=== PATIENT | male | born 1980 | race Caucasian/White ===

== ENCOUNTER 2023-04-28 12:41 | Outpatient (OUT) | payer OTHER, SELFPAY ==
--- NOTE | 2023-04-28 13:49 | P.CN_ITS ---
Consult Note: HPI Data of Consult Patient: new to practice Consult date: 04/28/23 Requesting Physician: Gala Garza MD Primary Care Provider: Jose Peck, Consult Narrative Reason for consult: neck, left arm pain Narrative: 43yom who presents for evaluation. worsening neck and left arm pain that has be en ongoing for months to years. denies trauma. pain shoots down left arm to hand, causes numbness and tingling. progressive left arm weakness. has engaged in >6 weeks of provider directed home exercise course, with minimal benefit. trialed diclofenac, with some benefit. denies adverse med side effects. cc:: CC: Gala Garza MD Review of Systems ROS Status of ROS 10 or more systems reviewed and unremarkable except as noted in history and below Meds Home Medications and Allergies Home Medications Medication Instructions Recorded Confirmed Type diclofenac sodium 75 mg 75 mg PO BID 04/28/23 04/28/23 History tablet,delayed release gabapentin 300 mg capsule 300 mg PO TID 04/28/23 04/28/23 History Allergies Allergy/AdvReac Type Severity Reaction Status Date / Time No Known Drug Allergies Allergy Verified 04/28/23 13:46 Exam Narrative Exam Narrative: Psych-alert and oriented x 3.? Attentive and appropriate, constitutionally normal, displays normal mood and affect per situation.? There are no obvious deficits in memory, reasoning, or intellect.? Skin-no obvious rashes, bruising, or erythema noted to the patient's area of pain.? Extremities-upper extremities are warm with minimal edema and palpable pulses. Cervical- tenderness to palpation noted in the cervical spine and paraspinal musculature.? Pain is elicited with flexion, extension, and lateral rotation of the cervical spine.? Range of motion is diminished due to pain. Facet loading maneuvers are positive.? Strength-unremarkable and within normal limits with the exception to the left biceps, triceps. Sensory-no notable sensory deficits in the bilateral upper extremities to touch or pinprick with the exception to decreased sensation to the left C5, 6, 7 dermatomal distribution.? Coordination remains intact.? Gait remains non-antalgic. Assessment and Plan Assessment and Plan (1) Cervical radiculopathy: (2) Cervical stenosis of spine: (3) Cervical spondylosis: Plan 43yom who presents for evaluation. failed physical and medical modalities, as noted. given worsening symptoms and weakness in left arm, would like him to undergo cervical mri without contrast for assessment. he is in agreement. medications reviewed, will trial gabapentin 300mg tid. he expressed understanding. follow up after imaging.
== END 2023-04-28 12:42 | disposition home or self-care (01) ==
LOC: PM 12:42
PROVIDERS: PCP Internal Medicine; Visit Provider Anesthesiology
DX: M47.22 Other spondylosis with radiculopathy, cervical region (principal); M48.02 Spinal stenosis, cervical region
CPT/HCPCS: G0463

== ENCOUNTER 2023-05-02 11:51 | Outpatient (OUT) | payer OTHER, SELFPAY ==
--- NOTE | 2023-05-02 11:54 | XR_ITS ---
[address] [address] Patient Name: JOY ANDERSEN MRN: [id number] date: 1980 Sex: M Assigned Patient Location: RAD Current Patient Location: [facility] Accession/Order Number: [id number] Exam Date: 05/02/2023 12:00 Report Date: 05/02/2023 12:34 At the request of: NON-STAFF PHYSICIAN Procedure: XR foreign body eye EXAMINATION: XR foreign body eye HISTORY: Foreign Body Eye COMPARISON: No relevant comparison available. FINDINGS: ORBITS: Negative for a metallic foreign body in the orbits. Radiopaque dental hardware. OTHER: Negative. XR/XR foreign body eye IMPRESSION: No metallic foreign body in the orbits Electronically authenticated by: JUDI MALHOTRA Date: 05/02/2023 12:34
== END 2023-05-02 11:52 | disposition home or self-care (01) ==
LOC: RAD 11:52
PROVIDERS: PCP Internal Medicine
DX: M48.02 Spinal stenosis, cervical region (principal)
CPT/HCPCS: 70030

== ENCOUNTER 2023-05-08 15:56 | Outpatient (OUT) | payer OTHER, SELFPAY ==
--- NOTE | 2023-05-08 15:59 | MR_ITS ---
The [address] [address] Patient Name: JOY ANDERSEN MRN: [id number] date: 1980 Sex: M Assigned Patient Location: MRI Current Patient Location: MRI Accession/Order Number: [id number] Exam Date: 05/08/2023 16:00 Report Date: 05/08/2023 20:45 At the request of: ELIO LOVING Procedure: MR cervical spine wo con MR cervical spine wo con, 05/08/2023 4:00 PM EST INDICATION: Cervical Stenosis COMPARISON: There is no appropriate prior study for comparison. TECHNIQUE: Multiplanar, multisequential MRI images of cervical spine were obtained with without contrast. FINDINGS: There is loss of normal physiologic cervical lordosis. The vertebral heights are relatively preserved. There is signal abnormality on T1 and T2-weighted images in the vertebral bodies of visualized spine that may suggest bone marrow reconversion in appropriate clinical setting. The cervicomedullary junction is unremarkable. No definite signal abnormality within the spinal cord is noted. There are moderate disc osteophyte complex associated with uncovertebral joint arthrosis from C3 to T1. Moderate bilateral neuroforaminal narrowing and no canal stenosis at the level of C2-C3 is noted. At the level of C3-C4, there is severe bilateral neuroforaminal narrowing and moderate canal stenosis. At the level of C4-C5, there is severe right and moderate left neuroforaminal narrowing and mild canal stenosis. At the level of C5-C6, there is severe right and moderate left neuroforaminal narrowing and mild canal stenosis. At the level of C6-C7, there is moderate bilateral neuroforaminal narrowing and no canal stenosis. Level of C7-T1 is unremarkable. No definite muscular or ligamentous injury is noted. MR/MR cervical spine wo con IMPRESSION: Moderate degenerative changes of the cervical spine in particular at C3-C4, C4-C5 and C5-C6. Electronically authenticated by: MONY MARINO Date: 05/08/2023 20:45
== END 2023-05-08 15:57 | disposition home or self-care (01) ==
LOC: MRI 15:56
PROVIDERS: PCP Internal Medicine; Visit Provider Anesthesiology
DX: M48.02 Spinal stenosis, cervical region (principal)
CPT/HCPCS: 72141

== ENCOUNTER 2023-09-01 07:02 | Day surgery (SDC) | payer OTHER, SELFPAY ==
--- OUTSIDE RECORDS SUMMARY | 2023-09-01 07:04 | XMS_ITS | CCD ---
Author Name Unknown Address [address] [place] [address] Organization [facility] Care Team Providers Care Advanced Practice Professional Name Role Phone MichaelNayeli Unavailable Greg GAONA, Gala Whittaker Attending Unavailable Greg GAONA, Bandarri Unavailable [phone] BANDAR GARZARI Referring Unavailable KYLIE BAILEY Attending Unavailable NANCY LAGOS Referring Unavailable Medications Completed/Discontinued Medications Medication Drug Class(es) Dates Sig (Normalized) Sig (Original) diclofenac sodium 75 mg delayed release oral tablet (2 sources) Nonsteroidal Anti-inflammatory Drug Start: 07-04-2023 take 1 tablet by mouth every twelve hours as needed diclofenac, EC, (VOLTAREN) 75 mg EC tablet Take 75 mg by mouth two times a day as needed. 0 07/04/2023 Active Comment on above: Take 75 mg by mouth two times a day as needed. gabapentin 300 mg oral capsule (2 sources) Anti-epileptic Agent Start: 06-04-2023 take 1 capsule by mouth three times daily gabapentin (NEURONTIN) 300 mg capsule Take 300 mg by mouth three times a day. 0 06/04/2023 Active Comment on above: Take 300 mg by mouth three times a day. Problems Active Problems Problem Classification Problem Date Documented Da te Episodic/Chronic Spondylosis; intervertebral disc disorders; other back problems (3 sources) Neck pain; Translations: [Cervicalgia] Onset: 08-19-2023 07-03-2023 Episodic Past or Other Problems Problem Classification Problem Date Documented Da te Episodic/Chronic Viral infection (1 source) COVID-19 Onset: 01-07-2022 Resolved: 01-07-2022 Results Test Name Value Interpretation Reference Range Facil ity XR CERV OTHER 4V AP/LAT/FLX/ EXTon 08-19-2023 [facility] X[facility] CERVICAL 4V AP/LAT/FLX/EX Ton 08-19-2023 XR CERVICAL 4V AP/LAT/FLX/EXT * * *Final Report* * * DATE OF EXAM: Aug 19 2023 9:03AM JIX [id number] - XR CERVICAL 4V AP/LAT/FLX/EXT / PROCEDURE REASON: Neck pain * * * * Physician Interpretation * * * * EXAMINATION: XR CERVICAL 4V AP/LAT/FLX/EXT CLINICAL HISTORY: Chronic neck pain radiating in the left TECHNIQUE: XR CERVICAL 4V AP/LAT/FLX/EXT with 4 views on 4 images MQ: XCS_1 COMPARISON: None. RESULT: Counting Reference: Craniocervical junction on lateral view. Normal. Post-op assessment: N/A Alignment: Normal alignment. Vertebral bodies: Normal in height. No vertebral fracture. Spine articulations: Osteophyte formation of the endplates at several levels without significant disc space narrowing. Some degenerative changes in the facet joint in the upper cervical spine and also at C7/T1. Soft tissues: Normal. Other: IMPRESSION: Facet joint degenerative changes. No spondylolisthesis Anatomic Variant: None. Assume 7 cervical vertebrae with counting from the craniocervical junction. Tape Rules Printing Machine Operator: [email or web address] Transcribe Date/Time: Aug 19 2023 9:09A Dictated by : GRACIELA BEY MD This examination was interpreted and the report reviewed and electronically signed by: GRACIELA BEY MD on Aug 19 2023 9:11AM EST [id number] Normal [facility] SARS-CoV-2 (COVID-19) RNA NA A+probe Ql (Resp)on 01-07-2022 SARS-CoV-2 (COVID-19) RNA JACOBY+probe Ql (Unsp spec) Positive [facility] Other Vital Signs Date Time Vital Sign Value Performing Clinician Facility 01-07-2022 10:20-0400 Body height 185.42 cm Nayeli Michael Other [facility] Other 01-07-2022 10:20-0400 Body mass index (BMI) [Ratio] 34.3 kg/m2 Nayeli Abramsault Other [facility] Other 01-07-2022 10:20-0400 Body temperature 97.3 [degF] Nayeli Abramsault Other [facility] Other 01-07-2022 10:20-0400 Body weight 117.94 kg Nayeli Abramsault Other [facility] Other 01-07-2022 10:20-0400 Respiratory rate 18 /min Nayeli Michael Other [facility] Other 01-07-2022 10:20-0400 SaO2% (BldA) [Mass fraction] 97 % Nayeli Abramsault Other [facility] Other Encounters Encounter Date Encounter Type Care Provider Facility Start: 08-22-2023 Telephone encounter Kylie Bailey MD Work Phone: [facility] [place] Comment on above: Request from Sheila handley Start: 08-19-2023 End: 08-19-2023 ambulatory NANCY LAGOS Facility:[facility] Start: 08-19-2023 End: 08-19-2023 Subsequent hospital visit by physician Leta Main J1-4 Work Phone: Radiology Comment on above: Neck pain [M54.2] Start: 06-17-2023 Chart abstracting None (Historical) Neurology Start: 04-28-2023 End: 04-29-2023 ambulatory Gala Garza MD Facility:[facility] Start: 01-07-2022 End: 01-07-2022 ambulatory Nayeli Rodriguez Other [facility] Other Start: 01-07-2022 Office outpatient ne w 30 minutes Nayeli Rodriguez [facility] Procedures Date Procedure Procedure Detail Performing Clinician Start: 08-19-2023 Radex spine cervical 4 or 5 views Nancy Lagos APRN.UNCLAIMED PROPERTY MANAGER Work Phone: Plan of Treatment Date Care Activity Detail Author Start: 06-30-2023 Depression Assessment Depression Ass essment [facility] Start: 02-28-2023 Influenza vaccination Influenza Vacc ine (#1) [facility] Start: 02-01-2016 Lipid panel Lipid Screening [facility] Start: 02-01-2000 Urine microalbumin profile DTaP,Tdap,Td Vaccine (1 - Tdap) [facility] Start: 1999 Hepatitis C screening Hepatitis C Sc reening [facility] Start: 1999 HIV screening HIV Screening [facility] Start: 1981 Covid-19 Vaccine (#1) Covid-19 Vacci ne (#1) [facility] Start: 1981 Hepatitis B Vaccine (1 of 3 - 3-dose series) Hepatitis B Vaccine (1 of 3 - 3-dose series) [facility] End: 08-01-2024 Radex spine cervical 4 or 5 views XR CERV OTHER 4V AP/LAT/FLX/EXT Radiology Routine Neck pain 1 Occurrences starting 07/03/2023 until 08/01/2024 [facility] Work Phone: Comment on above: 1 Occurrences starti ng 07/03/2023 until 08/01/2024 Payers Date Payer Category Payer Private Health Insurance [id number] 2021 Private Health Insurance 1980 Unknown [id number] Social History Date Type Detail Facility Start: 08-19-2023 Sex Assigned At [facility] Other Tobacco smoking status MAIS Tobacco smoking consumption unknown [facility] Start: 1980 Sex Assigned At Not on file [facility] Start: 08-19-2023 Tobacco smoking status MAIS Never smoked tobacco [facility] Start: 08-19-2023 Tobacco use and exposure Smokeless tobacco non-user [facility] Start: 08-19-2023 History of Social function [facility] National Score (1-100), lower number is lower risk 65 [facility] Clinical Notes 01-07-2022 to 08-26-2023 Telephone Encounter - Janell Burrell - 08/26/2023 10:41 AM ESTTelephone Encounter - Janell Burrell - 08/22/2023 9:58 AM Rosanna Giles RT(R) - 08/19/2023 9:30 AM EST Note Date & Type Note Facility 08-26-2023 Miscellaneous Notes Formattin g of this note might be different from the original. OV noted completed and faxed to: [facility] Attn: Diane Confirmation received. Diane from [facility] called; they referred patient to Dr. Bailey. Requesting 08/19/23 OV Note be faxed to her at: [facility] Attn: Diane FYI: OV Note is not completed yet - please advise once signed and the note will be faxed as requested. documented in this encounter [facility] 08-19-2023 Note HNO ID: [id number] Author: ROSANNA GUNTER RT(Osvaldo) Service: Radiology Author Type: Technologist Type: Progress Notes Filed: 08/19/2023 09:13 Note Text: Radiology Service Progress Note PATIENT NAME: Rashard Black DATE OF SERVICE: August 19, 2023 TIME: 9:12 AM PATIENT IDENTITY VERIFICATION COMPLETED USING TWO (2) IDENTIFIERS: Name and Date of confirmed by patient verbally. FALL SCREENING: Has the patient had 2 falls in the last year or 1 fall with injury or currently using an Ambulatory Assistive Device (Walker, Cane, Wheelchair, Crutches, etc.)? No PATIENT GENDER DATA: Male PATIENT RELEVANT IMPLANT DATA REVIEWED: Not Applicable PATIENT PRESENTS WITH AN IMPLANTABLE OR ATTACHED SOFT WORK WRAPPER LAYER AND EXAMINER: No RADIOLOGY DEPARTMENT: General X-ray: Exam(s) Completed: Spine X-Ray(s): Cervical AP / LAT / FLEX-EXT PERIPHERAL IV DATA: Not applicable SIGNED BY: RT Ran(R) August 19, 2023 9:12 AM [facility] 08-19-2023 History of Presen t illness Narrative Radiology Service Progress Note PATIENT NAME: Rashard Black DATE OF SERVICE: August 19, 2023 TIME: 9:12 AM PATIENT IDENTITY VERIFICATION COMPLETED USING TWO (2) IDENTIFIERS: Name and Date of confirmed by patient verbally. FALL SCREENING: Has the patient had 2 falls in the last year or 1 fall with injury or currently using an Ambulatory Assistive Device (Walker, Cane, Wheelchair, Crutches, etc.)? No PATIENT GENDER DATA: Male PATIENT RELEVANT IMPLANT DATA REVIEWED: Not Applicable PATIENT PRESENTS WITH AN IMPLANTABLE OR ATTACHED SOFT WORK WRAPPER LAYER AND EXAMINER: No RADIOLOGY DEPARTMENT: General X-ray: Exam(s) Completed: Spine X-Ray(s): Cervical AP / LAT / FLEX-EXT PERIPHERAL IV DATA: Not applicable SIGNED BY: RT Ran(R) August 19, 2023 9:12 AM documented in this encounter [facility] 07-03-2023 Note HNO ID: [id number] Author: NANCY LAGOS APRN.UNCLAIMED PROPERTY MANAGER Service: ? Author Type: Nurse Practitioner Type: Progress Notes Filed: 07/03/2023 22:00 Note Text: Per Triage: Rashard Black is a 43 year old male that requests evaluation of cervical spine. Per review, they have symptoms of Neck pain Arm pain (L) Numbness, tingling Weakness CMT: muscle relaxants Gabapentin Studies (Reports unless indicated) MRI cervical mulitlevel foraminal stenosis and canal stenosis ranging from mod to severe Disposition: Please schedule with Dr Bailey if patient would like sooner appointment can schedule with me. Will need copies of imaging only reports available, XR cerv ordered to be completed prior. [facility] 07-03-2023 History of Presen t illness Narrative Per Triage: Rashard Black is a 43 year old male that requests evaluation of cervical spine. Per review, they have symptoms of Neck pain Arm pain (L) Numbness, tingling Weakness CMT: muscle relaxants Gabapentin Studies (Reports unless indicated) MRI cervical mulitlevel foraminal stenosis and canal stenosis ranging from mod to severe Disposition: Please schedule with Dr Bailey if patient would like sooner appointment can schedule with me. Will need copies of imaging only reports available, XR cerv ordered to be completed prior. Patient name: Rashard Black Are you being referred by a [place] for Spine Health Provider or Pain Management Provider at [facility]? No If answer is YES please schedule directly with surgeon, triage does not need to be completed. Is this a self-referral No If not, who is the Referring Provider Andjones Garza Is this a 2nd opinion from another spine surgeon? No Were you offered surgery? No MRI/CT/myelogram within 12 months? Yes If NO , please refer to medical spine or PCP to complete above imaging, triage does not need to be completed If YES, please ask for the name/address of the facility where the MRI/CT/myelogram was completed: [facility] [address] [facility] [address] MRI/CT/myelogram viewable in Epic: No If not, please provide [phone] to fax in imaging reports for review. Also, please inform patient to hand carry imaging disc to appointment. XR (spine) within 12 months: No If YES, please ask for the name/address of the facility where the XR was completed: Dr. Romero's patients: Have you had previous EMG/Nerve Conduction Study, Ultrasound, or MRI for these same symptoms? If YES, please ask for the name/address of the facility where they were completed: Requested provider (First and Last name): Kylie Bailey or Jass Lewis Are you interested in a virtual visit if offered? No 1. Where are you having symptoms related to this visit? Neck pain Arm pain (L) Numbness, tingling Weakness Back pain No Leg pain No Arm pain Yes Neck pain Yes 2. Are you having any of the following symptoms: Difficulty walking No Numbness Yes Weakness Yes Trouble using your hands? No 3. Have you had any injections or physical therapy in the last 12 months? No If YES then please ask for the name/address of the facility where the injections and/or physical therapy was completed Have you tried any other kinds of non-surgical treatments in the last 12 months? (For example: NSAIDS, muscle relaxants, analgesics, oral steroids, Chiropractor, Acupuncture): muscle relaxants Gabapentin 4. Are you currently taking daily prescribed narcotic medications for your current symptoms (For example Oxycodone, Hydrocodone, Tramadol, Morphine, Other)? No 5. Have you had previous spinal surgery for this same symptoms? No If YES please ask for the name of facility/address of where the surgery was completed: Additional Comments documented in this encounter [facility] 06-17-2023 Note HNO ID: [id number] Author: ?, ?, ? Service: ? Author Type: ? Type: Progress Notes Filed: 07/03/2023 22:00 Note Text: Patient name: Rashard Black Are you being referred by a [place] for Spine Health Provider or Pain Management Provider at [facility]? No If answer is YES please schedule directly with surgeon, triage does not need to be completed. Is this a self-referral No If not, who is the Referring Provider Andjones Juanitis Is this a 2nd opinion from another spine surgeon? No Were you offered surgery? No MRI/CT/myelogram within 12 months? Yes If NO , please refer to medical spine or PCP to complete above imaging, triage does not need to be completed If YES,? please ask for the name/address of the facility where the MRI/CT/myelogram was completed: [facility] [address] [facility] [address] MRI/CT/myelogram viewable in Epic: No If not, please provide [phone] to fax in imaging reports for review. Also, please inform patient to hand carry imaging disc to appointment. XR (spine) within 12 months: No If YES,? please ask for the name/address of the facility where the XR was completed: Dr. Romero's patients: Have you had previous EMG/Nerve Conduction Study, Ultrasound, or MRI for these same symptoms? If YES,? please ask for the name/address of the facility where they were completed: Requested provider (First and Last name): Kylie Bailey or Jass Lewis Are you interested in a virtual visit if offered? No 1. Where are you having symptoms related to this visit? Neck pain Arm pain (L) Numbness, tingling Weakness Back pain No Leg pain No Arm pain Yes Neck pain Yes 2. Are you having any of the following symptoms: Difficulty walking No Numbness Yes Weakness Yes Trouble using your hands? No 3. Have you had any injections or physical therapy in the last 12 months? No If YES then please ask for the name/address of the facility where the injections and/or physical therapy was completed Have you tried any other kinds of non-surgical treatments in the last 12 months? (For example: NSAIDS, muscle relaxants, analgesics, oral steroids, Chiropractor, Acupuncture): muscle relaxants Gabapentin 4. Are you currently taking daily prescribed narcotic medications for your current symptoms (For example Oxycodone, Hydrocodone, Tramadol, Morphine, Other)? No 5. Have you had previous spinal surgery for this same symptoms? No If YES? please ask for the name of facility/address of where the surgery was completed: Additional Comments [facility] 01-07-2022 Evaluation note Encounter Date Diagnosis Assessment Notes Dec, COVID -19 (ICD- 10 - U07.1 ) Discharge Instructions for COVID-19 (Suspected or Confirmed ) material was printed Today you tested positive for the COVID virus. This mean you need to follow all CDC quarantine guidelines found at [email or web address] gov. It is important to rest, increase fluids, and stay at home. Contact PCP and inform them of results. Medications like Mucinex, Cepacol, Tylenol, saline nasal spray are over the counter medications that can help with the symptoms. Current guidelines include staying home, having no fever above 100.4 for 24 hours without medication and having significant improvement of symptoms before you are allowed to stop your quarantine.. For full guidelines go to CDC. GOV. Contact primary care and ask for guidance is essential to follow up * EDUCATION HANDOUT GIVEN ON OTC TREATMENTS, FOLLOW UP AND WHEN TO SEEK EMERGENCY TREATMENT [employer] [facility] Other Evaluation note* Diagnosis Neck pain- Primary Cervicalgia [facility] Diagnosis Neck pain Cervicalgia documented in this encounter [facility] for referral (narrative)* Diagnostic Procedure Only (Routine) - Pending Review Specialty Diagnoses / Procedures Referred By Contac t Referred To Contact XR IMAGING Diagnoses Neck pain Procedures XR CERV OTHER 4V AP/LAT/FLX/EXT RADEX SPINE CERVICAL 4 OR 5 VIEWS Nancy Lagos APRN.UNCLAIMED PROPERTY MANAGER [address] [place] [address] Xr Imaging [place] [address] Referral ID Status Reason Start Date Expiration Date Visits Requested Visits Authorized [id number] Pending Review Auto-Generat ed Referral 07/03/2023 08/01/2024 1 1 [facility] for referral (narrative)* Diagnostic Procedure Only (Routine) - Closed Specialty Diagnoses / Procedures Referred By Contac t Referred To Contact XR IMAGING Diagnoses Neck pain Procedures XR CERV OTHER 4V AP/LAT/FLX/EXT RADEX SPINE CERVICAL 4 OR 5 VIEWS Nancy Lagos APRN.UNCLAIMED PROPERTY MANAGER [address] [phone] Xr Imaging [place] [address] Referral ID Status Reason Start Date Expiration Date V isits Requested Visits Authorized [id number] Closed Auto-Generate d Referral 07/03/2023 08/01/2024 1 1 [facility] Summary Purpose Family History No Family History Records FoundNo Family History Records Found Advance Directives No Advanced Directives Records FoundNo Advanced Directives Records Found Additional Source Comments REASON FOR VISIT (unrecogniz ed section and content) Reason Comments [facility] Specialty Diagnoses / Procedures Referred By Contac t Referred To Contact XR IMAGING Diagnoses Neck pain Procedures XR CERV OTHER 4V AP/LAT/FLX/EXT RADEX SPINE CERVICAL 4 OR 5 VIEWS Nancy Lagos APRN.UNCLAIMED PROPERTY MANAGER [address] [phone] Xr Imaging [id number] Referral ID Status Reason Start Date Expiration Date V isits Requested Visits Authorized [id number] Closed Auto-Generate d Referral 07/03/2023 08/01/2024 1 1 Reason Comments Request from Provider (unrecognized sect ion and content) No Status Records FoundNo Status Records Found INFORMATION SOURCE (unrecogn ized section and content) DATE CREATED AUTHOR 04/30/2023 [facility] DATE CREATED AUTHOR AUTHOR'S ORGANIZ ATION 08/20/2023 [facility] Source Comments (unrecognize d section and content) In the event this informatio n is protected by the Federal Confidentiality of Alcohol and Drug Abuse Patient Records regulations: The Federal rules restrict any use of the information to criminally investigate or prosecute any alcohol or drug abuse patient.[facility] the event this information is protected by the Federal Confidentiality of Alcohol and Drug Abuse Patient Records regulations: The Federal rules restrict any use of the information to criminally investigate or prosecute any alcohol or drug abuse patient.[facility] the event this information is protected by the Federal Confidentiality of Alcohol and Drug Abuse Patient Records regulations: The Federal rules restrict any use of the information to criminally investigate or prosecute any alcohol or drug abuse patient.[facility] Care Teams (unrecognized sec tion and content) Advanced Practice Professional Relationship Specialty Start Date End Date Gala Garza MD [address] [place] [address] [address] [place] [address] Referring Pain Management 06/14/23 Advanced Practice Professional Relationship Specialty Start Date End Date Gala Garza MD [address] [place] [address] [address] [place] [address] Referring Pain Management 06/14/23 Advanced Practice Professional Relationship Specialty Start Date End Date Gala Garza MD [address] [place] [address] [address] [place] [address] Referring Pain Management 06/14/23 FOR RECORDS PERTAINING TO PATIENTS WHO ARE OR HAVE BEEN ENROLLED IN A CHEMICAL DEPENDENCY/SUBSTANCEABUSE PROGRAM, SOME INFORMATION MAY BE OMITTED. This clinical summary was aggregated from multiple sources. Caution should be exercised in using it in the provision of clinical care. This summary normalizes information from multiple sources, and as a consequence, information in this document may materially change the coding, format and clinical context of patient data. In addition, data may be omitted in some cases. CLINICAL DECISIONS SHOULD BE BASED ON THE PRIMARY CLINICAL RECORDS. [facility] [employer] [facility]. provides no warranty or guarantee of the accuracy or completeness of information in this document.
[2023-09-01 07:15] VITALS: BP 140/83; PULSE 89; RESP 16; TEMP 36.5; O2SAT 97
[2023-09-01 08:03] VITALS: RESP 20
[2023-09-01 08:06] VITALS: BP 137/68; PULSE 77; O2SAT 96
[2023-09-01 08:07] VITALS: BP 122/67; PULSE 78; O2SAT 97
[2023-09-01] MEDS: 0.9 % SODIUM CHLORIDE 10 ML INJ (08:08)
[2023-09-01] MEDS: DEXAMETHASONE SOD PHOS 10 MG/ML VIAL INJ (08:09)
[2023-09-01] MEDS: BUPIVACAINE HCL 0.25% PF 25 MG/10 ML VIAL INJ (08:09)
[2023-09-01] MEDS: IOHEXOL 240 MG/ML - 10 ML VIAL INJ (08:09)
[2023-09-01] MEDS: LIDOCAINE HCL 2% PF 100 MG/5 ML VIAL 4 ML INJ (08:10)
--- NOTE | 2023-09-01 08:11 | P.ON_ITS ---
Date of procedure: 09/01/23 Pre-op diagnosis: M54.12 Post-op diagnosis: same as pre-op Procedure: Procedure: Left C3-4, 4-5 transforaminal epidural steroid injection Medications: Bupivacaine 0.25% 1cc, lidocaine 2% 1cc, dexamethasone 10mg The patient was seen and examined in the preoperative holding area.? Informed consent was obtained and placed on the chart.? Patient was brought to the medical procedure unit and placed in the prone position where a timeout was completed verifying the correct patient, procedure site, position, and planned special equipment using sterile aseptic technique.? Under direct fluoroscopic visualization a 25-gauge Quincke tipped spinal needle was advanced to the designated neural foramen where contrast dye was injected to show adequate spread.? The needle was inserted at level left C3-4. There was no evidence of vascular or adverse uptake.? Epidural spread was appreciated.? The above- mentioned injectate was then placed in a 1.5 mL aliquot preceded by negative aspiration.? The needle was removed. The needle was inserted and the procedure repeated at level left C4-5.? The surgery site was covered.? Patient was taken to the postprocedural recovery area and monitored for an appropriate length of time before found suitable for discharge in the accompaniment of a responsible adult. Anesthesia: Local Surgeon: Gala Garza Pathology: none sent Condition: stable Disposition: no change
== END 2023-09-01 08:14 | disposition home or self-care (01) ==
PROVIDERS: PCP Internal Medicine; Visit Provider Anesthesiology
DX: M54.12 Radiculopathy, cervical region (principal)
CPT/HCPCS: 64479; 64480; J1100; Q9966

== ENCOUNTER 2023-09-11 07:45 | Outpatient (OUT) | payer OTHER, SELFPAY ==
--- OUTSIDE RECORDS SUMMARY | 2023-09-11 07:47 | XMS_ITS | CCD ---
Author Name Unknown Address [address] [place] [address] [address] [place] [address] Organization [facility] Care Team Providers Care Basket Assembler Name Role Phone MichaelMaximoNayeli Unavailable Greg GAONA, Gala Unavailable GALA GARZA Referring Unavailable KYLIE BAILEY Attending Unavailable NANCY LAGOS Referring Unavailable Greg GAONA, Gala Whittaker Attending Unavailable Greg GAONA, Gala Whittaker Attending Unavailable Medications Completed/Discontinued Medications Medication Drug Class(es) [...] XR CERV OTHER 4V AP/LAT/FLX/ EXTon 08-19-2023 [facility] XR CERVICAL 4V AP/LAT/FLX/EX Ton [...] vertebrae with counting from the craniocervical junction. Department Traffic Freight Router: [email or web address] Transcribe Date/Time: Aug 19 2023 9:09A Dictated by : GRACIELA BEY MD This examination was interpreted and the report reviewed and electronically signed by: GRACIELA BEY MD on Aug 19 2023 9:11AM EST [id number] Normal [facility] SARS-CoV-2 (COVID-19) RNA NA A+probe Ql (Resp)on 01-07-2022 SARS-CoV-2 (COVID-19) RNA JACOBY+probe Ql (Unsp spec) Positive [facility] Other Vital Signs Date Time Vital Sign Value Performing Clinician Facility 01-07-2022 10:20-0400 Body height 185.42 cm Nayeli Abramsault Other [facility] Other 01-07-2022 10:20-0400 Body mass index (BMI) [Ratio] 34.3 kg/m2 Nayeli Rodriguez Other [facility] Other 01-07-2022 10:20-0400 Body temperature 97.3 [degF] Nayeli Rodriguez Other [facility] Other 01-07-2022 10:20-0400 Body weight 117.94 kg Nayeli Rodriguez Other [facility] Other 01-07-2022 10:20-0400 Respiratory rate 18 /min Nayeli Rodriguez Other [facility] Other 01-07-2022 10:20-0400 SaO2% (BldA) [Mass fraction] 97 % Nayeli Rodriguez Other [facility] Other Encounters Encounter Date Encounter Type Care Provider Facility Start: 09-01-2023 End: 09-02-2023 ambulatory Gala Garza MD Facility:[facility] Start: 08-22-2023 Telephone encounter Kylie Bailey MD Work Phone: [facility] Comment on above: Request from Sheila handley Start: 08-19-2023 End: 08-19-2023 ambulatory NANCY LAGOS Facility:[facility] Start: 08-19-2023 End: 08-19-2023 Subsequent hospital visit by physician Leta Main J1-4 Work Phone: Radiology Comment on above: Neck pain [M54.2] Start: 06-17-2023 Chart abstracting None (Historical) Neurology Start: 04-28-2023 End: 04-29-2023 ambulatory Gala Garza MD Facility: [facility] Start: 01-07-2022 End: 01-07-2022 ambulatory Nayeli Rodriguez Other [facility] Other Start: 01-07-2022 Office outpatient ne w 30 minutes Nayeli Rodriguez [facility] Procedures Date Procedure Procedure Detail Performing Clinician Start: 08-19-2023 [facility] spine cervical 4 or 5 views Nancy Lagos APRN.CNP Work Phone: Plan of Treatment Date Care Activity Detail Author Start: 06-30-2023 Depression Assessment Depression Ass essment [facility] Start: 02-28-2023 Influenza vaccination Influenza Vacc ine (#1) [facility] Start: 02-01-2016 Lipid panel Lipid Screening [facility] Start: 02-01-2000 Urine microalbumin profile DTaP,Tdap,Td Vaccine (1 - Tdap) [facility] Start: 1999 Hepatitis C screening Hepatitis C Sc reening [facility] Start: 1999 HIV screening HIV Screening [facility] Start: 1981 Covid-19 Vaccine (#1) Covid-19 Vacci ne (#1) [facility] Start: 1981 Hepatitis B Vaccine (1 of 3 - 3-dose series) Hepatitis B Vaccine (1 of 3 - 3-dose series) [facility] End: 08-01-2024 Radex spine cervical 4 or 5 views XR CERV OTHER 4V AP/LAT/FLX/EXT Radiology Routine Neck pain 1 Occurrences starting 07/03/2023 until 08/01/2024 [facility] Work Phone: Comment on above: 1 Occurrences starti ng 07/03/2023 until 08/01/2024 Payers Date Payer Category Payer Private Health Insurance [id number] 2021 Private Health Insurance [id number] 1981 Unknown [id number] 1981 Unknown [id number] Social History Date Type Detail Facility Start: 08-19-2023 Sex Assigned At N [facility] [employer] Other Tobacco smoking status NYIS Tobacco smoking consumption unknown [facility] Start: 1980 Sex Assigned At Not on file C [facility] Start: 08-19-2023 Tobacco smoking status NHIS Never smoked tobacco [facility] Start: 08-19-2023 Tobacco use and exposure Smokeless tobacco non-user [facility] Start: 08-19-2023 History of Social function [facility] National Score (1-100), lower number is lower risk 65 [facility] Clinical Notes 01-07-2022 to 08-26-2023 Telephone Encounter - Janell Burrell - 08/26/2023 10:41 AM ESTTelephone Encounter - Janell Burrell - 08/22/2023 9:58 AM Rosanna Giles RT(R) - 08/19/2023 9:30 AM EST Note Date & Type Note Facility 08-26-2023 Miscellaneous Notes Formattin g of this note might be different from the original. OV noted completed and faxed to: [facility] Attn: Diane Confirmation received. Diane from [facility] called; they referred patient to Dr. Bailey. Requesting 08/19/23 OV Note be faxed to her at: [facility] Attn: Diane FYI: OV Note is not completed yet - please advise once signed and the note will be faxed as requested. documented in this encounter [facility] 08-19-2023 Note HNO ID: [id number] Author: ROSANNA GUNTER RT(R) Service: Radiology Author Type: Technologist Type: Progress [...] PATIENT PRESENTS WITH AN IMPLANTABLE OR ATTACHED NETWORK OPERATIONS ANALYST: No RADIOLOGY DEPARTMENT: General X-ray: Exam(s) Completed: Spine X-Ray(s): Cervical AP / LAT / FLEX-EXT PERIPHERAL IV DATA: Not applicable SIGNED BY: RT Rna(R) August 19, 2023 9:12 AM [facility] 08-19-2023 History of Presen t illness Narrative [...] PATIENT PRESENTS WITH AN IMPLANTABLE OR ATTACHED NETWORK OPERATIONS ANALYST: No RADIOLOGY DEPARTMENT: General X-ray: Exam(s) Completed: Spine X-Ray(s): Cervical AP / LAT / FLEX-EXT PERIPHERAL IV DATA: Not applicable SIGNED BY: RT Ran(R) August 19, 2023 9:12 AM documented in this encounter [facility] 07-03-2023 Note HNO ID: [id number] Author: NANCY LAGOS APRN.TRAY SETTER Service: ? Author Type: Nurse Practitioner Type: [...] XR cerv ordered to be completed prior. [facility] 07-03-2023 History of Presen t illness Narrative [...] Black Are you being referred by a Center for Spine Health Provider or Pain Management Provider at [facility]? No If answer is YES please schedule directly with surgeon, triage does not need to be completed. Is this a self-referral No If not, who is the Referring Provider Andrius Giedraitis Is this a 2nd opinion from another spine surgeon? No Were you offered surgery? No MRI/CT/myelogram within 12 months? Yes If NO , please refer to medical spine or PCP to complete above imaging, triage does not need to be completed If YES, please ask for the name/address of the facility where the MRI/CT/myelogram was completed: [facility] [address] [facility] [address] MRI/CT/myelogram viewable in Epic: No If not, please provide [phone] to fax in imaging reports for review. [...] completed: Additional Comments documented in this encounter [facility] 06-17-2023 Note HNO ID: [id number] Author: ?, ?, ? Service: ? Author Type: ? Type: Progress Notes Filed: 07/03/2023 22:00 Note Text: Patient name: Rashard Black Are you being referred by a Center for [facility] Health Provider or Pain Management Provider at [facility]? No If answer is YES please [...] was completed: [facility] [address] [facility] [address] MRI/CT/myelogram viewable in Epic: No If not, please provide [phone] to fax in imaging reports for review. [...] where the surgery was completed: Additional Comments [facility] 01-07-2022 Evaluation note Encounter Date Diagnosis Assessment [...] UP AND WHEN TO SEEK EMERGENCY TREATMENT [facility] Other Evaluation note* Diagnosis Neck pain- Primary Cervicalgia [facility] Cervicalgia documented in this encounter [facility] for referral (narrative)* Diagnostic Procedure Only (Routine) - Pending Review Specialty Diagnoses / Procedures Referred By Yadyac t Referred To Contact XR IMAGING Diagnoses Neck pain Procedures XR CERV OTHER 4V AP/LAT/FLX/EXT [facility] SPINE CERVICAL 4 OR 5 VIEWS Nancy Lagos APRN.CNP [address] [place] [address] [facility] [place] [address] Referral ID Status Reason Start Date Expiration Date Visits Requested Visits Authorized [id number] Pending Review Auto-Generat ed Referral 07/03/2023 08/01/2024 1 1 [facility] for referral (narrative)* Diagnostic Procedure Only (Routine) - Closed Specialty Diagnoses / Procedures Referred By Contac t Referred To Contact XR IMAGING Diagnoses Neck pain Procedures XR CERV OTHER 4V AP/LAT/FLX/EXT RADEX SPINE CERVICAL 4 OR 5 VIEWS Nancy Lagos APRN.CNP [address] [place] [id number] [facility] [place] [address] Referral ID Status Reason Start Date Expiration Date V isits Requested Visits Authorized [id number] Closed Auto-Generate d Referral 07/03/2023 08/01/2024 1 1 [facility] Summary Purpose Family History No Family History Records FoundNo Family History Records Found Advance Directives No Advanced Directives Records FoundNo Advanced Directives Records Found Additional Source Comments REASON FOR VISIT (unrecogniz ed section and content) Reason Comments [facility] Specialty Diagnoses / Procedures Referred By Ino t Referred To Contact XR IMAGING Diagnoses Neck pain Procedures XR CERV OTHER 4V AP/LAT/FLX/EXT RADEX SPINE CERVICAL 4 OR 5 VIEWS Nancy Lagos APRN.TRAY SETTER [address] [place] [address] [facility] [place] [address] Referral ID Status Reason Start Date Expiration Date V isits Requested Visits Authorized [id number] Closed Auto-Generate d Referral 07/03/2023 08/01/2024 1 1 Reason Comments Request from Provider Source Comments (unrecognize d section and content) In the event this informatio n is protected by the Federal Confidentiality of Alcohol and Drug Abuse Patient Records regulations: The Federal rules restrict any use of the information to criminally investigate or prosecute any alcohol or drug abuse patient.[facility] the event this information is protected by the Federal Confidentiality of Alcohol and Drug Abuse Patient Records regulations: The Federal rules restrict any use of the information to criminally investigate or prosecute any alcohol or drug abuse patient.[facility] the event this information is protected by the Federal Confidentiality of Alcohol and Drug Abuse Patient Records regulations: The Federal rules restrict any use of the information to criminally investigate or prosecute any alcohol or drug abuse patient.[facility] Care Teams (unrecognized sec tion and content) Basket Assembler Relationship Specialty Start Date End Date Gala Garza MD [address] [place] [address] [address] [place] [address] Referring Pain Management 06/14/23 Basket Assembler Relationship Specialty Start Date End Date Gala Garza MD [address] [place] [address] [address] [place] [address] Referring Pain Management 06/14/23 Basket Assembler Relationship Specialty Start Date End Date Gala Garza MD [address] [place] [address] [address] [place] [address] Referring Pain Management 06/14/23 (unrecognized sect ion and content) No Status Records FoundNo Status Records Found INFORMATION SOURCE (unrecogn ized section and content) DATE CREATED AUTHOR 08/20/2023 [facility] DATE CREATED AUTHOR 'S CHRIS ATGIULIANO 09/05/2023 [facility] FOR RECORDS PERTAINING TO PATIENTS WHO ARE [...] BE BASED ON THE PRIMARY CLINICAL RECORDS. [facility] [facility]. provides no warranty or guarantee of the accuracy or completeness of information in this document.
--- NOTE | 2023-09-11 07:58 | P.CN_ITS ---
Consult Note: HPI Data of Consult Patient: known to practice within the last 3 years Consult date: 04/28/23 Requesting Physician: Elise Kent NP Primary Care Provider: Jose Peck DO Consult Narrative Reason for consult: neck, left arm pain Narrative: 43yom who presents for evaluation. worsening neck and left arm pain that has been ongoing for months to years. denies trauma. pain shoots down left arm to hand, causes numbness and tingling. progressive left arm weakness. has engaged in >6 weeks of provider directed home exercise course, with minimal benefit. trialed diclofenac, with some benefit. denies adverse med side effects. Patient recently underwent Left C3-4, 4-5 transforaminal epidural steroid injection with little to no relief, no improvement in radicular symptoms but does notice improvement in ability to turn head. cc:: CC: Elise Kent NP Review of Systems ROS Status of ROS 10 or more systems reviewed and unremark able except as noted in history and below Musculoskeletal Reports: neck pain Meds Home Medications and Allergies Home Medications Medication Instructions Recorded Confirmed Type diclofenac sodium 75 mg 75 mg PO BID 04/28/23 09/01/23 History tablet,delayed release gabapentin 300 mg capsule 300 mg PO TID 04/28/23 09/01/23 History Allergies Allergy/AdvReac Type Severity Reaction Status Date / Time No Known Drug Allergies Allergy Verified 04/28/23 13:46 Exam Narrative Exam Narrative: Psych-alert and oriented x 3.? Attentive and appropriate, constitutionally normal, displays normal mood and affect per situation.? There are no obvious deficits in memory, reasoning, or intellect.? Skin-no obvious rashes, bruising, or erythema noted to the patient's area of pain.? Extremities-upper extremities are warm with minimal edema and palpable pulses. Cervical- tenderness to palpation noted in the cervical spine and paraspinal musculature.? Pain is elicited with flexion, extension, and lateral rotation of the cervical spine.? Range of motion is diminished due to pain. Facet loading maneuvers are positive.? Strength-unremarkable and within normal limits with the exception to the left biceps, triceps. Sensory-no notable sensory deficits in the bilateral upper extremities to touch or pinprick with the exception to decreased sensation to the left C5, 6, 7 dermatomal distribution.? Coordination remains intact.? Gait remains non-antalgic. Constitutional Documenting provider has reviewed patient's vital signs: yes Common normals: no apparent distress, oriented x3, healthy appearing, alert and well nourished General appearance: cooperative HENMT Common normals: normocephalic, hearing grossly normal bilaterally and moist oral mucous membranes Head and scalp: normocephalic Eye Common normals: PERRL Pupil: PERRL Neck & C-Spine Common normals: full ROM General: normal visual inspection Chest Common normals: inspection of chest normal Respiratory Common normals: normal respiratory effort, no retractions and no use of accessory muscles Neuro Common normals: oriented x3, CN's II-XII intact bilaterally, moves all extremities, no focal motor deficits, no sensory deficits noted and deep tendon reflexes 2+ bilaterally Sensorium/orientation: alert Motor exam: strength 5/5 throughout and no movement abnormalities noted Psych Common normals: mental status grossly normal, thought process normal, cooperative, affect normal, speech normal and activity/motor behavior normal Speech: normal speech Thought process: normal thought process Results Additional Findings Additional findings: If on a controlled substance or opioids, I have checked an [place]AR[place] report on this patient and there are no aberrancies noted in the prescribing history.??If on a controlled substance or opioid a drug screen was completed and reviewed within the last year, and if there has not been a drug screen completed we ordered one today to monitor higher risk, state monitored pain medication use. As part of providing excellent, safe, comprehensive care, the following was completed at our patient's visit: 1. A medication reconciliation and review to ensure accurate knowledge of current/active medications, including asking our patients to inform us about any [id number] medications or herbal remedies/nutritional supplements/alternative remedies. 2. A review to specifically ensure our patients have had annual screening for screening for depression, screening for tobacco use, and screening for unhealthy alcohol use. For concerning screenings had a discussion with the patient, provided patient education, and recommended follow-up with primary care provider when appropriate. If patient noted with a risk of falling, they received education on strength, gait, and balance training to prevent future risk of falling. Assessment and Plan Assessment and Plan (1) Cervical radiculopathy: (2) Cervical stenosis of spine: (3) Cervical spondylosis: Plan defer left C5-6 C6-7 TFESI at this time due to cost and hesitancy as first injection did not provide substantial relief, can consider in the future as he continues to have pain in left hand, weakness, and radiculopathy continue gabapentin 100mg BID-TID as tolerated, higher doses caused side effects continue f/u with NS Dr Bailey, planning for surgical intervention in the future continue HEP as tolerated f/u 3 months, sooner if needed
== END 2023-09-11 07:46 | disposition home or self-care (01) ==
LOC: PM 07:45
PROVIDERS: PCP Internal Medicine; Visit Provider Nurse Practitioner
DX: M47.812 Spondylosis without myelopathy or radiculopathy, cervical region (principal); M48.02 Spinal stenosis, cervical region; M54.12 Radiculopathy, cervical region
CPT/HCPCS: G0463

== ENCOUNTER 2024-04-21 08:16 | Outpatient (OUT) | payer OTHER, SELFPAY ==
--- OUTSIDE RECORDS SUMMARY | 2024-04-21 08:22 | XMS_ITS | CCD ---
Author Organization [facility] Care Team Providers Care Paste Mixer Name Role Phone Nayeli Rodriguez Unavailable Greg GAONA, Elio Unavailable Greg GAONA, Elio Whittaker Attending Unavailable Greg GAONA, Elio Whittaker Attending Unavailable NANCY LAGOS Referring Unavailable NANCY LAGOS Attending Unavailable MAXIME BAILEY Attending Unavailable GREG, ELIO Referring Unavailable NANCY LAGOS Referring Unavailable MAXIME BAILEY Attending Unavailable MAXIME BAILEY Referring Unavailable MAXIME BAILEY Attending Unavailable MAXIME BAILEY Admitting Unavailable SHANICE SUMNER Referring Unavailable Medications Current Medications Medication Drug Class(es) Dates Sig (Normalized) Sig (Original) acetaminophen 325 mg oral tablet (2 sources) Start: 03-11-2024 take 2 tablets enteral route every four hours as needed acetaminophen (TYLENOL) 325 mg tablet 2 tablets by ORAL/FEEDING TUBE route every 4 hours as needed for pain. 03/11/2024 Active diclofenac sodium 25 mg delayed release oral tablet (12 sources) Nonsteroidal Anti-inflammatory Drug Start: 04-13-2024 take 25 mg by mouth twice daily Diclofenac Sodium Active 25 MG PO Twice daily April 13, 2024 12:00am Start: 07-04-2023 End: 03-11-2024 take 1 tablet by mouth every twelve hours as needed diclofenac, EC, (VOLTAREN) 75 mg EC tablet Take 75 mg by mouth two times a day as needed. 07/04/2023 03/11/2024 Discontinued Comment on above: Take 75 mg by mouth two times a day as needed. doxycycline hyclate 100 mg oral capsule (1 source) Tetracycline-clas s Drug Start: take 100 mg by mouth twice daily Doxycycline Hyclate Active 100 MG PO Twice daily April 13, 2024 12:00am gabapentin 300 mg oral capsule (13 sources) Anti-epileptic Agent Start: take 1 capsule by mouth three times daily gabapentin (NEURONTIN) 300 mg capsule Take 300 mg by mouth three times a day. 06/04/2023 Active Comment on above: Take 300 mg by mouth three times a day. methocarbamol 500 mg oral tablet (3 sources) Muscle Relaxant Start: methocarbamol (ROBAXIN) 500 mg tablet Take 2 tablets every 6 hours as needed for post op pain 120 tablet 03/12/2024 Active Start: 03-11-2024 End: 03-12-2024 take 1 tablet by mouth every six hours as needed methocarbamol (ROBAXIN) 500 mg tablet Take 1 tablet by mouth every 6 hours as needed. 40 tablet 03/11/2024 03/12/2024 Discontinued mupirocin 0.02 mg/mg topical ointment (1 source) RNA Synthetase Inhibitor Antibacterial Start: 04-13-2024 Mupirocin Active 1 APPLIC TOPICAL Twice daily 22 April 13, 2024 12:00am oxyCODONE hydrochloride 5 mg oral tablet (1 source) Opioid Agonist Start: 03-11-2024 End: 03-16-2024 take 1 tablet by mouth every six hours as needed oxyCODONE IR (ROXICODONE) 5 mg immediate release tablet Indications: Acute post-operative pain 1-2 tablets by ORAL/FEEDING TUBE route every 6 hours as needed for up to 5 days. 40 tablet 03/11/2024 03/16/2024 Active Problems Active Problems Problem Classification Problem Date Documented Date Episodic/Chronic Administrative/social admission (1 source) Problems related to education and literacy, unspecified; Translations: [Educational circumstance] Onset: 02-24-2024 Episodic Complications of surgical procedures or medical care (2 sources) Wound dehiscence; Translations: [Disruption of external operation (surgical) wound, not elsewhere classified, initial encounter] 04-13-2024 Episodic Immunizations and screening for infectious disease (1 source) Carrier or suspected carrier of Methicillin resistant Staphylococcus aureus; Translations: [Suspected carrier of methicillin resistant Staphylococcus aureus (MRSA)] Onset: 02-24-2024 Episodic Other nervous system disorders (3 sources) Acute postoperative pain; Translations: [Other acute postprocedural pain] Onset: 03-11-2024 03-11-2024 Episodic Other nervous system disorders (1 source) Other acute postprocedural pain; Translations: [Acute post-operative pain] Onset: 03-11-2024 Episodic Other nutritional; endocrine; and metabolic disorders (8 sources) Obesity caused by energy imbalance; Translations: [Other obesity due to excess calories] Onset: 02-24-2024 02-24-2024 Chronic Other nutritional; endocrine; and metabolic disorders (1 source) Other obesity due to excess calories; Translations: [Class 1 obesity due to excess calories without serious comorbidity with body mass index (BMI) of 34.0 to 34.9 in adult] Onset: 02-24-2024 Chronic Other nutritional; endocrine; and metabolic disorders (1 source) Body mass index (BMI) 34.0-34.9, adult; Translations: [Class 1 obesity due to excess calories without serious comorbidity with body mass index (BMI) of 34.0 to 34.9 in adult] Onset: 02-24-2024 Chronic Other nutritional; endocrine; and metabolic disorders (1 source) Obesity; Translations: [Obesity, unspecified] 04-13-2024 Chronic Other nutritional; endocrine; and metabolic disorders (1 source) Obesity, unspecified; Translations: [Obesity, unspecified] 04-13-2024 Chronic Other nutritional; endocrine; and metabolic disorders (1 source) Personal history of other endocrine, nutritional and metabolic disease; Translations: [Personal history of other endocrine, nutritional and metabolic disease] Onset: 02-24-2024 Episodic Spondylosis; intervertebral disc disorders; other back problems (2 sources) Cervical spondylosis; Translations: [Spondylosis without myelopathy or radiculopathy, cervical region] 04-13-2024 Chronic Spondylosis; intervertebral disc disorders; other back problems (8 sources) Neck pain; Translations: [Cervicalgia] Onset: 08-19-2023 07-03-2023 Episodic Unclassified (1 source) Pre-Op Exam Onset: 02-24-2024 Past or Other Problems Problem Classification Problem Date Documented Da te Episodic/Chronic Other connective tissue disease (1 source) History of cervical spine fusion; Translations: [Arthrodesis status] Onset: 06-30-2023 04-13-2024 Episodic Viral infection (1 source) COVID-19 Onset: 01-07-2022 Resolved: 01-07-2022 Results Test Name Value Interpretation Reference [facility] Letter Text Normal [place] [facility] YUNGAde 03-12-2024 CNPN Telephone (NIQ) NATHALYRASHARD ([id number]) 1980 M T Date Time Provider Department 03/12/24 MAXIME BAILEY During your visit today, we recorded the following information about you: Kerri Gerardo 03/12/2024 8:39 AM Signed Patient called; had surgery w/Dr. Bailey on 03/10/24; patient is asking if he can resume taking diclofenac and has a few other post-surgery questions; requesting call back; ph. [phone] Gracie Voss RN 03/12/2024 2:57 PM Signed Neuro SPINE CARE COORDINATION QUICK NOTE Called and spoke to patient who is 3 days s/p C3-4 ACDF. Pt is experiencing an increase in pain today in neck and shoulder blades. Currently taking: Robaxin 500 mg, 1 tablet QID Tylenol 650 mg QID Oxycodone 5 mg, 1 tablet TID-QID (will be out 03/15/2024) Discussed with patient that it is not uncommon on post op day 2-3 for the anesthesia and other pain medications from surgery to be out of your system and an increase in post op pain occurs. Discussed with patient other expected types of pain after surgery. Reviewed with patient, per provider, may increase his Robaxin up 2 tablets (1000 mg) 4 times a day, continue taking Tylenol, ice the incision site to help with inflammation, may use heat (not directly on incision) for muscular pain. Pt was given 10 day supply of Robaxin upon discharge. With the increase to 2 tablets every 6 hours, he may require a refill. Instructed pt to contact office on [address] with an update and to discuss possible need for additional medication such as valium. Will review with provider if there are any further recommendations at this time. Incision is clean and dry Ambulatory/Activity: walking well unassisted Additional patient concerns: none Follow up: 2 week VV with [facility]FI Medina Megan, APRN.YUNG 03/12/2024 3:24 PM Signed Robaxin refill placed. Agree with RN recommendations Charissa Workman 03/15/2024 11:31 AM Addendum Patient is calling back would like to try the other medication the nurse suggested. Medication is [facility]. Call back # [phone] Paulina Bryson RN 03/15/2024 2:52 PM Signed Spoke to patient he is following up. States is doing better than he was from last /Friday. He is taking the increased dosage on the muscle relaxer. He does want to get off of the Oxy. Still in a lot of pain but it is more of an discomfort. Could he start on the Valium like discussed. Demographic pharmacy correct. Nancy Lagos APRN.YUNG 03/15/2024 5:02 PM Signed Addended by: NANCY LAGOS on: 03/15/2024 05:02 PM Modules accepted: Orders Paulina Bryson RN 03/16/2024 8:59 AM Signed Spoke to patient him script was sent to pharmacy for the Valium. He verbalized understanding. Allergies As of Date: 03/12/2024 (No Known Allergies) Date Reviewed: 03/11/2024 Reviewed by: Simin Washington RN - Fully Assessed Reason for Visit: Pain [78] Primary Visit Diagnosis:Acute post-operative pain [G89.18] Order(s):methocarbamol (ROBAXIN) 500 mg tabletTake 2 tablets every 6 hours as needed for post op painDisp: 120 tabletRfl: 0 diazePAM (VALIUM) 5 mg tabletTake 1 tablet by mouth every 6 hours as needed for muscle spasm or pain for up to 7 days.Disp: 28 tabletRfl: 0 Prescriptions as of 03/16/2024 - diazePAM (VALIUM) 5 mg tablet Take 1 tablet by mouth every 6 hours as needed for muscle spasm or pain for up to 7 days. - methocarbamol (ROBAXIN) 500 mg tablet Take 2 tablets every 6 hours as needed for post op pain - acetaminophen (TYLENOL) 325 mg tablet 2 tablets by ORAL/FEEDING TUBE route every 4 hours as needed for pain. - oxyCODONE IR (ROXICODONE) 5 mg immediate release tablet 1-2 tablets by ORAL/FEEDING TUBE route every 6 hours as needed for up to 5 days. - gabapentin (NEURONTIN) 300 mg capsule Take 300 mg by mouth three times a day. Problem List As Of Date 03/12/2024 Noted Resolved Class 1 obesity due to excess calories without *02/24/2024 Cervical radiculopathy [M54.12] 03/10/2024 Acute post-operative pain [G89.18] 03/11/2024 Prescriptions ordered this encounter Disp Refills Start End METHOCARBAMOL 500 MG TABLET 120 * 0 03/12/2024 Sig: Take 2 tablets every 6 hours as needed for post op pain DIAZEPAM 5 MG TABLET 28 t* 0 03/15/2024 03/22/2024 Route: ORAL Sig: Take 1 tablet by mouth every 6 hours as needed for muscle spasm or pain for up to 7 days. Medications Discontinued During This Encounter Prescriptions - methocarbamol (ROBAXIN) 500 mg tablet (Discontinued) Take 1 tablet by mouth every 6 hours as needed. Encounter Status:Closed by [facility]OS [facility] HNO ID: [id number] Author: GRACE RYDER PA-C Service: Neurosurgery Author Type: Physician Relay Checker Type: Discharge Summary Filed: 03/11/2024 10:43 Note Text: Attestation signed by Maxime Bailey MD at 03/11/2024 8:14 PM I agree with the POC DISCHARGE SUMMARY [facility] PATIENT NAME: Rashard Andersen ADMISSION DATE: 03/10/2024 DISCHARGE DATE: 03/11/2024 Attending Physician: Maxime Bailey MD PCP: No primary care provider on file. None Code Status: Not on file Discharged Against Medical Advice? No Highest Readmission Risk Score: 8 The 30 day readmissions risk score is derived from an internally validated risk model which evaluates patient level characteristics, utilization history, medication orders and lab results up until the day of discharge. Patients with a score of 40 or above are considered highest risk for readmission. Specific patient level drivers will be listed at the bottom of the summary. The 30 day readmissions risk score is derived from an internally validated risk model which evaluates patient level characteristics, utilization history, medication orders and lab results up until the day of discharge. Patients with a score of 40 or above are considered highest risk for readmission. Specific patient level drivers will be listed at the bottom of the summary HPI: Operations During Hospitalization: 03/10/2024: C3-4 ACDF Operative Duration: 3 Hr 0 Min 13 Sec Implants Used for Surgery: Implant Name Type Inv. Item Serial No. Schedule Manager Lot No. LRB No. Used Action GRAFT BONE PUTTY DEMINERLIZED BONE MATRIX 1CC OSTEOSPARX - [id number] Bone GRAFT BONE PUTTY DEMINERLIZED BONE MATRIX 1CC OSTEOSPARX [id number] Retail Convergence [id number] N/A 1 Implanted PIN YELLOW TITANIUM 14MM DISTRACTION STERILE DISPOSABLE - [id number] Pin PIN YELLOW TITANIUM 14MM DISTRACTION STERILE DISPOSABLE TZ MEDICAL N/A 1 Implanted PIN YELLOW TITANIUM 14MM DISTRACTION STERILE DISPOSABLE - [id number] Pin PIN YELLOW TITANIUM 14MM DISTRACTION STERILE DISPOSABLE TZ MEDICAL N/A 1 Implanted CAGE [id number] - [id number] Implant CAGE [id number] VINITA SPINE N/A 1 Implanted OZARK CERVICAL PLATE 1-LEVEL 22MM Plate VINITA N/A 1 Implanted OZARK SELF-STARTING VARIABLE SCREW 4MM X 18MM Screw VINITA N/A 4 Implanted Surgical Specimens: * No specimens in log * Incision/Procedure Start Time: 9:21 AM Incision Close/Procedure End Time: 10:59 AM Surgeons and Role: * Maxime Bailey MD - Primary * Catalina Mehta MD - Resident - Assisting Registered Client Associate: Carley Noonan RN Registered Client Associate (Relief): Shania Stokes RN Scrub Person: Helena Dixon ST Scrub Person (Relief): Shania Stokes RN Procedures During Hospitalization: No procedures performed Hospital Course: 44 y/o M who presents for elective cervical spine surgery. The patient was electively admitted to the [facility]. After being optimized for surgery by the PACE teams, Rashard Andersen was identified and brought into the Operating Room by the anesthesia and nursing teams. Prior to surgery the patient was treated with antibiotics and continued with antibiotics postoperatively. The patient underwent a C3-4 ACDF done under General. The patient tolerated the procedure and was taken to PACU, and then to the hospital surgical floor when PACU criteria was made. The patient was then transferred up to [facility]/H060-25 hospital room for postoperative management. Patient was fitted with fitted with sequential compression devices for DVT prophylaxis. POD1: Tolerated surgery well. Denies dysphagia, tolerating solids, liquids and medications without issue. On date of discharge pain well controlled on oral medications. Patient mobilizing independently. Patient voiding and passing flatus. Patient was discharged to home in stable condition. Active Hospital Problems as of 03/11/2024 Noted - Resolved [facility] Class 1 obesity due to excess calories without serious comorbidity with body mass index (BMI) of 34.0 to 34.9 in adult 02/24/2024 - Present Yes Current Assessment AND Plan Assessment: Obesity PLAN: -[facility] weight loss info * (Principal) Cervical radiculopathy 03/10/2024 - Present Yes Current Assessment AND Plan Assessment: S/p C3-4 ACDF on 03/10 PLAN: -Pain control: continue present regimen -No dysphagia -XR reviewed -DVT ppx: continue IPCs -OOB for meals, mobilize at least 3x daily -Bowel regimen -D/c today -D/w Dr. Bailey Acute post-operative pain 03/11/2024 - Present Yes Current Assessment AND Plan Assessment: Post-op pain PLAN: -Continue present regimen Obesity Class I (BMI 30-34.9) Resolved Hospital Problems as of 03/11/2024 None The brittany (more content not included)... Normal [facility] XR CERVICAL 4V AP/LAT/OBLon 03-11-2024 XR CERVICAL 4V AP/LAT/OBL * * *Final Report* * * DATE OF EXAM: Mar 11 2024 8:05AM ROSA [id number] - XR CERVICAL 4V AP/LAT/OBL / PROCEDURE REASON: Post-operative / post-procedure assessment, asymptomatic * * * * Physician Interpretation * * * * EXAMINATION: XR CERVICAL 4V AP/LAT/OBL CLINICAL HISTORY: Post-operative / post-procedure assessment, asymptomatic TECHNIQUE: XR CERVICAL 4V AP/LAT/OBL Laterality: Not applicable Number of different views (projections): 4 M: XB_1 COMPARISON: Cervical radiograph 08/19/2023 COUNTING REFERENCE: Craniocervical junction. Anatomic Variants: None. RESULT: Spine: Postoperative changes from interval C3-C4 ACDF including prevertebral soft tissue thickening gas. Hardware is intact. No vertebral body height loss. Remaining cervical disc heights are maintained. Mild right foraminal narrowing at C4-C5. Mild left foraminal narrowing at C3-C4. Other: Imaged lungs are clear. IMPRESSION: Expected postoperative appearance following C3-C4 ACDF. Physician'S Assistant: PSCMarcello Transcribe Date/Time: Mar 11 2024 8:12A Dictated by : ASHU WATSON MD This examination was interpreted and the report reviewed and electronically signed by: ИРИНА TEE MD on Mar 11 2024 10:00AM EST [id number] Normal [facility] ANES POSTPROC EVALon 024 ANES POSTPROC EVAL HNO ID: [id number] Author: RENEE ROMAN MD Service: ? Author Type: Anesthesiologist Type: Anesthesia Postprocedure Evaluation Filed: 03/10/2024 11:49 Note Text: POST ANESTHESIA EVALUATION NOTE : 1980 Procedure Summary Date: 03/10/24 Room / Location: [address] [facility] Anesthesia Start: 826 Anesthesia Stop: 1133 Procedures: ARTHRODESIS ANT DISC PREP DISCECTOMY OSTEOPHYTECTOMY DECOMPRES S CORD/NERVE ROOT C' BELOW C2 (Spine Cervical) ARTHRODESIS ANT DISC PREP DISCECTOMY OSTEOPHYTECTOMY DECOM S CORD/NERVE ROOTS C' BELOW C2 EACH + (Spine Cervical) INSERT SPINE FIXATION DEVICE ADDITIONAL PROCEDURE, 2-3 VERTEBRAL SEGMENTS (Spine) Diagnosis: Cervical disc disorder with radiculopathy (Cervical disc disorder with radiculopathy [M50.10]) Surgeons: Maxime Bailey MD Responsible Provider: Renee Roman MD Anesthesia Type: general ASA Status: 3 Anesthesia Type: general Airway Type: ETT Last Vitals Vitals Value Taken Time BP 140/84 03/10/24 1145 Temp 36.1 ?C (97 ?F) 03/10/24 1132 Pulse 69 03/10/24 1147 Resp 12 03/10/24 1145 SpO2 98 % 03/10/24 1147 Vitals shown include unfiled device data. Post Anesthesia Patient Status Patient Evaluation: PACU. PACU/ICU Patient Condition: stable. Anticipated Disposition: inpatient floor planned admission. Neurological Status: aware and responsive. Pulmonary Status: breathing comfortably on supplemental oxygen Airway Control: returned to baseline unsupported. Cardiovascular Status: stable. Pain Management: clinically adequate Postoperative Hydration: acceptable. Intraoperative Events: no significant anesthesia events Post Operative Nausea/Vomiting Status: no significant post operative nausea or vomiting Recommendation: continue current plan of care. Anesthesia Observations No Documentation SIGNATURE: Renee Roman MD PATIENT NAME: Rashard Andersen DATE: March 10, 2024 TIME: 11:48 AM CSN: [id number] Normal [facility] ANES PRE-OPon 03-10-2024 ANES PRE-OP HNO ID: [id number] Author: RENEE ROMAN MD Service: ? Author Type: Anesthesiologist Type: Anesthesia Preprocedure Evaluation Filed: 03/10/2024 09:55 Note Text: ANESTHESIOLOGY DAY OF SURGERY NOTE : 1980 Procedure Information Date/Time: 03/10/2430 Procedures: ARTHRODESIS ANT DISC PREP DISCECTOMY OSTEOPHYTECTOMY DECOMPRES S CORD/NERVE ROOT C' BELOW C2 (Spine Cervical) ARTHRODESIS ANT DISC PREP DISCECTOMY OSTEOPHYTECTOMY DECOM S CORD/NERVE ROOTS C' BELOW C2 EACH + (Spine Cervical) INSERT SPINE FIXATION DEVICE ADDITIONAL PROCEDURE, 2-3 VERTEBRAL SEGMENTS (Spine) Location: [facility] Surgeons: Maxime Bailey MD Estimated body mass index is 34.7 kg/m? as calculated from the following: Height as of 02/24/24: 185.4 cm (6' 1 ). Weight as of 02/24/24: 119.3 kg (263 lb 0.1 oz). Most recent hematocrit and potassium results: Hematocrit 44.0 02/24/2024 Potassium 4.1 02/24/2024 Relevant Problems No relevant active problems I - PHYSICAL EVALUATION AIRWAY Patient intubated: No. Tracheostomy tube not present Mallampati: III. TM distance: >3 FB. Neck ROM: limited extension. Mouth opening: adequate. Short neck: no. Thick neck: yes Additional exam findings: no II - ANESTHESIA PLAN ASA Score: 3 Anesthetic Plan: general Airway type: ETT NPO Status: adequate Beta Ariel Monitoring Plan Monitoring plan: standard ASA. Post Procedure Analgesic Plan Postoperative analgesic plan: multimodal analgesia. Informed Consent Anesthetic risks, benefits, alternatives, personnel and consent discussed: yes. Patient / Responsible Constitution Party agrees to proceed: yes Patient / Surrogate agrees to blood products: Yes DNR status not reviewed with patient and/or family prior to surgery. Significant changes in the patient condition since the History and Physical, not otherwise documented in primary service progress note: no. Potential Anesthesia issues that may suggest increased risk of complications or contraindication to planned procedure: none. Vitals Value Taken Time BP 126/78 03/10/24 0645 Pulse 71 03/10/24 0645 Resp 16 03/10/24 0645 Temp 36.4 ?C (97.5 ?F) 03/10/24 0645 SpO2 97 % 03/10/24 0645 No current facility-administered medications on file as of 03/10/2024. Outpatient Medications as of 03/10/2024 Medication Sig gabapentin (NEURONTIN) 300 mg capsule Take 300 mg by mouth three times a day. diclofenac, EC, (VOLTAREN) 75 mg EC tablet Take 75 mg by mouth two times a day as needed. I have interviewed and examined the patient. I have reviewed the medical record and/or the pre-anesthesia evaluation, pertinent labs, and test results. This contains updated information obtained within 48 hours of Surgery/Procedure. SIGNATURE: Renee Roman MD PATIENT NAME: Rashard Andersen DATE: March 10, 2024 TIME: 7:13 AM CSN: [id number] Normal [facility] BRIEF OP NOTon 03-10-2024 BRIEF OP NOT HNO ID: [id number] Author: CATALINA MEHTA MD Service: Neurosurgery Author Type: Resident Type: Brief Op Note Filed: 03/10/2024 11:26 Note Text: BRIEF OPERATIVE / PROCEDURE NOTE LOG ID: [id number] SURGERY/PROCEDURE DATE: 03/10/2024 INCISION/PROCEDURE START TIME: 9:21 AM INCISION CLOSE/PROCEDURE END TIME: 10:59 AM SURGEON(S)/PROCEDURALI ST(S) AND BRIM MOLDER(S): Surgeons and Role: * Maxime Bailey MD - Primary * Catalina Mehta MD - Resident - Assisting No Additional Staff SURGERY/PROCEDURE(S): C3-C4 ACDF with use of intraoperative microscope ANESTHESIA: General FINDINGS: Successful discectomy with left-sided uncinatectomy with satisfactory decompression achieved. Good hardware placement visualized on intra-op XR. ESTIMATED BLOOD LOSS: 2 mls SPECIMENS: None COMPLICATIONS: None Implant Name Type Inv. Item Serial No. Schedule Manager Lot No. LRB No. Used Action GRAFT BONE PUTTY DEMINERLIZED BONE MATRIX 1CC OSTEOSPARX - [id number] Bone GRAFT BONE PUTTY DEMINERLIZED BONE MATRIX 1CC OSTEOSPARX [id number] Retail Convergence [id number] N/A 1 Implanted PIN YELLOW TITANIUM 14MM DISTRACTION STERILE DISPOSABLE - [id number] Pin PIN YELLOW TITANIUM 14MM DISTRACTION STERILE DISPOSABLE TZ MEDICAL 1 PIN YELLOW TITANIUM 14MM DISTRACTION STERILE DISPOSABLE - [id number] Pin PIN YELLOW TITANIUM 14MM DISTRACTION STERILE DISPOSABLE TZ MEDICAL 1 CAGE [id number] - [id number] Implant CAGE [id number] VINITA SPINE N/A 1 Implanted OZARK CERVICAL PLATE 1-LEVEL 22MM Plate VINITA N/A 1 Implanted OZARK SELF-STARTING VARIABLE SCREW 4MM X 18MM Screw VINITA N/A 4 Implanted CLOSURE TECHNIQUE: Primary PRE-OP/PRE-PROCEDURE DIAGNOSIS: cervical radiculopathy POST-OP/POST-PROCEDURE DIAGNOSIS: Same as Preop Patient was accompanied to the next level of care by a licensed practitioner from the surgical team pending completion of this brief op note (or operative note) SIGNATURE: Catalina Mehta MD PATIENT NAME: Rashard Andersen DATE: March 10, 2024 TIME: 11:23 AM Normal [facility] CONFIRM BLOOD TYPEon 024 ABO A Normal [facility] Comment on above: Order Comment: Speci men Type: BLOOD SPECIMEN Ordering Facility: [facility] Address: [address] [place] [address] Performed By: #### 5 [id number] #### [facility] CLIA [id number] [address] [place] [address] [place] Rh Nom (Bld) Positive Normal [facility] Comment on above: Order Comment: Speci men Type: BLOOD SPECIMEN [facility] [facility] Address: [address] [place] [address] Performed By: #### 5 7021-8 #### [facility] CLIA [id number] [address] [place] [address] [place] NURSING PROGon 03-10-2024 NURSING PROG HNO ID: [id number] Author: SHANNA WYMAN RN Service: ? Author Type: Registered Nurse Type: Nursing Progress Note Filed: 03/10/2024 15:49 Note Text: Admission/Transfer Note PATIENT NAME: Rashard Andersen Patient Location: [place] [address] Room: [place] [address] Patient transferred from PACU via stretcher in stable condition. Actions taken: Patient oriented to room, call light function, prescribed activities, Patient rights, and Quiet at night. This note was completed by: Shanna Wyman Normal [facility] TYPE + SCREENon 03-10-2024 ABO A Normal [facility] Comment on above: Order Comment: Speci men Type: BLOOD SPECIMEN Ordering Facility: [facility] Address: [address] [place] [address] Performed By: #### 5 7021-8 #### [facility] CLIA [id number] [address] [place] [address] [place] HISTORICAL AB SCR STATUS Negative Normal [facility] Comment on above: Order Comment: Speci men Type: BLOOD SPECIMEN Ordering Facility: [facility] Address: [address] [place] [address] Performed By: #### 5 7021-8 #### [facility] CLIA [id number] [address] [place] [address] [place] Rh Nom (Bld) Positive Normal [facility] Comment on above: Order Comment: Speci men Type: BLOOD SPECIMEN Ordering Facility: [facility] Address: [address] [place] [address] Performed By: #### 5 7021-8 #### [facility] CLIA [id number] [address] [place] [address] [place] TYPE AND SCREEN EXPIRATION 03/13/2024 23:59 Normal [facility] Comment on above: Order Comment: Speci men Type: BLOOD SPECIMEN Ordering Facility: [facility] Address: [address] [place] [address] Performed By: #### 5 7021-8 #### [facility] CLIA [id number] [address] [place] [address] [place] XR VERIFY LEVEL [id number] 03-10-2024 XR VERIFY LEVEL C-SPINE-NB * * *Final Report* * * DATE OF EXAM: Mar 10 2024 9:45AM ESX [id number] - XR VERIFY LEVEL C-SPINE-NB / PROCEDURE REASON: OR25 * * * * Physician Interpretation * * * * HISTORY: OR25 TECHNIQUE: Spot fluoroscopic lateral intraoperative image of the cervical spine COMPARISON: None. RESULT: There is a linear localizing surgical instrument anteriorly with tip at the level of the C3-4 disc space. IMPRESSION: INTRAOPERATIVE LOCALIZATION COMMUNICATION: Communicated with Dr. Bailey on 03/10/2024 at 9:45 AM via verbal communication. Physician'S Assistant: PSCB Transcribe Date/Time: Mar 10 2024 9:46A Dictated by : SCOTT SPRAGUE MD This examination was interpreted and the report reviewed and electronically signed by: SCOTT SPRAGUE MD on Mar 10 2024 9:47AM EST [id number] [facility] RASH[facility] ANDERSEN ([id number]) 1980 M T Date Time Provider Department 03/04/24 ADAM ANAYA SPNSMN During your visit today, we recorded the following information about you: Adam Anaya LSW 03/04/2024 11:08 AM Signed CM was able to leave a brief detailed message on identified vm requesting call back to discuss post op care. CM provided contact information. Allergies As of Date: 03/04/2024 (No Known Allergies) Date Reviewed: 02/24/2024 Reviewed by: Lona Ochoa MA - Fully Assessed Reason for Visit: Follow Up [171] Prescriptions as of 03/04/2024 - diclofenac, EC, (VOLTAREN) 75 mg EC tablet Take 75 mg by mouth two times a day as needed. - gabapentin (NEURONTIN) 300 mg capsule Take 300 mg by mouth three times a day. Problem List As Of Date 03/04/2024 Noted Resolved Class 1 obesity due to excess calories without *02/24/2024 Encounter Status:Closed by ADAM ANAYA on 03/04/24 [facility]ASH[facility] ANDERS[facility] ([id number]) 1980 M T Date Time Provider Department 03/02/24 MAXIME BAILEY During your visit today, we recorded the following information about you: Bernice Koch 03/05/2024 11:04 AM Signed Pt called AND wanted to know details of the surgery 03/10, so that Pt can make arrangement if he has to stay over night. Pt asked if it Is front entry with the fusion? Pls call back [phone] Gracie Voss RN 03/05/2024 11:51 AM Signed Neuro SPINE CARE COORDINATION QUICK NOTE Called and spoke to patient. Pt aware surgery was changed to ACDF. PT wanted to confirm if an overnight stay is possible. Confirmed with him that it is possible. Provided patient with surgical schedulers number to call the business day before surgery after 230 PM to obtain surgical check in time. Gracie Voss RN Nursing Home Assistant Allergies As of Date: 03/02/2024 (No Known Allergies) Date Reviewed: 02/24/2024 Reviewed by: Lona Ochoa MA - Fully Assessed Reason for Visit: Patient Question [4277] Prescriptions as of 03/05/2024 - diclofenac, EC, (VOLTAREN) 75 mg EC tablet Take 75 mg by mouth two times a day as needed. - gabapentin (NEURONTIN) 300 mg capsule Take 300 mg by mouth three times a day. Problem List As Of Date 03/02/2024 Noted Resolved Class 1 obesity due to excess calories without *02/24/2024 Encounter Status:Closed by GRACIE VOSS on 03/05/24 [facility] AND[facility] ([id number]) 1980 M T Date Time Provider Department 03/02/24 MAXIME BAILEY During your visit today, we recorded the following information about you: Terrie Phillips 03/02/2024 2:01 PM Signed Call received for Maxime Bailey MD regarding Rashard Andersen. Caller: Terrie CHAPMAN Pre-Access Patient Identified by Name and : Yes Reason for Call: General Question Pt Surgery 03/10 [facility] Pre-Access called looking for office notes from [facility] 02/23. Could not find detailed notes. Is there any additional information the provider should know? No Last Office Visit: 03/02/2024 Next scheduled appointment: 04/27/2024 Best number to reach caller: Terrie - [facility] [phone] Best time to reach caller: any Is it OK to leave a detailed voice message? Yes Terrie Phillips Allergies As of Date: 03/02/2024 (No Known Allergies) Date Reviewed: 02/24/2024 Reviewed by: Lona Ochoa MA - Fully Assessed Reason for Visit: Call from Pre-access [Other] Prescriptions as of 03/08/2024 - diclofenac, EC, (VOLTAREN) 75 mg EC tablet Take 75 mg by mouth two times a day as needed. - gabapentin (NEURONTIN) 300 mg capsule Take 300 mg by mouth three times a day. Problem List As Of Date 03/02/2024 Noted Resolved Class 1 obesity due to excess calories without *02/24/2024 Encounter Status:Closed by JANELL RIZZO on 03/08/24 Normal [facility] CBC W Auto Differential pane l (Bld)on 02-24-2024 Basophils (Bld) [#/Vol] [facility] Basophils/100 WBC (Bld) 0.5 % [facility] Differential cell count method Nom (Bld) Auto [facility] Eosinophils (Bld) [#/Vol] 0.07 10*3/uL [facility] Eosinophils/100 WBC (Bld) 1.9 % [facility] Erythrocyte distribution width (RBC) [Ratio] 12.4 % 11.5 - 15.0 % [facility] Hematocrit (Bld) [Volume fraction] 44.0 % 39.0 - 51.0 % [facility] ic Hemoglobin (Bld) [Mass/Vol] 14.9 g/dL 13.0 - 17.0 g/dL [facility] Immature granulocytes (Bld) [#/Vol] NINF [facility] Immature granulocytes/100 WBC (Bld) 0.0 % [facility] Interpretation and review of laboratory results Abnormal [facility] roman Lymphocytes (Bld) [#/Vol] 1.08 10*3/uL [facility] Lymphocytes/100 WBC (Bld) 29.3 % [facility] MCH (RBC) [Entitic mass] 29.9 pg 26.0 - 34.0 pg [facility] MCHC (RBC) [Mass/Vol] 33.9 g/dL 30.5 - 36.0 g/dL [facility] MCV (RBC) [Entitic vol] 88.2 fL 80.0 - 100.0 fL [facility] Monocytes (Bld) [#/Vol] 0.34 10*3/uL [facility] Monocytes/100 WBC (Bld) 9.2 % [facility] Neutrophils (Bld) [#/Vol] 2.18 10*3/uL [facility] Neutrophils/100 WBC (Bld) 59.1 % [facility] Nucleated RBC (Bld) [#/Vol] [facility] Nucleated RBC/100 WBC (Bld) [Ratio] 0.0 % /100 WBC [facility] Platelet mean volume (Bld) [Entitic vol] 9.5 fL 9.0 - 12.7 fL [facility] Platelets (Bld) [#/Vol] 181 10*3/uL [facility] RBC (Bld) [#/Vol] 4.99 10*6/uL 4.20 - 6.0 0 m/uL [facility] WBC (Bld) [#/Vol] 3.69 10*3/uL [facility] ic Basophils (Bld) [#/Vol] 10*3/uL Normal <0.11 [facility] Comment on above: Order Comment: Speci men Type: BLOOD SPECIMEN Ordering Facility: [facility] Address: [address] [place] [address] Performed By: #### 5 7021-8 #### [facility] CLIA [id number] [address] [id number] [address] [place] Basophils/100 WBC (Bld) 0.5 % Normal [facility] Comment on above: Order Comment: Speci men Type: BLOOD SPECIMEN Ordering Facility: [facility] Address: [address] [place] [address] Performed By: #### 5 7021-8 #### [facility] CLIA [id number] [address] [place] [address] [place] Differential cell count method Nom (Bld) Auto Normal [facility] Comment on above: Order Comment: Speci men Type: BLOOD SPECIMEN Ordering Facility: [facility] Address: [address] [place] [address] Performed By: #### 5 7021-8 #### [facility] CLIA [id number] [address] [place] [address] [place] Eosinophils (Bld) [#/Vol] 0.07 10*3/uL Normal <0.46 [facility] Comment on above: Order Comment: Speci men Type: BLOOD SPECIMEN Ordering Facility: [facility] Address: [address] [place] [address] Performed By: #### 5 7021-8 #### [facility] CLIA [id number] [address] [place] [address] [place] Eosinophils/100 WBC (Bld) 1.9 % Normal [facility] Comment on above: Order Comment: Speci men Type: BLOOD SPECIMEN Ordering Facility: [facility] Address: [address] [place] [address] Performed By: #### 5 7021-8 #### [facility] CLIA [id number] [address] [place] [address] [place] Erythrocyte distribution width (RBC) [Ratio] 12.4 % Normal 11.5-15.0 [facility] Comment on above: Order Comment: Speci men Type: BLOOD SPECIMEN Ordering Facility: [facility] Address: [address] [place] [address] Performed By: #### 5 7021-8 #### [facility] CLIA [id number] [address] [place] [address] [place] Hematocrit (Bld) [Volume fraction] 44.0 % Normal 39.0-51.0 [facility] Comment on above: Order Comment: Speci men Type: BLOOD SPECIMEN Ordering Facility: [facility] Address: [address] [place] [address] Performed By: #### 5 7021-8 #### [facility] CLIA [id number] [address] [place] [address] [place] Hemoglobin (Bld) [Mass/Vol] 14.9 g/dL Normal 13.0-17.0 [facility] Comment on above: Order Comment: Speci men Type: BLOOD SPECIMEN Ordering Facility: [facility] Address: [address] [place] [address] Performed By: #### 5 7021-8 #### [facility] CLIA [id number] [address] [place] [address] [place] Immature granulocytes (Bld) [#/Vol] 10*3/uL Normal <0.10 [facility] Comment on above: Order Comment: Speci men Type: BLOOD SPECIMEN Ordering Facility: [facility] Address: [address] [place] [address] Performed By: #### 5 7021-8 #### [facility] CLIA [id number] [address] [place] [address] [place] Immature granulocytes/100 WBC (Bld) 0.0 % Normal [facility] Comment on above: Order Comment: Speci men Type: BLOOD SPECIMEN Ordering Facility: [facility] Address: [address] [place] [address] Performed By: #### 5 7021-8 #### [facility] CLIA [id number] [address] [place] [address] [place] Lymphocytes (Bld) [#/Vol] 1.08 10*3/uL Normal 1.00-4.00 [facility] Comment on above: Order Comment: Speci men Type: BLOOD SPECIMEN Ordering Facility: [facility] Address: [address] [place] [address] Performed By: #### 5 7021-8 #### [facility] CLIA [id number] [address] [place] [address] [place] Lymphocytes/100 WBC (Bld) 29.3 % Normal [facility] Comment on above: Order Comment: Speci men Type: BLOOD SPECIMEN Ordering Facility: [facility] Address: [address] [place] [address] Performed By: #### 5 7021-8 #### [facility] CLIA [id number] [address] [place] [address] [place] MCH (RBC) [Entitic mass] 29.9 pg Normal 26.0-34.0 [facility] Comment on above: Order Comment: Speci men Type: BLOOD SPECIMEN Ordering Facility: [facility] Address: [address] [place] [address] Performed By: #### 5 7021-8 #### [facility] CLIA [id number] [address] [place] [address] [place] MCHC (RBC) [Mass/Vol] 33.9 g/dL Normal 30.5-36.0 [facility] Comment on above: Order Comment: Speci men Type: BLOOD SPECIMEN Ordering Facility: [facility] Address: [address] [place] [address] Performed By: #### 5 7021-8 #### [facility] CLIA [id number] [address] [place] [address] [place] MCV (RBC) [Entitic vol] 88.2 fL Normal 80.0-100.0 [facility] Comment on above: Order Comment: Speci men Type: BLOOD SPECIMEN Ordering Facility: [facility] Address: [address] [place] [address] Performed By: #### 5 7021-8 #### [facility] CLIA [id number] [address] [place] [address] [place] Monocytes (Bld) [#/Vol] 0.34 10*3/uL Normal <0.87 [facility] Comment on above: Order Comment: Speci men Type: BLOOD SPECIMEN Ordering Facility: [facility] Address: [address] [place] [address] Performed By: #### 5 7021-8 #### [facility] CLIA [id number] [address] [place] [address] [place] Monocytes/100 WBC (Bld) 9.2 % Normal [facility] Comment on above: Order Comment: Speci men Type: BLOOD SPECIMEN Ordering Facility: [facility] Address: [address] [place] [address] Performed By: #### 5 7021-8 #### [facility] CLIA [id number] [address] [place] [address] [place] Neutrophils (Bld) [#/Vol] 2.18 10*3/uL Normal 1.45-7.50 [facility] Comment on above: Order Comment: Speci men Type: BLOOD SPECIMEN Ordering Facility: [facility] Address: [address] [place] [address] Performed By: #### 5 7021-8 #### [facility] CLIA [id number] [address] [place] [address] [place] Neutrophils/100 WBC (Bld) 59.1 % Normal [facility] Comment on above: Order Comment: Speci men Type: BLOOD SPECIMEN Ordering Facility: [facility] Address: [address] [place] [address] Performed By: #### 5 7021-8 #### [facility] CLIA [id number] [address] [place] [address] [place] Nucleated RBC (Bld) [#/Vol] 10*3/uL Normal <0.01 [facility] Comment on above: Order Comment: Speci men Type: BLOOD SPECIMEN Ordering Facility: [facility] Address: [address] [place] [address] Performed By: #### 5 7021-8 #### [facility] CLIA [id number] [address] [place] [address] [place] Nucleated RBC/100 WBC (Bld) [Ratio] 0.0 /100 WBC Normal [facility] Comment on above: Order Comment: Speci men Type: BLOOD SPECIMEN Ordering Facility: [facility] Address: [address] [place] [address] Performed By: #### 5 7021-8 #### [facility] CLIA [id number] [address] [place] [address] [place] Platelet mean volume (Bld) [Entitic vol] 9.5 fL Normal 9.0-12.7 [facility] Comment on above: Order Comment: Speci men Type: BLOOD SPECIMEN Ordering Facility: [facility] Address: [address] [place] [address] Performed By: #### 5 7021-8 #### [facility] CLIA [id number] [address] [place] [address] [place] Platelets (Bld) [#/Vol] 181 10*3/uL Normal 150-400 [facility] Comment on above: Order Comment: Speci men Type: BLOOD SPECIMEN Ordering Facility: [facility] Address: [address] [place] [address] Performed By: #### 5 7021-8 #### [facility] CLIA [id number] [address] [place] [address] [place] RBC (Bld) [#/Vol] 4.99 10*6/uL Normal 4.20-6.00 [facility] Comment on above: Order Comment: Speci men Type: BLOOD SPECIMEN Ordering Facility: [facility] Address: [address] [place] [address] Performed By: #### 5 7021-8 #### [facility] CLIA [id number] [address] [place] [address] [place] WBC (Bld) [#/Vol] 3.69 10*3/uL Low 3.70-11.00 [facility] Comment on above: Order Comment: Speci men Type: BLOOD SPECIMEN Ordering Facility: [facility] Address: [address] [place] [address] Performed By: #### 5 7021-8 #### [facility] CLIA [id number] [address] [place] [address] [place] CNOVon 02-24-2024 CNOV Office Visit (SPNSMN ) RASHARD ANDERSEN ([id number]) 1980 M [facility] Date Time Provider Department 02/24/24 2:20 PM MAXIME BAILEY SPNSMN During your visit today, we recorded the following information about you: Pulse Respiration Blood pressure Weight 73/minute 18/minute 110/71 119.3 kg Height 1.854 m Maxime Bailey MD 03/14/2024 4:26 PM Signed Patient seen in preop. Discussed risks/benefits/alterna tives to surgery in detail. Consent form signed. Allergies As of Date: 02/24/2024 (No Known Allergies) Date Reviewed: 02/24/2024 Reviewed by: Lona Ochoa MA - Fully Assessed Reason for Visit: Pre-Op Exam [87] Primary Visit Diagnosis:Cervical radiculopathy [M54.12] Prescriptions as of 03/14/2024 - methocarbamol (ROBAXIN) 500 mg tablet Take 2 tablets every 6 hours as needed for post op pain - acetaminophen (TYLENOL) 325 mg tablet 2 tablets by ORAL/FEEDING TUBE route every 4 hours as needed for pain. - oxyCODONE IR (ROXICODONE) 5 mg immediate release tablet 1-2 tablets by ORAL/FEEDING TUBE route every 6 hours as needed for up to 5 days. - gabapentin (NEURONTIN) 300 mg capsule Take 300 mg by mouth three times a day. Problem List As Of Date 02/24/2024 Noted Resolved Class 1 obesity due to excess calories without *02/24/2024 Encounter Status:Closed by MAXIME BAILEY on 03/14/24 Normal [facility] Comprehensive metabolic 2000 panelon 02-24-2024 Albumin [Mass/Vol] 4.4 g/dL 3.9 - 4.9 g/dL [facility] ALP [Catalytic activity/Vol] 42 U/L 38 - 113 U/L [facility] ALT [Catalytic activity/Vol] 39 U/L 10 - 54 U/L [facility] Anion gap [Moles/Vol] 10 mmol/L 8 - 15 mmol/L [facility] AST [Catalytic activity/Vol] 29 U/L 14 - 40 U/L [facility] Bilirubin [Mass/Vol] 0.5 mg/dL 0.2 - 1.3 mg/dL [facility] Calcium [Mass/Vol] 9.4 mg/dL 8.5 - 10. 2 mg/dL [facility] Chloride [Moles/Vol] 108 mmol/L High 98 - 107 mmol/L [facility] CO2 [Moles/Vol] 23 mmol/L 22 - 30 mmol/L [facility] Creatinine [Mass/Vol] 1.24 mg/dL High 0.73 - 1.22 mg/dL [facility] GFR/1.73 sq M.predicted among non-blacks MDRD (S/P/Bld) [Vol rate/Area] 74 mL/min/{1.73_m2} - [facility] Comment on above: Estimated Glomerular Filtration Rate (eGFR) is calculated using the 2020 CKD-EPI creatinine equation. This equation utilizes serum creatinine, sex, and age as parameters. The creatinine assay has traceable calibration to isotope dilution-mass spectrometry. Refer to KDIGO guidelines for clinical interpretation. In patients with unstable renal function, e.g. those with acute kidney injury, the eGFR may not accurately reflect actual GFR. Glucose [Mass/Vol] 103 mg/dL High 74 - 99 mg/dL [facility] Comment on above: The [place] [employer] (ADA) provides guidance for cutoff values for fasting glucose and random glucose. The ADA defines fasting as no caloric intake for at least 8 hours. Fasting plasma glucose results between 100 to 125 mg/dL indicate increased risk for diabetes (prediabetes). Fasting plasma glucose results greater than or equal to 126 mg/dL meet the criteria for diagnosis of diabetes. In the absence of unequivocal hyperglycemia, results should be confirmed by repeat testing. In a patient with classic symptoms of hyperglycemia or hyperglycemic crisis, random plasma glucose results greater than or equal to 200 mg/dL meet the criteria for diagnosis of diabetes. Reference: Standards of Medical Care in Diabetes 2016, [place] [employer]. Diabetes Care. 2016.39(Suppl 1). Interpretation and review of laboratory results Abnormal [facility] Potassium [Moles/Vol] 4.1 mmol/L 3.7 - 5.1 mmol/L [facility] Protein [Mass/Vol] 6.9 g/dL 6.3 - 8.0 g/dL [facility] Sodium [Moles/Vol] 141 mmol/L 136 - 144 mmol/L [facility] Urea nitrogen [Mass/Vol] 30 mg/dL High 9 - 24 mg/dL [facility] ic Albumin [Mass/Vol] 4.4 g/dL Normal 3.9-4.9 [facility] Comment on above: Order Comment: Erik wagoner Type: BLOOD SPECIMEN Ordering Facility: [facility] Address: [address] [place] [address] Performed By: #### 5 7021-8 #### [facility] CLIA [id number] [address] [place] [address] [place] ALP [Catalytic activity/Vol] 42 U/L Normal 38-113 [facility] Comment on above: Order Comment: Erik wagoner Type: BLOOD SPECIMEN Ordering Facility: [facility] Address: [address] [place] [address] Performed By: #### 5 7021-8 #### [facility] CLIA [id number] [address] [place], [place] [address] [place] ALT [Catalytic activity/Vol] 39 U/L Normal 10-54 [facility] Comment on above: Order Comment: Speci men Type: BLOOD SPECIMEN Ordering Facility: [facility] Address: [address] [place] [address] Performed By: #### 5 7021-8 #### [facility] CLIA [id number] [address] [place] [address] [place] Anion gap [Moles/Vol] 10 mmol/L Normal 8-15 [facility] Comment on above: Order Comment: Speci men Type: BLOOD SPECIMEN Ordering Facility: [facility] Address: [address] [place] [address] Performed By: #### 5 7021-8 #### [facility] CLIA [id number] [address] [place] [address] [place] AST [Catalytic activity/Vol] 29 U/L Normal 14-40 [facility] Comment on above: Order Comment: Speci men Type: BLOOD SPECIMEN Ordering Facility: [facility] Address: [address] [place] [address] Performed By: #### 5 7021-8 #### [facility] CLIA [id number] [address] [place] [address] [place] Bilirubin [Mass/Vol] 0.5 mg/dL Normal 0.2-1.3 [facility] Comment on above: Order Comment: Speci men Type: BLOOD SPECIMEN Ordering Facility: [facility] Address: [address] [place], [place] [address] Performed By: #### 5 7021-8 #### [facility] CLIA [id number] [address] [place] [address] [place] Calcium [Mass/Vol] 9.4 mg/dL Normal 8.5-10.2 [facility] Comment on above: Order Comment: Speci men Type: BLOOD SPECIMEN Ordering Facility: [facility] Address: [address] [place] [address] Performed By: #### 5 7021-8 #### [facility] CLIA [id number] [address] [place] [address] [place] Chloride [Moles/Vol] 108 mmol/L High 98-107 [facility] Comment on above: Order Comment: Speci men Type: BLOOD SPECIMEN Ordering Facility: [facility] Address: [address] [place] [address] Performed By: #### 5 7021-8 #### [facility] CLIA [id number] [address] [place] [address] [place] CO2 [Moles/Vol] 23 mmol/L Normal 22-30 [facility] Comment on above: Order Comment: Speci men Type: BLOOD SPECIMEN Ordering Facility: [facility] Address: [address] [place] [address] Performed By: #### 5 7021-8 #### [facility] CLIA [id number] [address] [place] [address] [place] Creatinine [Mass/Vol] 1.24 mg/dL High 0.73-1.22 [facility] Comment on above: Order Comment: Speci men Type: BLOOD SPECIMEN Ordering Facility: [facility] Address: [address] [place] [address] Performed By: #### 5 7021-8 #### [facility] CLIA [id number] [address] [place] [address] [place] Creatinine and Glomerular filtration rate.predicted panel (S/P/Bld) 74 mL/min/1.73m??? Normal >=60 [facility] Comment on above: Order Comment: Speci men Type: BLOOD SPECIMEN Ordering Facility: [facility] Address: [address] [place] [address] Result Comment: Anamika mated Glomerular Filtration Rate (eGFR) is calculated using the 2020 CKD-EPI creatinine equation. This equation utilizes serum creatinine, sex, and age as parameters. The creatinine assay has traceable calibration to isotope dilution-mass spectrometry. Refer to KDIGO guidelines for clinical interpretation. In patients with unstable renal function, e.g. those with acute kidney injury, the eGFR may not accurately reflect actual GFR. Performed By: #### 5 7021-8 #### [facility] CLIA [id number] [address] [place] [address] [place] Glucose [Mass/Vol] 103 mg/dL High 74-99 [facility] Comment on above: Order Comment: Erik wagoner Type: BLOOD SPECIMEN Ordering Facility: [facility] Address: [address] [place] [address] Result Comment: The [place] Diabetes Association (ADA) provides guidance for cutoff values for fasting glucose and random glucose. The ADA defines fasting as no caloric intake for at least 8 hours. Fasting plasma glucose results between 100 to 125 mg/dL indicate increased risk for diabetes (prediabetes). Fasting plasma glucose results greater than or equal to 126 mg/dL meet the criteria for diagnosis of diabetes. In the absence of unequivocal hyperglycemia, results should be confirmed by repeat testing. In a patient with classic symptoms of hyperglycemia or hyperglycemic crisis, random plasma glucose results greater than or equal to 200 mg/dL meet the criteria for diagnosis of diabetes. Reference: Standards of Medical Care in Diabetes 2016, [place] Diabetes Association. Diabetes Care. 2016.39(Suppl 1). Performed By: #### 5 7021-8 #### [facility] CLIA [id number] [address] [place] [address] [place] Potassium [Moles/Vol] 4.1 mmol/L Normal 3.7-5.1 [facility] Comment on above: Order Comment: Erik wagoner Type: BLOOD SPECIMEN Ordering Facility: [facility] Address: [address] [place] [address] Performed By: #### 5 7021-8 #### [facility] CLIA [id number] [address] [place], [place] [address] [place] Protein [Mass/Vol] 6.9 g/dL Normal 6.3-8.0 [facility] Comment on above: Order Comment: Speci men Type: BLOOD SPECIMEN Ordering Facility: [facility] Address: [address] [place] [address] Performed By: #### 5 7021-8 #### [facility] CLIA [id number] [address] [place] [address] [place] Sodium [Moles/Vol] 141 mmol/L Normal 136-144 [facility] Comment on above: Order Comment: Speci men Type: BLOOD SPECIMEN Ordering Facility: [facility] Address: [address] [place] [address] Performed By: #### 5 7021-8 #### [facility] CLIA [id number] [address] [place] [address] [place] Urea nitrogen [Mass/Vol] 30 mg/dL High 9-24 [facility] Comment on above: Order Comment: Speci men Type: BLOOD SPECIMEN Ordering Facility: [facility] Address: [address] [place] [address] Performed By: #### 5 7021-8 #### [facility] CLIA [id number] [address] [place] [address] [place] ECG COMPLETEon 02-24-2024 ECG COMPLETE Ventricular Rate : 6 7 BPM Atrial Rate : 67 BPM P-R Interval : 128 ms QRS Duration : 98 ms Q-T Interval : 398 ms QTC Calculation(Bazett) : 420 ms Calculated P Ketchum : 42 degrees Calculated R Ketchum : 30 degrees Calculated T Ketchum : 24 degrees NORMAL SINUS RHYTHM NORMAL ECG Confirmed by MD MARSHALL HEBA ([id number]) on 03/06/2024 6:29:10 PM NAME : RASHARD ANDERSEN PID : [id number] : 1980 Gender : Male Race : ORD : [id number] Procedure Date : Feb 24 2024 11:59:09 Edit Date : Mar 06 2024 18:29:11 Diagnosis: NORMAL SINUS RHYTHM NORMAL ECG Confirmed by MD MARSHALL HEBA ([id number]) on 03/06/2024 6:29:10 PM Test Reason : Location : 119 : A17 A17 Overread By : MD MARSHALL HEBA Edited By : MD MARSHALL HEBA Referred By : SHANICE SUMNER Acquired by : BOB ZHENG [facility] HISTORY PHYSICALon HISTORY PHYSICAL HNO ID: [id number] Author: SHANICE SUMNER PA-C Service: ? Author Type: Physician Relay Checker Type: H&P Filed: 02/25/2024 09:16 Note Text: [facility] HISTORY AND PHYSICAL EXAMINATION SERVICE DATE: 02/24/2024 SERVICE TIME: 11:44 AM PRIMARY CARE PHYSICIAN: No primary care provider on file. Assessment Patient has the following medical conditions which may affect yadiel-operative course: Class 1 obesity due to excess calories without serious comorbidity with body mass index (BMI) of 34.0 to 34.9 in adult -BMI 34.70 Hope Activity Status Index: METS: Walk indoors, such as around the house (1.75 METs) Do light work around the house, such as dusting or washing dishes (2.70 METs) Take care of self; that is eating, dressing, bathing, using the toilet (2.75 METs) Walk a block or two on level ground (2.75 METs) Do moderate work around the house, such as vacuuming, sweeping floors, or carrying in groceries (3.50 METs) Do yardwork, such as raking leaves, weeding, or pushing a power mower (4.50 METs) Climb a flight of stairs or walk up a hill (5.50 METs) Participate in moderate recreational activites, such as golf, bowling, dancing, doubles tennis, or throwing a baseball or football (6.00 METs) Participate in strenuous sport, such as swimming, singles tennis, football, basketball, or skiing (7.50 METs) Do heavy work around the house, such as scrubbing floors, lifting or moving heavy furniture (8.00 METs) DASI Score: 44.95 Patient denies any chest pain or undue shortness of breath with the above physical activity. Clinical Frailty Scale: 2. Well STOP-Bang Score: Male patient Denies snoring loudly Denies feeling tired, fatigued, or sleepy during the daytime Has not been observed to stop breathing or choking/gasping during sleep Denies having high blood pressure BMI less than or equal to 35 kg/m2 Patient 50 years old or younger Does not have a large neck STOP-Bang Score: 1 ANESTHESIA FINDINGS: Intubation History: No history of difficult intubation Significant Anesthesia Considerations: none Airway History: No history of difficult airway I - PHYSICAL EVALUATION AIRWAY Patient intubated: No. Mallampati: II. TM distance: >3 FB. Neck ROM: full ROM without neurological symptoms. Mouth opening: adequate. Short neck: no. Thick neck: yes Hayes present: no Lip Bite Test: II Microretrognathia/Micr onagthia/Recessed Chin: No DENTAL Additional comments: Left maxillary central incisor is a cap . II - ANESTHESIA PLAN Anesthetic plan additional comments: *[facility] - anesthesia choice. Beta Ariel Monitoring Plan Post Procedure Analgesic Plan PLAN This patient is optimally prepared for surgery. CONSULTS: Patient does not require consults for optimization at this time. The Following Tests/Procedures Have Been Initiated: EKG, CBC and CMP ordered Planned Anesthetic: Per anesthesia choice REASON FOR VISIT: Rashard Andersen is a 44 year old male who is scheduled for Procedure(s): ARTHRODESIS ANT DISC PREP DISCECTOMY OSTEOPHYTECTOMY DECOMPRES S CORD/NERVE ROOT C' BELOW C2 (N/A) ARTHRODESIS ANT DISC PREP DISCECTOMY OSTEOPHYTECTOMY DECOM S CORD/NERVE ROOTS C' BELOW C2 EACH + (N/A) INSERT SPINE FIXATION DEVICE ADDITIONAL PROCEDURE, 2-3 VERTEBRAL SEGMENTS (N/A) at the request of Dr. Bailey, Maxime Gutierrez MD for consultation. My final recommendation will be communicated back to the requesting physician by way of shared medical record or letter. Subjective The patient has the following: COVID-19 Immunization Status Overdue - Covid-19 Vaccine ( season) Never done No completion, postpone, frequency change, or communication history exists for this topic. CHIEF COMPLAINT: Cervical disc disorder with radiculopathy HPI: Rashard Andersen is a 44 year old male who presents to [facility] today for preop exam. Patient is scheduled for the above procedure on 03/10/24. Patient has chronic neck pain that radiates into his left shoulder and down his left arm into his fingers. He underwent transforaminal epidural steroid injection, which did not help. His symptoms have been progressively worsening over the past few months. Denies fevers, chills, chest pain, and SOB. REVIEW OF SYSTEMS: General: No weight loss, malaise or fevers. Neurological: Negative for: headaches, impaired sensorium, seizures, TIA and strokes. Respiratory: Negative for: asthma, COPD, current cough, dyspnea, pneumonia within 6 weeks, tobacco use, URI < 2 weeks and obstructive sleep apnea. Cardiovascular: Negative for: angina, anticoagulation therapy, arrhythmia, CAD, chest pain, CHF, congenital heart defect, DVT/PE, hyperlipidemia, hypertension, murmur/valvular heart disease and PVD. GI: Negative for: abdominal pain, GERD, liver disease, nausea, vomiting and ETOH >2 drinks/day. : Negative for: dysuria, freque (more content not included)... Normal [facility] HbA1c (Bld)on 02-24-2024 Average glucose Estimated from glycated hemoglobin (Bld) [Mass/Vol] 108 mg/dL Normal [facility] Comment on above: Order Comment: Erik wagoner Type: BLOOD SPECIMEN Ordering Facility: [facility] Address: [address] [place] [address] Result Comment: eAG: (Estimated average glucose) is a calculated value from HgbA1c and is it sales representative of the average blood glucose level in the last 2-3 month period. Performed By: #### 5 7021-8 #### [facility] CLIA [id number] [address] [place], [place] [address] [place] [address] [place] HbA1c (Bld) [Mass fraction] 5.4 % Normal 4.3-5.6 [facility] Comment on above: Order Comment: Erik wagoner Type: BLOOD SPECIMEN Ordering Facility: [facility] Address: [address] [place] [address] Result Comment: [place] Diabetes Association guidelines indicate that patients with HgbA1c in the range 5.7-6.4% are at increased risk for development of diabetes, and intervention by lifestyle modification may be beneficial. HgbA1c greater or equal to 6.5% is considered diagnostic of diabetes. Performed By: #### 5 7021-8 #### [facility] CLIA [id number] [address] [place] [address] [place] [address] [place] STAPHYLOCOCCUS AUREUS AND MR SA SCREEN, PCR, NASALon 02-24-2024 S. aureus and MRSA panel JACOBY+probe (Nose) Not detected Normal Not Detected [facility] Comment on above: Order Comment: Speci men Type: BLOOD SPECIMEN Ordering Facility: [facility] Address: [address] [place] [address] Performed By: #### 5 7021-8 #### [facility] CLIA [id number] [address] [place] [address] [place] [address] [place] CNPAde 10-22-2023 CNPN Telephone (NIQ) RASHARD ANDERSEN ([id number]) 1980 [facility] Date Time Provider Department 10/22/23 MAXIME BAILEY During your visit today, we recorded the following information about you: Terrie Phillips 10/23/2023 8:05 AM Signed Call received for Maxime Bailey MD regarding Rashard Andersen. Caller: Self Patient Identified by Name and : Yes Reason for Call: Returning Phone call from Nurse Is there any additional information the provider should know? Yes call about scheduling surgery - there have been many calls back and forth. He does not have his cell phone at work when not on break. Breaks are at 10 AM, 12 PM and 2 PM. Suggested a call to his . She is not on his contact list. Last Office Visit: 10/16/2023 Next scheduled appointment: Visit date not found Best number to reach caller: [phone] Best time to reach caller: any Is it OK to leave a detailed voice message? Yes Charissa Carlson 10/23/2023 10:32 AM Signed Call received for Maxime Bailey MD regarding Rashard Andersen. Caller: Self Patient Identified by Name and : Yes Reason for Call: General Question Patient is calling accept the 03/10/24 surgery date. Would like to be put on the wait list. Is there any additional information the provider should know? No Last Office Visit: 10/16/2023 Next scheduled appointment: Visit date not found Best number to reach caller: No call back needed. Best time to reach caller: Is it OK to leave a detailed voice message? No Gracie Salgado RN 10/23/2023 12:51 PM Signed Neuro SPINE CARE COORDINATION SURGERY SCHEDULING Spoke with patient in regards to surgery date and planning. Patient accepts surgery date of 03/10/[address] Maxime Bailey at [facility]. Planned procedure: C 3/4 foraminotomies Length of Surgery: 2 hours Expected Length of Hospital Stay: 0-1 Patient's Home Address: [address] [place] [address] Medications reviewed : Yes. Meds to be stopped prior to surgery : NSAIDS and Vitamins and supplements. Additional pre op clearances needed : None. Any implanted devices (Stimulator, Defibrillator, etc.): No. Transplant History No. Nicotine use: No Patient will complete optimization lab work : A1c. Education Sent Via Mail/ [employer]: [employer] [facility] Questionnaire Completed: Yes Qualify TREK for Surgical Success?: No Patient placed on cancellation list: Yes Pre op appts: Green coat: Anytime [facility]: [facility] 02/24/2024 Informed 02/24/2024 2:[address] Bailey Education 02/04/2024 at 3 PM with Marcello Garcia RN Post-op Dates: 2 week Virtual Visit with Nancy Lagos NP 6-8 week post-op needed with Dr. Bailey. Questions answered. Patient verbalizes understanding via teach back. Additional comments : Denies current narcotic or nicotine use. Preoperative Needs Assessment Do you live alone or with someone that can help you? Lives with caregiver Will you have assistance available at home after your surgery to help with physical activities such a toileting or dressing? Occasionally How many steps do you need to climb to get into your home? 1-10 Once in your home, how many steps do you need to climb to access your bedroom or bathroom? 11-20 Do you use a mobility aid for walking/getting around? (note, if more than one type of aid is used, select the one that is used more frequently) None Anticipated LOS > 5 days: No Significant home social issues or Current history or past history of substance abuse: No Wheelchair baseline, Homebound baseline, Significant gait instability, or History of significant falls: No Thora/lumbar fusion any level planned or 2+ level posterior cervical fusion planned: No Myelopathic or Spine tumor: No Probability of non-home discharge disposition : Low [0.3] Gracie Voss RN Allergies As of Date: 10/22/2023 (Not on File) Date Reviewed: 08/19/2023 Reviewed by: Sugar Stoner MA - Fully Assessed Reason for Visit: Appointment [186] Prescriptions as of 10/23/2023 - diclofenac, EC, (VOLTAREN) 75 mg EC tablet Take 75 mg by mouth two times a day as needed. - gabapentin (NEURONTIN) 300 mg capsule Take 300 mg by mouth three times a day. Problem List As Of Date: 10/22/2023 (None) Encounter Status:Closed by GRACIE VOSS on 10/23/23 [facility] 10-16-2023 CNPN Telephone (SPNSMN) RASHARD ANDERSEN ([id number]) 1980 [facility] Date Time Provider Department 10/16/23 MAXIME BAILEY During your visit today, we recorded the following information about you: Janell Rizzo 10/16/2023 9:20 AM Signed Call received for Maxime Bailey MD regarding Rashard Andersen. Caller: Other: [facility] pain management calling for the patient Patient Identified by Name and : Yes Reason for Call: schedule surgery Is there any additional information the provider should know? Yes Dr. Bailey told him if injection did not work, he could get surgery. Last Office Visit: 09/22/2023 Next scheduled appointment: Visit date not found Best number to reach caller: [phone] Best time to reach caller: anytime Is it OK to leave a detailed voice message? Yes Janell Wilcox [facility] nt to schedule surgery; ph: [phone] Gracie Voss RN 10/16/2023 3:43 PM Signed Neuro SPINE CARE COORDINATION QUICK NOTE Call to patient to discuss surgery planning. No answer, LVM with office number for call back. Gracie Voss RN Nursing Home Assistant Gracie Voss RN 10/16/2023 4:20 PM Signed Terrie Phillips routed conversation to Spine [facility] 11 minutes ago (4:07 PM) Terrie Phillips 11 minutes ago (4:07 PM) KR Call received for Maxime Bailey MD regarding Rashard Andersen. Caller: Self Patient Identified by Name and : Yes Reason for Call: Returning Phone call from Nurse Is there any additional information the provider should know? No Last Office Visit: 10/16/2023 Next scheduled appointment: Visit date not found Best number to reach caller: [phone] Best time to reach caller: NA Is it OK to leave a detailed voice message? Yes Terrie Phillips [employer] ChangerDesiree Ervin 10/20/2023 2:26 PM Signed Patient is returning nurse call pertaining to below message, scheduling surgery with Dr. Bailey call back [phone] Gracie Voss RN 10/20/2023 3:36 PM Signed Neuro SPINE CARE COORDINATION QUICK NOTE Returned pts call to discuss surgery planning. No answer, LVM with office number for call back. Gracie Voss RN Nursing Home Assistant [facility] 10/20/2023 4:17 PM Signed Patient called; returning call from nurse; requesting call back; ph. [phone] Terrie Phillips 10/22/2023 11:33 AM Signed Pt. Returned call from RN. Would like a call back. If a message is left with surgery dates that is fine with pt. To leave a message. His break times and Friday are: 10Am 12Pm 2PM Pt asked if a call could be placed to his with the information. I did not see her on the Alternative contact list. Gracie Voss RN 10/23/2023 12:51 PM Signed Neuro SPINE CARE COORDINATION SURGERY SCHEDULING Spoke with patient in regards to surgery date and planning. Patient accepts surgery date of 03/10/[address] Maxime Bailey at [facility]. Planned procedure: C 3/4 foraminotomies Length of Surgery: 2 hours Expected Length of Hospital Stay: 0-1 Patient's Home Address: [address] [place], [place] [id number] Medications reviewed : Yes. Meds to be stopped prior to surgery : NSAIDS and Vitamins and supplements. Additional pre op clearances needed : None. Any implanted devices (Stimulator, Defibrillator, etc.): No. Transplant History No. Nicotine use: No Patient will complete optimization lab work : A1c. Education Sent Via Mail/ [employer]: [employer] [facility] Questionnaire Completed: Yes Qualify TREK for Surgical Success?: No Patient placed on cancellation list: Yes Pre op appts: Green coat: [facility]yt[facility] 02/24/2024 Informed 02/24/2024 2:[address] Bailey Education 02/04/2024 at 3 PM with Marcello Garcia RN Post-op Dates: 2 week Virtual Visit with Nancy Lagos NP 6-8 week post-op needed with Dr. Bailey. Questions answered. Patient verbalizes understanding via teach back. Additional comments : Denies current narcotic or nicotine use. Preoperative Needs Assessment Do you live alone or with someone that can help you? Lives with caregiver Will you have assistance available at home after your surgery to help with physical activities such a toileting or dressing? Occasionally How many steps do you need to climb to get into your home? 1-10 Once in your home, how many steps do you need to climb to access your bedroom or bathroom? 11-20 Do you use a mobility aid for walking/getting around? (note, if more than one type of aid is used, select the one that is used more frequently) None Anticipated LOS > 5 days: No Significant home social issues or Current history or past history of substance abuse: No Wheelchair baseline, Homebound baseline, Significant gait instability, or History of significant falls: No Thora/lumbar fusion any level planned or 2+ level posterior cervical fusion planned: No Myelopathic or Spine tumor: No Probability of non- (more content not included)... Normal [facility] Telephone (NIQ) RASHARD ANDERSEN ([id number]) 1980 [facility] Date Time Provider Department 10/16/23 MAXIME BAILEY During your visit today, we recorded the following information about you: Terrie Phillips 10/16/2023 4:07 PM Signed Call received for Maxime Bailey MD regarding Rashard Andersen. Caller: Self Patient Identified by Name and : Yes Reason for Call: Returning Phone call from Nurse Is there any additional information the provider should know? No Last Office Visit: 10/16/2023 Next scheduled appointment: Visit date not found Best number to reach caller: [phone] Best time to reach caller: NA Is it OK to leave a detailed voice message? Yes Gracie Yang RN 10/16/2023 4:20 PM Signed Neuro SPINE CARE COORDINATION QUICK NOTE See other telephone encounter . Gracie Voss RN Nursing Home Assistant Allergies As of Date: 10/16/2023 (Not on File) Date Reviewed: 08/19/2023 Reviewed by: Sugar Stoner MA - Fully Assessed Reason for Visit: Returning Patient's Call [[id number]] Prescriptions as of 10/16/2023 - diclofenac, EC, (VOLTAREN) 75 mg EC tablet Take 75 mg by mouth two times a day as needed. - gabapentin (NEURONTIN) 300 mg capsule Take 300 mg by mouth three times a day. Problem List As Of Date: 10/16/2023 (None) Encounter Status:Closed by GRACIE VOSS on 10/16/23 [facility] RASHARD ANDERSEN ([id number]) 1980 [facility] Date Time Provider Department 09/22/23 MAXIME BAILEY During your visit today, we recorded the following information about you: Shantell Flexible Shaft Winder, Fely 09/22/2023 9:46 AM Signed pt states injection with [facility] didn't work. Pt would like to schedule surgery. Call back; [phone] Gracie Voss RN 09/22/2023 9:57 AM Signed Neuro SPINE CARE COORDINATION QUICK NOTE Reviewed BETH note. Recommendation were to schedule a follow up (in person or virtual) 3-4 weeks after injection with Nancy Lagos NP or Dr Bailey. Message sent to admin to assist patient in scheduling an appointment for follow up. Gracie Voss, SOFI Nursing Home Assistant Charissa Workman 09/22/2023 3:03 PM Signed Patient called back got him scheduled for a follow up visit scheduled with [facility]. Sent to schedulers. Allergies As of Date: 09/22/2023 (Not on File) Date Reviewed: 08/19/2023 Reviewed by: Sugar Stoner MA - Fully Assessed Reason for Visit: Patient Request [[id number]] Prescriptions as of 10/16/2023 - diclofenac, EC, (VOLTAREN) 75 mg EC tablet Take 75 mg by mouth two times a day as needed. - gabapentin (NEURONTIN) 300 mg capsule Take 300 mg by mouth three times a day. Problem List As Of Date: 09/22/2023 (None) Encounter Status:Closed by GRACIE [facility]OSS [facility] RASHARD ANDERSEN ([id number]) 1980 M T Date Time Provider Department 08/22/23 MAXIME BAILEY During your visit today, we recorded the following information about you: Janell Rizzo 08/22/2023 10:01 AM Signed Diane from [facility] called; they referred patient to Dr. Bailey. Requesting 08/19/23 OV Note be faxed to her at: [facility] Attn: Diane FYI: OV Note is not completed yet - please advise once signed and the note will be faxed as requested. Janell Rizzo 08/26/2023 10:41 AM Signed OV noted completed and faxed to: [facility] Attn: Diane Confirmation received. Allergies As of Date: 08/22/2023 (Not on File) Date Reviewed: 08/19/2023 Reviewed by: Sugar Stoner MA - Fully Assessed Reason for Visit: Request from Provider [Other] Prescriptions as of 08/26/2023 - diclofenac, EC, (VOLTAREN) 75 mg EC tablet Take 75 mg by mouth two times a day as needed. - gabapentin (NEURONTIN) 300 mg capsule Take 300 mg by mouth three times a day. Problem List As Of Date: 08/22/2023 (None) Encounter Status:Closed by JANELL RIZZO on 08/26/23 [facility] 08-19-2023 CNOV Office Visit (SPNSMN ) RASHARD ANDERSEN ([id number]) 1980 [facility] Date Time Provider Department 08/19/23 10:00 AM MAXIME BAILEY SPNSMN During your visit today, we recorded the following information about you: Pulse Respiration Blood pressure Weight 79/minute 18/minute 146/106 115.9 kg Height 1.854 m Maxime Bailey MD 08/25/2023 2:37 PM Signed SPINE SURGERY OUTPATIENT CONSULT This is an in-person visit. SERVICE DATE: 08/19/2023 PCP: No primary care provider on file. REFERRING PROVIDER: Elio Garza [address] [address] Consult requested for an opinion regarding the evaluation and treatment of cervical radiculopathy. My final impression and recommendations will be communicated back to the requesting physician by way of the shared medical record or letter via US mail. SUBJECTIVE Rashard Andersen is a 43 year old male presenting with cervical radiculopathy mainly in his left side. 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 Cervical radicular pain causes significantly more weakness in his left arm and hand, according to the pt. Pt endorses drowsiness with Gabapentin. Pt endorses gradual weakness in his project eng, especially in his left hand. CHIEF COMPLAINT: Neck and left arm pain HISTORY OF PRESENT ILLNESS PRECIPITATING EVENT: None DURATION OF SYMPTOMS: Greater Than 6 Months Pain Radiation: from the neck to the left finger(s). Previous Conservative Treatment: OTC NSAIDS for 3 Months or Greater (Ibuprofen and Tylenol / acetaminophen) RX NSAIDS for 3 Months or Greater (diclofenac (Voltaren, [place])) Muscle Relaxants Oral Steroids Membrane Stabilizers- gabapentin, caused drowsiness PREVIOUS SPINAL SURGERY: None There is no problem list on file for this patient. No past medical history on file. No past surgical history on file. No family history on file. Social History Tobacco Use Smoking status: Never Smokeless tobacco: Never ALLERGIES Not on File MEDICATIONS: diclofenac, EC, (VOLTAREN) 75 mg EC tablet Take 75 mg by mouth two times a day as needed. gabapentin (NEURONTIN) 300 mg capsule Take 300 mg by mouth three times a day. REVIEW OF SYSTEMS: GENERAL: No weight loss or malaise MUSCULOSKELETAL: Negative for joint pain, swelling or muscle pain NEURO: No history of headaches, syncope, paralysis, seizures or tremors Patient Entered Questionnaires PROMIS Score Percentiles Percentiles provide an indication of how the patient's score ranks in relation to the general population. Higher percentile rankings indicate better function/quality of life. 50th percentile is the average of the general population and indicates half of respondents had a worse score. Depression Screening: PHQ-9 Self-Harm (Item 9) response options: 0 Not at all 1 Several days 2 More than half the days 3 Nearly every day PHQ-9 Levels: 0-4 No to mild depression 5-9 Mild depression 10-14 Moderate depression 15-19 Moderately severe depression 20-27 Severe depression OBJECTIVE: PHYSICAL EXAM BP 146/106 Pulse 79 Resp 18 Ht 185.4 cm (6' 1 ) Wt 115.9 kg (255 lb 8.2 oz) SpO2 97% BMI 33.71 kg/m? Supination weakness on left side 4/5. External rotation weakness on left side relative to right 4/5. No soler's, no long track signs +spurlings on left MRI of the cervical spine reveals multilevel cervical spondylosis, most significant at C3-C4 with a left-sided large partially calcified disc herniation impinging upon the exiting C4 nerve root. ASSESSMENT/PLAN No diagnosis found. Rashard Andersen has a condition that requires further workup. 1. Consults: Medical Spine Intervention 2. 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 This would correlate with his large disc herniation on the left side at C3-4. We discussed that treatment for this would be an injection for the time being. If this injection does benefit him but does not last, then he would be a candidate for operative intervention. We discussed that this is a last resort. I spent 30 minutes in the visit, with more than 50% of the total [id number]-ib-zdij time of the visit in counseling / coordination of care. By signing my name below, I, Steven Mercer, attest that this documentation has been prepared under the direction and in the presence of Dr. Bailey. Electronically signed, Tarik Koehler August 19, 2023 9:28 AM SIGNATURE: Maxime Bailey MD PATIENT NAME: Rashard Andersen DATE: August 19, 2023 TIME: 9:27 AM PAGER: Referring Provider: VICTORINA (more content not included)... Normal [facility] XR CERV OTHER 4V AP/LAT/FLX/ EXTon 08-19-2023 [facility] ic XR CERVICAL 4V AP/LAT/FLX/EX Ton 08-19-2023 [...] vertebrae with counting from the craniocervical junction. Physician'S Assistant: PSCB Transcribe Date/Time: Aug 19 2023 9:09A Dictated by : GRACIELA BEY MD This examination was interpreted and the report reviewed and electronically signed by: GRACIELA BEY MD on Aug 19 2023 9:11AM EST [id number] Normal [facility] SARS-CoV-2 (COVID-19) RNA NA A+probe Ql (Resp)on 01-07-2022 SARS-CoV-2 (COVID-19) RNA JACOBY+probe Ql (Unsp spec) Positive [facility] Other Vital Signs Date Time Vital Sign Value Performing Clinician Facility 04-13-2024 10:02-0400 Body height 185.42 cm [facility] 04-13-2024 10:02-0400 Body mass index (BMI) [Ratio] 34.9 kg/m2 [facility] 04-13-2024 10:02-0400 Body weight 120.2 kg [facility] 04-13-2024 10:02-0400 Diastolic blood pressure 89 mm[Hg] [facility] 04-13-2024 10:02-0400 Heart rate 76 /min [facility] 04-13-2024 10:02-0400 Respiratory rate 12 /min [facility] 04-13-2024 10:02-0400 Systolic blood pressure 127 mm[Hg] [facility] 02-24-2024 13:30-0400 Body height 185.4 cm Maxime Bailey MD Work Phone: [facility] 02-24-2024 13:30-0400 Body mass index (BMI) [Ratio] 34.7 kg/m2 Maxime Bailey MD Work Phone: [facility] 02-24-2024 13:30-0400 Body weight 119.3 kg Maxime Bailey MD Work Phone: [facility] 02-24-2024 13:30-0400 Diastolic blood pressure 71 mm[Hg] Maxime Bailey MD Work Phone: [facility] 02-24-2024 13:30-0400 Heart rate 73 /min Maxime Bailey MD Work Phone: [facility] 02-24-2024 13:30-0400 Respiratory rate 18 /min Maxime Bailey MD Work Phone: [facility] 02-24-2024 13:30-0400 Systolic blood pressure 110 mm[Hg] Maxime Bailey MD Work Phone: [facility] 02-24-2024 11:33-0400 Body height 185.4 cm Pacc 1 Work Phone: [facility] 02-24-2024 11:33-0400 Body mass index (BMI) [Ratio] 34.7 kg/m2 Pacc 1 Work Phone: [facility] 02-24-2024 11:33-0400 Body temperature 97.59 [degF] Pacc 1 Work Phone: [facility] 02-24-2024 11:33-0400 Body weight 119.3 kg Pacc 1 Work Phone: [facility] 02-24-2024 11:33-0400 Diastolic blood pressure 75 mm[Hg] Pacc 1 Work Phone: [facility] 02-24-2024 11:33-0400 Heart rate 72 /min Pacc 1 Work Phone: [facility] 02-24-2024 11:33-0400 SaO2% (BldA) [Mass fraction] 98 % Pacc 1 Work Phone: [facility] 02-24-2024 11:33-0400 Systolic blood pressure 125 mm[Hg] Pacc 1 Work Phone: [facility] 01-07-2022 10:20-0400 Body height 185.42 cm Nayeli Rodriguez Other [facility] Other 01-07-2022 10:20-0400 Body mass index (BMI) [Ratio] 34.3 kg/m2 Nayeli Rodriguez Other [facility] Other 01-07-2022 10:20-0400 Body temperature 97.3 [degF] Nayeli Rodriguez Other [facility] Other 01-07-2022 10:20-0400 Body weight 117.94 kg Nayeli Rodriguez Other [facility] Other 01-07-2022 10:20-0400 Respiratory rate 18 /min Nayeli Rodriguez Other [facility] Other 01-07-2022 10:20-0400 SaO2% (BldA) [Mass fraction] 97 % Nayeli Rodriguez Other [facility] Other Encounters Encounter Date Encounter Type Care Provider Facility Start: 04-13-2024 End: 04-13-2024 ambulatory [facility] Work Phone: Start: 04-13-2024 End: 04-13-2024 Encounter for general adult medical examination without abnormal findings [facility] Start: 04-13-2024 End: 04-13-2024 Patient encounter procedure [facility] Work Phone: Start: 04-10-2024 Patient encounter status [facility] Start: 03-25-2024 End: 03-26-2024 Telephone encounter Maxime Bailey MD Work Phone: [facility] Comment on above: Patient Update Start: 03-12-2024 End: 03-12-2024 Telephone encounter Maxime Bailey MD Work Phone: Neurology Comment on above: Pain Start: 03-10-2024 End: 03-11-2024 ambulatory MAXIME BAILEY Facility:[facility] Start: 03-04-2024 End: 03-04-2024 Telephone encounter Adam Anaya [facility] Comment on above: Follow Up Start: 03-02-2024 End: 03-08-2024 Telephone encounter Maxime Bailey MD Work Phone: Neurology Comment on above: Patient Question Call from Pre-access Start: 02-24-2024 End: 02-24-2024 Patient encounter procedure Maxime Bailey MD Work Phone: [facility] Comment on above: Cervical radiculopat hy (Primary Dx) Start: 02-24-2024 End: 02-24-2024 ambulatory MAXIME BAILEY Facility:[facility] Start: 02-24-2024 Encounter for other preprocedural examination NANCY LAGOS [facility] Start: 02-24-2024 End: 02-24-2024 Admission to establishment [facility] Work Phone: Pre Anesthesia Start: 02-24-2024 End: 02-24-2024 Anesthesia consultation [facility] 1 Work Phone: Pre Anesthesia Comment on above: Pre-op evaluation (P rimary Dx); Class 1 obesity due to excess calories without serious comorbidity with body mass index (BMI) of 34.0 to 34.9 in adult Start: 02-24-2024 End: 02-24-2024 Preprocedural examination done [facility] 1 Work Phone: [facility] Work Phone: Start: 02-24-2024 End: 02-24-2024 ambulatory SHANICE SUMNER Facility:[facility] Start: 02-09-2024 End: 02-09-2024 ambulatory NANCY LAGOS Facility:[facility] Start: 10-22-2023 Telephone encounter Maxime Bailey MD Work Phone: Neurology Comment on above: Appointment Start: 10-16-2023 Telephone encounter Maxime Bailey MD Work Phone: Neurology Comment on above: Returning Patient's Call Schedule Surgery Start: 09-26-2023 End: 09-26-2023 ambulatory NANCY LAGOS Facility:[facility] Start: 09-22-2023 Telephone encounter Maxime Bailey MD Work Phone: Neurology Comment on above: Schedule Surgery Start: 09-01-2023 End: 09-02-2023 ambulatory Elio Garza MD Facility:[facility] Start: 08-22-2023 Telephone encounter Maxime Bailey MD Work Phone: [facility] Comment on above: Request from Sheila handley Start: 08-19-2023 End: 08-19-2023 ambulatory MAXIME BAILEY Facility:[facility] Start: 08-19-2023 End: 08-19-2023 Subsequent hospital visit by physician Xr Main J1-4 Work Phone: Radiology Comment on above: Neck pain [M54.2] Start: 06-17-2023 Chart abstracting None (Historical) Neurology Start: 04-28-2023 End: 04-29-2023 ambulatory Elio Garza MD Facility:[facility] Start: 01-07-2022 End: 01-07-2022 ambulatory Nayeli Rodriguez Other [facility] Other Start: 01-07-2022 Office outpatient ne w 30 minutes Nayeli Rodriguez [facility] Procedures Date Procedure Procedure Detail Performing Clinician Start: 03-10-2024 Antibody screen NANCY MELLO Comment on above: Order Comment: Speci men Type: BLOOD SPECIMEN Ordering Facility: [facility] Address: [address] [place] [address] Performed By: #### 5 [id number] #### [facility] CLIA [id number] [address] [place] [address] [place] Start: 08-19-2023 Radex spine cervical 4 or 5 views Nancy Lagos APRN.[employer]MASTER Work Phone: Plan of Treatment Date Care Activity Detail Author Start: 04-27-2024 End: 04-27-2024 Patient encounter procedure 04/27/2024 2:40 PM EDT Office Visit [facility] [address] [place] [address] Maxime Bailey MD [address] [place] [address] Postop [facility] Comment on above: Postop Start: 03-25-2024 End: 03-25-2024 ambulatory 03/25/2024 10:00 AM EDT [facility] [address] [place] [address] Nancy Lagos APRN.CNP [facility] [place] [id number] 2 week MYC Postop [facility] Comment on above: 2 week MYC Postop Start: 03-10-2024 End: 03-10-2024 Admission to same day surgery center 03/10/2024 12:30 PM EDT - 03/10/2024 3:30 PM EDT Surgery Admitting [address] [place] [address] Maxime Bailey MD [address] [place] [address] LAMINOTOMY W/ DECOMPRESSION OF NERVE ROOT(S) PARTIAL FACETECTOMY FORAMINOTOMY AND/OR EXCISION OF HERNIATED INTERVERTEBRAL DISC 1 INTERSPACE CERVICAL Admitting Comment on above: LAMINOTOMY W/ DECOMP RESSION OF NERVE ROOT(S) PARTIAL FACETECTOMY FORAMINOTOMY AND/OR EXCISION OF HERNIATED INTERVERTEBRAL DISC 1 INTERSPACE CERVICAL Start: 03-10-2024 End: 03-10-2024 Lamnotmy incl w/dcmprsn nrv root 1 intrspc cervc LAMINOTOMY W/ DECOMPRESSION OF NERVE ROOT(S) PARTIAL FACETECTOMY FORAMINOTOMY AND/OR EXCISION OF HERNIATED INTERVERTEBRAL DISC 1 INTERSPACE CERVICAL Cervical disc disorder with radiculopathy 03/10/2024 12:30 PM EDT [facility] Start: 03-10-2024 Subsequent hospital visit by physician 03/10/2024 12:30 PM EDT Hospital Encounter Admitting [address] [place] [address] Maxime Bailey MD [address] [place] [address] Cervical disc disorder with radiculopathy [M50.10] Admitting Comment on above: Cervical disc disord er with radiculopathy [M50.10] Start: 03-10-2024 End: 03-10-2024 Admission to same day surgery center 03/10/2024 8:30 AM EDT - 03/10/2024 11:15 AM EDT Surgery Admitting [address] [place] [address] Maxime Bailey MD [address] [place] [address] ARTHRODESIS ANT DISC PREP DISCECTOMY OSTEOPHYTECTOMY DECOMPRES S CORD/NERVE ROOT C' BELOW C2 Admitting Comment on above: ARTHRODESIS ANT DISC PREP DISCECTOMY OSTEOPHYTECTOMY DECOMPRES S CORD/NERVE ROOT C' BELOW C2 Start: 03-10-2024 End: 03-10-2024 Anterior instrumentation 2-3 vertebral segments INSERT SPINE FIXATION DEVICE ADDITIONAL PROCEDURE, 2-3 VERTEBRAL SEGMENTS Cervical disc disorder with radiculopathy 03/10/2024 8:30 AM EDT [facility] Start: 03-10-2024 End: 03-10-2024 Arthrd ant interbody decompress cervical belw c2 ARTHRODESIS ANT DISC PREP DISCECTOMY OSTEOPHYTECTOMY DECOMPRES S CORD/NERVE ROOT C' BELOW C2 Cervical disc disorder with radiculopathy 03/10/2024 8:30 AM EDT [facility] Start: 03-10-2024 End: 03-10-2024 Arthrd ant interdy cervcl belw c2 ea addl ntrspc ARTHRODESIS ANT DISC PREP DISCECTOMY OSTEOPHYTECTOMY DECOM S CORD/NERVE ROOTS C' BELOW C2 EACH + Cervical disc disorder with radiculopathy 03/10/2024 8:30 AM EDT [facility] Start: 03-10-2024 Subsequent hospital visit by physician 03/10/2024 8:30 AM EDT Hospital Encounter Admitting [address] [place] [address] Maxime Bailey MD [address] [place] [address] Cervical disc disorder with radiculopathy [M50.10] Admitting Comment on above: Cervical disc disord er with radiculopathy [M50.10] Start: 02-29-2024 Covid-19 Vaccine ( season) Covid-19 Vaccine ( season) [facility] Start: 02-29-2024 Covid-19 Vaccine ( season) Covid-19 Vaccine ( season) [facility] Start: 02-29-2024 Influenza vaccination [facility] Start: 06-30-2023 Behavioral Health Screening Behavioral Health Screening [facility] Start: 06-30-2023 Depression Assessment Depression Ass essment [facility] Start: 02-28-2023 Covid-19 Vaccine ( season) Covid-19 Vaccine ( season) [facility] Start: 02-28-2023 Influenza vaccination Influenza Vacc ine (#1) [facility] Start: 02-01-2016 Lipid panel Lipid Screening [facility] Start: 02-01-2000 Hepatitis B Vaccine (1 of 3 - 19+ 3-dose series) Hepatitis B Vaccine (1 of 3 - 19+ 3-dose series) [facility] Start: 02-01-2000 Urine microalbumin profile DTaP,Tdap,Td Vaccine (1 - Tdap) [facility] Start: 1999 Anxiety Screening Anxiety Screening [facility] Start: 1999 Depression Screening Depression Scre ening [facility] Start: 1999 Hepatitis C screening Hepatitis C Sc reening [facility] Start: 1999 HIV screening HIV Screening [facility] Start: 1980 Covid-19 Vaccine (#1) Covid-19 Vacci ne (#1) [facility] Start: 1981 Hepatitis B Vaccine (1 of 3 - 3-dose series) Hepatitis B Vaccine (1 of 3 - 3-dose series) [facility] Comprehensive metabo lic 2000 panel - Serum or Plasma [facility] ECG COMPLETE ECG COMPLETE ECG Routine Pre-op evaluation 02/24/2024 11:59 AM EDT [facility] Work Phone: End: 08-01-2024 Radex spine cervical 4 or 5 views XR CERV OTHER 4V AP/LAT/FLX/EXT Radiology Routine Neck pain 1 Occurrences starting 07/03/2023 until 08/01/2024 [facility] Work Phone: Comment on above: 1 Occurrences starti ng 07/03/2023 until 08/01/2024 [facility] Payers Date Payer Category Payer Private Health Insurance [id number] 2021 Private Health Insurance [id number] 1980 Unknown [id number] 1980 Unknown [id number] Social History Date Type Detail Facility Start: 08-19-2023 End: 02-23-2024 Sex Assigned At [facility] Tobacco smoking stat [facility] Tobacco smoking consumption unknown [facility] Start: 1980 Sex Assigned At Not on file C [facility] Start: 08-19-2023 Tobacco smoking stat [facility] Never smoked tobacco [facility] Start: 08-19-2023 End: 02-24-2024 Tobacco use and exposure Smokeless tobacco non-user [facility] Start: 08-19-2023 End: 02-23-2024 History of Social function [facility] National Score (1-100), lower number is lower risk 65 [facility] Start: 02-24-2024 Tobacco smoking stat [facility] Ex-smoker [facility] History of tobacco use Current smoker [facility] History of tobacco use Cigarette Smoker C [facility] Start: 02-24-2024 Alcoholic beverage intake Current drinker of alcohol (finding) [facility] Start: 02-24-2024 Tobacco Comment Quit in 2013, smoked for 5 years, 0.5ppd [facility] Start: 02-24-2024 Alcohol Comment 6 beers weekly [facility] Start: 1980 Sex Assigned At Male F [facility] Medical Equipment Procedure Code Equipment Code Equipment Origin al Text Equipment Identifier Dates Graft Bone Putty Deminerlized Bone Matrix 1cc [employer] - [id number] Start: 03-10-2024 Cage [id number] - [id number] Start: 03-10-2024 Pin Yellow Titan ium 14mm Distraction Sterile Disposable - [id number] Start: 03-10-2024 Pin Yellow Titan ium 14mm Distraction Sterile Disposable - [id number] Start: 03-10-2024 [place] Cervical P late 1-Level 22mm [id number] Start: 03-10-2024 [place] Self-Start ing Variable Screw 4mm X 18mm [id number] Start: 03-10-2024 Clinical Notes 01-07-2022 to 03-25-2024 Telephone Encounter - Gracie Voss RN - 03/25/2024 1:06 PM EDTTelephone Encounter - Gracie Voss RN - 03/25/2024 1:06 PM EDTCMaxime park MD - 03/14/2024 4:26 PM EDT Note Date & Type Note Facility 03-25-2024 Telephone encounter Note Neuro SPINE CARE COORDINATION QUICK NOTE Called and spoke to patient who is 2 weeks s/p C3-4 ACDF. Patient missed 2-week as needed today. Contacted the patient to discuss how he is doing at this time. Patient states that overall he is able. He feels that his pain is well-controlled but does sometimes increase in the evenings. He currently is only taking Tylenol as needed. Patient does not want to take Robaxin as he reports that he experienced a hemorrhoid flare and attributes it to the Robaxin and/or oxycodone. Discussed with patient utilizing ice or heat as needed to help with discomfort in the evenings and continue with Tylenol Extra Strength when needed. Discussed with patient other options for medications such as other muscle relaxers. Patient denies at this time. Patient also notes that he is having left hand weakness. He reports that prior to surgery he had left hand and arm numbness and tingling with minimal weakness on the left side. He is able to still use his left hand but at times it feels like he is losing project eng of objects. He is able to lift his arm above shoulder level and does not feel weak within the entire arm only the left hand. Will provide update to ANNIE and Dr. Bailey for any further recommendations at this time. Encouraged patient to continue to monitor his symptoms and let us know if there is any new or worsening symptoms that arise.. Gracie Voss RN Nursing Home Assistant [facility] Work Phone: 03-25-2024 Miscellaneous Notes Neuro SPINE CARE COORDINATION QUICK NOTE Called and spoke to patient who is 2 weeks s/p C3-4 ACDF. Patient missed 2-week as needed today. Contacted the patient to discuss how he is doing at this time. Patient states that overall he is able. He feels that his pain is well-controlled but does sometimes increase in the evenings. He currently is only taking Tylenol as needed. Patient does not want to take Robaxin as he reports that he experienced a hemorrhoid flare and attributes it to the Robaxin and/or oxycodone. Discussed with patient utilizing ice or heat as needed to help with discomfort in the evenings and continue with Tylenol Extra Strength when needed. Discussed with patient other options for medications such as other muscle relaxers. Patient denies at this time. Patient also notes that he is having left hand weakness. He reports that prior to surgery he had left hand and arm numbness and tingling with minimal weakness on the left side. He is able to still use his left hand but at times it feels like he is losing project eng of objects. He is able to lift his arm above shoulder level and does not feel weak within the entire arm only the left hand. Will provide update to ANNIE and Dr. Bailey for any further recommendations at this time. Encouraged patient to continue to monitor his symptoms and let us know if there is any new or worsening symptoms that arise.. Gracie Voss RN Nursing Home Assistant documented in this encounter [facility] 03-14-2024 Note HNO ID: [id number] Author: MAXIME BAILEY MD Service: ? Author Type: Physician Type: Progress Notes Filed: 03/14/2024 16:26 Note Text: Patient seen in preop. Discussed risks/benefits/alternatives to surgery in detail. Consent form signed. [facility] 03-14-2024 History of Presen t illness Narrative Patient seen in preop. Discussed risks/benefits/alternatives to surgery in detail. Consent form signed. documented in this encounter [facility] 03-12-2024 Telephone encounter Note Robaxin refill placed. Agree with RN recommendations [facility] 03-12-2024 Miscellaneous Notes Robaxin refill placed. Agree with RN recommendations Neuro SPINE CARE COORDINATION QUICK NOTE Called and spoke to patient who is 3 days s/p C3-4 ACDF. Pt is experiencing an increase in pain today in neck and shoulder blades. Currently taking: Robaxin 500 mg, 1 tablet QID Tylenol 650 mg QID Oxycodone 5 mg, 1 tablet TID-QID (will be out 03/15/2024) Discussed with patient that it is not uncommon on post op day 2-3 for the anesthesia and other pain medications from surgery to be out of your system and an increase in post op pain occurs. Discussed with patient other expected types of pain after surgery. Reviewed with patient, per provider, may increase his Robaxin up 2 tablets (1000 mg) 4 times a day, continue taking Tylenol, ice the incision site to help with inflammation, may use heat (not directly on incision) for muscular pain. Pt was given 10 day supply of Robaxin upon discharge. With the increase to 2 tablets every 6 hours, he may require a refill. Instructed pt to contact office on Friday with an update and to discuss possible need for additional medication such as valium. Will review with provider if there are any further recommendations at this time. Incision is clean and dry Ambulatory/Activity: walking well unassisted Additional patient concerns: none Follow up: 2 week VV with [facility] [employer] [facility] Gracie Voss RN Patient called; had surgery w/Dr. Bailey on 03/10/24; patient is asking if he can resume taking diclofenac and has a few other post-surgery questions; requesting call back; ph. [phone] documented in this encounter [facility] 03-12-2024 Telephone encounter Note Neuro SPINE CARE COORDINATION QUICK NOTE Called and spoke to patient who is 3 days s/p C3-4 ACDF. Pt is experiencing an increase in pain today in neck and shoulder blades. Currently taking: Robaxin 500 mg, 1 tablet QID Tylenol 650 mg QID Oxycodone 5 mg, 1 tablet TID-QID (will be out 03/15/2024) Discussed with patient that it is not uncommon on post op day 2-3 for the anesthesia and other pain medications from surgery to be out of your system and an increase in post op pain occurs. Discussed with patient other expected types of pain after surgery. Reviewed with patient, per provider, may increase his Robaxin up 2 tablets (1000 mg) 4 times a day, continue taking Tylenol, ice the incision site to help with inflammation, may use heat (not directly on incision) for muscular pain. Pt was given 10 day supply of Robaxin upon discharge. With the increase to 2 tablets every 6 hours, he may require a refill. Instructed pt to contact office on Friday with an update and to discuss possible need for additional medication such as valium. Will review with provider if there are any further recommendations at this time. Incision is clean and dry Ambulatory/Activity: walking well unassisted Additional patient concerns: none Follow up: 2 week VV with [facility] [employer] Gracie Voss RN [facility] Work Phone: 03-12-2024 Telephone encounter Note Patient called; had surgery w/Dr. Bailey on 03/10/24; patient is asking if he can resume taking diclofenac and has a few other post-surgery questions; requesting call back; ph. [phone] [facility] 03-10-2024 Note HNO ID: [id number] Author: CATALINA MEHTA MD Service: Neurosurgery Author Type: Resident Type: Plan of Care Filed: 03/10/2024 11:38 Note Text: Neurosurgery POC Note Interval HPI: S/p C3-4 ACDF Objective: 03/10/24 0645 BP: 126/78 Pulse: 71 Resp: 16 Temp: 36.4 ?C (97.5 ?F) TempSrc: Temporal SpO2: 97% EXAM: Waking up from anesthesia RUE: D 5/5, B 5/5, T 5/5, HG 5/5, IO 5/5 LUE: D 5/5, B 5/5, T 5/5, HG 5/5, IO 5/5 RLE: HF 5/5, KE 5/5, DF 5/5, PF 5/5, EHL 5/5 LLE: HF 5/5, KE 5/5, DF 5/5, PF 5/5, EHL 5/5 Sensation intact to light touch Right-sided anterior cervical steri strip dressing c/d/i A/P: 44 year old y/o male s/p: 03/10/24: C3-4 ACDF - PACU - RNF once PACU criteria are met - pain control - perioperative antibiotics - no drain - advance diet - mobilize - SCDs Catalina Mehta MD PGY-6, Neurological Surgery Pager [phone] March 10, 2024 Please page [phone] after 6 PM and on weekends [facility] 03-10-2024 Note HNO ID: [id number] Author: DMITRY VALLES MD Service: ? Author Type: Resident Type: Anesthesia Procedure Notes Filed: 03/10/2024 09:13 Note Text: ANESTHESIOLOGY PROCEDURE NOTE PIV General Information Procedure Start Time/Medication Administration: 03/10/2024 9:00 AM Procedure End Time: 03/10/2024 9:05 AM Staffing Anesthesiologist: Renee Roman MD Resident: Dmitry Valles MD Performed by: resident Preparation Sterility Preparation: hand hygiene performed prior to procedure, surgical cap used, mask used, skin prep agent completely dried prior to procedure Site Prep: alcohol Procedure Details Indication: need for IV access Needle Size/Type: 18 gauge angiocath Orientation: Right Location: Hand Imaging Guidance Used: No SIGNATURE: Dmitry Valles MD PATIENT NAME: Rashard Andersen DATE: March 10, 2024 TIME: 9:11 AM CSN: [id number] [facility] 03-10-2024 Note HNO ID: [id number] Author: DMITRY VALLES MD Service: ? Author Type: Resident Type: Anesthesia Procedure Notes Filed: 03/10/2024 09:11 Note Text: ANESTHESIOLOGY PROCEDURE NOTE Airway General Information Procedure Start Time/Medication Administration: 03/10/2024 8:51 AM Procedure End Time: 03/10/2024 8:53 AM Patient location during procedure: OR Timeout Performed Pre-procedure: timeout performed Consent Obtained: Yes Patient identity confirmed: arm band and patient Staffing Anesthesiologist: Renee Roman MD Resident: Dmitry Valles MD Performed by: resident Indications and Patient Condition Indications for airway management: anesthesia Preoxygenated: yes anesthesia circuit Patient position: sniffing Method: asleep Difficult Mask: No Final Airway Details Final airway type: endotracheal airway Final Endotracheal Airway: ETT Cuffed: yes Successful intubation technique: video laryngoscopy Devices used: [employer] labs Endotracheal tube insertion site: oral Blade size: #4 ETT size (mm): 7.5 Measured from: lips Measurement (cm): 23 Placement verified by: capnometry Cormack-Lehane Classification: grade I - full view of glottis Number of attempts at approach: 1 Airway not difficult SIGNATURE: Dmitry Valles MD PATIENT NAME: Rashard Andersen DATE: March 10, 2024 TIME: 9:10 AM CSN: [id number] [facility] 03-05-2024 Telephone encounter Note Neuro SPINE CARE COORDINATION QUICK NOTE Called and spoke to patient. Pt aware surgery was changed to ACDF. PT wanted to confirm if an overnight stay is possible. Confirmed with him that it is possible. Provided patient with surgical schedulers number to call the business day before surgery after 230 PM to obtain surgical check in time. Gracie Voss RN Nursing Home Assistant [facility] Work Phone: 03-05-2024 Miscellaneous Notes Neuro SPINE CARE COORDINATION QUICK NOTE Called and spoke to patient. Pt aware surgery was changed to ACDF. PT wanted to confirm if an overnight stay is possible. Confirmed with him that it is possible. Provided patient with surgical schedulers number to call the business day before surgery after 230 PM to obtain surgical check in time. Gracie Voss RN Nursing Home Assistant Pt called & wanted to know details of the surgery 03/10, so that Pt can make arrangement if he has to stay over night. Pt asked if it Is front entry with the fusion? Pls call back [phone] documented in this encounter [facility] 03-05-2024 Telephone encounter Note Pt called & wanted to know details of the surgery 03/10, so that Pt can make arrangement if he has to stay over night. Pt asked if it Is front entry with the fusion? Pls call back [phone] [facility] 03-04-2024 Telephone encounter Note CM was able to leave a brief detailed message on identified vm requesting call back to discuss post op care. CM provided contact information. [facility] 03-04-2024 Miscellaneous Notes CM was able to leave a brief detailed message on identified vm requesting call back to discuss post op care. CM provided contact information. documented in this encounter [facility] 03-02-2024 Telephone encounter Note Call received for Maxime Bailey MD regarding Rashard Andersen. Caller: Terrie CHAPMAN [facility] Patient Identified by Name and : Yes Reason for Call: General Question Pt Surgery 03/10 [facility] called looking for office notes from [facility] 02/23. Could not find detailed notes. Is there any additional information the provider should know? No Last Office Visit: 03/02/2024 Next scheduled appointment: 04/27/2024 Best number to reach caller: Terrie - [facility] [phone] Best time to reach caller: any Is it OK to leave a detailed voice message? Yes Terrie Phillips [facility] 03-02-2024 Miscellaneous Notes Call received for Maxime Bailey MD regarding Rashard Andersen. Caller: Terrie CHAPMAN [facility]-Access Patient Identified by Name and : Yes Reason for Call: General Question Pt Surgery 03/10 [facility] called looking for office notes from [facility] 02/23. Could not find detailed notes. Is there any additional information the provider should know? No Last Office Visit: 03/02/2024 Next scheduled appointment: 04/27/2024 Best number to reach caller: Terrie CHAPMAN [facility] [phone] Best time to reach caller: any Is it OK to leave a detailed voice message? Yes Terrie Phillips documented in this encounter [facility] 02-24-2024 Instructions Shanice Sumner PA-C - 02/24/2024 11:48 AM EDT Images from the original note were not included. [facility] PATIENT PREOPERATIVE INSTRUCTIONS Dr. Bailey has scheduled you for your procedure at this surgery center: [facility] Scheduling Office: [phone] --[address] [place] [address]. Please read below carefully for your personalized instructions. Dietary Restrictions: - No solid food after midnight. - You may have 12 ounces of clear liquids (water, clear juices such as apple juice or gatorade, carbonated beverages, clear tea, black coffee, jello) until 2 hours before scheduled arrival at facility. Medications: Unless instructed differently below, stay on all of your medications until your surgery. If you start any new medications after today's visit, please contact your surgeon. Pre-Surgery Med Instructions Medication Instructions diclofenac, EC, (VOLTAREN) 75 mg EC tablet Stop 7 days before surgery gabapentin (NEURONTIN) 300 mg capsule Take the day of surgery with a small sip of water If you take any medications for erectile dysfunction-Cialis (Tadalafil), Levitra, Staxyn (Vardenafil) Viagra (Sildenenafil please do not take these for 48 hours before surgery. If you start any new medications after today's visit, please contact the surgeon's office. Blood Thinning Medications: - Stop NSAIDS (Ibuprofen, Advil, Aleve, Motrin, Celebrex, Mobic, etc.) 7 days before surgery, as directed by your surgeon. - Stop Aspirin 7 days before surgery, as directed by your surgeon. - Stop Vitamin E, ALL multi-vitamins, herbals and dietary supplements 7 days before surgery. - You may take Tylenol (Acetaminophen) or any of your pain medications that do not contain aspirin or NSAIDS as needed. Important Reminders: - Candy, mints, and tobacco products are NOT permitted the morning of surgery. - Hearing aids, dentures and glasses may be worn the morning of surgery. - NO jewelry, body piercings, makeup, hairpins or contacts are to be worn the day of surgery. If you develop symptoms such as a fever, cold, or flu, or have other changes to your health within TWO DAYS of scheduled surgery or the morning of surgery, please contact the surgery center above. Personal Belongings: -Please have photo ID and insurance cards. -If you do not have a copy of advance directives on file with us, please bring a copy with you on the day of surgery. - Leave ALL valuables and money at home or with family members. For Outpatient Procedures: - YOU MUST HAVE A RESPONSIBLE RADIOLOGY ASSISTANT TAKE YOU HOME. A CAKE STRIPPER OR IRRIGATOR VALVE PIPE CANNOT BE MADE A RESPONSIBLE RADIOLOGY ASSISTANT. - We recommend that a responsible person stays with you overnight to take care of you. - You cannot stay in a hotel alone after outpatient surgery. You will not be permitted to have your surgery, if you do not have someone to take care of you. Arrival Time for Surgery: - To obtain your arrival time for surgery, call your physician's office the day before your surgery. - If your surgery is scheduled for Friday, call the Friday before. Your surgeon s medical records receptionist will tell you what time to call the office. - If you have not reached the departmental medical records receptionist by 5 P.M., call [phone] after 5 P.M. the day before your surgery. Please be aware that emergency situations arise, which may delay or change your surgical time. If this happens, we will notify you as soon as possible and regret any inconvenience. If you already have an Advance Directive, please fax a copy to [phone] or email to for it to be added to your chart. If you do not have an Advance Directive, you can find the appropriate form and more information at [email or web address]. We recommend that you complete the Advance Directive form found on the website and bring it with you the day of your surgery. It can be witnessed and scanned into your chart that day. Shanice Sumner PA-C documented in this encounter [facility] 02-24-2024 History and physical note Images from the original note were not included. [facility] HISTORY AND PHYSICAL EXAMINATION SERVICE DATE: 02/24/2024 SERVICE TIME: 11:44 AM PRIMARY CARE PHYSICIAN: No primary care provider on file. Assessment Patient has the following medical conditions which may affect yadiel-operative course: Class 1 obesity due to excess calories without serious comorbidity with body mass index (BMI) of 34.0 to 34.9 in adult -BMI 34.70 Hope Activity Status Index: METS: Walk indoors, such as around the house (1.75 METs) Do light work around the house, such as dusting or washing dishes (2.70 METs) Take care of self; that is eating, dressing, bathing, using the toilet (2.75 METs) Walk a block or two on level ground (2.75 METs) Do moderate work around the house, such as vacuuming, sweeping floors, or carrying in groceries (3.50 METs) Do yardwork, such as raking leaves, weeding, or pushing a power mower (4.50 METs) Climb a flight of stairs or walk up a hill (5.50 METs) Participate in moderate recreational activites, such as golf, bowling, dancing, doubles tennis, or throwing a baseball or football (6.00 METs) Participate in strenuous sport, such as swimming, singles tennis, football, basketball, or skiing (7.50 METs) Do heavy work around the house, such as scrubbing floors, lifting or moving heavy furniture (8.00 METs) DASI Score: 44.95 Patient denies any chest pain or undue shortness of breath with the above physical activity. Clinical Frailty Scale: 2. Well STOP-Bang Score: Male patient Denies snoring loudly Denies feeling tired, fatigued, or sleepy during the daytime Has not been observed to stop breathing or choking/gasping during sleep Denies having high blood pressure BMI less than or equal to 35 kg/m^2 Patient 50 years old or younger Does not have a large neck STOP-Bang Score: 1 ANESTHESIA FINDINGS: Intubation History: No history of difficult intubation Significant Anesthesia Considerations: none Airway History: No history of difficult airway I - PHYSICAL EVALUATION AIRWAY Patient intubated: No. Mallampati: II. TM distance: >3 FB. Neck ROM: full ROM without neurological symptoms. Mouth opening: adequate. Short neck: no. Thick neck: yes Hayes present: no Lip Bite Test: II Microretrognathia/Micronagthia/ Recessed Chin: No DENTAL Additional comments: Left maxillary central incisor is a cap . II - ANESTHESIA PLAN Anesthetic plan additional comments: *[facility] - anesthesia choice. Beta Ariel Monitoring Plan Post Procedure Analgesic Plan PLAN This patient is optimally prepared for surgery pending LABS and EKG. CONSULTS: Patient does not require consults for optimization at this time. The Following Tests/Procedures Have Been Initiated: EKG, CBC and CMP ordered Planned Anesthetic: Per anesthesia choice REASON FOR VISIT: Rashard Andersen is a 44 year old male who is scheduled for Procedure(s): LAMINOTOMY W/ DECOMPRESSION OF NERVE ROOT(S) PARTIAL FACETECTOMY FORAMINOTOMY AND/OR EXCISION OF HERNIATED INTERVERTEBRAL DISC 1 INTERSPACE CERVICAL (N/A) at the request of Dr. Bailey, Maxime Gutierrez MD for consultation. My final recommendation will be communicated back to the requesting physician by way of shared medical record or letter. Subjective The patient has the following: COVID-19 Immunization Status Overdue - Covid-19 Vaccine ( season) Never done No completion, postpone, frequency change, or communication history exists for this topic. CHIEF COMPLAINT: Cervical disc disorder with radiculopathy HPI: Rashard Andersen is a 44 year old male who presents to [facility] today for preop exam. Patient is scheduled for the above procedure on 03/10/24. Patient has chronic neck pain that radiates into his left shoulder and down his left arm into his fingers. He underwent transforaminal epidural steroid injection, which did not help. His symptoms have been progressively worsening over the past few months. Denies fevers, chills, chest pain, and SOB. REVIEW OF SYSTEMS: General: No weight loss, malaise or fevers. Neurological: Negative for: headaches, impaired sensorium, seizures, TIA and strokes. Respiratory: Negative for: asthma, COPD, current cough, dyspnea, pneumonia within 6 weeks, tobacco use, URI < 2 weeks and obstructive sleep apnea. Cardiovascular: Negative for: angina, anticoagulation therapy, arrhythmia, CAD, chest pain, CHF, congenital heart defect, DVT/PE, hyperlipidemia, hypertension, murmur/valvular heart disease and PVD. GI: Negative for: abdominal pain, GERD, liver disease, nausea, vomiting and ETOH >2 drinks/day. : Negative for: dysuria, frequent urination, hematuria, nephrolithiasis and renal failure. Endocrine: Negative for: diabetes mellitus, hyperthyroidism, hypothyroidism and steroid for chronic problem. Hematology: No history of bleeding or clotting disorder. Patient is not taking anti-coagulation or platelet medications. No history of hematological symptoms or problems. Oncology: No history of CA metastasis, chemo within 30 days, or radiotherapy within 90 days. No history of oncological symptoms or problems. Psych: No history of psychiatric symptoms or problems. Musculoskeletal: Positive for: back pain. Skin: Negative for lesions, rash and itching. PAST MEDICAL HISTORY 02/24/2024: Class 1 obesity due to excess calories without serious comorbidity with body mass index (BMI) of 34.0 to 34.9 in adult PAST SURGICAL HISTORY No date: TONSILLECTOMY HX Comment: and adenoids at age 16 FAMILY HISTORY Problem Relation Age of Onset Anesthesia Problems No Family History Social History Tobacco Use Smoking status: Former Types: Cigarettes Smokeless tobacco: Never Tobacco comments: Quit in 2013, smoked for 5 years, 0.5ppd Substance Use Topics Alcohol use: Yes Alcohol/week: 6.0 standard drinks of alcohol Types: 6 Cans of Beer (12oz) per week Comment: 6 beers weekly Drug use: Not Currently Comment: last use 2019 Prior to Admission medications as of 02/24/24 1144 Medication Sig Last Dose Taking diclofenac, EC, (VOLTAREN) 75 mg EC tablet Take 75 mg by mouth two times a day as needed. Taking Yes gabapentin (NEURONTIN) 300 mg capsule Take 300 mg by mouth three times a day. Taking Yes No medication comments found. ALLERGIES No Known Allergies Objective PHYSICAL EXAM: General: alert and oriented, healthy appearance and obese. Pertinent negatives noted - not distressed. Skin: normal color, no rash or lesions. HEENT: EOM intact and pupils equal round. Pertinent negatives noted - no carotid bruit. Cardiovascular: regular rate and rhythm, normal S1 and S2, no rub, murmurs, or gallop. Respiratory: normal breath sounds, no wheezes or crackles. No chest wall deformity or tenderness. Abdomen: bowel sounds present. Extremities: no deformity, no edema or tenderness, no joint swelling or clubbing. Neurological: normal cognition and motor skills. Gait normal. No weakness or sensory deficit. PAIN ASSESSMENT: Pain Pain Level: 3 Pain Location: Neck Description: Shooting, Burning Duration Units: Years Frequency: Intermittent VITALS: BP 125/75 Pulse 72 Temp (Src) 97.6 (Temporal) Ht 6' 1 (1.85m) Wt 263 lb 0.1 oz (119.3kg) SpO2 98% BMI 34.71 kg/(m^2). Diagnostic tests reviewed for today's visit: Lab Value Units Date High Low HB No results within date range. HCT No results within date range. WBC No results within date range. PLT No results within date range. NA No results within date range. K No results within date range. GLUC No results within date range. BUN No results within date range. CREAT No results within date range. PTSEC No results within date range. INR No results within date range. APTT No results within date range. ALT No results within date range. AST No results within date range. TBILI No results within date range. TSH No results within date range. Lab Value Units Date High Low HCGQT No results within date range. UHCG No results within date range. HCG, BODY* No results within date range. Lab Value Units Date High Low ABORHD No results within date range. ABSCREEN No results within date range. No results found for: HBA1C Recent Results (from the past 8760 hour(s)) ECG COMPLETE Collection Time: 02/24/24 11:59 AM Result Value Ventricular Rate 67 Atrial Rate 67 P-R Interval 128 QRS Duration 98 QT Interval 398 QTC Calculation (Bazett) 420 Calculated P Ketchum 42 Calculated R Ketchum 30 Calculated T Ketchum 24 Impression NORMAL SINUS RHYTHM NORMAL ECG No results found for this or any previous visit (from the past 58917 hour(s)). Instructions Given to Patient: Instructions located in the after visit summary. Patient given verbal and written preop instructions and voices comprehension and compliance. SIGNATURE: Shanice Sumner PA-C PATIENT NAME: Rashard Andersen DATE: February 24, 2024 TIME: 11:31 AM PAGER/CONTACT #: [facility] 02-24-2024 History and physical note Images from the original note were not included. [facility] HISTORY AND PHYSICAL EXAMINATION SERVICE DATE: 02/24/2024 SERVICE TIME: 11:44 AM PRIMARY CARE PHYSICIAN: No primary care provider on file. Assessment Patient has the following medical conditions which may affect yadiel-operative course: Class 1 obesity due to excess calories without serious comorbidity with body mass index (BMI) of 34.0 to 34.9 in adult -BMI 34.70 Hope Activity Status Index: METS: Walk indoors, such as around the house (1.75 METs) Do light work around the house, such as dusting or washing dishes (2.70 METs) Take care of self; that is eating, dressing, bathing, using the toilet (2.75 METs) Walk a block or two on level ground (2.75 METs) Do moderate work around the house, such as vacuuming, sweeping floors, or carrying in groceries (3.50 METs) Do yardwork, such as raking leaves, weeding, or pushing a power mower (4.50 METs) Climb a flight of stairs or walk up a hill (5.50 METs) Participate in moderate recreational activites, such as golf, bowling, dancing, doubles tennis, or throwing a baseball or football (6.00 METs) Participate in strenuous sport, such as swimming, singles tennis, football, basketball, or skiing (7.50 METs) Do heavy work around the house, such as scrubbing floors, lifting or moving heavy furniture (8.00 METs) DASI Score: 44.95 Patient denies any chest pain or undue shortness of breath with the above physical activity. Clinical Frailty Scale: 2. Well STOP-Bang Score: Male patient Denies snoring loudly Denies feeling tired, fatigued, or sleepy during the daytime Has not been observed to stop breathing or choking/gasping during sleep Denies having high blood pressure BMI less than or equal to 35 kg/m^2 Patient 50 years old or younger Does not have a large neck STOP-Bang Score: 1 ANESTHESIA FINDINGS: Intubation History: No history of difficult intubation Significant Anesthesia Considerations: none Airway History: No history of difficult airway I - PHYSICAL EVALUATION AIRWAY Patient intubated: No. Mallampati: II. TM distance: >3 FB. Neck ROM: full ROM without neurological symptoms. Mouth opening: adequate. Short neck: no. Thick neck: yes Hayes present: no Lip Bite Test: II Microretrognathia/Micronagthia/ Recessed Chin: No DENTAL Additional comments: Left maxillary central incisor is a cap . II - ANESTHESIA PLAN Anesthetic plan additional comments: *[facility] - anesthesia choice. Beta Ariel Monitoring Plan Post Procedure Analgesic Plan PLAN This patient is optimally prepared for surgery pending LABS and EKG. CONSULTS: Patient does not require consults for optimization at this time. The Following Tests/Procedures Have Been Initiated: EKG, CBC and CMP ordered Planned Anesthetic: Per anesthesia choice REASON FOR VISIT: Rashard Andersen is a 44 year old male who is scheduled for Procedure(s): LAMINOTOMY W/ DECOMPRESSION OF NERVE ROOT(S) PARTIAL FACETECTOMY FORAMINOTOMY AND/OR EXCISION OF HERNIATED INTERVERTEBRAL DISC 1 INTERSPACE CERVICAL (N/A) at the request of Dr. Bailey, Maxime Gutierrez MD for consultation. My final recommendation will be communicated back to the requesting physician by way of shared medical record or letter. Subjective The patient has the following: COVID-19 Immunization Status Overdue - Covid-19 Vaccine ( season) Never done No completion, postpone, frequency change, or communication history exists for this topic. CHIEF COMPLAINT: Cervical disc disorder with radiculopathy HPI: Rashard Andersen is a 44 year old male who presents to [facility] today for preop exam. Patient is scheduled for the above procedure on 03/10/24. Patient has chronic neck pain that radiates into his left shoulder and down his left arm into his fingers. He underwent transforaminal epidural steroid injection, which did not help. His symptoms have been progressively worsening over the past few months. Denies fevers, chills, chest pain, and SOB. REVIEW OF SYSTEMS: General: No weight loss, malaise or fevers. Neurological: Negative for: headaches, impaired sensorium, seizures, TIA and strokes. Respiratory: Negative for: asthma, COPD, current cough, dyspnea, pneumonia within 6 weeks, tobacco use, URI < 2 weeks and obstructive sleep apnea. Cardiovascular: Negative for: angina, anticoagulation therapy, arrhythmia, CAD, chest pain, CHF, congenital heart defect, DVT/PE, hyperlipidemia, hypertension, murmur/valvular heart disease and PVD. GI: Negative for: abdominal pain, GERD, liver disease, nausea, vomiting and ETOH >2 drinks/day. : Negative for: dysuria, frequent urination, hematuria, nephrolithiasis and renal failure. Endocrine: Negative for: diabetes mellitus, hyperthyroidism, hypothyroidism and steroid for chronic problem. Hematology: No history of bleeding or clotting disorder. Patient is not taking anti-coagulation or platelet medications. No history of hematological symptoms or problems. Oncology: No history of CA metastasis, chemo within 30 days, or radiotherapy within 90 days. No history of oncological symptoms or problems. Psych: No history of psychiatric symptoms or problems. Musculoskeletal: Positive for: back pain. Skin: Negative for lesions, rash and itching. PAST MEDICAL HISTORY 02/24/2024: Class 1 obesity due to excess calories without serious comorbidity with body mass index (BMI) of 34.0 to 34.9 in adult PAST SURGICAL HISTORY No date: TONSILLECTOMY HX Comment: and adenoids at age 16 FAMILY HISTORY Problem Relation Age of Onset Anesthesia Problems No Family History Social History Tobacco Use Smoking status: Former Types: Cigarettes Smokeless tobacco: Never Tobacco comments: Quit in 2013, smoked for 5 years, 0.5ppd Substance Use Topics Alcohol use: Yes Alcohol/week: 6.0 standard drinks of alcohol Types: 6 Cans of Beer (12oz) per week Comment: 6 beers weekly Drug use: Not Currently Comment: last use 2019 Prior to Admission medications as of 02/24/24 1144 Medication Sig Last Dose Taking diclofenac, EC, (VOLTAREN) 75 mg EC tablet Take 75 mg by mouth two times a day as needed. Taking Yes gabapentin (NEURONTIN) 300 mg capsule Take 300 mg by mouth three times a day. Taking Yes No medication comments found. ALLERGIES No Known Allergies Objective PHYSICAL EXAM: General: alert and oriented, healthy appearance and obese. Pertinent negatives noted - not distressed. Skin: normal color, no rash or lesions. HEENT: EOM intact and pupils equal round. Pertinent negatives noted - no carotid bruit. Cardiovascular: regular rate and rhythm, normal S1 and S2, no rub, murmurs, or gallop. Respiratory: normal breath sounds, no wheezes or crackles. No chest wall deformity or tenderness. Abdomen: bowel sounds present. Extremities: no deformity, no edema or tenderness, no joint swelling or clubbing. Neurological: normal cognition and motor skills. Gait normal. No weakness or sensory deficit. PAIN ASSESSMENT: Pain Pain Level: 3 Pain Location: Neck Description: Shooting, Burning Duration Units: Years Frequency: Intermittent VITALS: BP 125/75 Pulse 72 Temp (Src) 97.6 (Temporal) Ht 6' 1 (1.85m) Wt 263 lb 0.1 oz (119.3kg) SpO2 98% BMI 34.71 kg/(m^2). Diagnostic tests reviewed for today's visit: Lab Value Units Date High Low HB No results within date range. HCT No results within date range. WBC No results within date range. PLT No results within date range. NA No results within date range. K No results within date range. GLUC No results within date range. BUN No results within date range. CREAT No results within date range. PTSEC No results within date range. INR No results within date range. APTT No results within date range. ALT No results within date range. AST No results within date range. TBILI No results within date range. TSH No results within date range. Lab Value Units Date High Low HCGQT No results within date range. UHCG No results within date range. HCG, BODY* No results within date range. Lab Value Units Date High Low ABORHD No results within date range. ABSCREEN No results within date range. No results found for: HBA1C Recent Results (from the past 8760 hour(s)) ECG COMPLETE Collection Time: 02/24/24 11:59 AM Result Value Ventricular Rate 67 Atrial Rate 67 P-R Interval 128 QRS Duration 98 QT Interval 398 QTC Calculation (Bazett) 420 Calculated P Ketchum 42 Calculated R Ketchum 30 Calculated T Ketchum 24 Impression NORMAL SINUS RHYTHM NORMAL ECG No results found for this or any previous visit (from the past 22066 hour(s)). Instructions Given to Patient: Instructions located in the after visit summary. Patient given verbal and written preop instructions and voices comprehension and compliance. SIGNATURE: Shanice Sumner PA-C PATIENT NAME: Rashard Andersen DATE: February 24, 2024 TIME: 11:31 AM PAGER/CONTACT #: documented in this encounter [facility] 10-23-2023 Telephone encounter Note Neuro SPINE CARE COORDINATION SURGERY SCHEDULING Spoke with patient in regards to surgery date and planning. Patient accepts surgery date of 03/10/[address] Maxime Bailey at [facility]. Planned procedure: C 3/4 foraminotomies Length of Surgery: 2 hours Expected Length of Hospital Stay: 0-1 Patient's Home Address: [address] [place] [id number] Medications reviewed : Yes. Meds to be stopped prior to surgery : NSAIDS and Vitamins and supplements. Additional pre op clearances needed : None. Any implanted devices (Stimulator, Defibrillator, etc.): No. Transplant History No. Nicotine use: No Patient will complete optimization lab work : A1c. Education Sent Via Mail/ [employer]: [employer] [facility] Questionnaire Completed: Yes Qualify TREK for Surgical Success?: No Patient placed on cancellation list: Yes Pre op appts: Green coat: Anytime [facility]: [facility] 02/24/2024 Informed 02/24/2024 2:[address] Bailey Education 02/04/2024 at 3 PM with Marcello Garcia RN Post-op Dates: 2 week Virtual Visit with Nancy Lagos NP 6-8 week post-op needed with Dr. Bialey. Questions answered. Patient verbalizes understanding via teach back. Additional comments : Denies current narcotic or nicotine use. Preoperative Needs Assessment Do you live alone or with someone that can help you? Lives with caregiver Will you have assistance available at home after your surgery to help with physical activities such a toileting or dressing? Occasionally How many steps do you need to climb to get into your home? 1-10 Once in your home, how many steps do you need to climb to access your bedroom or bathroom? 11-20 Do you use a mobility aid for walking/getting around? (note, if more than one type of aid is used, select the one that is used more frequently) None Anticipated LOS > 5 days: No Significant home social issues or Current history or past history of substance abuse: No Wheelchair baseline, Homebound baseline, Significant gait instability, or History of significant falls: No Thora/lumbar fusion any level planned or 2+ level posterior cervical fusion planned: No Myelopathic or Spine tumor: No Probability of non-home discharge disposition : Low [0.3] Gracie Voss RN [facility] Work Phone: 10-23-2023 Miscellaneous Notes Neuro SPINE CARE COORDINATION SURGERY SCHEDULING Spoke with patient in regards to surgery date and planning. Patient accepts surgery date of 03/10/[address] Maxime Bailey at [facility]. Planned procedure: C 3/4 foraminotomies Length of Surgery: 2 hours Expected Length of Hospital Stay: 0-1 Patient's Home [address]: [address] [place] [address] Medications reviewed : Yes. Meds to be stopped prior to surgery : NSAIDS and Vitamins and supplements. Additional pre op clearances needed : None. Any implanted devices (Stimulator, Defibrillator, etc.): No. Transplant History No. Nicotine use: No Patient will complete optimization lab work : A1c. Education Sent Via Mail/ [employer]: [employer] [facility] Questionnaire Completed: Yes Qualify TREK for Surgical Success?: No Patient placed on cancellation list: Yes Pre op appts: Green coat: Anytime [facility]: [facility] 02/24/2024 Informed 02/24/2024 2:[address] Bailey Education 02/04/2024 at 3 PM with Marcello Garcia RN Post-op Dates: 2 week Virtual Visit with Nancy Lagos NP 6-8 week post-op needed with Dr. Bailey. Questions answered. Patient verbalizes understanding via teach back. Additional comments : Denies current narcotic or nicotine use. Preoperative Needs Assessment Do you live alone or with someone that can help you? Lives with caregiver Will you have assistance available at home after your surgery to help with physical activities such a toileting or dressing? Occasionally How many steps do you need to climb to get into your home? 1-10 Once in your home, how many steps do you need to climb to access your bedroom or bathroom? 11-20 Do you use a mobility aid for walking/getting around? (note, if more than one type of aid is used, select the one that is used more frequently) None Anticipated LOS > 5 days: No Significant home social issues or Current history or past history of substance abuse: No Wheelchair baseline, Homebound baseline, Significant gait instability, or History of significant falls: No Thora/lumbar fusion any level planned or 2+ level posterior cervical fusion planned: No Myelopathic or Spine tumor: No Probability of non-home discharge disposition : Low [0.3] Gracie Voss RN Pt. Returned call from RN. Would like a call back. If a message is left with surgery dates that is fine with pt. To leave a message. His break times and Friday are: 10Am 12Pm 2PM Pt asked if a call could be placed to his with the information. I did not see her on the Alternative contact list. Patient called; returning call from nurse; requesting call back; ph. [phone] Neuro SPINE CARE COORDINATION QUICK NOTE Returned pts call to discuss surgery planning. No answer, LVM with office number for call back. Gracie Voss RN Nursing Home Assistant Patient is returning nurse call pertaining to below message, scheduling surgery with Dr. Bailey call back [phone] Terrie Phillips routed conversation to Spine [facility] 11 minutes ago (4:07 PM) Terrie Phillips 11 minutes ago (4:07 PM) KR Call received for Maxime Bailey MD regarding Rashard Andersen. Caller: Self Patient Identified by Name and : Yes Reason for Call: Returning Phone call from Nurse Is there any additional information the provider should know? No Last Office Visit: 10/16/2023 Next scheduled appointment: Visit date not found Best number to reach caller: [phone] Best time to reach caller: NA Is it OK to leave a detailed voice message? Yes Terrie Phillips Neuro SPINE CARE COORDINATION QUICK NOTE Call to patient to discuss surgery planning. No answer, LVM with office number for call back. Gracie Voss RN Nursing Home Assistant Call received for Maxime Bailey MD regarding Rashard Andersen. Caller: Other: [facility] pain management calling for the patient Patient Identified by Name and : Yes Reason for Call: schedule surgery Is there any additional information the provider should know? Yes Dr. Bailey told him if injection did not work, he could get surgery. Last Office Visit: 09/22/2023 Next scheduled appointment: Visit date not found Best number to reach caller: [phone] Best time to reach caller: anytime Is it OK to leave a detailed voice message? Yes Janell Wilcox [facility] nt to schedule surgery; ph: [phone] documented in this encounter [facility] 10-23-2023 Telephone encounter Note Neuro SPINE CARE COORDINATION SURGERY SCHEDULING Spoke with patient in regards to surgery date and planning. Patient accepts surgery date of 03/10/[address] Maxime Bailey at [facility]. Planned procedure: C 3/4 foraminotomies Length of Surgery: 2 hours Expected Length of Hospital Stay: 0-1 Patient's Home Address: [address] [place] [address] Medications reviewed : Yes. Meds to be stopped prior to surgery : NSAIDS and Vitamins and supplements. Additional pre op clearances needed : None. Any implanted devices (Stimulator, Defibrillator, etc.): No. Transplant History No. Nicotine use: No Patient will complete optimization lab work : A1c. Education Sent Via Mail/ [employer]: [employer] [facility] Questionnaire Completed: Yes Qualify TREK for Surgical Success?: No Patient placed on cancellation list: Yes Pre op appts: Green coat: Anytime [facility]: [facility] 02/24/2024 Informed 02/24/2024 2:[address] Bailey Education 02/04/2024 at 3 PM with Marcello Garcia RN Post-op Dates: 2 week Virtual Visit with Nancy Lagos NP 6-8 week post-op needed with Dr. Bailey. Questions answered. Patient verbalizes understanding via teach back. Additional comments : Denies current narcotic or nicotine use. Preoperative Needs Assessment Do you live alone or with someone that can help you? Lives with caregiver Will you have assistance available at home after your surgery to help with physical activities such a toileting or dressing? Occasionally How many steps do you need to climb to get into your home? 1-10 Once in your home, how many steps do you need to climb to access your bedroom or bathroom? 11-20 Do you use a mobility aid for walking/getting around? (note, if more than one type of aid is used, select the one that is used more frequently) None Anticipated LOS > 5 days: No Significant home social issues or Current history or past history of substance abuse: No Wheelchair baseline, Homebound baseline, Significant gait instability, or History of significant falls: No Thora/lumbar fusion any level planned or 2+ level posterior cervical fusion planned: No Myelopathic or Spine tumor: No Probability of non-home discharge disposition : Low [0.3] Gracie Voss RN [facility] Work Phone: 10-23-2023 Miscellaneous Notes Neuro SPINE CARE COORDINATION SURGERY SCHEDULING Spoke with patient in regards to surgery date and planning. Patient accepts surgery date of 03/10/[address] Maxime Bailey at [facility]. Planned procedure: C 3/4 foraminotomies Length of Surgery: 2 hours Expected Length of Hospital Stay: 0-1 Patient's Home Address: [address] [place] [id number] Medications reviewed : Yes. Meds to be stopped prior to surgery : NSAIDS and Vitamins and supplements. Additional pre op clearances needed : None. Any implanted devices (Stimulator, Defibrillator, etc.): No. Transplant History No. Nicotine use: No Patient will complete optimization lab work : A1c. Education Sent Via Mail/ [employer]: [employer] [facility] Questionnaire Completed: Yes Qualify TREK for Surgical Success?: No Patient placed on cancellation list: Yes Pre op appts: Green coat: Anytime [facility]: [facility] 02/24/2024 Informed 02/24/2024 2:[address] Bailey Education 02/04/2024 at 3 PM with Marcello Garcia RN Post-op Dates: 2 week Virtual Visit with Nancy Lagos NP 6-8 week post-op needed with Dr. Bailey. Questions answered. Patient verbalizes understanding via teach back. Additional comments : Denies current narcotic or nicotine use. Preoperative Needs Assessment Do you live alone or with someone that can help you? Lives with caregiver Will you have assistance available at home after your surgery to help with physical activities such a toileting or dressing? Occasionally How many steps do you need to climb to get into your home? 1-10 Once in your home, how many steps do you need to climb to access your bedroom or bathroom? 11-20 Do you use a mobility aid for walking/getting around? (note, if more than one type of aid is used, select the one that is used more frequently) None Anticipated LOS > 5 days: No Significant home social issues or Current history or past history of substance abuse: No Wheelchair baseline, Homebound baseline, Significant gait instability, or History of significant falls: No Thora/lumbar fusion any level planned or 2+ level posterior cervical fusion planned: No Myelopathic or Spine tumor: No Probability of non-home discharge disposition : Low [0.3] Gracie Voss RN Call received for Maxime Bailey MD regarding Rashard Andersen. Caller: Self Patient Identified by Name and : Yes Reason for Call: General Question Patient is calling accept the 03/10/24 surgery date. Would like to be put on the wait list. Is there any additional information the provider should know? No Last Office Visit: 10/16/2023 Next scheduled appointment: Visit date not found Best number to reach caller: No call back needed. Best time to reach caller: Is it OK to leave a detailed voice message? No Charissa Workman Call received for Maxime Bailey MD regarding Rashard Andersen. Caller: Self Patient Identified by Name and : Yes Reason for Call: Returning Phone call from Nurse Is there any additional information the provider should know? Yes call about scheduling surgery - there have been many calls back and forth. He does not have his cell phone at work when not on break. Breaks are at 10 AM, 12 PM and 2 PM. Suggested a call to his . She is not on his contact list. Last Office Visit: 10/16/2023 Next scheduled appointment: Visit date not found Best number to reach caller: [phone] Best time to reach caller: any Is it OK to leave a detailed voice message? Yes Terrie Phillips documented in this encounter [facility] 10-23-2023 Telephone encounter Note Call received for Maxime Bailey MD regarding Rashard Andersen. Caller: Self Patient Identified by Name and : Yes Reason for Call: General Question Patient is calling accept the 03/10/24 surgery date. Would like to be put on the wait list. Is there any additional information the provider should know? No Last Office Visit: 10/16/2023 Next scheduled appointment: Visit date not found Best number to reach caller: No call back needed. Best time to reach caller: Is it OK to leave a detailed voice message? No Charissa Workman [facility] 10-22-2023 Telephone encounter Note Pt. Returned call from RN. Would like a call back. If a message is left with surgery dates that is fine with pt. To leave a message. His break times and Friday are: 10Am 12Pm 2PM Pt asked if a call could be placed to his with the information. I did not see her on the Alternative contact list. [facility] 10-22-2023 Telephone encounter Note Call received for Maxime Bailey MD regarding Rashard Andersen. Caller: Self Patient Identified by Name and : Yes Reason for Call: Returning Phone call from Nurse Is there any additional information the provider should know? Yes call about scheduling surgery - there have been many calls back and forth. He does not have his cell phone at work when not on break. Breaks are at 10 AM, 12 PM and 2 PM. Suggested a call to his . She is not on his contact list. Last Office Visit: 10/16/2023 Next scheduled appointment: Visit date not found Best number to reach caller: [phone] Best time to reach caller: any Is it OK to leave a detailed voice message? Yes Terrie Phillips [facility] 10-20-2023 Telephone encounter Note Patient called; returning call from nurse; requesting call back; ph. [phone] [facility] 10-20-2023 Telephone encounter Note Neuro SPINE CARE COORDINATION QUICK NOTE Returned pts call to discuss surgery planning. No answer, LVM with office number for call back. Gracie Voss RN Nursing Home Assistant [facility] 10-20-2023 Telephone encounter Note Patient is returning nurse call pertaining to below message, scheduling surgery with Dr. Bailey call back [phone] [facility] 10-16-2023 Telephone encounter Note Terrie Phillips routed conversation to Spine [facility] 11 minutes ago (4:07 PM) Terrie Phillips 11 minutes ago (4:07 PM) KR Call received for Maxime Bailey MD regarding Rashard Cerdaer. Caller: Self Patient Identified by Name and : Yes Reason for Call: Returning Phone call from Nurse Is there any additional information the provider should know? No Last Office Visit: 10/16/2023 Next scheduled appointment: Visit date not found Best number to reach caller: [phone] Best time to reach caller: NA Is it OK to leave a detailed voice message? Yes Terrie Phillips [facility] 10-16-2023 Miscellaneous Notes Neuro SPINE CARE COORDINATION QUICK NOTE See other telephone encounter . Gracie Voss RN Nursing Home Assistant Call received for Maxime Bailey MD regarding Rashard Andersen. Caller: Self Patient Identified by Name and : Yes Reason for Call: Returning Phone call from Nurse Is there any additional information the provider should know? No Last Office Visit: 10/16/2023 Next scheduled appointment: Visit date not found Best number to reach caller: [phone] Best time to reach caller: NA Is it OK to leave a detailed voice message? Yes Terrie Phillips documented in this encounter [facility] 10-16-2023 Telephone encounter Note Neuro SPINE CARE COORDINATION QUICK NOTE Call to patient to discuss surgery planning. No answer, LVM with office number for call back. Gracie Voss RN Nursing Home Assistant [facility] 10-16-2023 Telephone encounter Note Call received for Maxime Bailey MD regarding Rashardene Cerdaer. Caller: Other: [facility] pain management calling for the patient Patient Identified by Name and : Yes Reason for Call: schedule surgery Is there any additional information the provider should know? Yes Dr. Bailey told him if injection did not work, he could get surgery. Last Office Visit: 09/22/2023 Next scheduled appointment: Visit date not found Best number to reach caller: [phone] Best time to reach caller: anytime Is it OK to leave a detailed voice message? Yes Janell merritt to schedule surgery; ph: [phone] [facility] 09-26-2023 Note HNO ID: [id number] Author: NANCY LAGOS APRN.YUNG Service: ? Author Type: Nurse Practitioner Type: Progress Notes Filed: 09/26/2023 09:27 Note Text: SPINE SURGERY ESTABLISHED This is a virtual visit using [employer] Video Visit. It required patient-provider interaction for the medical decision making as documented below. I have communicated my name and active licensure. The patient's identity and physical location were verified at the time of this visit. Either the patient or their legal it sales representative has been informed of the risks and benefits of -- and alternatives to -- treatment through a remote evaluation and consents to proceed with the evaluation remotely. DATE OF SERVICE: 09/26/2023 DATE OF LAST VISIT: 08/19/2023 SUBJECTIVE: HPI:Rashard Andersen is a 43 year old male presenting alone via virtual to discuss results of injection. Patient recently underwent Left C3-4, 4-5 transforaminal epidural steroid injection on 09/01/2023 at [facility] with little to no relief, no improvement in radicular symptoms but does notice improvement in ability to turn head. He states maybe little improvement but once local wore off symptoms returned. Patient has had these symptoms for several years which have progressed over the last few months. States he has more tingling in hands and feet, he feels like is something pulling from neck to all the way down his arm constantly. Taking diclofenac and Gabapentin 300 mg taking once which make his symptoms somewhat tolerable. PAIN EVALUATION 09/23/2023 1117 Pain Level: 5 Pain Location: Neck Description: Aching;Burning;Sharp;Shooting;S ore;Tingling Duration Units: Days Frequency: Intermittent Intervention/Comfort measure: Medication Pain Radiation: from the neck, left shoulder(s), left elbow(s), left wrist(s), and left finger(s) REVIEW OF SYSTEMS: GENERAL: No weight loss or malaise MUSCULOSKELETAL: Negative for joint pain, swelling or muscle pain NEURO: No history of headaches, syncope, paralysis, seizures or tremors MEDICATIONS: diclofenac, EC, (VOLTAREN) 75 mg EC tablet Take 75 mg by mouth two times a day as needed. gabapentin (NEURONTIN) 300 mg capsule Take 300 mg by mouth three times a day. Patient Entered Questionnaires 09/23/2023 Spine Questions Pain Location: Neck Pain Duration: 1 to 5 years Pain over last 6 months: Every day or nearly every day in the past 6 months Symptoms from neck/cervical spine: Yes Employment Status: Working now Involved in law suit/legal claim: No 09/23/2023 Neck Questionnaires Benzel Modified MILAD Score 16 (A lower score indicates increased pain and issues.) PROMIS Score Percentiles 09/23/2023 Physical Health Physical Function Percentile 21* Sleep Percentile 21* Fatigue Percentile 18* Pain Interference Percentile 10 09/23/2023 PROMIS SOCIAL ROLE SCORE Social Role Satisfaction Percentile 21* 09/23/2023 PROMIS Global Health Scale Physical Health Percentile 22* Mental Health Percentile 63 Percentiles provide an indication of how the patient's score ranks in relation to the general population. Higher percentile rankings indicate better function/quality of life. 50th percentile is the average of the general population and indicates half of respondents had a worse score. Descriptive Summary for PROMIS Physical Function T-score = 42 (Percentile 21) Much difficulty - Do 2 hours of physical labor. Some difficulty - Walk more than a mile (1.6 km). Depression Screenin09/23/2023 PHQ-9 Score 2 09/23/2023 PHQ-9 Self-harm Question Question 9 Not at all PHQ-9 Self-Harm (Item 9) response options: 0 Not at all 1 Several days 2 More than half the days 3 Nearly every day PHQ-9 Levels: 0-4 No to mild depression 5-9 Mild depression 10-14 Moderate depression 15-19 Moderately severe depression 20-27 Severe depression OBJECTIVE: PHYSICAL EXAM: There were no vitals taken for this visit. LIMITED DUE TO VIRTUAL VISIT GENERAL APPEARANCE: Well nourished, well developed, and no apparent distress. NEURO PSYCH: Patient oriented to person, place, and time. Mood pleasant. Benign affect. MUSCULOSKELETAL VISUAL INSPECTION CERVICAL: WNL THORACIC: WNL LUMBAR: WNL DATA REVIEW:Diagnostic tests reviewed for today's visit, films/specimens were personally reviewed by me: Imaging and outside records independently reviewed MRI of the cervical spine reveals multilevel cervical spondylosis, most significant at C3-C4 with a left-sided large partially calcified disc herniation impinging upon the exiting C4 nerve root. ASSESSMENT/PLAN (M50.10) Cervical disc disorder with radiculopathy (primary encounter diagnosis) Rashard Andersen will continue with medical management of his/her condition. Discussed with patient during more conservative treatment such as increasing gabapentin or adding a muscle relaxer and patient declines for now as he would like to avoid the side effec (more content not included)... [facility] 09-22-2023 Miscellaneous Notes Patient called back got him scheduled for a follow up visit scheduled with [facility]. Sent to schedulers. Neuro SPINE CARE COORDINATION QUICK NOTE Reviewed BETH note. Recommendation were to schedule a follow up (in person or virtual) 3-4 weeks after injection with Nancy Lagos NP or Dr Bailey. Message sent to admin to assist patient in scheduling an appointment for follow up. Gracie Voss RN Nursing Home Assistant pt states injection with [facility] didn't work. Pt would like to schedule surgery. Call back; [phone] documented in this encounter [facility] 08-26-2023 Miscellaneous Notes OV noted completed and faxed to: [facility] Attn: Diane Confirmation received. Diane from [facility] called; they referred patient to Dr. Bailey. Requesting 08/19/23 OV Note be faxed to her at: [facility] Attn: Diane FYI: OV Note is not completed yet - please advise once signed and the note will be faxed as requested. documented in this encounter [facility] 08-19-2023 History of Presen t illness Narrative Radiology Service Progress Note PATIENT NAME: Rashard Andersen DATE OF SERVICE: August 19, 2023 TIME: [...] PATIENT PRESENTS WITH AN IMPLANTABLE OR ATTACHED NURSING INFORMATICS CLINICAL ANALYST: No RADIOLOGY DEPARTMENT: General X-ray: Exam(s) Completed: Spine X-Ray(s): Cervical AP / LAT / FLEX-EXT PERIPHERAL IV DATA: Not applicable SIGNED BY: RT Ran(Osvaldo) August 19, 2023 9:12 AM documented in this encounter [facility] 08-19-2023 Note HNO ID: [id number] Author: FELA RODAS RT(R) Service: Radiology Author Type: Technologist Type: Progress Notes Filed: 08/19/2023 09:13 Note Text: Radiology Service Progress Note PATIENT NAME: Rashard Andersen DATE OF SERVICE: August 19, 2023 TIME: [...] PATIENT PRESENTS WITH AN IMPLANTABLE OR ATTACHED NURSING INFORMATICS CLINICAL ANALYST: No RADIOLOGY DEPARTMENT: General X-ray: Exam(s) Completed: Spine X-Ray(s): Cervical AP / LAT / FLEX-EXT PERIPHERAL IV DATA: Not applicable SIGNED BY: RT Ran(Osvaldo) August 19, 2023 9:12 AM [facility] 08-19-2023 Note HNO ID: [id number] Author: MAXIME BAILEY MD Service: ? Author Type: Physician Type: Progress Notes Filed: 08/25/2023 14:37 Note Text: SPINE SURGERY OUTPATIENT CONSULT This is an in-person visit. SERVICE DATE: 08/19/2023 PCP: No primary care provider on file. REFERRING PROVIDER: Elio Garza [address] [address] Consult requested for an opinion regarding the evaluation and treatment of cervical radiculopathy. My final impression and recommendations will be communicated back to the requesting physician by way of the shared medical record or letter via US mail. SUBJECTIVE Rashard Andersen is a 43 year old male presenting with cervical radiculopathy mainly in his left side. 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 Cervical radicular pain causes significantly more weakness in his left arm and hand, according to the pt. Pt endorses drowsiness with Gabapentin. Pt endorses gradual weakness in his project eng, especially in his left hand. CHIEF COMPLAINT: Neck and left arm pain HISTORY OF PRESENT ILLNESS PRECIPITATING EVENT: None DURATION OF SYMPTOMS: Greater Than 6 Months Pain Radiation: from the neck to the left finger(s). Previous Conservative Treatment: OTC NSAIDS for 3 Months or Greater (Ibuprofen and Tylenol / acetaminophen) RX NSAIDS for 3 Months or Greater (diclofenac (Voltaren, [place])) Muscle Relaxants Oral Steroids Membrane Stabilizers- gabapentin, caused drowsiness PREVIOUS SPINAL SURGERY: None There is no problem list on file for this patient. No past medical history on file. No past surgical history on file. No family history on file. Social History Tobacco Use Smoking status: Never Smokeless tobacco: Never ALLERGIES Not on File MEDICATIONS: diclofenac, EC, (VOLTAREN) 75 mg EC tablet Take 75 mg by mouth two times a day as needed. gabapentin (NEURONTIN) 300 mg capsule Take 300 mg by mouth three times a day. REVIEW OF SYSTEMS: GENERAL: No weight loss or malaise MUSCULOSKELETAL: Negative for joint pain, swelling or muscle pain NEURO: No history of headaches, syncope, paralysis, seizures or tremors Patient Entered Questionnaires PROMIS Score Percentiles Percentiles provide an indication of how the patient's score ranks in relation to the general population. Higher percentile rankings indicate better function/quality of life. 50th percentile is the average of the general population and indicates half of respondents had a worse score. Depression Screening: PHQ-9 Self-Harm (Item 9) response options: 0 Not at all 1 Several days 2 More than half the days 3 Nearly every day PHQ-9 Levels: 0-4 No to mild depression 5-9 Mild depression 10-14 Moderate depression 15-19 Moderately severe depression 20-27 Severe depression OBJECTIVE: PHYSICAL EXAM BP 146/106 Pulse 79 Resp 18 Ht 185.4 cm (6' 1 ) Wt 115.9 kg (255 lb 8.2 oz) SpO2 97% BMI 33.71 kg/m? Supination weakness on left side 4/5. External rotation weakness on left side relative to right 4/5. No soler's, no long track signs +spurlings on left MRI of the cervical spine reveals multilevel cervical spondylosis, most significant at C3-C4 with a left-sided large partially calcified disc herniation impinging upon the exiting C4 nerve root. ASSESSMENT/PLAN No diagnosis found. Rashard Andersen has a condition that requires further workup. 1. Consults: Medical Spine Intervention 2. 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 This would correlate with his large disc herniation on the left side at C3-4. We discussed that treatment for this would be an injection for the time being. If this injection does benefit him but does not last, then he would be a candidate for operative intervention. We discussed that this is a last resort. I spent 30 minutes in the visit, with more than 50% of the total ptei-oy-ftci time of the visit in counseling / coordination of care. By signing my name below, I, Steven Mercer, attest that this documentation has been prepared under the direction and in the presence of Dr. Bailey. Electronically signed, Tarik Koehler August 19, 2023 9:28 AM SIGNATURE: Maxime Bailey MD PATIENT NAME: Rashard Andersen DATE: August 19, 2023 TIME: 9:27 AM PAGER: [facility] 07-03-2023 Note HNO ID: [id number] Author: NANCY LAGOS APRN.CNP Service: ? Author Type: Nurse Practitioner Type: Progress Notes Filed: 07/03/2023 22:00 Note Text: Per Triage: Rashard Andersen is a 43 year old male that [...] XR cerv ordered to be completed prior. [facility] 07-03-2023 History of Presen t illness Narrative Per Triage: Rashard Andersen is a 43 year old male that [...] to be completed prior. Patient name: Rashard Andersen Are you being referred by a Center for Spine Health Provider or Pain Management Provider at [facility]? No If answer is YES please [...] facility where the MRI/CT/myelogram was completed: [facility] [address] [facility] [address] MRI/CT/myelogram viewable in Epic: No If not, please provide [phone] to fax in imaging reports for review. [...] completed: Requested provider (First and Last name): Maxime Bailey or Jass Lewis Are you interested [...] completed: Additional Comments documented in this encounter [facility] 06-17-2023 Note HNO ID: [id number] Author: ?, ?, ? Service: ? Author Type: ? Type: Progress Notes Filed: 07/03/2023 22:00 Note Text: Patient name: Rashard Andersen Are you being referred by a Center for Spine Health Provider or Pain Management Provider at [facility]? No If answer is YES please schedule directly with surgeon, triage does not need to be completed. Is this a self-referral No If not, who is the Referring Provider Elio Garza Is this a 2nd opinion from another spine surgeon? No Were you offered surgery? No MRI/CT/myelogram within 12 months? Yes If NO , please refer to medical spine or PCP to complete above imaging, triage does not need to be completed If YES,? please ask for the name/address of the facility where the MRI/CT/myelogram was completed: [facility] [address] [facility] [address] MRI/CT/myelogram viewable in Epic: No If not, please provide [phone] to fax in imaging reports for review. [...] completed: Requested provider (First and Last name): Maxime Bailey or Jass Lewis Are you interested [...] where the surgery was completed: Additional Comments [facility] 01-07-2022 Evaluation note Encounter Date Diagnosis [...] UP AND WHEN TO SEEK EMERGENCY TREATMENT [facility] Other Evaluation note* Diagnosis Neck pain- Primary [facility]ervicalgia [facility] Diagnosis Neck pain Cervicalgia [facility] Diagnosis Pre-op evaluation- Primary Preoperative examination, unspecified Class 1 obesity due to excess calories without serious comorbidity with body mass index (BMI) of 34.0 to 34.9 in adult Cervical disc disorder with radiculopathy Brachial neuritis or radiculitis nos * Assessment & Plan Note - Shanice Sumner PA-C - 02/24/2024 12:12 PM EDT Associated Problem(s): Class 1 obesity due to excess calories without serious comorbidity with bodymass index (BMI) of 34.0 to 34.9 in adult -BMI 34.70 [facility] Diagnosis Cervical radiculopathy- Primary Brachial neuritis or radiculitis nos Acute post-operative pain Acute post-operative pain Class 1 obesity due to excess calories without serious comorbidity with body mass index (BMI) of 34.0 to 34.9 in adult Cervical radiculopathy- Primary Brachial neuritis or radiculitis nos Pre-op evaluation- Primary Preoperative examination, unspecified Class 1 obesity due to excess calories without serious comorbidity with body mass index (BMI) of 34.0 to 34.9 in adult [facility] Diagnosis Onset Date Resolution Status Cervical spondylosis acute Obesity acute Wellness examination acute Wound dehiscence, surgical [facility] Diagnostic Procedure Only (Routine) - Pending Review Specialty Diagnoses / Procedures Referred By Contac t Referred To Contact XR IMAGING Diagnoses Neck pain Procedures XR CERV OTHER 4V AP/LAT/FLX/EXT RADEX SPINE CERVICAL 4 OR 5 VIEWS Nancy Lagos APRN.CNP [address] [place] [address] [facility] [place] [address] Referral ID Status Reason Start Date Expiration Date Visits Requested Visits Authorized [id number] Pending Review Auto-Generat ed Referral 07/03/2023 08/01/2024 1 1 [facility] for referral (narrative)* Diagnostic Procedure Only (Routine) - Closed Specialty Diagnoses / Procedures Referred By Contac t Referred To Contact XR IMAGING Diagnoses Neck pain Procedures XR CERV OTHER 4V AP/LAT/FLX/EXT RADEX SPINE CERVICAL 4 OR 5 VIEWS Nancy Lagos APRN.CNP [address] [place] [address] [facility] [place] [address] Referral ID Status Reason Start Date Expiration Date V isits Requested Visits Authorized [id number] Closed Auto-Generate d Referral 07/03/2023 08/01/2024 1 1 [facility] for referral (narrative)* Outpatient Procedure (Routine) - Closed Specialty Diagnoses / Procedures Referred By Contac t Referred To Contact [facility] Diagnoses Pre-op evaluation Procedures ECG COMPLETE ECG ROUTINE ECG W/LEAST 12 LDS W/I&R Shanice Sumner PA-C [facility] [address] [place] [id number] [facility] [address] [place] [id number] Referral ID Status Reason Start Date Expiration Date V isits Requested Visits Authorized [id number] Closed Auto-Generate d Referral 02/24/2024 02/23/2025 1 1 [facility] Summary Purpose Family History No Family History Records FoundNo Family History Records Found Advance Directives Advance Directive Response Recorded Date/ Time Advance Directives No February 8:50am Chief Complaint and Reason for Visit Chief Complaint wellness Reason for Visit Cervical spondylosis Obesity Wellness examination Wound dehiscence, surgical Additional Source Comments REASON FOR VISIT (unrecogniz ed section and content) Reason Comments [facility] [address] Specialty Diagnoses / Procedures Referred By Contac t Referred To Contact XR IMAGING Diagnoses Neck pain Procedures XR CERV OTHER 4V AP/LAT/FLX/EXT RADEX SPINE CERVICAL 4 OR 5 VIEWS Nancy Lagos, ANNIE.LOADMASTER [address] [id number] [facility] [place] [address] Referral ID Status Reason Start Date Expiration Date V isits Requested Visits Authorized [id number] Closed Auto-Generate d Referral 07/03/2023 08/01/2024 1 1 Reason Comments Request from Provider Reason Comments Schedule Surgery Reason Comments Returning Patient's Call Reason Comments Appointment Reason Comments Follow Up Reason Comments Patient Question Reason Comments Call from Pre-access Reason Comments Pain Reason Comments Pre-Op Exam Reason Comments Patient Update Source Comments (unrecognize d section and content) In the event this informatio n is protected by the Federal Confidentiality of Alcohol and Drug Abuse Patient Records regulations: The Federal rules restrict any use of the information to criminally investigate or prosecute any alcohol or drug abuse patient.[facility] the event this information is protected by the Federal Confidentiality of Alcohol and Drug Abuse Patient Records regulations: The Federal rules restrict any use of the information to criminally investigate or prosecute any alcohol or drug abuse patient.[facility] the event this information is protected by the Federal Confidentiality of Alcohol and Drug Abuse Patient Records regulations: The Federal rules restrict any use of the information to criminally investigate or prosecute any alcohol or drug abuse patient.[facility] the event this information is protected by the Federal Confidentiality of Alcohol and Drug Abuse Patient Records regulations: The Federal rules restrict any use of the information to criminally investigate or prosecute any alcohol or drug abuse patient.[facility] the event this information is protected by the Federal Confidentiality of Alcohol and Drug Abuse Patient Records regulations: The Federal rules restrict any use of the information to criminally investigate or prosecute any alcohol or drug abuse patient.[facility] the event this information is protected by the Federal Confidentiality of Alcohol and Drug Abuse Patient Records regulations: The Federal rules restrict any use of the information to criminally investigate or prosecute any alcohol or drug abuse patient.[facility] the event this information is protected by the Federal Confidentiality of Alcohol and Drug Abuse Patient Records regulations: The Federal rules restrict any use of the information to criminally investigate or prosecute any alcohol or drug abuse patient.[facility] the event this information is protected by the Federal Confidentiality of Alcohol and Drug Abuse Patient Records regulations: The Federal rules restrict any use of the information to criminally investigate or prosecute any alcohol or drug abuse patient.[facility] the event this information is protected by the Federal Confidentiality of Alcohol and Drug Abuse Patient Records regulations: The Federal rules restrict any use of the information to criminally investigate or prosecute any alcohol or drug abuse patient.[facility] the event this information is protected by the Federal Confidentiality of Alcohol and Drug Abuse Patient Records regulations: The Federal rules restrict any use of the information to criminally investigate or prosecute any alcohol or drug abuse patient.[facility] the event this information is protected by the Federal Confidentiality of Alcohol and Drug Abuse Patient Records regulations: The Federal rules restrict any use of the information to criminally investigate or prosecute any alcohol or drug abuse patient.[facility] the event this information is protected by the Federal Confidentiality of Alcohol and Drug Abuse Patient Records regulations: The Federal rules restrict any use of the information to criminally investigate or prosecute any alcohol or drug abuse patient.[facility] the event this information is protected by the Federal Confidentiality of Alcohol and Drug Abuse Patient Records regulations: The Federal rules restrict any use of the information to criminally investigate or prosecute any alcohol or drug abuse patient.[facility] the event this information is protected by the Federal Confidentiality of Alcohol and Drug Abuse Patient Records regulations: The Federal rules restrict any use of the information to criminally investigate or prosecute any alcohol or drug abuse patient.[facility] Care Teams (unrecognized sec tion and content) Paste Mixer Relationship Specialty Start Date End Date Elio Garza MD [address] [place] [address] 1 [place] [id number] Referring Pain Management 06/14/23 Paste Mixer Relationship Specialty Start Date End Date Elio Garza MD [address] [place] [id number] Referring Pain Management 06/14/23 Paste Mixer Relationship Specialty Start Date End Date Elio Garza MD [address] [place] [address] 1 [place] [address] Referring Pain Management 06/14/23 Paste Mixer Relationship Specialty Start Date End Date Elio Garza MD [address] [place] [address] 1 [place] [address] Referring Pain Management 06/14/23 Paste Mixer Relationship Specialty Start Date End Date Giedraitis, Andrius, MD [address] [place] [address] 1 [place] [address] Referring Pain Management 06/14/23 Paste Mixer Relationship Specialty Start Date End Date Elio Garza MD [address] [place] [address] [place] [address] Referring Pain Management 06/14/23 Paste Mixer Relationship Specialty Start Date End Date Elio Garza MD [address] [place] [address] [place] [address] Referring Pain Management 06/14/23 Paste Mixer Relationship Specialty Start Date End Date Elio Garza MD [address] [place] [address], [place] [address] Referring Pain Management 06/14/23 Paste Mixer Relationship Specialty Start Date End Date Elio Garza MD [address] [place] [address] 1 [place] [address] Referring Pain Management 06/14/23 Paste Mixer Relationship Specialty Start Date End Date Elio Garza MD [address] [place] [address] 1 [place] [address] Referring Pain Management 06/14/23 Paste Mixer Relationship Specialty Start Date End Date Elio Garza MD [address] [place] [address] 1 [place] [address] Referring Pain Management 06/14/23 Team Status: Active Member Role Status Dates Jose Peck DO Primary Care Provider Active Team Status: Inactive Member Role Status Dates Jose Peck DO Primary Care Provide r, Attending Provider Active Start: April 13, 2024 End: April 13, 2024 (unrecognized sect ion and content) No Status Records FoundNo Status Records Found INFORMATION SOURCE (unrecogn ized section and content) DATE CREATED AUTHOR 09/05/2023 [facility] DATE CREATED AUTHOR AUTHOR'S CHRIS ATGIULIANO 03/16/2024 [facility] Goals (unrecognized section and content) Goals may be documented in a n alternate section FOR RECORDS PERTAINING TO PATIENTS WHO ARE [...] BE BASED ON THE PRIMARY CLINICAL RECORDS. [facility] [employer] [facility]. provides no warranty or guarantee of the accuracy or completeness of information in this document.
[2024-04-21 08:39] LABS: Basophils Percent Auto 0.6 % (0.2-2.0); Eosinophils Absolute Auto 0.1 10^3/uL (0.0-0.7); Eosinophils Percent Auto 3.2 % (0.9-7.0); Hematocrit 43.9 % (42.0-54.0); Hemoglobin 15.3 g/dL (14.0-18.0); Immature Granulocytes Abs Auto 0.01 10^3/uL (0.00-0.03); Immature Granulocytes Pct Auto 0.3 % (0.0-0.5); Lymphocytes Absolute Auto 1.1 10^3/uL (1.2-3.8); Lymphocytes Percent Auto 31.3 % (20.5-60.0); Mean Corpuscular HGB Conc 34.9 g/dL (29.9-35.2); Mean Corpuscular Volume 86.1 fL (80.0-94.0); Mean Platelet Volume 8.6 fL (9.5-13.5); Monocytes Absolute Auto 0.3 10^3/uL (0.3-0.8); Monocytes Percent Auto 8.3 % (1.7-12.0); Neutrophils Percent Auto 56.3 % (43.0-75.0); Platelet Count 169 10^3/uL (150-450); White Blood Count 3.5 10^3/uL (4.0-11.0)
[2024-04-21 09:23] LABS: Anion Gap 13.9; BUN Creatinine Ratio 18.4; Bilirubin Total 0.7 mg/dL (0.2-1.0); Calcium 8.9 mg/dL (8.5-10.1); Carbon Dioxide 26.1 mmol/L (21.0-32.0); Chloride 104 mmol/L (98-107); Estimated GFR (African America >60 (>=60 mL/min/1.73m^2); Estimated GFR (Non-African Ame >60 (>=60 mL/min/1.73m^2); Glucose 114 mg/dL (74-106); Sodium 140 mmol/L (136-145)
[2024-04-21 09:24] LABS: Alanine Aminotransferase 72 U/L (16-63); Albumin Globulin Ratio 1.1; Albumin Level 3.7 g/dL (3.4-5.0); Alkaline Phosphatase 59 U/L (46-116); Aspartate Amino Transferase 34 U/L (15-37); Cholesterol 275 mg/dL (<=200); Globulin 3.5 g/dL; HDL Cholesterol 48 mg/dL (40-60); Total Protein 7.2 g/dL (6.4-8.2); Triglycerides 554 mg/dL (<=150); VLDL CHOLESTEROL 110.8 mg/dL
[2024-04-21 09:25] LABS: Chol HDL Ratio 5.7; LDL Cholesterol Direct 137 mg/dL
== END 2024-04-21 08:17 | disposition home or self-care (01) ==
LOC: LAB 08:19
PROVIDERS: PCP Internal Medicine; Visit Provider Internal Medicine
DX: Z00.00 Encounter for general adult medical examination without abnormal findings (principal)
CPT/HCPCS: 36415; 80053; 80061; 83721; 85025

== ENCOUNTER 2024-04-28 07:29 | Outpatient (OUT) | payer OTHER, SELFPAY ==
--- NOTE | 2024-04-28 | XR_ITS ---
The [address] [address] Patient Name: JOY ANDERSEN MRN: [id number] date: 1980 Sex: M Assigned Patient Location: [facility] Current Patient Location: Accession/Order Number: [id number] Exam Date: 04/28/2024 07:40 Report Date: 04/30/2024 08:05 At the request of: NON-STAFF PHYSICIAN Procedure: XR cervical spine w flex/ext EXAMINATION: XR cervical spine w flex/ext HISTORY: Cervical spinal fusion Z98.1 COMPARISON: No relevant comparison available. FINDINGS: BONES: Neutral projection demonstrates normal alignment with no acute fracture or spondylolisthesis. Anterior fusion C3-C4 with a plate and screws. No mechanical failure. Mild spondylosis DISC SPACES: Interbody spacers C3-4 PARASPINOUS: Negative. No paraspinous abnormality is seen. OTHER: No dynamic instability XR/XR cervical spine w flex/ext IMPRESSION: Cervical fusion with no mechanical failure Electronically authenticated by: JUDI MALHOTRA Date: 04/30/2024 08:05
--- OUTSIDE RECORDS SUMMARY | 2024-04-28 07:33 | XMS_ITS | CCD ---
Author Organization [facility] Care Team Providers Care Salesperson Books Name Role Phone Nayeli Rodriguez Unavailable Greg [...] Test Name Value Interpretation Reference Range Facility [facility] 03-15-2024 [facility] Letter Text Normal [facility] Sou[facility] YUNGAde 03-12-2024 CNPN Telephone (NIQ) NATHALYRASHARD ([id number]) 1980 M T Date Time Provider Department 03/12/24 MAXIME BAILEY During your visit today, we recorded the following information about you: Kerri Gerardo 03/12/2024 8:39 AM Signed Patient called; had surgery w/Dr. Bailey on 03/10/24; patient is asking if he can resume taking diclofenac and has a few other post-surgery questions; requesting call back; ph. [phone] Gracie Voss RN 03/12/2024 2:57 PM Signed [...] none Follow up: 2 week VV with [facility]IDE SOFI Medina Megan, APRN.YUNG 03/12/2024 3:24 PM Signed Robaxin refill placed. Agree with RN recommendations Charissa Workman 03/15/2024 11:31 AM Addendum Patient is calling back would like to try the other medication the nurse suggested. [facility]. Call back # [phone] Paulina Bryson RN 03/15/2024 2:52 PM Signed [...] Encounter Status:Closed by [facility]ANC[facility] LAGOS [facility] HNO ID: [id number] Author: GRACE RYDER PA-C Service: Neurosurgery Author Type: Physician Flute Teacher Type: Discharge Summary Filed: 03/11/2024 10:43 Note Text: Attestation signed by Maxime Bailey MD at 03/11/2024 8:14 PM I agree with the POC DISCHARGE SUMMARY NEUROLOGICAL [facility] PATIENT NAME: Rashard [...] Implant Name Type Inv. Item Serial No. Slip Presser Lot No. LRB No. Used Action GRAFT BONE PUTTY DEMINERLIZED BONE MATRIX 1CC OSTEOSPARX - [id number] Bone GRAFT BONE PUTTY DEMINERLIZED BONE MATRIX 1CC OSTEOSPARX [id number] [employer] [id number] N/A 1 Implanted PIN YELLOW TITANIUM 14MM DISTRACTION STERILE DISPOSABLE - [id number] Pin PIN YELLOW TITANIUM 14MM DISTRACTION STERILE DISPOSABLE TZ MEDICAL N/A 1 Implanted PIN YELLOW TITANIUM 14MM DISTRACTION STERILE DISPOSABLE - [id number] Pin PIN YELLOW TITANIUM 14MM DISTRACTION STERILE DISPOSABLE TZ MEDICAL N/A 1 Implanted CAGE [id number] - [id number] Implant CAGE [id number] VINITA SPINE N/A 1 Implanted OZARK CERVICAL PLATE 1-LEVEL 22MM Plate VINITA N/A 1 Implanted OZARK SELF-STARTING VARIABLE SCREW 4MM X 18MM Screw VINITA N/A 4 Implanted Surgical Specimens: * No specimens in log * Incision/Procedure Start Time: 9:21 AM Incision Close/Procedure End Time: 10:59 AM Surgeons and Role: * Maxime Bailey MD - Primary * Catalina Mehta MD - Resident - Assisting Paradi Tender: Carley Noonan RN Paradi Tender (Relief): Shania Stokes RN Scrub Person: Helena Dixon ST Scrub Person (Relief): Shania Stokes RN Procedures During Hospitalization: No procedures performed Hospital Course: 44 y/o M who presents for elective cervical spine surgery. The patient was electively admitted to the [facility]. After being optimized for surgery by the [...] patient was then transferred up to [facility]/[id number] hospital room for postoperative management. Patient was [...] Problems as of 03/11/2024 Noted - Resolved [facility] Class 1 obesity due to excess [...] The brittany (more content not included)... [facility] XR CERVICAL 4V AP/LAT/OBLon 03-11-2024 XR [...] IMPRESSION: Expected postoperative appearance following C3-C4 ACDF. Pharmaceutical Representative: PSCMarcello Transcribe Date/Time: Mar 11 2024 8:12A Dictated by : ASHU WATSON MD This examination was interpreted and the report reviewed and electronically signed by: ИРИНА TEE MD on Mar 11 2024 10:00AM EST [id number] [facility] ANES POSTPROC EVALon 024 ANES POSTPROC EVAL HNO ID: [id number] Author: RENEE ROMAN MD Service: ? Author Type: Anesthesiologist Type: Anesthesia Postprocedure Evaluation Filed: 03/10/2024 11:49 Note Text: POST ANESTHESIA EVALUATION NOTE : 1980 Procedure Summary Date: 03/10/24 Room / Location: [address] [facility]AV[facility] Anesthesia Start: 826 Anesthesia [...] March 10, 2024 TIME: 11:48 AM CSN: [id number] [facility] ANES PRE-OPon 03-10-2024 ANES PRE-OP HNO ID: [id number] Author: RENEE ROMAN MD Service: ? Author [...] PROCEDURE, 2-3 VERTEBRAL SEGMENTS (Spine) Location: MAIN [facility] Surgeons: Maxime Bailey [...] and consent discussed: yes. Patient / Responsible Libertarian agrees to proceed: yes Patient / Surrogate [...] March 10, 2024 TIME: 7:13 AM CSN: [id number] [facility] BRIEF OP NOTon 03-10-2024 BRIEF OP NOT HNO ID: [id number] Author: CATALINA MEHTA MD Service: Neurosurgery Author Type: Resident Type: Brief Op Note Filed: 03/10/2024 11:26 Note Text: BRIEF OPERATIVE / PROCEDURE NOTE LOG ID: [id number] SURGERY/PROCEDURE DATE: 03/10/2024 INCISION/PROCEDURE START TIME: 9:21 AM INCISION CLOSE/PROCEDURE END TIME: 10:59 AM SURGEON(S)/PROCEDURALI ST(S) AND FAST BRIM POUNCER(S): Surgeons and Role: * Maxime Bailey MD - Primary * Catalina Mehta MD - Resident - Assisting No Additional Staff SURGERY/PROCEDURE(S): C3-C4 ACDF with use of intraoperative microscope ANESTHESIA: General FINDINGS: Successful discectomy with left-sided uncinatectomy with satisfactory decompression achieved. Good hardware placement visualized on intra-op XR. ESTIMATED BLOOD LOSS: 2 mls SPECIMENS: None COMPLICATIONS: None Implant Name Type Inv. Item Serial No. Slip Presser Lot No. LRB No. Used Action GRAFT BONE PUTTY DEMINERLIZED BONE MATRIX 1CC OSTEOSPARX - [id number] Bone GRAFT BONE PUTTY DEMINERLIZED BONE MATRIX 1CC OSTEOSPARX [id number] [employer] [id number] N/A 1 Implanted PIN YELLOW TITANIUM 14MM DISTRACTION STERILE DISPOSABLE - [id number] Pin PIN YELLOW TITANIUM 14MM DISTRACTION STERILE DISPOSABLE TZ MEDICAL 1 PIN YELLOW TITANIUM 14MM DISTRACTION STERILE DISPOSABLE - [id number] Pin PIN YELLOW TITANIUM 14MM DISTRACTION STERILE DISPOSABLE TZ MEDICAL 1 CAGE [id number] - [id number] Implant CAGE [id number] VINITA SPINE N/A 1 Implanted OZARK CERVICAL [...] March 10, 2024 TIME: 11:23 AM [facility] CONFIRM BLOOD TYPEon 024 ABO A Normal [facility] Comment on above: Order Comment: Speci men Type: BLOOD SPECIMEN Ordering Facility: [facility] Address: [address] [place] [address] Performed By: #### 5 7021-8 #### [facility] CLIA [id number] [address] [place] [address] [place] Rh Nom (Bld) Positive Normal [facility] Comment on above: Order Comment: Speci men Type: BLOOD SPECIMEN Ordering Facility: [facility] Address: [address] [place] [address] Performed By: #### 5 7021-8 #### [facility] CLIA [id number] [address] [place] [address] [place] NURSING PROGon 03-10-2024 NURSING PROG HNO ID: [id number] Author: SHANNA WYMAN RN Service: ? Author Type: Registered Nurse Type: Nursing Progress Note Filed: 03/10/2024 15:49 Note Text: Admission/Transfer Note PATIENT NAME: Rashard Andersen Patient Location: [place] [address] Room: [place] [address] Patient transferred from PACU via stretcher in stable condition. Actions taken: Patient oriented to room, call light function, prescribed activities, Patient rights, and Quiet at night. This note was completed by: Shanna Wyman Normal [facility] TYPE + SCREENon 03-10-2024 ABO A Normal [facility] Comment on above: Order Comment: Speci men Type: BLOOD SPECIMEN Ordering Facility: [facility] Address: [address] [place] [address] Performed By: #### 5 7021-8 #### [facility] CLIA [id number] [address] [place] [address] [place] HISTORICAL AB SCR STATUS Negative Normal [facility] Comment on above: Order Comment: Speci men Type: BLOOD SPECIMEN Ordering Facility: [facility] Address: [address] [place] [address] Performed By: #### 5 7021-8 #### [facility] CLIA [id number] [address] [place] [address] [place] Rh Nom (Bld) Positive Normal [facility] Comment on above: Order Comment: Speci men Type: BLOOD SPECIMEN Ordering Facility: [facility] Address: [address] [place] [address] Performed By: #### 5 7021-8 #### [facility] CLIA [id number] [address] [place] [address] [place] TYPE AND SCREEN EXPIRATION 03/13/2024 23:59 Normal [facility] Comment on above: Order Comment: Speci men Type: BLOOD SPECIMEN Ordering Facility: [facility] Address: [address] [place] [address] Performed By: #### 5 7021-8 #### [facility] CLIA [id number] [address] [place] [address] [place] XR VERIFY LEVEL [id number] 03-10-2024 XR VERIFY LEVEL C-SPINE-NB * * [...] 03/10/2024 at 9:45 AM via verbal communication. Pharmaceutical Representative: PSCB Transcribe Date/Time: Mar 10 2024 9:46A Dictated by : SCOTT SPRAGUE MD This examination was interpreted and the report reviewed and electronically signed by: SCOTT SPRAGUE MD on Mar 10 2024 9:47AM EST [id number] [facility] RASH[facility] ANDERSEN ([id number]) 1980 M T Date Time Provider Department [...] Encounter Status:Closed by ADAM ANAYA on 03/04/24 [facility]-02-20[facility]) [facility] ANDERSEN ([id number]) 1980 M T Date Time Provider Department [...] entry with the fusion? Pls call back [phone] Gracie Voss RN 03/05/2024 11:51 AM Signed [...] surgical check in time. Gracie Voss RN Aesthetics Instructor Allergies As of Date: 03/02/2024 (No Known Allergies) Date Reviewed: 02/24/2024 Reviewed by: Lona Ochoa MA - Fully Assessed Reason for Visit: Patient Question [7307] Prescriptions as of 03/05/2024 - diclofenac, EC, (VOLTAREN) 75 mg EC tablet Take 75 mg by mouth two times a day as needed. - gabapentin (NEURONTIN) 300 mg capsule Take 300 mg by mouth three times a day. Problem List As Of Date 03/02/2024 Noted Resolved Class 1 obesity due to excess calories without *02/24/2024 Encounter Status:Closed by GRACIE VOSS on 03/05/24 [facility] AND[facility] ([id number]) 1980 M T Date Time Provider Department [...] to reach caller: Terrie - ADELA Pre-Access [phone] Best time to reach caller: any Is [...] Status:Closed by JANELL RIZZO on 03/08/24 [facility] CBC W Auto Differential pane l (Bld)on 02-24-2024 [facility] (Bld) [#[facility] Basophils/100 WBC (Bld) 0.5 % [facility] Differential cell count method Nom (Bld) Auto [facility] Eosinophils (Bld) [#/Vol] 0.07 10*3/uL [facility] Eosinophils/100 WBC (Bld) 1.9 % [facility] Erythrocyte distribution width (RBC) [Ratio] 12.4 % 11.5 - 15.0 % [facility] Hematocrit (Bld) [Volume fraction] 44.0 % 39.0 - 51.0 % [facility] ic Hemoglobin (Bld) [Mass/Vol] 14.9 g/dL 13.0 - 17.0 g/dL [facility] Immature granulocytes (Bld) [#/Vol] NINF [facility] Immature granulocytes/100 WBC (Bld) 0.0 % [facility] Interpretation and review of laboratory results Abnormal [facility] roman Lymphocytes (Bld) [#/Vol] 1.08 10*3/uL [facility] Lymphocytes/100 WBC (Bld) 29.3 % [facility] MCH (RBC) [Entitic mass] 29.9 pg 26.0 - 34.0 pg [facility] MCHC (RBC) [Mass/Vol] 33.9 g/dL 30.5 - 36.0 g/dL [facility] MCV (RBC) [Entitic vol] 88.2 fL 80.0 - 100.0 fL [facility] Monocytes (Bld) [#/Vol] 0.34 10*3/uL [facility] Monocytes/100 WBC (Bld) 9.2 % [facility] Neutrophils (Bld) [#/Vol] 2.18 10*3/uL [facility] Neutrophils/100 WBC (Bld) 59.1 % [facility] Nucleated RBC (Bld) [#/Vol] [facility] Nucleated RBC/100 WBC (Bld) [Ratio] 0.0 % /100 WBC [facility] Platelet mean volume (Bld) [Entitic vol] 9.5 fL 9.0 - 12.7 fL [facility] Platelets (Bld) [#/Vol] 181 10*3/uL [facility] RBC (Bld) [#/Vol] 4.99 10*6/uL 4.20 - 6.0 0 m/uL [facility] WBC (Bld) [#/Vol] 3.69 10*3/uL [facility] ic Basophils (Bld) [#/Vol] 10*3/uL Normal <0.11 [facility] Comment on above: Order Comment: Speci men Type: BLOOD SPECIMEN Ordering Facility: [facility] Address: [address] [place] [address] Performed By: #### 5 7021-8 #### [facility] CLIA [id number] [address] [id number] [address] [place] Basophils/100 WBC (Bld) 0.5 % [facility] Comment on above: Order Comment: Speci men Type: BLOOD SPECIMEN Ordering Facility: [facility] Address: [address] [place] [address] Performed By: #### 5 7021-8 #### [facility] CLIA [id number] [address] [place] [address] [place] Differential cell count method Nom (Bld) Auto Normal [facility] Comment on above: Order Comment: Speci men Type: BLOOD SPECIMEN Ordering Facility: [facility] Address: [address] [place] [address] Performed By: #### 5 7021-8 #### [facility] CLIA [id number] [address] [place] [address] [place] Eosinophils (Bld) [#/Vol] 0.07 10*3/uL Normal <0.46 [facility] Comment on above: Order Comment: Speci men Type: BLOOD SPECIMEN Ordering Facility: [facility] Address: [address] [place] [address] Performed By: #### 5 7021-8 #### [facility] CLIA [id number] [address] [place] [address] [place] Eosinophils/100 WBC (Bld) 1.9 % Normal [facility] Comment on above: Order Comment: Speci men Type: BLOOD SPECIMEN Ordering Facility: [facility] Address: [address] [place] [address] Performed By: #### 5 7021-8 #### [facility] CLIA [id number] [address] [place] [address] [place] Erythrocyte distribution width (RBC) [Ratio] 12.4 % Normal 11.5-15.0 [facility] Comment on above: Order Comment: Speci men Type: BLOOD SPECIMEN Ordering Facility: [facility] Address: [address] [place] [address] Performed By: #### 5 7021-8 #### [facility] CLIA [id number] [address] [place] [address] [place] Hematocrit (Bld) [Volume fraction] 44.0 % Normal 39.0-51.0 [facility] Comment on above: Order Comment: Speci men Type: BLOOD SPECIMEN Ordering Facility: [facility] Address: [address] [place] [address] Performed By: #### 5 7021-8 #### [facility] CLIA [id number] [address] [place] [address] [place] Hemoglobin (Bld) [Mass/Vol] 14.9 g/dL Normal 13.0-17.0 [facility] Comment on above: Order Comment: Speci men Type: BLOOD SPECIMEN Ordering Facility: [facility] Address: [address] [place] [address] Performed By: #### 5 7021-8 #### [facility] CLIA [id number] [address] [place] [address] [place] Immature granulocytes (Bld) [#/Vol] 10*3/uL Normal <0.10 [facility] Comment on above: Order Comment: Speci men Type: BLOOD SPECIMEN Ordering Facility: [facility] Address: [address] [place] [address] Performed By: #### 5 7021-8 #### [facility] CLIA [id number] [address] [place] [address] [place] Immature granulocytes/100 WBC (Bld) 0.0 % Normal [facility] Comment on above: Order Comment: Speci men Type: BLOOD SPECIMEN Ordering Facility: [facility] Address: [address] [place] [address] Performed By: #### 5 7021-8 #### [facility] CLIA [id number] [address] [place] [address] [place] Lymphocytes (Bld) [#/Vol] 1.08 10*3/uL Normal 1.00-4.00 [facility] Comment on above: Order Comment: Speci men Type: BLOOD SPECIMEN Ordering Facility: [facility] Address: [address] [place] [address] Performed By: #### 5 7021-8 #### [facility] CLIA [id number] [address] [place] [address] [place] Lymphocytes/100 WBC (Bld) 29.3 % Normal [facility] Comment on above: Order Comment: Speci men Type: BLOOD SPECIMEN Ordering Facility: [facility] Address: [address] [place] [address] Performed By: #### 5 7021-8 #### [facility] CLIA [id number] [address] [place] [address] [place] MCH (RBC) [Entitic mass] 29.9 pg Normal 26.0-34.0 [facility] Comment on above: Order Comment: Speci men Type: BLOOD SPECIMEN Ordering Facility: [facility] Address: [address] [place] [address] Performed By: #### 5 7021-8 #### [facility] CLIA [id number] [address] [place] [address] [place] MCHC (RBC) [Mass/Vol] 33.9 g/dL Normal 30.5-36.0 [facility] Comment on above: Order Comment: Speci men Type: BLOOD SPECIMEN Ordering Facility: [facility] Address: [address] [place] [address] Performed By: #### 5 7021-8 #### [facility] CLIA [id number] [address] [place] [address] [place] MCV (RBC) [Entitic vol] 88.2 fL Normal 80.0-100.0 [facility] Comment on above: Order Comment: Speci men Type: BLOOD SPECIMEN Ordering Facility: [facility] Address: [address] [place] [address] Performed By: #### 5 7021-8 #### [facility] CLIA [id number] [address] [place] [address] [place] Monocytes (Bld) [#/Vol] 0.34 10*3/uL Normal <0.87 [facility] Comment on above: Order Comment: Speci men Type: BLOOD SPECIMEN Ordering Facility: [facility] Address: [address] [place] [address] Performed By: #### 5 7021-8 #### [facility] CLIA [id number] [address] [place] [address] [place] Monocytes/100 WBC (Bld) 9.2 % Normal [facility] Comment on above: Order Comment: Speci men Type: BLOOD SPECIMEN Ordering Facility: [facility] Address: [address] [place] [address] Performed By: #### 5 7021-8 #### [facility] CLIA [id number] [address] [place] [address] [place] Neutrophils (Bld) [#/Vol] 2.18 10*3/uL Normal 1.45-7.50 [facility] Comment on above: Order Comment: Speci men Type: BLOOD SPECIMEN Ordering Facility: [facility] Address: [address] [place] [address] Performed By: #### 5 7021-8 #### [facility] CLIA [id number] [address] [place] [address] [place] Neutrophils/100 WBC (Bld) 59.1 % Normal [facility] Comment on above: Order Comment: Speci men Type: BLOOD SPECIMEN Ordering Facility: [facility] Address: [address] [place] [address] Performed By: #### 5 7021-8 #### [facility] CLIA [id number] [address] [place] [address] [place] Nucleated RBC (Bld) [#/Vol] 10*3/uL Normal <0.01 [facility] Comment on above: Order Comment: Speci men Type: BLOOD SPECIMEN Ordering Facility: [facility] Address: [address] [place] [address] Performed By: #### 5 7021-8 #### [facility] CLIA [id number] [address] [place] [address] [place] Nucleated RBC/100 WBC (Bld) [Ratio] 0.0 /100 WBC Normal [facility] Comment on above: Order Comment: Speci men Type: BLOOD SPECIMEN Ordering Facility: [facility] Address: [address] [place] [address] Performed By: #### 5 7021-8 #### [facility] CLIA [id number] [address] [place] [address] [place] Platelet mean volume (Bld) [Entitic vol] 9.5 fL Normal 9.0-12.7 [facility] Comment on above: Order Comment: Speci men Type: BLOOD SPECIMEN Ordering Facility: [facility] Address: [address] [place] [address] Performed By: #### 5 7021-8 #### [facility] CLIA [id number] [address] [place] [address] [place] Platelets (Bld) [#/Vol] 181 10*3/uL Normal 150-400 [facility] Comment on above: Order Comment: Speci men Type: BLOOD SPECIMEN Ordering Facility: [facility] Address: [address] [place] [address] Performed By: #### 5 7021-8 #### [facility] CLIA [id number] [address] [place] [address] [place] RBC (Bld) [#/Vol] 4.99 10*6/uL Normal 4.20-6.00 [facility] Comment on above: Order Comment: Speci men Type: BLOOD SPECIMEN Ordering Facility: [facility] Address: [address] [place] [address] Performed By: #### 5 7021-8 #### [facility] CLIA [id number] [address] [place] [address] [place] WBC (Bld) [#/Vol] 3.69 10*3/uL Low 3.70-11.00 [facility] Comment on above: Order Comment: Speci men Type: BLOOD SPECIMEN Ordering Facility: [facility] Address: [address] [place] [address] Performed By: #### 5 7021-8 #### [facility] CLIA [id number] [address] [place] [address] [place] CNOVon 02-24-2024 CNOV Office Visit (SPNSMN ) RASHARD ANDERSEN ([id number]) 1980 M [facility] Date Time Provider Department 02/24/24 2:20 [...] Status:Closed by MAXIME BAILEY on 03/14/24 Normal [facility] Comprehensive metabolic 2000 panelon 02-24-2024 Albumin [Mass/Vol] 4.4 g/dL 3.9 - 4.9 g/dL [facility] ALP [Catalytic activity/Vol] 42 U/L 38 - 113 U/L [facility] ALT [Catalytic activity/Vol] 39 U/L 10 - 54 U/L [facility] Anion gap [Moles/Vol] 10 mmol/L 8 - 15 mmol/L [facility] AST [Catalytic activity/Vol] 29 U/L 14 - 40 U/L [facility] Bilirubin [Mass/Vol] 0.5 mg/dL 0.2 - 1.3 mg/dL [facility] Calcium [Mass/Vol] 9.4 mg/dL 8.5 - 10. 2 mg/dL [facility] Chloride [Moles/Vol] 108 mmol/L High 98 - 107 mmol/L [facility] CO2 [Moles/Vol] 23 mmol/L 22 - 30 mmol/L [facility] Creatinine [Mass/Vol] 1.24 mg/dL High 0.73 - 1.22 mg/dL [facility] GFR/1.73 sq M.predicted among non-blacks MDRD (S/P/Bld) [Vol rate/Area] 74 mL/min/{1.73_m2} - [facility] Comment on above: Estimated Glomerular Filtration [...] 103 mg/dL High 74 - 99 mg/dL [facility] Comment on above: The [place] Diabete s Association (ADA) provides guidance for [...] Standards of Medical Care in Diabetes 2016, [place] Diabetes Association. Diabetes Care. 2016.39(Suppl 1). Interpretation and review of laboratory results Abnormal [facility] Potassium [Moles/Vol] 4.1 mmol/L 3.7 - 5.1 mmol/L [facility] Protein [Mass/Vol] 6.9 g/dL 6.3 - 8.0 g/dL [facility] Sodium [Moles/Vol] 141 mmol/L 136 - 144 mmol/L [facility] Urea nitrogen [Mass/Vol] 30 mg/dL High 9 - 24 mg/dL [facility] Albumin [Mass/Vol] 4.4 g/dL Normal 3.9-4.9 [facility] Comment on above: Order Comment: Erik wagoner Type: BLOOD SPECIMEN Ordering Facility[facility] Address: [address] [place] [address] Performed By: #### 5 7021-8 #### [facility] CLIA [id number] [address] [place] [address] [place] [place] ALP [Catalytic activity/Vol] 42 U/L Normal 38-113 [facility] Comment on above: Order Comment: Erik wagoner Type: BLOOD SPECIMEN Ordering Facility: [facility] Address: [address] [place] [address] Performed By: #### 5 7021-8 #### [facility] CLIA [id number] [address] [place], [place] [id number] [place] ALT [Catalytic activity/Vol] 39 U/L Normal 10-54 [facility] Comment on above: Order Comment: Speci men Type: BLOOD SPECIMEN Ordering Facility: [facility] Address: [address] [place] [address] Performed By: #### 5 7021-8 #### [facility] CLIA [id number] [address] [place] [address] [place] Anion gap [Moles/Vol] 10 mmol/L Normal 8-15 [facility] Comment on above: Order Comment: Speci men Type: BLOOD SPECIMEN Ordering Facility: [facility] Address: [address] [place] [address] Performed By: #### 5 7021-8 #### [facility] CLIA [id number] [address] [place] [address] [place] AST [Catalytic activity/Vol] 29 U/L Normal 14-40 [facility] Comment on above: Order Comment: Speci men Type: BLOOD SPECIMEN Ordering Facility: [facility] Address: [address] [place] [address] Performed By: #### 5 7021-8 #### [facility] CLIA [id number] [address] [place] [address] [place] Bilirubin [Mass/Vol] 0.5 mg/dL Normal 0.2-1.3 [facility] Comment on above: Order Comment: Speci men Type: BLOOD SPECIMEN Ordering Facility: [facility] Address: [address] [place], [place] [address] Performed By: #### 5 7021-8 #### [facility] CLIA [id number] [address] [place] [address] [place] Calcium [Mass/Vol] 9.4 mg/dL Normal 8.5-10.2 [facility] Comment on above: Order Comment: Speci men Type: BLOOD SPECIMEN Ordering Facility: [facility] Address: [address] [place] [address] Performed By: #### 5 7021-8 #### [facility] CLIA [id number] [address] [place] [address] [place] Chloride [Moles/Vol] 108 mmol/L High 98-107 [facility] Comment on above: Order Comment: Speci men Type: BLOOD SPECIMEN Ordering Facility: [facility] Address: [address] [place] [address] Performed By: #### 5 7021-8 #### [facility] CLIA [id number] [address] [place] [address] [place] CO2 [Moles/Vol] 23 mmol/L Normal 22-30 [facility] Comment on above: Order Comment: Speci men Type: BLOOD SPECIMEN Ordering Facility: [facility] Address: [address] [place] [address] Performed By: #### 5 7021-8 #### [facility] CLIA [id number] [address] [place] [address] [place] Creatinine [Mass/Vol] 1.24 mg/dL High 0.73-1.22 [facility] Comment on above: Order Comment: Speci men Type: BLOOD SPECIMEN Ordering Facility: [facility] Address: [address] [place] [address] Performed By: #### 5 7021-8 #### [facility] CLIA [id number] [address] [place] [address] [place] Creatinine and Glomerular filtration rate.predicted panel (S/P/Bld) 74 mL/min/1.73m??? Normal >=60 [facility] Comment on above: Order Comment: Speci men Type: BLOOD SPECIMEN Ordering Facility: [facility] Address: [address] [place] [address] Result Comment: Anamika mated Glomerular Filtration Rate [...] GFR. Performed By: #### 5 7021-8 #### [facility] CLIA [id number] [address] [place] [address] [place] Glucose [Mass/Vol] 103 mg/dL High 74-99 [facility] Comment on above: Order Comment: Erik wagoner Type: BLOOD SPECIMEN Ordering Facility: [facility] Address: [address] [place] [address] Result Comment: The [place] Diabetes Association (ADA) provides guidance for cutoff [...] Standards of Medical Care in Diabetes 2016, [place] Diabetes Association. Diabetes Care. 2016.39(Suppl 1). Performed By: #### 5 7021-8 #### [facility] CLIA [id number] [address] [place] [address] [place] Potassium [Moles/Vol] 4.1 mmol/L Normal 3.7-5.1 [facility] Comment on above: Order Comment: Erik wagoner Type: BLOOD SPECIMEN Ordering Facility: [facility] Address: [address] [place] [address] Performed By: #### 5 7021-8 #### [facility] CLIA [id number] [address] [place], [place] [address] [place] Protein [Mass/Vol] 6.9 g/dL Normal 6.3-8.0 [facility] Comment on above: Order Comment: Speci men Type: BLOOD SPECIMEN Ordering Facility: [facility] Address: [address] [place] [address] Performed By: #### 5 7021-8 #### [facility] CLIA [id number] [address] [place] [address] [place] Sodium [Moles/Vol] 141 mmol/L Normal 136-144 [facility] Comment on above: Order Comment: Speci men Type: BLOOD SPECIMEN Ordering Facility: [facility] Address: [address] [place] [address] Performed By: #### 5 7021-8 #### [facility] CLIA [id number] [address] [place] [address] [place] Urea nitrogen [Mass/Vol] 30 mg/dL High 9-24 [facility] Comment on above: Order Comment: Speci men Type: BLOOD SPECIMEN Ordering Facility: [facility] Address: [address] [place] [address] Performed By: #### 5 7021-8 #### [facility] CLIA [id number] [address] [place] [address] [place] ECG COMPLETEon 02-24-2024 ECG COMPLETE Ventricular Rate : 6 7 BPM Atrial Rate : 67 BPM P-R Interval : 128 ms QRS Duration : 98 ms Q-T Interval : 398 ms QTC Calculation(Bazett) : 420 ms Calculated P Pioneer : 42 degrees Calculated R Pioneer : 30 degrees Calculated T Pioneer : 24 degrees NORMAL SINUS RHYTHM NORMAL ECG Confirmed by MD MARSHALL HEBA ([id number]) on 03/06/2024 6:29:10 PM NAME : RASHARD ANDERSEN PID : [id number] : 1980 Gender : Male Race : ORD : [id number] Procedure Date : Feb 24 2024 11:59:09 Edit Date : Mar 06 2024 18:29:11 Diagnosis: NORMAL SINUS RHYTHM NORMAL ECG Confirmed by MD MARSHALL HEBA ([id number]) on 03/06/2024 6:29:10 PM Test Reason : Location : 119 : A17 A17 Overread By : MD MARSHALL HEBA Edited By : MD MARSHALL HEBA Referred By : SHANICE SUMNER Acquired by : BOB ZHENG [facility] HISTORY PHYSICALon HISTORY PHYSICAL HNO ID: [id number] Author: SHANICE SUMNER PA-C Service: ? Author Type: Physician Flute Teacher Type: H&P Filed: 02/25/2024 09:16 Note Text: [...] dysuria, freque (more content not included)... Normal [facility] HbA1c (Bld)on 02-24-2024 Average glucose Estimated from glycated hemoglobin (Bld) [Mass/Vol] 108 mg/dL Normal [facility] Comment on above: Order Comment: Erik wagoner Type: BLOOD SPECIMEN Ordering Facility: [facility] Address: [address] [place] [address] Result Comment: eAG: (Estimated average glucose) is a calculated value from HgbA1c and is collections representative of the average blood glucose level in the last 2-3 month period. Performed By: #### 5 7021-8 #### [facility] CLIA [id number] [address] [place], [place] [address] [place] [address] [place] HbA1c (Bld) [Mass fraction] 5.4 % Normal 4.3-5.6 [facility] Comment on above: Order Comment: Erik wagoner Type: BLOOD SPECIMEN Ordering Facility: [facility] Address: [address] [place] [address] Result Comment: Amer [place] Diabetes Association guidelines indicate that patients with HgbA1c in the range 5.7-6.4% are at increased risk for development of diabetes, and intervention by lifestyle modification may be beneficial. HgbA1c greater or equal to 6.5% is considered diagnostic of diabetes. Performed By: #### 5 7021-8 #### [facility] CLIA [id number] [address] [place] [address] [place] [address] [place] STAPHYLOCOCCUS AUREUS AND MR SA SCREEN, PCR, NASALon 02-24-2024 S. aureus and MRSA panel JACOBY+probe (Nose) Not detected Normal Not Detected [facility] Comment on above: Order Comment: Speci men Type: BLOOD SPECIMEN Ordering Facility: [facility] Address: [address] [place] [address] Performed By: #### 5 7021-8 #### [facility] CLIA [id number] [address] [place] [address] [place] [address] [place] CNPAde 10-22-2023 CNPN Telephone (NIQ) RASHARD ANDERSEN ([id number]) 1980 M [facility] Date Time Provider Department 10/22/23 MAXIME [...] not found Best number to reach caller: [phone] Best time to reach caller: any Is [...] of 03/10/[address] Maxime Bailey at [facility]. Planned procedure: C 3/4 foraminotomies Length of Surgery: 2 hours Expected Length of Hospital Stay: 0-1 Patient's Home Address: [address] [place] [address] Medications reviewed : Yes. Meds to be stopped prior to surgery : NSAIDS and Vitamins and supplements. Additional pre op clearances needed : None. Any implanted devices (Stimulator, Defibrillator, etc.): No. Transplant History No. Nicotine use: No Patient will complete optimization lab work : A1c. Education Sent Via Mail/ CoinPass: [employer] PACC Questionnaire Completed: Yes Qualify TREK for Surgical Success?: No Patient placed on cancellation list: Yes Pre op appts: Green coat: Anytime PACC: [facility] 02/24/2024 Informed 02/24/2024 2:[address] [...] Encounter Status:Closed by GRACIE VOSS on 10/23/23 [facility] 10-16-2023 CNPN Telephone (SPNSMN) RASHARD ANDERSEN ([id number]) 1980 M [facility] Date Time Provider Department 10/16/23 MAXIME BAILEY During your visit today, we recorded the following information about you: Janell Rizzo 10/16/2023 9:20 AM Signed Call received for Maxime Bailey MD regarding Rashard Andersen. Caller: Other: [facility] pain management calling for the patient Patient Identified by Name and : Yes Reason for Call: schedule surgery Is there any additional information the provider should know? Yes Dr. Bailey told him if injection did not work, he could get surgery. Last Office Visit: 09/22/2023 Next scheduled appointment: Visit date not found Best number to reach caller: [phone] Best time to reach caller: anytime Is it OK to leave a detailed voice message? Yes Janell Wilcox [facility] nt to schedule surgery; ph: [phone] Gracie Voss RN 10/16/2023 3:43 PM Signed Neuro SPINE CARE COORDINATION QUICK NOTE Call to patient to discuss surgery planning. No answer, LVM with office number for call back. Gracie Voss RN Aesthetics Instructor Gracie Voss RN 10/16/2023 4:20 PM Signed Terrie Phillips routed conversation to [facility] 11 minutes ago (4:07 PM) Terrie [...] not found Best number to reach caller: [phone] Best time to reach caller: NA Is it OK to leave a detailed voice message? Yes Terrie Phillips Speed Customer Success ManagerDesiree Ervin 10/20/2023 2:26 PM Signed Patient is returning nurse call pertaining to below message, scheduling surgery with Dr. Bailey call back [phone] Gracie Voss RN 10/20/2023 3:36 PM Signed Neuro SPINE CARE COORDINATION QUICK NOTE Returned pts call to discuss surgery planning. No answer, LVM with office number for call back. Gracie Voss RN Aesthetics Instructor [facility] 10/20/2023 4:17 PM Signed Patient called; returning call from nurse; requesting call back; ph. [phone] Terrie Phillips 10/22/2023 11:33 AM Signed Pt. [...] of 03/10/[address] Maxime Bailey at [facility]. Planned procedure: C 3/4 foraminotomies Length of Surgery: 2 hours Expected Length of Hospital Stay: 0-1 Patient's Home Address: [address] [place], [place] [address] Medications reviewed : Yes. Meds to be stopped prior to surgery : NSAIDS and Vitamins and supplements. Additional pre op clearances needed : None. Any implanted devices (Stimulator, Defibrillator, etc.): No. Transplant History No. Nicotine use: No Patient will complete optimization lab work : A1c. Education Sent Via Mail/ CoinPass: [employer] PACC Questionnaire Completed: Yes Qualify TREK for Surgical Success?: No Patient placed on cancellation list: Yes Pre op appts: Green coat: Anytime PACC: [facility] 02/24/2024 Informed 02/24/2024 2:[address] [...] of non- (more content not included)... Normal [facility] Telephone (NIQ) RASHARD ANDERSEN ([id number]) 1980 M [facility] Date Time Provider Department 10/16/23 MAXIME [...] not found Best number to reach caller: [phone] Best time to reach caller: NA Is it OK to leave a detailed voice message? Yes Gracie Yang RN 10/16/2023 4:20 PM Signed Neuro SPINE CARE COORDINATION QUICK NOTE See other telephone encounter . Gracie Voss RN Aesthetics Instructor Allergies As of Date: 10/16/2023 (Not on [...] Encounter Status:Closed by GRACIE VOSS on 10/16/23 [facility] ([id number]) 1980 [facility] Date Time Provider Department 09/22/23 MAXIME BAILEY During your visit today, we recorded the following information about you: Shantell Mental Hygiene Consultant, Fely 09/22/2023 9:46 AM Signed pt states injection with [facility] didn't work. Pt would like to schedule surgery. Call back; [phone] Gracie Voss RN 09/22/2023 9:57 AM Signed Neuro SPINE CARE COORDINATION QUICK NOTE Reviewed BETH note. Recommendation were to schedule a follow up (in person or virtual) 3-4 weeks after injection with Nancy Lagos NP or Dr Bailey. Message sent to admin to assist patient in scheduling an appointment for follow up. Gracie Voss, SOFI Aesthetics Instructor Charissa Workman 09/22/2023 3:03 PM Signed Patient called back got him scheduled for a follow up visit scheduled with RIVER EXPEDITION GUIDE. Sent to schedulers. Allergies As of Date: 09/22/2023 (Not on File) Date Reviewed: 08/19/2023 Reviewed by: Sugar Stoner MA - Fully Assessed Reason for Visit: Patient Request [5716] Prescriptions as of 10/16/2023 - diclofenac, EC, (VOLTAREN) 75 mg EC tablet Take 75 mg by mouth two times a day as needed. - gabapentin (NEURONTIN) 300 mg capsule Take 300 mg by mouth three times a day. Problem List As Of Date: 09/22/2023 (None) Encounter Status:Closed [facility] RASH[facility] ANDERSEN ([id number]) 1980 M T Date Time Provider Department 08/22/23 MAXIME BAILEY During your visit today, we recorded the following information about you: Janell Rizzo 08/22/2023 10:01 AM Signed Diane from [facility] called; they referred patient to Dr. Bailey. Requesting 08/19/23 OV Note be faxed to her at: [facility] Attn: Diane FYI: OV Note is not completed yet - please advise once signed and the note will be faxed as requested. Janell Rizzo 08/26/2023 10:41 AM Signed OV noted completed and faxed to: [facility] Attn: Diane Confirmation received. Allergies [...] Encounter Status:Closed by JANELL RIZZO on 08/26/23 [facility] MOOVguillermo 08-19-2023 CNOV Office Visit (SPNSMN ) RASHARD ANDERSEN ([id number]) 1980 M [facility] Date Time Provider Department 08/19/23 10:00 [...] file. REFERRING PROVIDER: Elio Garza [address] [facility] [address] Consult requested for an opinion regarding the [...] Gabapentin. 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 CHIEF COMPLAINT: [...] injection with Dr Bailey or Nancy Lagos, RIVER EXPEDITION GUIDE to review results of injection I discussed [...] with more than 50% of the total hcrl-tn-wseu time of the visit in counseling / [...] Provider: VICTORINA (more content not included)... Normal [facility] XR CERV OTHER 4V AP/LAT/FLX/ EXTon 08-19-2023 [facility] ic XR CERVICAL 4V AP/LAT/FLX/EX Ton 08-19-2023 [...] vertebrae with counting from the craniocervical junction. Pharmaceutical Representative: PSCB Transcribe Date/Time: Aug 19 2023 9:09A Dictated by : GRACIELA BEY MD This examination was interpreted and the report reviewed and electronically signed by: GRACIELA BEY MD on Aug 19 2023 9:11AM EST [id number] Normal [facility] SARS-CoV-2 (COVID-19) RNA NA A+probe Ql (Resp)on 01-07-2022 SARS-CoV-2 (COVID-19) RNA JACOBY+probe Ql (Unsp spec) Positive [facility] Other Vital Signs Date Time Vital Sign Value Performing Clinician Facility 04-13-2024 10:02-0400 Body height 185.[address] [facility] 04-13-2024 10:02-0400 Body mass index (BMI) [Ratio] 34.9 kg/m2 [facility] 04-13-2024 10:02-0400 Body weight 120.[address] [facility] 04-13-2024 10:02-0400 Diastolic blood pressure 89 mm[Hg] [facility] 04-13-2024 10:02-0400 Heart rate 76 /min [facility] 04-13-2024 10:02-0400 Respiratory rate 12 /min [facility] 04-13-2024 10:02-0400 Systolic blood pressure 127 mm[Hg] [facility] 02-24-2024 13:30-0400 Body height 185.4 cm Maxime Bailey MD Work Phone: [facility] 02-24-2024 13:30-0400 Body mass index (BMI) [Ratio] 34.7 kg/m2 Maxime Bailey MD Work Phone: [facility] 02-24-2024 13:30-0400 Body weight 119.3 kg Maxime Bailey MD Work Phone: [facility] 02-24-2024 13:30-0400 Diastolic blood pressure 71 mm[Hg] Maxime Bailey MD Work Phone: [facility] 02-24-2024 13:30-0400 Heart rate 73 /min Maxime Bailey MD Work Phone: [facility] 02-24-2024 13:30-0400 Respiratory rate 18 /min Maxime Bailey MD Work Phone: [facility] 02-24-2024 13:30-0400 Systolic blood pressure 110 mm[Hg] Maxime Bailye MD Work Phone: [facility] 02-24-2024 11:33-0400 Body height 185.4 cm Pacc 1 Work Phone: [facility] 02-24-2024 11:33-0400 Body mass index (BMI) [Ratio] 34.7 kg/m2 Pacc 1 Work Phone: [facility] 02-24-2024 11:33-0400 Body temperature 97.59 [degF] Pacc 1 Work Phone: [facility] 02-24-2024 11:33-0400 Body weight 119.3 kg Pacc 1 Work Phone: [facility] 02-24-2024 11:33-0400 Diastolic blood pressure 75 mm[Hg] Pacc 1 Work Phone: [facility] 02-24-2024 11:33-0400 Heart rate 72 /min Pacc 1 Work Phone: [facility] 02-24-2024 11:33-0400 SaO2% (BldA) [Mass fraction] 98 % Pacc 1 Work Phone: [facility] 02-24-2024 11:33-0400 Systolic blood pressure 125 mm[Hg] Pacc 1 Work Phone: [facility] 01-07-2022 10:20-0400 Body height 185.42 cm Nayeli Rdoriguez Other [facility] Other 01-07-2022 10:20-0400 Body mass index (BMI) [Ratio] 34.3 kg/m2 Nayeli Rodriguez Other [facility] Other 01-07-2022 10:20-0400 Body temperature 97.3 [degF] Nayeli Rodriguez Other [facility] Other 01-07-2022 10:20-0400 Body weight 117.94 kg Nayeli Rodriugez Other [facility] Other 01-07-2022 10:20-0400 Respiratory rate 18 /min Nayeli Rodriguez Other [facility] Other 01-07-2022 10:20-0400 SaO2% (BldA) [Mass fraction] 97 % Nayeli Rodriguez Other [facility] Other Encounters Encounter Date Encounter Type Care Provider Facility Start: 04-13-2024 End: 04-13-2024 ambulatory [facility] Work Phone: Start: 04-13-2024 End: 04-13-2024 Encounter for general adult medical examination without abnormal findings [facility] Start: 04-13-2024 End: 04-13-2024 Patient encounter procedure [facility] Work Phone: Start: 04-10-2024 Patient encounter status [facility] Start: 03-25-2024 End: 03-26-2024 Telephone encounter Maxime Bailey MD Work Phone: [facility] Comment on above: Patient Update Start: 03-12-2024 End: 03-12-2024 Telephone encounter Maxime Bailey MD Work Phone: Neurology Comment on above: Pain Start: 03-10-2024 End: 03-11-2024 ambulatory MAXIME BAILEY Facility:[facility] Start: 03-04-2024 End: 03-04-2024 Telephone encounter Adam Anaya [facility] Comment on above: Follow Up Start: 03-02-2024 End: 03-08-2024 Telephone encounter Maxime Bailey MD Work Phone: Neurology Comment on above: Patient Question Call from Pre-access Start: 02-24-2024 End: 02-24-2024 Patient encounter procedure Maxime Bailey MD Work Phone: [facility] Comment on above: Cervical radiculopat hy (Primary Dx) Start: 02-24-2024 End: 02-24-2024 ambulatory MAXIME BAILEY Facility:[facility] Start: 02-24-2024 Encounter for other preprocedural examination NANCY LAGOS [facility] Start: 02-24-2024 End: 02-24-2024 Admission to [...] examination done Pacc Main 1 Work Phone: [facility] Work Phone: Start: 02-24-2024 End: 02-24-2024 ambulatory SHANICE SUMNER Facility:[facility] Start: 02-09-2024 End: 02-09-2024 ambulatory NANCY LAGOS Facility:[facility] Start: 10-22-2023 Telephone encounter Maxime Bailey MD Work Phone: Neurology Comment on above: Appointment Start: 10-16-2023 Telephone encounter Maxime Bailey MD Work Phone: Neurology Comment on above: Returning Patient's Call Schedule Surgery Start: 09-26-2023 End: 09-26-2023 ambulatory NANCY LAGOS Facility:[facility] Start: 09-22-2023 Telephone encounter Maxime Bailey MD Work Phone: Neurology Comment on above: Schedule Surgery Start: 09-01-2023 End: 09-02-2023 ambulatory Elio Garza MD Facility:[facility] Start: 08-22-2023 Telephone encounter Maxime Bailey MD Work Phone: [facility] Comment on above: Request from Sheila handley Start: 08-19-2023 End: 08-19-2023 ambulatory MAXIME BAILEY Facility:[facility] Start: 08-19-2023 End: 08-19-2023 Subsequent hospital visit by physician Xr Main J1-4 Work Phone: Radiology Comment on above: Neck pain [M54.2] Start: 06-17-2023 Chart abstracting None (Historical) Neurology Start: 04-28-2023 End: 04-29-2023 ambulatory Elio Garza MD Facility:[facility] Start: 01-07-2022 End: 01-07-2022 ambulatory Nayeli Rodriguez Other [facility] Other Start: 01-07-2022 Office outpatient ne w 30 minutes Naeyli Rodriguez [facility] Procedures Date Procedure Procedure Detail Performing Clinician Start: 03-10-2024 Antibody screen NANCY MELLO Comment on above: Order Comment: Speci men Type: BLOOD SPECIMEN Ordering Facility[facility] Address: [address] [place] [address] Performed By: #### 5 7021-8 #### [facility] CLIA [id number] [address] [place] [address] [place] Start: 08-19-2023 [facility] cervical 4 or 5 views Nancy Lagos APRN.COUNTER STITCHER Work Phone: Plan of Treatment Date Care Activity Detail Author Start: 04-27-2024 End: 04-27-2024 Patient encounter procedure 04/27/2024 2:40 PM EDT Office Visit [facility] [address] [place] [address] Maxime Bailey MD [address] [place] [address] Postop [facility] Comment on above: Postop Start: 03-25-2024 End: 03-25-2024 ambulatory 03/25/2024 10:00 AM EDT [facility] [address] [place] [address] Nancy Lagos APRN.CNP [facility] [place] [id number] 2 week MYC Postop [facility] Comment on above: 2 week MYC Postop Start: 03-10-2024 End: 03-10-2024 Admission to same day surgery center 03/10/2024 12:30 PM EDT - 03/10/2024 3:30 PM EDT Surgery Admitting [address] [place] [address] Maxime Bailey MD [address] [place] [address] LAMINOTOMY W/ DECOMPRESSION OF NERVE ROOT(S) PARTIAL [...] disorder with radiculopathy 03/10/2024 12:30 PM EDT [facility] Start: 03-10-2024 Subsequent hospital visit by physician 03/10/2024 12:30 PM EDT Hospital Encounter Admitting [address] [place] [address] Maxime Bailey MD [address] [place] [address] Cervical disc disorder with radiculopathy [M50.10] Admitting Comment on above: Cervical disc disord er with radiculopathy [M50.10] Start: 03-10-2024 End: 03-10-2024 Admission to same day surgery center 03/10/2024 8:30 AM EDT - 03/10/2024 11:15 AM EDT Surgery Admitting [address] [place] [address] Maxime Bailey MD [address] [place] [address] ARTHRODESIS ANT DISC PREP DISCECTOMY OSTEOPHYTECTOMY DECOMPRES [...] EDT Hospital Encounter Admitting [address] [place] [address] Maxime Bailey MD [address] [place] [address] Cervical disc disorder with radiculopathy [M50.10] Admitting Comment on above: Cervical disc disord er with radiculopathy [M50.10] Start: 02-29-2024 Covid-19 Vaccine ( season) Covid-19 Vaccine ( season) [facility] Start: 02-29-2024 Covid-19 Vaccine ( season) Covid-19 Vaccine ( season) [facility] Start: 02-29-2024 Influenza vaccination [facility] Start: 06-30-2023 Behavioral Health Screening Behavioral Health Screening [facility] Start: 06-30-2023 Depression Assessment Depression Ass essment [facility] Start: 02-28-2023 Covid-19 Vaccine ( season) Covid-19 Vaccine ( season) [facility] Start: 02-28-2023 Influenza vaccination Influenza Vacc ine (#1) [facility] Start: 02-01-2016 Lipid panel Lipid Screening [facility] Start: 02-01-2000 Hepatitis B Vaccine (1 of 3 - 19+ 3-dose series) Hepatitis B Vaccine (1 of 3 - 19+ 3-dose series) [facility] Start: 02-01-2000 Urine microalbumin profile DTaP,Tdap,Td Vaccine (1 - Tdap) [facility] Start: 1999 Anxiety Screening Anxiety Screening [facility] Start: 1999 Depression Screening Depression Scre ening [facility] Start: 1999 Hepatitis C screening Hepatitis C Sc reening [facility] Start: 1999 HIV screening HIV Screening [facility] Start: 1981 Covid-19 Vaccine (#1) Covid-19 Vacci ne (#1) [facility] Start: 1981 Hepatitis B Vaccine (1 of 3 - 3-dose series) Hepatitis B Vaccine (1 of 3 - 3-dose series) [facility] Comprehensive metabo lic 2000 panel - Serum or Plasma [facility] ECG COMPLETE ECG COMPLETE ECG Routine Pre-op evaluation 02/24/2024 11:59 AM EDT [facility] Work Phone: End: 08-01-2024 Radex spine cervical 4 or 5 views XR CERV OTHER 4V AP/LAT/FLX/EXT Radiology Routine Neck pain 1 Occurrences starting 07/03/2023 until 08/01/2024 [facility] Work Phone: Comment on above: 1 Occurrences starti ng 07/03/2023 until 08/01/2024 [facility] Payers Date Payer Category Payer Private Health Insurance [id number] 2021 Private Health Insurance [id number] 1981 Unknown [id number] 1980 Unknown [id number] Social History Date Type Detail Facility Start: 08-19-2023 End: 02-23-2024 Sex Assigned At [facility] Tobacco smoking stat [facility] Tobacco smoking consumption unknown [facility] Start: 1980 Sex Assigned At Not on file [facility] Start: 08-19-2023 Tobacco smoking stat [facility] Never smoked tobacco [facility] Start: 08-19-2023 End: 02-24-2024 Tobacco use and exposure Smokeless tobacco non-user [facility] Start: 08-19-2023 End: 02-23-2024 History of Social function [facility] National Score (1-100), lower number is lower risk 65 [facility] Start: 02-24-2024 Tobacco smoking stat [facility] Ex-smoker [facility] History of tobacco use Current smoker [facility] History of tobacco use Cigarette Smoker [facility] Start: 02-24-2024 Alcoholic beverage intake Current drinker of alcohol (finding) [facility] Start: 02-24-2024 Tobacco Comment Quit in 2013, smoked for 5 years, 0.5ppd [facility] Start: 02-24-2024 Alcohol Comment 6 beers weekly [facility] Start: 1980 Sex Assigned At Male F [facility] Medical Equipment Procedure Code Equipment Code Equipment Origin al Text Equipment Identifier Dates Graft Bone Putty Deminerlized Bone Matrix 1cc Osteosparx - [id number] Start: 03-10-2024 Cage [id number] - [id number] Start: 03-10-2024 Pin Yellow Titan ium 14mm Distraction Sterile Disposable - [id number] Start: 03-10-2024 Pin Yellow Titan ium 14mm Distraction Sterile Disposable - [id number] Start: 03-10-2024 Lyman Cervical P late 1-Level 22mm [id number] Start: 03-10-2024 Lyman Self-Start ing Variable Screw 4mm X 18mm [...] times 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 He is able to lift [...] worsening symptoms that arise.. 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 He is able to lift [...] worsening symptoms that arise.. Gracie Voss RN Aesthetics Instructor documented in this encounter [facility] 03-14-2024 Note HNO ID: [id number] Author: MAXIME BAILEY MD Service: ? Author Type: Physician Type: Progress Notes Filed: 03/14/2024 16:26 Note Text: Patient seen in preop. Discussed risks/benefits/alternatives to surgery in detail. Consent form signed. [facility] 03-14-2024 History of Presen t illness Narrative Patient seen in preop. Discussed risks/benefits/alternatives to surgery in detail. Consent form signed. documented in this encounter [facility] 03-12-2024 Telephone encounter Note Robaxin refill placed. Agree with RN recommendations [facility] 03-12-2024 Miscellaneous Notes Robaxin refill placed. [...] none Follow up: 2 week VV with [facility] Gracie Voss RN Patient called; had surgery w/Dr. Bailey on 03/10/24; patient is asking if he can resume taking diclofenac and has a few other post-surgery questions; requesting call back; ph. [phone] documented in this encounter [facility] 03-12-2024 Telephone encounter Note Neuro SPINE [...] none Follow up: 2 week VV with [facility] Gracie Voss RN [facility] Work Phone: 03-12-2024 Telephone encounter Note Patient called; had surgery w/Dr. Bailey on 03/10/24; patient is asking if he can resume taking diclofenac and has a few other post-surgery questions; requesting call back; ph. [phone] [facility] 03-10-2024 Note HNO ID: [id number] Author: CATALINA MEHTA MD Service: Neurosurgery Author [...] Catalina Mehta MD PGY-6, Neurological Surgery Pager [phone] March 10, 2024 Please page [phone] after 6 PM and on weekends [facility] 03-10-2024 Note HNO ID: [id number] Author: DMITRY VALLES MD Service: ? Author [...] March 10, 2024 TIME: 9:11 AM CSN: [id number] [facility] 03-10-2024 Note HNO ID: [id number] Author: DMITRY VALLES MD Service: ? Author [...] Successful intubation technique: video laryngoscopy Devices used: Taptica Endotracheal tube insertion site: oral Blade size: #4 ETT size (mm): 7.5 Measured from: lips Measurement (cm): 23 Placement verified by: capnometry Cormack-Lehane Classification: grade I - full view of glottis Number of attempts at approach: 1 Airway not difficult SIGNATURE: Dmitry Valles MD PATIENT NAME: Rashard Andersen DATE: March 10, 2024 TIME: 9:10 AM CSN: [id number] [facility] 03-05-2024 Telephone encounter Note Neuro SPINE [...] surgical check in time. Gracie Voss RN Aesthetics Instructor [facility] Work Phone: 03-05-2024 Miscellaneous Notes Neuro [...] surgical check in time. Gracie Voss RN Aesthetics Instructor Pt called & wanted to know details of the surgery 03/10, so that Pt can make arrangement if he has to stay over night. Pt asked if it Is front entry with the fusion? Pls call back [phone] documented in this encounter [facility] 03-05-2024 Telephone encounter Note Pt called & wanted to know details of the surgery 03/10, so that Pt can make arrangement if he has to stay over night. Pt asked if it Is front entry with the fusion? Pls call back [phone] [facility] 03-04-2024 Telephone encounter Note CM was able to leave a brief detailed message on identified vm requesting call back to discuss post op care. CM provided contact information. [facility] 03-04-2024 Miscellaneous Notes CM was able to leave a brief detailed message on identified vm requesting call back to discuss post op care. CM provided contact information. documented in this encounter [facility] 03-02-2024 Telephone encounter Note Call received [...] to reach caller: Terrie - ADELA Pre-Access [phone] Best time to reach caller: any Is it OK to leave a detailed voice message? Yes Terrie Phillips [facility] 03-02-2024 Miscellaneous Notes Call received for [...] number to reach caller: Terrie CHAPMAN Pre-Access [phone] Best time to reach caller: any Is it OK to leave a detailed voice message? Yes Terrie Phillips documented in this encounter [facility] 02-24-2024 Instructions Shanice Sumner PA-C - 02/24/2024 11:48 AM EDT Images from the original note were not included. [facility] PATIENT PREOPERATIVE INSTRUCTIONS Dr. Bailey has scheduled you for your procedure at this surgery center: [facility] [place] [facility] Scheduling Office: [phone] --[address] [place] [address]. Please read below carefully for your personalized [...] Procedures: - YOU MUST HAVE A RESPONSIBLE FURNITURE FINISHER HELPER TAKE YOU HOME. A PATIENT PLACEMENT COORDINATOR OR AUTO DISMANTLER CANNOT BE MADE A RESPONSIBLE FURNITURE FINISHER HELPER. - We recommend that a responsible person [...] call the Friday before. Your surgeon s planner/scheduler will tell you what time to call the office. - If you have not reached the departmental planner/scheduler by 5 P.M., call [phone] after 5 P.M. the day before your surgery. Please be aware that emergency situations arise, which may delay or change your surgical time. If this happens, we will notify you as soon as possible and regret any inconvenience. If you already have an Advance Directive, please fax a copy to [phone] or email to for it to be [...] Shanice Sumner PA-C documented in this encounter [facility] 02-24-2024 History and physical note Images [...] 398 QTC Calculation (Bazett) 420 Calculated P Pioneer 42 Calculated R Pioneer 30 Calculated T Pioneer 24 Impression NORMAL SINUS RHYTHM NORMAL ECG No results found for this or any previous visit (from the past 515[address] hour(s)). Instructions Given to Patient: Instructions located in the after visit summary. Patient given verbal and written preop instructions and voices comprehension and compliance. SIGNATURE: Shanice Sumner PA-C PATIENT NAME: Rasahrd Andersen DATE: February 24, 2024 TIME: 11:31 AM PAGER/CONTACT #: [facility] 02-24-2024 History and physical note Images [...] 398 QTC Calculation (Bazett) 420 Calculated P Pioneer 42 Calculated R Pioneer 30 Calculated T Pioneer 24 Impression NORMAL SINUS RHYTHM NORMAL ECG No results found for this or any previous visit (from the past 21176 hour(s)). Instructions Given to Patient: Instructions located in the after visit summary. Patient given verbal and written preop instructions and voices comprehension and compliance. SIGNATURE: Shanice Sumner PA-C PATIENT NAME: Rashard Andersen DATE: February 24, 2024 TIME: 11:31 AM PAGER/CONTACT #: documented in this encounter [facility] 10-23-2023 Telephone encounter Note Neuro SPINE CARE COORDINATION SURGERY SCHEDULING Spoke with patient in regards to surgery date and planning. Patient accepts surgery date of 03/10/[address] Maxime Bailey at [facility]. Planned procedure: C 3/4 foraminotomies Length of Surgery: 2 hours Expected Length of Hospital Stay: 0-1 Patient's Home Address: [address] [place] [address] Medications reviewed : Yes. Meds to be stopped prior to surgery : NSAIDS and Vitamins and supplements. Additional pre op clearances needed : None. Any implanted devices (Stimulator, Defibrillator, etc.): No. Transplant History No. Nicotine use: No Patient will complete optimization lab work : A1c. Education Sent Via Mail/ [place]: [employer] PACC Questionnaire Completed: Yes Qualify TREK for Surgical Success?: No Patient placed on cancellation list: Yes Pre op appts: Green coat: Anytime PACC: [facility] 02/24/2024 Informed 02/24/2024 2:[address] [...] disposition : Low [0.3] Gracie Voss RN [facility] Work Phone: 10-23-2023 Miscellaneous Notes Neuro SPINE CARE COORDINATION SURGERY SCHEDULING Spoke with patient in regards to surgery date and planning. Patient accepts surgery date of 03/10/[address] Maxime Bailey at [facility]. Planned procedure: C 3/4 foraminotomies Length of Surgery: 2 hours Expected Length of Hospital Stay: 0-1 Patient's Home Address: [address] [place] [address] Medications reviewed : Yes. Meds to be stopped prior to surgery : NSAIDS and Vitamins and supplements. Additional pre op clearances needed : None. Any implanted devices (Stimulator, Defibrillator, etc.): No. Transplant History No. Nicotine use: No Patient will complete optimization lab work : A1c. Education Sent Via Mail/ [place]: [employer] PACC Questionnaire Completed: Yes Qualify TREK for Surgical Success?: No Patient placed on cancellation list: Yes Pre op appts: Green coat: Anytime PACC: [facility] 02/24/2024 Informed 02/24/2024 2:[address] [...] call from nurse; requesting call back; ph. [phone] Neuro SPINE CARE COORDINATION QUICK NOTE Returned pts call to discuss surgery planning. No answer, LVM with office number for call back. Gracie Voss RN Aesthetics Instructor Patient is returning nurse call pertaining to below message, scheduling surgery with Dr. Bailey call back [phone] Terrie Phillips routed conversation to [facility] 11 minutes ago (4:07 PM) Terrie [...] not found Best number to reach caller: [phone] Best time to reach caller: NA Is it OK to leave a detailed voice message? Yes Terrie Phillips Neuro SPINE CARE COORDINATION QUICK NOTE Call to patient to discuss surgery planning. No answer, LVM with office number for call back. Gracie Voss RN Aesthetics Instructor Call received for Maxime Bailey MD regarding [...] not found Best number to reach caller: [phone] Best time to reach caller: anytime Is it OK to leave a detailed voice message? Yes Janell Wilcox [facility] nt to schedule surgery; ph: [phone] documented in this encounter [facility] 10-23-2023 Telephone encounter Note Neuro SPINE CARE COORDINATION SURGERY SCHEDULING Spoke with patient in regards to surgery date and planning. Patient accepts surgery date of 03/10/[address] Maxime Bailey at [facility]. Planned procedure: C 3/4 foraminotomies Length of Surgery: 2 hours Expected Length of Hospital Stay: 0-1 Patient's Home Address: [address] [place] [address] Medications reviewed : Yes. Meds to be stopped prior to surgery : NSAIDS and Vitamins and supplements. Additional pre op clearances needed : None. Any implanted devices (Stimulator, Defibrillator, etc.): No. Transplant History No. Nicotine use: No Patient will complete optimization lab work : A1c. Education Sent Via Mail/ [place]: [employer] PACC Questionnaire Completed: Yes Qualify TREK for Surgical Success?: No Patient placed on cancellation list: Yes Pre op appts: Green coat: Anytime PACC: [facility] 02/24/2024 Informed 02/24/2024 2:[address] [...] disposition : Low [0.3] Gracie Voss RN [facility] Work Phone: 10-23-2023 Miscellaneous Notes Neuro SPINE CARE COORDINATION SURGERY SCHEDULING Spoke with patient in regards to surgery date and planning. Patient accepts surgery date of 03/10/[address] Maxime Bailey at [facility]. Planned procedure: C 3/4 foraminotomies Length of Surgery: 2 hours Expected Length of Hospital Stay: 0-1 Patient's Home Address: [address] [place] [address] Medications reviewed : Yes. Meds to be stopped prior to surgery : NSAIDS and Vitamins and supplements. Additional pre op clearances needed : None. Any implanted devices (Stimulator, Defibrillator, etc.): No. Transplant History No. Nicotine use: No Patient will complete optimization lab work : A1c. Education Sent Via Mail/ [place]: [employer] PACC Questionnaire Completed: Yes Qualify TREK for Surgical Success?: No Patient placed on cancellation list: Yes Pre op appts: Green coat: Anytime PACC: [facility] 02/24/2024 Informed 02/24/2024 2:[address] [...] not found Best number to reach caller: [phone] Best time to reach caller: any Is it OK to leave a detailed voice message? Yes Terrie Phillips documented in this encounter [facility] 10-23-2023 Telephone encounter Note Call received [...] a detailed voice message? No Charissa Workman [facility] 10-22-2023 Telephone encounter Note Pt. Returned [...] see her on the Alternative contact list. [facility] 10-22-2023 Telephone encounter Note Call received [...] not found Best number to reach caller: [phone] Best time to reach caller: any Is it OK to leave a detailed voice message? Yes Terrie Phillips [facility] 10-20-2023 Telephone encounter Note Patient called; returning call from nurse; requesting call back; ph. [phone] [facility] 10-20-2023 Telephone encounter Note Neuro SPINE CARE COORDINATION QUICK NOTE Returned pts call to discuss surgery planning. No answer, LVM with office number for call back. Gracie Voss RN Aesthetics Instructor [facility] 10-20-2023 Telephone encounter Note Patient is returning nurse call pertaining to below message, scheduling surgery with Dr. Bailey call back [phone] [facility] 10-16-2023 Telephone encounter Note Terrie Phillips routed conversation to [facility] 11 minutes ago (4:07 PM) Terrie [...] not found Best number to reach caller: [phone] Best time to reach caller: NA Is it OK to leave a detailed voice message? Yes Terrie Phillips [facility] 10-16-2023 Miscellaneous Notes Neuro SPINE CARE COORDINATION QUICK NOTE See other telephone encounter . Gracie Voss RN Aesthetics Instructor Call received for Maxime Bailey MD regarding Rashard Andersen. Caller: Self Patient Identified by Name and : Yes Reason for Call: Returning Phone call from Nurse Is there any additional information the provider should know? No Last Office Visit: 10/16/2023 Next scheduled appointment: Visit date not found Best number to reach caller: [phone] Best time to reach caller: NA Is it OK to leave a detailed voice message? Yes Terrie Phillips documented in this encounter [facility] 10-16-2023 Telephone encounter Note Neuro SPINE CARE COORDINATION QUICK NOTE Call to patient to discuss surgery planning. No answer, LVM with office number for call back. Gracie Voss RN Aesthetics Instructor [facility] 10-16-2023 Telephone encounter Note Call received for Maxime Bailey MD regarding Rashardene Cerdaer. Caller: Other: [facility] pain management calling for the patient Patient Identified by Name and : Yes Reason for Call: schedule surgery Is there any additional information the provider should know? Yes Dr. Bailey told him if injection did not work, he could get surgery. Last Office Visit: 09/22/2023 Next scheduled appointment: Visit date not found Best number to reach caller: [phone] Best time to reach caller: anytime Is it OK to leave a detailed voice message? Yes Janell merritt to schedule surgery; ph: [phone] [facility] 09-26-2023 Note HNO ID: [id number] Author: NANCY LAGOS APRN.YUNG Service: ? Author Type: Nurse Practitioner Type: Progress Notes Filed: 09/26/2023 09:27 Note Text: SPINE SURGERY ESTABLISHED This is a virtual visit using [employer] Video Visit. It required patient-provider interaction for the medical decision making as documented below. I have communicated my name and active licensure. The patient's identity and physical location were verified at the time of this visit. Either the patient or their legal collections representative has been informed of the risks [...] the side effec (more content not included)... [facility] 09-22-2023 Miscellaneous Notes Patient called back got him scheduled for a follow up visit scheduled with [facility]. Sent to schedulers. Neuro SPINE CARE COORDINATION QUICK NOTE Reviewed BETH note. Recommendation were to schedule a follow up (in person or virtual) 3-4 weeks after injection with Nancy Lagos NP or Dr Bailey. Message sent to admin to assist patient in scheduling an appointment for follow up. Gracie Voss RN Aesthetics Instructor pt states injection with [facility] didn't work. Pt would like to schedule surgery. Call back; [phone] documented in this encounter [facility] 08-26-2023 Miscellaneous Notes OV noted completed and faxed to: [facility] Attn: Diane Confirmation received. Diane from [facility] called; they referred patient to Dr. Bailey. Requesting 08/19/23 OV Note be faxed to her at: [facility] Attn: Diane FYI: OV Note is not completed yet - please advise once signed and the note will be faxed as requested. documented in this encounter [facility] 08-19-2023 History of Presen t illness [...] PATIENT PRESENTS WITH AN IMPLANTABLE OR ATTACHED CERTIFIED MEDICATION AIDE: No RADIOLOGY DEPARTMENT: General X-ray: Exam(s) Completed: Spine X-Ray(s): Cervical AP / LAT / FLEX-EXT PERIPHERAL IV DATA: Not applicable SIGNED BY: RT Ran(Osvaldo) August 19, 2023 9:12 AM documented in this encounter [facility] 08-19-2023 Note HNO ID: [id number] Author: FELA RODAS RT(R) Service: Radiology Author [...] PATIENT PRESENTS WITH AN IMPLANTABLE OR ATTACHED CERTIFIED MEDICATION AIDE: No RADIOLOGY DEPARTMENT: General X-ray: Exam(s) Completed: Spine X-Ray(s): Cervical AP / LAT / FLEX-EXT PERIPHERAL IV DATA: Not applicable SIGNED BY: RT Ran(Osvaldo) August 19, 2023 9:12 AM [facility] 08-19-2023 Note HNO ID: [id number] Author: MAXIME BAILEY MD Service: ? Author Type: Physician Type: Progress Notes Filed: 08/25/2023 14:37 Note Text: SPINE SURGERY OUTPATIENT CONSULT This is an in-person visit. SERVICE DATE: 08/19/2023 PCP: No primary care provider on file. REFERRING PROVIDER: Elio Garza [address] [facility] [address] Consult requested for an opinion regarding the [...] Gabapentin. 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 CHIEF COMPLAINT: [...] with more than 50% of the total [id number] time of the visit in counseling / coordination of care. By signing my name below, I, Steven Mercer, attest that this documentation has been prepared under the direction and in the presence of Dr. Bailey. Electronically signed, Tarik Koehler August 19, 2023 9:28 AM SIGNATURE: Maxime Bailey MD PATIENT NAME: Rashard Andersen DATE: August 19, 2023 TIME: 9:27 AM PAGER: [facility] 07-03-2023 Note HNO ID: [id number] Author: NANCY LAGOS APRN.CNP Service: ? Author [...] XR cerv ordered to be completed prior. [facility] 07-03-2023 History of Presen t illness [...] Health Provider or Pain Management Provider at [facility]? No If answer is YES please [...] the MRI/CT/myelogram was completed: [facility] [address] [facility] [address] MRI/CT/myelogram viewable in Epic: No If not, please provide [phone] to fax in imaging reports for review. [...] completed: Additional Comments documented in this encounter [facility] 06-17-2023 Note HNO ID: [id number] Author: ?, ?, ? Service: ? Author Type: ? Type: Progress Notes Filed: 07/03/2023 22:00 Note Text: Patient name: Rashard Andersen Are you being referred by a [facility] Provider or Pain Management Provider at [facility]? No If answer is YES please [...] the MRI/CT/myelogram was completed: [facility] [address] [facility] [address] MRI/CT/myelogram viewable in Epic: No If not, please provide [phone] to fax in imaging reports for review. [...] where the surgery was completed: Additional Comments [facility] 01-07-2022 Evaluation note Encounter Date Diagnosis [...] UP AND WHEN TO SEEK EMERGENCY TREATMENT [facility] Other Evaluation note* Diagnosis Neck pain- Primary Cervicalgia [facility] Diagnosis Neck pain Cervicalgia [facility] Diagnosis Pre-op evaluation- Primary Preoperative examination, [...] adult -BMI 34.70 [facility] Diagnosis Cervical radiculopathy- Primary Brachial neuritis [...] 34.9 in adult [facility] Diagnosis Onset Date Resolution Status Cervical spondylosis acute Obesity acute Wellness examination acute Wound dehiscence, surgical a [facility] Work Phone: [facility] (narrative)* Diagnostic Procedure Only (Routine) - Pending Review Specialty Diagnoses / Procedures Referred By Contac t Referred To Contact XR IMAGING Diagnoses Neck pain Procedures XR CERV OTHER 4V AP/LAT/FLX/EXT RADEX SPINE CERVICAL 4 OR 5 VIEWS Nancy Lagos APRN.CNP [address] [place] [address] X[facility] [place] [address] Referral ID Status Reason Start Date Expiration Date Visits Requested Visits Authorized [id number] Pending Review Auto-Generat ed Referral 07/03/2023 08/01/2024 1 1 [facility] for referral (narrative)* Diagnostic Procedure Only (Routine) - Closed Specialty Diagnoses / Procedures Referred By Contac t Referred To Contact XR IMAGING Diagnoses Neck pain Procedures XR CERV OTHER 4V AP/LAT/FLX/EXT RADEX SPINE CERVICAL 4 OR 5 VIEWS Nancy Lagos APRN.CNP [address] [place] [address] Xr Imaging [place] [address] Referral ID Status Reason Start Date Expiration Date V isits Requested Visits Authorized [id number] Closed Auto-Generate d Referral 07/03/2023 08/01/2024 1 1 [facility] for referral (narrative)* Outpatient Procedure (Routine) - Closed Specialty Diagnoses / Procedures Referred By Contac t Referred To Contact [facility] Diagnoses Pre-op evaluation Procedures ECG COMPLETE ECG ROUTINE ECG W/LEAST 12 LDS W/I&R Shanice Sumner PA-C [facility] [address] [id number] [facility] [address] [place] [address] Referral ID Status Reason Start Date Expiration Date V isits Requested Visits Authorized [id number] Closed Auto-Generate d Referral 02/24/2024 02/23/2025 1 1 [facility] Summary Purpose Family History No Family [...] CERVICAL 4 OR 5 VIEWS Nancy Lagos, ANNIE.COUNTER STITCHER [address] [phone] X[facility] [place] [address] Referral ID Status Reason Start Date Expiration Date V isits Requested Visits Authorized [id number] Closed Auto-Generate d Referral 07/03/2023 08/01/2024 1 [...] or prosecute any alcohol or drug abuse patient.[facility] the event this information is protected by the Federal Confidentiality of Alcohol and Drug Abuse Patient Records regulations: The Federal rules restrict any use of the information to criminally investigate or prosecute any alcohol or drug abuse patient.[facility] the event this information is protected by the Federal Confidentiality of Alcohol and Drug Abuse Patient Records regulations: The Federal rules restrict any use of the information to criminally investigate or prosecute any alcohol or drug abuse patient.[facility] the event this information is protected by the Federal Confidentiality of Alcohol and Drug Abuse Patient Records regulations: The Federal rules restrict any use of the information to criminally investigate or prosecute any alcohol or drug abuse patient.[facility] the event this information is protected by the Federal Confidentiality of Alcohol and Drug Abuse Patient Records regulations: The Federal rules restrict any use of the information to criminally investigate or prosecute any alcohol or drug abuse patient.[facility] the event this information is protected by the Federal Confidentiality of Alcohol and Drug Abuse Patient Records regulations: The Federal rules restrict any use of the information to criminally investigate or prosecute any alcohol or drug abuse patient.[facility] the event this information is protected by the Federal Confidentiality of Alcohol and Drug Abuse Patient Records regulations: The Federal rules restrict any use of the information to criminally investigate or prosecute any alcohol or drug abuse patient.[facility] the event this information is protected by the Federal Confidentiality of Alcohol and Drug Abuse Patient Records regulations: The Federal rules restrict any use of the information to criminally investigate or prosecute any alcohol or drug abuse patient.[facility] the event this information is protected by the Federal Confidentiality of Alcohol and Drug Abuse Patient Records regulations: The Federal rules restrict any use of the information to criminally investigate or prosecute any alcohol or drug abuse patient.[facility] the event this information is protected by the Federal Confidentiality of Alcohol and Drug Abuse Patient Records regulations: The Federal rules restrict any use of the information to criminally investigate or prosecute any alcohol or drug abuse patient.[facility] the event this information is protected by the Federal Confidentiality of Alcohol and Drug Abuse Patient Records regulations: The Federal rules restrict any use of the information to criminally investigate or prosecute any alcohol or drug abuse patient.[facility] the event this information is protected by the Federal Confidentiality of Alcohol and Drug Abuse Patient Records regulations: The Federal rules restrict any use of the information to criminally investigate or prosecute any alcohol or drug abuse patient.[facility] the event this information is protected by the Federal Confidentiality of Alcohol and Drug Abuse Patient Records regulations: The Federal rules restrict any use of the information to criminally investigate or prosecute any alcohol or drug abuse patient.[facility] the event this information is protected by the Federal Confidentiality of Alcohol and Drug Abuse Patient Records regulations: The Federal rules restrict any use of the information to criminally investigate or prosecute any alcohol or drug abuse patient.[facility] Care Teams (unrecognized sec tion and content) [employer]person [employer] Relationship Specialty Start Date End Date Elio Garza MD [address] [place] [address] [address] [place] [phone] Referring Pain Management 06/14/23 [employer] Relationship Specialty Start Date End Date Elio Garza MD [address] [place] [address] Referring Pain Management 06/14/23 [employer] Relationship Specialty Start Date End Date Elio Garza MD [address] [place] [address] 1 [place] [address] Referring Pain Management 06/14/23 [employer] Relationship Specialty Start Date End Date Elio Garza MD [address] [place] [address] 1 [place] [address] Referring Pain Management 06/14/23 [employer] Relationship Specialty Start Date End Date Giedraitis, Andrius, MD [address] [place] [address] 1 [place] [address] Referring Pain Management 06/14/23 [employer] Relationship Specialty Start Date End Date Elio Garza MD [address] [place] [address] [place] [address] Referring Pain Management 06/14/23 [employer] Relationship Specialty Start Date End Date Elio Garza MD [address] [place] [address] [place] [address] Referring Pain Management 06/14/23 [employer] Relationship Specialty Start Date End Date Elio Garza MD [address] [place] [address], [place] [address] Referring Pain Management 06/14/23 [employer] Relationship Specialty Start Date End Date Elio Garza MD [address] [place] [address] 1 [place] [address] Referring Pain Management 06/14/23 [employer] Relationship Specialty Start Date End Date Elio Garza MD [address] [place] [address] 1 [place] [address] Referring Pain Management 06/14/23 [employer] Relationship Specialty Start Date End Date Elio Garza MD [address] [place] [address] 1 [place] [address] Referring Pain Management 06/14/23 Team Status: Active [...] and content) DATE CREATED AUTHOR 09/05/2023 [facility] DATE CREATED AUTHOR AUTHOR'S CHRIS ATGIULIANO 03/16/2024 [facility] Goals (unrecognized section and content) Goals [...] BE BASED ON THE PRIMARY CLINICAL RECORDS. [facility] provides no warranty or guarantee of the accuracy or completeness of information in this document.
== END 2024-04-28 07:30 | disposition home or self-care (01) ==
LOC: RAD 07:30
PROVIDERS: PCP Internal Medicine
DX: M43.22 Fusion of spine, cervical region (principal); Z98.1 Arthrodesis status
CPT/HCPCS: 72052

== ENCOUNTER 2024-05-03 08:59 | Outpatient (RCR) | payer OTHER, SELFPAY | END 2024-06-29 23:59 | disposition home or self-care (01) | LOC: PT 08:59 | PROVIDERS: PCP Internal Medicine | DX: R29.3 Abnormal posture (principal); Z98.1 Arthrodesis status; R53.1 Weakness | CPT/HCPCS: 97110; 97161 ==

== ENCOUNTER 2024-09-03 08:43 | Outpatient (OUT) | payer OTHER, SELFPAY ==
--- OUTSIDE RECORDS SUMMARY | 2024-09-03 09:10 | XMS_ITS | CCD ---
Author Organization [facility] [facility] Care Team Providers Care Merchandise Director Name Role Phone Nayeli Rodriguez Unavailable Giedelmira GAONA, Andrius Unavailable [phone] Giedelmira GAONA, Gala Whittaker Attending Unavailable Giedelmira GAONA, Gala Whittaker Attending Unavailable LEOMAXIME HOUSTON Attending Unavailable LEO, MAXIME E Referring Unavailable SHANICE SUMNER Referring Unavailable NANCY FAY Attending Unavailable NANCY FAY Referring Unavailable LEOMAXIME HOUSTON E Attending Unavailable GIEDLISA, ANDRIUS Referring Unavailable FAY, NANCY Referring Unavailable LEO, MAXIME E Admitting Unavailable LEO MAXIME E Attending Unavailable MAXIME BAILEY E Attending Unavailable LEO MAXIME E Referring Unavailable Medications Current Medications Medication Drug Class(es) Dates Sig (Normalized) Sig (Original) acetaminophen 325 mg oral tablet (4 sources) Start: 03-11-2024 take 2 tablets enteral route every four hours as needed acetaminophen (TYLENOL) 325 mg tablet 2 tablets by ORAL/FEEDING TUBE route every 4 hours as needed for pain. 03/11/2024 Active diclofenac sodium 25 mg delayed release oral tablet (14 sources) Nonsteroidal Anti-inflammatory Drug Start: 04-13-2024 diclofenac, EC, (VOLTAREN) 25 mg EC tablet two times a day. 04/13/2024 Active Start: 07-04-2023 End: 03-11-2024 take 1 tablet by mouth every twelve hours as needed diclofenac, EC, (VOLTAREN) 75 mg EC tablet Take 75 mg by mouth two times a day as needed. 07/04/2023 03/11/2024 Discontinued Comment on above: Take 75 mg by mouth two times a day as needed. doxycycline hyclate 100 mg oral capsule (1 source) Tetracycline-clas s Drug Start: 4 take 100 mg by mouth twice daily Doxycycline Hyclate Active 100 MG PO Twice daily April 13, 2024 12:00am gabapentin 300 mg oral capsule (16 sources) Anti-epileptic Agent Start: 3 take 1 capsule by mouth three times daily gabapentin (NEURONTIN) 300 mg capsule Take 300 mg by mouth three times a day. 06/04/2023 Active Comment on above: Take 300 mg by mouth three times a day. methocarbamol 500 mg oral tablet (5 sources) Muscle Relaxant Start: methocarbamol (ROBAXIN) 500 [...] Classification Problem Date Documented Da te Episodic/Chronic Complications of surgical procedures or medical care (2 sources) Wound dehiscence; Translations: [Disruption of external operation (surgical) wound, not elsewhere classified, initial encounter] 04-13-2024 Episodic Other connective tissue disease (2 sources) History of cervical spine fusion; Translations: [Arthrodesis status] Onset: 06-30-2023 04-13-2024 Episodic Other nutritional; endocrine; and metabolic disorders (11 sources) Obesity caused by energy imbalance; Translations: [...] to 34.9 in adult] Onset: 02-24-2024 Chronic Spondylosis; intervertebral disc disorders; other back problems (2 sources) Cervical spondylosis; Translations: [Spondylosis without myelopathy or radiculopathy, cervical region] 04-13-2024 Chronic Unclassified (1 source) Pre-Op Exam Onset: 02-24-2024 Past or Other Problems Problem Classification Problem Date Documented Date Episodic/Chronic Administrative/social admission (1 source) Problems related to education and literacy, unspecified; Translations: [Educational circumstance] Onset: 02-24-2024 Episodic Immunizations and screening for infectious disease (1 source) Carrier or suspected carrier of Methicillin resistant Staphylococcus aureus; Translations: [Suspected carrier of methicillin resistant Staphylococcus aureus (MRSA)] Onset: 02-24-2024 Episodic Other nervous system disorders (6 sources) Acute postoperative pain; Translations: [Other acute postprocedural pain] Onset: 03-11-2024 03-11-2024 Episodic Other nervous system disorders (1 source) Other acute postprocedural pain; Translations: [Acute post-operative pain] Onset: 03-11-2024 Episodic Other nutritional; endocrine; and metabolic disorders (1 source) Personal history of other endocrine, nutritional and metabolic disease; Translations: [Personal history of other endocrine, nutritional and metabolic disease] Onset: 02-24-2024 Episodic Spondylosis; intervertebral disc disorders; other back problems (11 sources) Neck pain; Translations: [Cervicalgia] Onset: 08-19-2023 07-03-2023 Episodic Viral infection (1 source) COVID-19 Onset: 01-07-2022 Resolved: 01-07-2022 Results Test Name Value Interpretation Reference Range Facility CNCOon 05-03-2024 [facility] [place] CNOVon 04-27-2024 CNOV Office Visit (SPNSMN ) RASHARD ANDERSEN ([id number]) 1980 [facility] Date Time Provider Department 04/27/24 2:40 PM MAXIME BAILEY SPNSMN During your visit today, we recorded the following information about you: Pulse Blood pressure Weight Height 75/minute 128/80 117.9 kg 1.854 m Maxime Bailey MD 04/28/2024 4:53 PM Signed SPINE SURGERY FOLLOW UP This is an in-person visit. SERVICE DATE: 04/26/2024 SURGERY DATE: 03/10/2024: C3-4 ACDF Rashard Andersen is seen for 6 week post operative follow up. PAIN EVALUATION 04/20/20241923 Pain Level: 6 Pain Location: Neck Description: Aching;Pressure;Sharp; Tenderness;Tightness Duration Amount of Time: 1 Duration Units: Minutes Frequency: Intermittent Intervention/Comfort measure: Medication;Reposition; Relaxation Patient Entered Questionnaires 09/23/2023 02/23/2024 04/20/2024 Spine Questions Pain Location: Neck Neck Neck Pain Duration: 1 to 5 years More than 5 years Pain over last 6 months: Every day or nearly every day in the past 6 months At least half the days in the past 6 months Symptoms from neck/cervical spine: Yes Yes Yes Employment Status: Working now Working now Involved in law suit/legal claim: No 09/23/2023 02/23/2024 04/20/2024 Neck Questionnaires Benzel Modified MILAD Score 16 (Mild Myelopathy Symptoms) 16 (Mild Myelopathy Symptoms) 15 (Mild Myelopathy Symptoms) PROMIS Score Percentiles 09/23/2023 02/23/2024 04/20/2024 Physical Health Physical Function Percentile 21* 54 21* Sleep Percentile 21* 54 21* Fatigue Percentile 18* 58 8 Pain Interference Percentile 10 21* 10 09/23/2023 02/23/2024 04/20/2024 PROMIS SOCIAL ROLE SCORE Social Role Satisfaction Percentile 21* 18* 10 09/23/2023 02/23/2024 PROMIS Global Health Scale Physical Health Percentile 22* 41 Mental Health Percentile 63 63 Percentiles provide an indication of how [...] than a mile (1.6 km). Depression Screenin09/23/2023 02/23/2024 PHQ-9 Score 2 1 1 Multiple values from one day are sorted in reverse-chronological order 09/23/2023 02/23/2024 04/20/2024 PHQ-9 Self-harm Question Question 9 Not at all Not at all Not at all PHQ-9 Self-Harm (Item 9) response options: 0 Not at all 1 Several days 2 More than half the days 3 Nearly every day PHQ-9 Levels: 0-4 No to mild depression 5-9 Mild depression 10-14 Moderate depression 15-19 Moderately severe depression 20-27 Severe depression PHYSICAL EXAM: BP 128/80 Pulse 75 Ht 185.4 cm (6' 1 ) Wt 117.9 kg (260 lb) BMI 34.30 kg/m? No xrays to review Incision healed with exception of <1mm hole in lateral 07/02, no drainage ASSESSMENT/PLAN (Z98.1) S/P cervical spinal fusion (primary encounter diagnosis) F/u in 6 months unless issues arise. Radicular pain gone from preop. 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 SIGNATURE: Maxime Bailey MD PATIENT NAME: Rashard Andersen DATE: April 26, 2024 TIME: 11:16 PM PAGER: By signing my name below, I, Helena Palacios, attest that this documentation has been prepared under the direction and in the presence of Dr. Bailey Electronically signed, Tarik Ivory April 26, 2024 11:17 PM Referring Provider: MAXIME BAILEY [[id number]] Allergies As of Date: 04/27/2024 (No Known Allergies) Date Reviewed: 04/27/2024 Reviewed by: Franci Cardoso OCCA - Fully Assessed Reason for Visit: Post Op [174] Primary Visit Diagnosis:S/P cervical spinal fusion [Z98.1] Order(s):XR CERV OTHER 4V AP/LAT/FLX/EXT [[id number]] Order #: [id number] FUTURE XR CERV OTHER 6V AP/LAT/FLX/EXT/OBL [[id number]] Order #: [id number] FUTURE CONSULT TO PHYSICAL THERAPY [9032] Order #: [id number]: 1 FUTURE Prescriptions as of 04/28/2024 - diclofenac, EC, (VOLTAREN) 25 mg EC tablet two times a day. - methocarbamol (ROBAXIN) 500 mg tablet Take 2 tablets every 6 hours as needed for post op pain - acetaminophen (TYLENOL) 325 mg tablet 2 tablets by ORAL/FEEDING TUBE route every 4 hours as needed for pain. - gabapentin (NEURONTIN) 300 mg capsule Take 300 mg by mouth three times a day. Problem List As Of Date 04/27/2024 Noted Resolved Class 1 obesity due to excess calories without *02/24/2024 Cervical radiculopathy [M54.12] 03/10/2024 Acute post-operati (more content not included)... 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 He is able to lift [...] worsening symptoms that arise.. Gracie Voss RN Main Entree Cook And Cashier Allergies As of Date: 03/25/2024 (No Known Allergies) Date Reviewed: 03/11/2024 Reviewed by: Simin Washington RN - Fully Assessed Reason for Visit: Patient Update [1234] Prescriptions as of 03/26/2024 - methocarbamol (ROBAXIN) 500 mg tablet Take 2 tablets every 6 hours as needed for post op pain - acetaminophen (TYLENOL) 325 mg tablet 2 tablets by ORAL/FEEDING TUBE route every 4 hours as needed for pain. - gabapentin (NEURONTIN) 300 mg capsule Take 300 mg by mouth three times a day. Problem List As Of Date 03/25/2024 Noted Resolved Class 1 obesity due to excess calories without *02/24/2024 Cervical radiculopathy [M54.12] 03/10/2024 Acute post-operative pain [G89.18] 03/11/2024 Encounter Status:Closed by GRACIE VOSS on 03/26/24 Normal [facility] CNCOon 03-15-2024 CN[facility] CNPNon 03-12-2024 CNPN Telephone (NIQ) RASH[facility] ANDERSEN ([id number]) 1980 [facility] Date Time Provider Department 03/12/24 MAXIME BAILEY During your visit today, we recorded the following information about you: Kerri Gerardo 03/12/2024 8:39 AM Signed Patient called; had surgery w/Dr. Bailey on 03/10/24; patient is asking if he can resume taking diclofenac and has a few other post-surgery questions; requesting call back; ph. [phone] Gracie Voss RN 03/12/2024 2:57 PM Signed [...] none Follow up: 2 week VV with MANAGER ENTERPRISE SOFI Medina Megan, APRN.YUNG 03/12/2024 3:24 PM Signed Robaxin refill placed. Agree with RN recommendations Charissa Workman 03/15/2024 11:31 AM Addendum Patient is calling back would like to try the other medication the nurse suggested. Medication [facility]. Call back # [phone] Paulina Bryson RN 03/15/2024 2:52 PM Signed [...] Valium like discussed. Demographic pharmacy correct. Nancy Fay APRN.YUNG 03/15/2024 5:02 PM Signed Addended by: NANCY FAY on: 03/15/2024 05:02 PM Modules accepted: Orders [...] hours as needed. Encounter Status:Closed by NANCY FAY on [facility] HNO ID: [id number] Author: GRACE RYDER PA-C Service: Neurosurgery Author Type: Physician [employer] Packages Leak Tester Type: Discharge Summary Filed: 03/11/2024 10:43 Note Text: Attestation signed by Maxime Bailey MD at 03/11/2024 8:14 PM I agree with the POC DISCHARGE SUMMARY [facility] PATIENT NAME: Rashard Andersen [...] Implant Name Type Inv. Item Serial No. Publication Distributor Lot No. LRB No. Used Action GRAFT BONE PUTTY DEMINERLIZED BONE MATRIX 1CC OSTEOSPARX - [id number] Bone GRAFT BONE PUTTY DEMINERLIZED BONE MATRIX 1CC OSTEOSPARX [id number] Plastio [id number] N/A 1 Implanted PIN YELLOW TITANIUM 14MM DISTRACTION STERILE DISPOSABLE - [id number] Pin PIN YELLOW TITANIUM 14MM DISTRACTION STERILE DISPOSABLE TZ MEDICAL N/A 1 Implanted PIN YELLOW TITANIUM 14MM DISTRACTION STERILE DISPOSABLE - [id number] Pin PIN YELLOW TITANIUM 14MM DISTRACTION STERILE DISPOSABLE TZ MEDICAL N/A 1 Implanted CAGE [id number] - [id number] Implant CAGE [id number] VINITA SPINE N/A 1 Implanted OZARK CERVICAL PLATE 1-LEVEL 22MM Plate VINITA N/A 1 Implanted OZARK SELF-STARTING VARIABLE SCREW 4MM X 18MM Screw VINITA N/A 4 Implanted Surgical Specimens: * No specimens in log * Incision/Procedure Start Time: 9:21 AM Incision Close/Procedure End Time: 10:59 AM Surgeons and Role: * Maxime Bailey MD - Primary * Catalina Mehta MD - Resident - Assisting Third Cook: Carley Noonan RN Third Cook (Relief): Shania Stokes RN Scrub Person: Helena Dixon ST Scrub Person (Relief): Shania Stokse RN Procedures During Hospitalization: No procedures performed Hospital Course: 44 y/o M who presents for elective cervical spine surgery. The patient was electively admitted to the [facility]. After being optimized for surgery by [...] The patient was then transferred up to H060 [facility]/H060-25 hospital room for postoperative management. Patient [...] 03/11/2024 Noted - Resolved [facility] Hospital Class 1 obesity due to [...] The brittany (more content not included)... Normal [facility] XR CERVICAL 4V AP/LAT/OBLon 03-11-2024 XR [...] IMPRESSION: Expected postoperative appearance following C3-C4 ACDF. Catering Service Manager: PSCB Transcribe Date/Time: Mar 11 2024 8:12A Dictated by : ASHU WATSON MD This examination was interpreted and the report reviewed and electronically signed by: ИРИНА TEE MD on Mar 11 2024 10:00AM EST [id number] Normal [facility] ANES POSTPROC EVALon 024 ANES POSTPROC EVAL HNO ID: [id number] Author: RENEE AIKEN MD Service: ? Author Type: Anesthesiologist Type: Anesthesia Postprocedure Evaluation Filed: 03/10/2024 11:49 Note Text: POST ANESTHESIA EVALUATION NOTE : 1980 Procedure Summary Date: 03/10/24 [address] Start: 826 Anesthesia Stop: 1133 Procedures: [...] Surgeons: Maxime Bailey MD Responsible Provider: Renee Aiken MD Anesthesia Type: general ASA Status: 3 [...] care. Anesthesia Observations No Documentation SIGNATURE: Renee Aiken MD PATIENT NAME: Rashard Andersen DATE: March 10, 2024 TIME: 11:48 AM CSN: [id number] Normal [facility] ANES PRE-OPon 03-10-2024 ANES PRE-OP HNO ID: [id number] Author: RENEE AIKEN MD Service: ? Author Type: Anesthesiologist Type: Anesthesia Preprocedure Evaluation Filed: 03/10/2024 09:55 Note Text: ANESTHESIOLOGY DAY OF SURGERY NOTE : 1980 Procedure Information Date/Time: 03/10/24829 Procedures: ARTHRODESIS ANT DISC PREP DISCECTOMY OSTEOPHYTECTOMY DECOMPRES S CORD/NERVE ROOT C' BELOW C2 (Spine Cervical) ARTHRODESIS ANT DISC PREP DISCECTOMY OSTEOPHYTECTOMY DECOM S CORD/NERVE ROOTS C' BELOW C2 EACH + (Spine Cervical) INSERT SPINE FIXATION DEVICE ADDITIONAL PROCEDURE, 2-3 VERTEBRAL SEGMENTS (Spine) Location: [facility]IN [facility] MAIN [place] Surgeons: Maxime Bailey MD Estimated body mass [...] and consent discussed: yes. Patient / Responsible Green Party agrees to proceed: yes Patient / [...] within 48 hours of Surgery/Procedure. SIGNATURE: Renee Aiken MD PATIENT NAME: Rashard Andersen DATE: March 10, 2024 TIME: 7:13 AM CSN: [id number] Normal [facility] BRIEF OP NOTon 03-10-2024 BRIEF OP NOT HNO ID: [id number] Author: CATALINA MEHTA MD Service: Neurosurgery Author Type: Resident Type: Brief Op Note Filed: 03/10/2024 11:26 Note Text: BRIEF OPERATIVE / PROCEDURE NOTE LOG ID: [id number] SURGERY/PROCEDURE DATE: 03/10/2024 INCISION/PROCEDURE START TIME: 9:21 AM INCISION CLOSE/PROCEDURE END TIME: 10:59 AM SURGEON(S)/PROCEDURALI ST(S) AND UTILIZATION REVIEW NURSE(S): Surgeons and Role: * Maxime Bailey MD - Primary * Catalina Mehta MD - Resident - Assisting No Additional Staff SURGERY/PROCEDURE(S): C3-C4 ACDF with use of intraoperative microscope ANESTHESIA: General FINDINGS: Successful discectomy with left-sided uncinatectomy with satisfactory decompression achieved. Good hardware placement visualized on intra-op XR. ESTIMATED BLOOD LOSS: 2 mls SPECIMENS: None COMPLICATIONS: None Implant Name Type Inv. Item Serial No. Publication Distributor Lot No. LRB No. Used Action GRAFT BONE PUTTY DEMINERLIZED BONE MATRIX 1CC OSTEOSPARX - [id number] Bone GRAFT BONE PUTTY DEMINERLIZED BONE MATRIX 1CC OSTEOSPARX [id number] Plastio [id number] N/A 1 Implanted PIN YELLOW TITANIUM 14MM DISTRACTION STERILE DISPOSABLE - [id number] Pin PIN YELLOW TITANIUM 14MM DISTRACTION STERILE DISPOSABLE TZ MEDICAL 1 PIN YELLOW TITANIUM 14MM DISTRACTION STERILE DISPOSABLE - [id number] Pin PIN YELLOW TITANIUM 14MM DISTRACTION STERILE DISPOSABLE TZ MEDICAL 1 CAGE [id number] - [id number] Implant CAGE [id number] VINITA SPINE N/A 1 Implanted OZARK CERVICAL [...] March 10, 2024 TIME: 11:23 AM Normal [facility] CONFIRM BLOOD TYPEon 024 ABO A Normal [facility] Comment on above: Order Comment: Speci men Type: BLOOD SPECIMEN Ordering Facility: [facility] Address: [address] [place] [address] Performed By: #### T SCR #### [facility]LOOD B[facility] CLIA [id number] [address] [place] [address] [place] Rh Nom (Bld) Positive Normal [facility] Comment on above: Order Comment: Speci men Type: BLOOD SPECIMEN Ordering Facility: [facility] Address: [address] [place] [address] Performed By: #### T SCR #### [facility] [place] [id number] [address] [place] [address] [place] NURSING PROGon 03-10-2024 NURSING PROG HNO ID: [id number] Author: SHANNA WYMAN, RN Service: ? Author Type: Registered Nurse Type: Nursing Progress Note Filed: 03/10/2024 15:49 Note Text: Admission/Transfer Note PATIENT NAME: Rashard Andersen Patient Location: [place] [address] Room: [place] [address] Patient transferred from PACU via stretcher in stable condition. Actions taken: Patient oriented to room, call light function, prescribed activities, Patient rights, and Quiet at night. This note was completed by: Shanna Wiggins [facility] OPERATIVE NOon 03-10-2024 OPERATIVE NO HNO ID: [id number] Author: MAXIME BAILEY MD Service: Neurosurgery Author Type: Physician Type: Operative Report Filed: 03/25/2024 06:50 Note Text: OPERATIVE/PROCEDURE REPORT LOG ID: [id number] SURGERY/PROCEDURE DATE: 03/10/2024 INCISION/PROCEDURE START TIME: 9:21 AM INCISION CLOSE/PROCEDURE END TIME: 10:59 AM SURGEON(S)/PROCEDURALI ST(S) AND UTILIZATION REVIEW NURSE(S): Surgeons and Role: * Maxime Bailey MD - Primary * Catalina Mehta MD - Resident - Assisting No Additional Staff SURGERY/PROCEDURE(S): #1 use and interpretation of intraoperative fluoroscopy 2. Anterior cervical discectomy and fusion, C3-C4 3. Application of anterior plate and screws, C3, C4 4. Insertion of structural titanium interbody graft, C3-C4 ANESTHESIA: General SURGERY/PROCEDURE DETAILS: The patient was brought to the operating room and after proper identification a general anesthetic was given. Endotracheal intubation was performed. The appropriate lines and tubes were placed. The patient was placed in the supine position and all the extremities were appropriately padded. A right-sided skin incision was planned. The neck was then prepped and draped in usual fashion. A timeout was performed. A 10 blade knife was used to incise the skin. A standard Knolwes-George approach was used to gain access to the prevertebral space. Localization protocol was employed which indicated the correct operative levels. Coeymans pins were applied at the C3 and C4 level and distraction was used to open the disc space. The disc space was exonerated with a combination of punches and curettes. The PLL was identified. There was a large uncinate process which was causing significant foraminal stenosis on the left-hand side correlating to preoperative imaging. A total uncinate resection was performed with a high-speed bur. C4 nerve was seen to be fully decompressed. The endplates were prepared and a titanium interbody was selected and fit into the disc space. An anterior plate and screws were placed at the C3 and C4 levels. AP and lateral x-ray indicated excellent placement of all instrumentation. The wound was then copiously irrigated. Hemostasis was achieved in the prevertebral space. The wound was then closed in anatomical layers. The patient was taken off the operating table awoke in stable fashion with a stable neurologic exam. All counts were correct. There were no immediate complications. PRE-OP/PRE-PROCEDURE DIAGNOSIS: Cervical radiculopathy POST-OP/POST-PROCEDURE DIAGNOSIS: Same as Preop ESTIMATED BLOOD LOSS: 10 mls SPECIMENS: None IMPLANTABLE DEVICES: Implant Name Type Inv. Item Serial No. Publication Distributor Lot No. LRB No. Used Action GRAFT BONE PUTTY DEMINERLIZED BONE MATRIX 1CC OSTEOSPARX - [id number] Bone GRAFT BONE PUTTY DEMINERLIZED BONE MATRIX 1CC OSTEOSPARX [id number] Plastio [id number] N/A 1 Implanted PIN YELLOW TITANIUM 14MM DISTRACTION STERILE DISPOSABLE - [id number] Pin PIN YELLOW TITANIUM 14MM DISTRACTION STERILE DISPOSABLE TZ MEDICAL N/A 1 Implanted PIN YELLOW TITANIUM 14MM DISTRACTION STERILE DISPOSABLE - [id number] Pin PIN YELLOW TITANIUM 14MM DISTRACTION STERILE DISPOSABLE TZ MEDICAL N/A 1 Implanted CAGE [id number] - [id number] Implant CAGE [id number] VINITA SPINE N/A 1 Implanted OZARK CERVICAL PLATE 1-LEVEL 22MM Plate VINITA N/A 1 Implanted OZARK SELF-STARTING VARIABLE SCREW 4MM X 18MM Screw VINITA N/A 4 Implanted DRAINS: None COMPLICATIONS: None CLOSURE TECHNIQUE: Primary PARTICIPATION IN SURGERY/PROCEDURE: I/primary surgeon/proceduralist performed the procedure with assistance. I was assisted by neurosurgery resident whose participation was ledesma and critical portions including exposure, decompression, instrumentation and closure SIGNATURE: Maxime Bailey MD PATIENT NAME: Rashard Andersen DATE: March 25, 2024 TIME: 6:45 AM Normal [facility] TYPE + SCREENon 03-10-2024 ABO A Normal [facility] Comment on above: Order Comment: Speci men Type: BLOOD SPECIMEN Ordering Facility: [facility] Address: [address] [place] [address] Performed By: #### T SCR #### [facility]LO[facility] CLIA [id number] [address] [place] [address] [place] [address] [place] HISTORICAL AB SCR STATUS Negative Normal [facility] Comment on above: Order Comment: Speci men Type: BLOOD SPECIMEN Ordering Facility: [facility] Address: [address] [place] [address] Performed By: #### T SCR #### [facility]LO[facility] CLIA [id number] [address] [place] [address] [place] Rh Nom (Bld) Positive [facility] [place] [facility] Comment on above: Order Comment: Speci men Type: BLOOD SPECIMEN Ordering Facility: [facility] Address: [address] [place] [address] Performed By: #### T SCR #### [facility] CLIA [id number] [address] [place] [address] [place] TYPE AND SCREEN EXPIRATION 03/13/2024 23:59 Normal [facility] Comment on above: Order Comment: Speci men Type: BLOOD SPECIMEN Ordering Facility: [facility] Address: [address] [place] [address] Performed By: #### T SCR #### [facility]LO[facility] CLIA [id number] [address] [place] [address] [place] XR VERIFY LEVEL [id number] 03-10-2024 XR VERIFY LEVEL C-SPINE-NB * * [...] 03/10/2024 at 9:45 AM via verbal communication. Catering Service Manager: ESDRAS Transcribe Date/Time: Mar 10 2024 9:46A Dictated by : SCOTT SPRAGUE MD This examination was interpreted and the report reviewed and electronically signed by: SCOTT SPRAGUE MD on Mar 10 2024 9:47AM EST [id number] Normal [facility] CNPNon 03-08-2024 CNPN Telephone (NIQ) RASHARD ANDERSEN ([id number]) 1980 [facility] Date Time Provider Department 03/08/24 MAXIME BAILEY NILencho During your visit today, we recorded the following information about you: Jeri Mela Janell 03/08/2024 11:51 AM Signed Pt called; wants to confirm that his FMLA paperwork was received from [employer] this morning; employer told him they faxed it to [phone]. Unable to verify; sending to Admin. Please let patient know if it was received; ph: [phone]. Lilly Hastings LPN 03/09/2024 2:27 PM Signed Received, Reviewed [employer] APS- Initial FLMA forms via Docusign from [employer]. Weber and need signed by Dr. Bailey Sent to Dr. Bailey for signature Leave dates: 03/10/24-05/03/24 Post op 6-8 weeks: 04/27/24 with FEI Burch Prisella, LPN 03/10/2024 10:32 AM Signed Received, Reviewed [employer] Certification of Health Care Provider form via Docusign from Celia Weber and agnes signed by Dr. Bailey. Sent to Dr. Bailey for signature. Leave: 03/10/24-05/03/24 Post op 6-8 weeks: 04/27/24 with Dayanara Leon 03/16/2024 4:46 PM Signed Paperwork was faxed and confirmed to [employer]. Allergies As of Date: 03/08/2024 (No Known Allergies) Date Reviewed: 02/24/2024 Reviewed by: Lona Ochoa MA - Fully Assessed Reason for Visit: Forms [913] Prescriptions as of 07/20/2024 - diclofenac, EC, (VOLTAREN) 25 mg EC tablet two times a day. - methocarbamol (ROBAXIN) 500 mg tablet Take 2 tablets every 6 hours as needed for post op pain - acetaminophen (TYLENOL) 325 mg tablet 2 tablets by ORAL/FEEDING TUBE route every 4 hours as needed for pain. - gabapentin (NEURONTIN) 300 mg capsule Take 300 mg by mouth three times a day. Problem List As Of Date 03/08/2024 Noted Resolved Class 1 obesity due to excess calories without *02/24/2024 Encounter Status:Closed by JANELL RIZZO on 07/20/24 [facility] 03-04-2024 [facility] Telephone (SPNSMN) RASHARD ANDERSEN ([id number]) 1980 [facility] Date Time Provider Department 03/04/24 ADAM LATIF [facility] During your visit today, we recorded the following information about you: Adam Latif LSW 03/04/2024 11:08 AM Signed CM was [...] calories without *02/24/2024 Encounter Status:Closed by ADAM LATIF on 03/04/24 [facility] 03-02-2024 CNPN Telephone (NIQ) RASHARD ANDERSEN ([id number]) 1980 [facility] Date Time Provider Department 03/02/24 MAXIME BAILEY NILencho During your visit today, we recorded the following information about you: Bernice Koch 03/05/2024 11:04 AM Signed Pt called AND wanted to know details of the surgery 03/10, so that Pt can make arrangement if he has to stay over night. Pt asked if it Is front entry with the fusion? Pls call back [phone] Gracie Voss RN 03/05/2024 11:51 AM Signed [...] surgical check in time. Gracie Voss RN [employer] Allergies As of Date: 03/02/2024 (No Known Allergies) Date Reviewed: 02/24/2024 Reviewed by: Lona Ochoa MA - Fully Assessed Reason for Visit: Patient Question [0827] Prescriptions as of 03/05/2024 - diclofenac, EC, (VOLTAREN) 75 mg EC tablet Take 75 mg by mouth two times a day as needed. - gabapentin (NEURONTIN) 300 mg capsule Take 300 mg by mouth three times a day. Problem List As Of Date 03/02/2024 Noted Resolved Class 1 obesity due to excess calories without *02/24/2024 Encounter Status:Closed by GRACIE VOSS [facility]05/24 [facility] AND[facility] ([id number]) 1980 M [facility] Date Time Provider Department 03/02/24 MAXIME BAILEY [...] Best number to reach caller: Terrie - Pre-Access [phone] Best time to reach caller: any Is [...] Status:Closed by JANELL RIZZO on 03/08/24 [facility] Auto Differential pane l (Bld)on 02-24-2024 Basophils (Bld) [#/Vol] NINF [facility] Basophils/100 WBC (Bld) 0.5 % [facility] Differential cell count method Nom (Bld) Auto [facility] Eosinophils (Bld) [#/Vol] 0.07 10*3/uL [facility] Eosinophils/100 WBC (Bld) 1.9 % [facility] Erythrocyte distribution width (RBC) [Ratio] 12.4 % 11.5 - 15.0 % [facility] Hematocrit (Bld) [Volume fraction] 44.0 % 39.0 - 51.0 % [facility] Hemoglobin (Bld) [Mass/Vol] 14.9 g/dL 13.0 - 17.0 g/dL [facility] Immature granulocytes (Bld) [#/Vol] [facility] Immature granulocytes/100 WBC (Bld) 0.0 % [facility] Interpretation and review of laboratory results Abnormal [facility] Lymphocytes (Bld) [#/Vol] 1.08 10*3/uL [facility] Lymphocytes/100 WBC (Bld) 29.3 % [facility] MCH (RBC) [Entitic mass] 29.9 pg 26.0 - 34.0 pg [facility] MCHC (RBC) [Mass/Vol] 33.9 g/dL 30.5 - 36.0 g/dL [facility] MCV (RBC) [Entitic vol] 88.2 fL 80.0 - 100.0 fL [facility] Monocytes (Bld) [#/Vol] 0.34 10*3/uL [facility] Monocytes/100 WBC (Bld) 9.2 % [facility] Neutrophils (Bld) [#/Vol] 2.18 10*3/uL [facility] Neutrophils/100 WBC (Bld) 59.1 % [facility] Nucleated RBC (Bld) [#/Vol] [facility] Nucleated RBC/100 WBC (Bld) [Ratio] 0.0 % /100 WBC [facility] Platelet mean volume (Bld) [Entitic vol] 9.5 fL 9.0 - 12.7 fL [facility] Platelets (Bld) [#/Vol] 181 10*3/uL [facility] RBC (Bld) [#/Vol] 4.99 10*6/uL 4.20 - 6.0 0 m/uL [facility] WBC (Bld) [#/Vol] 3.69 10*3/uL Low [facility] ic Basophils (Bld) [#/Vol] 10*3/uL Normal <0.11 [facility] Comment on above: Order Comment: Speci men Type: BLOOD SPECIMENOrdering Facility: [facility] Address: [address] [place] [address] Performed By: #### 5 7021-8 ####[facility] LABCLIA [id number] [place] [address] [place] Basophils/100 WBC (Bld) 0.5 % Normal [facility] Comment on above: Order Comment: Speci men Type: BLOOD SPECIMENOrdering Facility: [facility] Address: [address] [place] [address] Performed By: #### 5 7021-8 ####[facility] LABCLIA [id number] [place] [address] [place] Differential cell count method Nom (Bld) Auto Normal [facility] Comment on above: Order Comment: Speci men Type: BLOOD SPECIMENOrdering Facility: [facility] Address: [address] [place] [address] Performed By: #### 5 7021-8 ####[facility] LABCLIA [id number] [place] [address] [place] Eosinophils (Bld) [#/Vol] 0.07 10*3/uL Normal <0.46 [facility] Comment on above: Order Comment: Speci men Type: BLOOD SPECIMENOrdering Facility: [facility] Address: [address] [place] [address] Performed By: #### 5 7021-8 ####[facility] LABCLIA [id number] [place] [address] [place] Eosinophils/100 WBC (Bld) 1.9 % Normal [facility] Comment on above: Order Comment: Speci men Type: BLOOD SPECIMENOrdering Facility: [facility] Address: [address] [place] [address] Performed By: #### 5 7021-8 ####[facility] LABCLIA [id number] [place] [address] [place] Erythrocyte distribution width (RBC) [Ratio] 12.4 % Normal 11.5-15.0 [facility] Comment on above: Order Comment: Speci men Type: BLOOD SPECIMENOrdering Facility: [facility] Address: [address] [place] [address] Performed By: #### 5 7021-8 ####[facility] LABCLIA [id number] [place] [address] [place] Hematocrit (Bld) [Volume fraction] 44.0 % Normal 39.0-51.0 [facility] Comment on above: Order Comment: Speci men Type: BLOOD SPECIMENOrdering Facility: [facility] Address: [address] [place] [address] Performed By: #### 5 7021-8 ####[facility] LABIA [id number] [place] [address] [place] Hemoglobin (Bld) [Mass/Vol] 14.9 g/dL Normal 13.0-17.0 [facility] Comment on above: Order Comment: Speci men Type: BLOOD SPECIMENOrdering Facility: [facility] Address: [address] [place] [address] Performed By: #### 5 7021-8 ####[facility] LABIA [id number] [place] [address] [place] Immature granulocytes (Bld) [#/Vol] 10*3/uL Normal <0.10 [facility] Comment on above: Order Comment: Speci men Type: BLOOD SPECIMENOrdering Facility: [facility] Address: [address] [place] [address] Performed By: #### 5 7021-8 ####[facility] LABCLIA [id number] [place] [address] [place] Immature granulocytes/100 WBC (Bld) 0.0 % Normal [facility] Comment on above: Order Comment: Speci men Type: BLOOD SPECIMENOrdering Facility: [facility] Address: [address] [place] [address] Performed By: #### 5 7021-8 ####[facility] LABCLIA [id number] [place] [address] [place] Lymphocytes (Bld) [#/Vol] 1.08 10*3/uL Normal 1.00-4.00 [facility] Comment on above: Order Comment: Speci men Type: BLOOD SPECIMENOrdering Facility: [facility] Address: [address] [place] [address] Performed By: #### 5 7021-8 ####[facility] LABCLIA [id number] [place] [address] [place] Lymphocytes/100 WBC (Bld) 29.3 % Normal [facility] Comment on above: Order Comment: Speci men Type: BLOOD SPECIMENOrdering Facility: [facility] Address: [address] [place] [address] Performed By: #### 5 7021-8 ####[facility] LABCLIA [id number] [place] [address] [place] MCH (RBC) [Entitic mass] 29.9 pg Normal 26.0-34.0 [facility] Comment on above: Order Comment: Speci men Type: BLOOD SPECIMENOrdering Facility: [facility] Address: [address] [place] [address] Performed By: #### 5 7021-8 ####[facility] LABCLIA [id number] [place] [address] [place] MCHC (RBC) [Mass/Vol] 33.9 g/dL Normal 30.5-36.0 [facility] Comment on above: Order Comment: Speci men Type: BLOOD SPECIMENOrdering Facility: [facility] Address: [address] [place] [address] Performed By: #### 5 7021-8 ####[facility] LABCLIA [id number] [place] [address] [place] MCV (RBC) [Entitic vol] 88.2 fL Normal 80.0-100.0 [facility] Comment on above: Order Comment: Speci men Type: BLOOD SPECIMENOrdering Facility: [facility] Address: [address] [place] [address] Performed By: #### 5 7021-8 ####[facility] LABIA [id number] [place] [address] [place] Monocytes (Bld) [#/Vol] 0.34 10*3/uL Normal <0.87 [facility] Comment on above: Order Comment: Speci men Type: BLOOD SPECIMENOrdering Facility: [facility] Address: [address] [place] [address] Performed By: #### 5 7021-8 ####[facility] LABIA [id number] [place] [address] [place] Monocytes/100 WBC (Bld) 9.2 % Normal [facility] Comment on above: Order Comment: Speci men Type: BLOOD SPECIMENOrdering Facility: [facility] Address: [address] [place] [address] Performed By: #### 5 7021-8 ####[facility] LABIA [id number] [place] [address] [place] Neutrophils (Bld) [#/Vol] 2.18 10*3/uL Normal 1.45-7.50 [facility] Comment on above: Order Comment: Speci men Type: BLOOD SPECIMENOrdering Facility: [facility] Address: [address] [place] [address] Performed By: #### 5 7021-8 ####[facility] LABIA [id number] [place] [address] [place] Neutrophils/100 WBC (Bld) 59.1 % Normal [facility] Comment on above: Order Comment: Speci men Type: BLOOD SPECIMENOrdering Facility: [facility] Address: [address] [place] [address] Performed By: #### 5 7021-8 ####[facility] LABIA [id number] [address] [address] [place] Nucleated RBC (Bld) [#/Vol] 10*3/uL Normal <0.01 [facility] Comment on above: Order Comment: Speci men Type: BLOOD SPECIMENOrdering Facility: [facility] Address: [address] [place] [address] Performed By: #### 5 7021-8 ####[facility] LABIA [id number] [place] [address] [place] Nucleated RBC/100 WBC (Bld) [Ratio] 0.0 /100 WBC Normal [facility] Comment on above: Order Comment: Speci men Type: BLOOD SPECIMENOrdering Facility: [facility] Address: [address] [place] [address] Performed By: #### 5 7021-8 ####[facility] LABIA [id number] [place] [address] [place] Platelet mean volume (Bld) [Entitic vol] 9.5 fL Normal 9.0-12.7 [facility] Comment on above: Order Comment: Speci men Type: BLOOD SPECIMENOrdering Facility: [facility] Address: [address] [place] [address] Performed By: #### 5 7021-8 ####[facility] LABIA [id number] [place] [address] [place] Platelets (Bld) [#/Vol] 181 10*3/uL Normal 150-400 [facility] Comment on above: Order Comment: Speci men Type: BLOOD SPECIMENOrdering Facility: [facility] Address: [address] [place] [address] Performed By: #### 5 7021-8 ####[facility] LABCLIA [id number] [place] [address] [place] RBC (Bld) [#/Vol] 4.99 10*6/uL Normal 4.20-6.00 [facility] Comment on above: Order Comment: Speci men Type: BLOOD SPECIMENOrdering Facility: [facility] Address: [address] [place] [address] Performed By: #### 5 7021-8 ####[facility] LABCLIA [id number] [place] [address] [place] WBC (Bld) [#/Vol] 3.69 10*3/uL Low 3.70-11.00 [facility] Comment on above: Order Comment: Speci men Type: BLOOD SPECIMENOrdering Facility: [facility] Address: [address] [place] [address] Performed By: #### 5 7021-8 ####[facility] LABCLIA [id number] [address] [place] CNOVon 02-24-2024 CNOV Office Visit (SPNSMN ) RASHARD ANDERSEN ([id number]) 1980 M T Date Time Provider Department 02/24/24 2:20 PM [...] Status:Closed by MAXIME BAILEY on 03/14/24 Normal [facility] Comprehensive metabolic 2000 panelon 02-24-2024 Albumin [Mass/Vol] 4.4 g/dL 3.9 - 4.9 g/dL [facility] ALP [Catalytic activity/Vol] 42 U/L 38 - 113 U/L [facility] ALT [Catalytic activity/Vol] 39 U/L 10 - 54 U/L [facility] Anion gap [Moles/Vol] 10 mmol/L 8 - 15 mmol/L [facility] AST [Catalytic activity/Vol] 29 U/L 14 - 40 U/L [facility] Bilirubin [Mass/Vol] 0.5 mg/dL 0.2 - 1.3 mg/dL [facility] Calcium [Mass/Vol] 9.4 mg/dL 8.5 - 10. 2 mg/dL [facility] Chloride [Moles/Vol] 108 mmol/L High 98 - 107 mmol/L [facility] CO2 [Moles/Vol] 23 mmol/L 22 - 30 mmol/L [facility] Creatinine [Mass/Vol] 1.24 mg/dL High 0.73 - 1.22 mg/dL [facility] GFR/1.73 sq M.predicted among non-blacks MDRD (S/P/Bld) [Vol rate/Area] 74 mL/min/{1.73_m2} - PINF [facility] inic Comment on above: Estimated Glomerular Filtration [...] 103 mg/dL High 74 - 99 mg/dL [facility] Comment on above: The [place] Diab[employer] Association (ADA) provides guidance for [...] Standards of Medical Care in Diabetes 2016, [place] [employer]. Diabetes Care. 2016.39(Suppl 1). Interpretation and review of laboratory results Abnormal [facility] roman Potassium [Moles/Vol] 4.1 mmol/L 3.7 - 5.1 mmol/L [facility] Protein [Mass/Vol] 6.9 g/dL 6.3 - 8.0 g/dL [facility] Sodium [Moles/Vol] 141 mmol/L 136 - 144 mmol/L [facility] Urea nitrogen [Mass/Vol] 30 mg/dL High 9 - 24 mg/dL [facility] ic Albumin [Mass/Vol] 4.4 g/dL Normal 3.9-4.9 [facility] Comment on above: Order Comment: Speci men Type: BLOOD SPECIMEN Ordering Facility: [facility] Address: [address] [place] [address] Performed By: #### 2 4323-8 #### [facility] LAB CLIA [id number] [address] [place] [address] [place] ALP [Catalytic activity/Vol] 42 U/L Normal 38-113 [facility] Comment on above: Order Comment: Speci men Type: BLOOD SPECIMEN Ordering Facility: [facility] Address: [address] [place] [address] Performed By: #### 2 4323-8 #### [facility] CLIA [id number] [address] [place] [address] [place] ALT [Catalytic activity/Vol] 39 U/L Normal 10-54 [facility] Comment on above: Order Comment: Speci men Type: BLOOD SPECIMEN [facility]ing Facility: [facility] Address: [address] [place] [address] Performed By: #### 2 4323-8 #### [facility] CLIA [id number] [address] [place] [address] [place] Anion gap [Moles/Vol] 10 mmol/L Normal 8-15 [facility] Comment on above: Order Comment: Speci men Type: BLOOD SPECIMEN [facility]ing Facility: [facility] Address: [address] [place] [address] Performed By: #### 2 4323-8 #### [facility] CLIA [id number] [address] [place] [address] [place] AST [Catalytic activity/Vol] 29 U/L Normal 14-40 [facility] Comment on above: Order Comment: Speci men Type: BLOOD SPECIMEN Ordering Facility: [facility] Address: [address] [place] [address] Performed By: #### 2 4323-8 #### [facility] CLIA [id number] [address] [place] [address] [place] Bilirubin [Mass/Vol] 0.5 mg/dL Normal 0.2-1.3 [facility] Comment on above: Order Comment: Speci men Type: BLOOD SPECIMEN Ordering Facility: [facility] Address: [address] [place] [address] Performed By: #### 2 4323-8 #### [facility] CLIA [id number] [address] [place] [address] [place] Calcium [Mass/Vol] 9.4 mg/dL Normal 8.5-10.2 [facility] Comment on above: Order Comment: Speci men Type: BLOOD SPECIMEN Ordering Facility: [facility] Address: [address] [place] [address] Performed By: #### 2 4323-8 #### [facility] CLIA [id number] [address] [place] [address] [place] Chloride [Moles/Vol] 108 mmol/L High 98-107 [facility] Comment on above: Order Comment: Speci men Type: BLOOD SPECIMEN Ordering Facility: [facility] Address: [address] [place] [address] Performed By: #### 2 4323-8 #### [facility] CLIA [id number] [address] [place] [address] [place] CO2 [Moles/Vol] 23 mmol/L Normal 22-30 [facility] Comment on above: Order Comment: Speci men Type: BLOOD SPECIMEN Ordering Facility: [facility] Address: [address] [place] [address] Performed By: #### 2 4323-8 #### [facility] CLIA [id number] [address] [place] [address] [place] Creatinine [Mass/Vol] 1.24 mg/dL High 0.73-1.22 [facility] Comment on above: Order Comment: Speci men Type: BLOOD SPECIMEN Ordering Facility: [facility] Address: [address] [place] [address] Performed By: #### 2 4323-8 #### [facility] CLIA [id number] [address] [place] [address] [place] Creatinine and Glomerular filtration rate.predicted panel (S/P/Bld) 74 mL/min/1.73m??? Normal >=60 [facility] Comment on above: Order Comment: Erik wagoner Type: BLOOD SPECIMEN Ordering Facility: [facility] Address: [address] [place] [address] Result Comment: Anamika mated Glomerular Filtration Rate [...] accurately reflect actual GFR. Performed By: #### 2 4323-8 #### [facility] CLIA [id number] [address] [place] [address] [place] Glucose [Mass/Vol] 103 mg/dL High 74-99 [facility] Comment on above: Order Comment: Erik wagoner Type: BLOOD SPECIMEN Ordering Facility: [facility] Address: [address] [place] [address] Result Comment: The [place] Diabetes Association (ADA) provides guidance for cutoff [...] Standards of Medical Care in Diabetes 2016, [place] [employer]. Diabetes Care. 2016.39(Suppl 1). Performed By: #### 2 4323-8 #### [facility] CLIA [id number] [address] [place] [address] [place] Potassium [Moles/Vol] 4.1 mmol/L Normal 3.7-5.1 [facility] Comment on above: Order Comment: Speci men Type: BLOOD SPECIMEN Ordering Facility: [facility] Address: [address] [place] [address] Performed By: #### 2 4323-8 #### [facility] CLIA [id number] [address] [place] [address] [place] Protein [Mass/Vol] 6.9 g/dL Normal 6.3-8.0 [facility] Comment on above: Order Comment: Speci men Type: BLOOD SPECIMEN Ordering Facility: [facility] Address: [address] [place] [address] Performed By: #### 2 4323-8 #### [facility] CLIA [id number] [address] [place] [address] [place] Sodium [Moles/Vol] 141 mmol/L Normal 136-144 [facility] Comment on above: Order Comment: Speci men Type: BLOOD SPECIMEN Ordering Facility: [facility] Address: [address] [place] [address] Performed By: #### 2 4323-8 #### [facility] CLIA [id number] [address] [place] [address] [place] Urea nitrogen [Mass/Vol] 30 mg/dL High 9-24 [facility] Comment on above: Order Comment: Speci men Type: BLOOD SPECIMEN Ordering Facility: [facility] Address: [address] [place] [address] Performed By: #### 2 4323-8 #### [facility] CLIA [id number] [address] [place] [address] [place] ECG COMPLETEon 02-24-2024 ECG COMPLETE Ventricular Rate : 6 7 BPM Atrial Rate : 67 BPM P-R Interval : 128 ms QRS Duration : 98 ms Q-T Interval : 398 ms QTC Calculation(Bazett) : 420 ms Calculated P [place] : 42 degrees Calculated R [place] : 30 degrees Calculated T [place] : 24 degrees NORMAL SINUS RHYTHM NORMAL ECG Confirmed by MD ROLANDO, HEBA ([id number]) on 03/06/2024 6:29:10 PM NAME : RASHARD ANDERSEN PID : [id number] : 1980 Gender : Male Race : ORD : [id number] Procedure Date : Feb 24 2024 11:59:09 Edit Date : Mar 06 2024 18:29:11 Diagnosis: NORMAL SINUS RHYTHM NORMAL ECG Confirmed by MD MARSHALL HEBA ([id number]) on 03/06/2024 6:29:10 PM Test Reason : Location : 119 : A17 A17 Overread By : MD MARSHALL HEBA Edited By : MD MARSHALL HEBA Referred By : SHANICE SUMNER Acquired by : BOB ZHENG [facility] HISTORY PHYSICALon HISTORY PHYSICAL HNO ID: [id number] Author: SHANICE SUMNER PA-C Service: ? Author Type: Physician [employer] Leak Tester Type: H&P Filed: 02/25/2024 09:16 Note Text: [...] VERTEBRAL SEGMENTS (N/A) at the request of Maxime Murray MD for consultation. My final recommendation will [...] dysuria, freque (more content not included)... Normal [facility] HbA1c (Bld)on 02-24-2024 Average glucose Estimated from glycated hemoglobin (Bld) [Mass/Vol] 108 mg/dL Normal [facility] Comment on above: Order Comment: Erik wagoner Type: BLOOD SPECIMENOrdering Facility: [facility] Address: [address] [place] [address] Result Comment: eAG: (Estimated average glucose) is a calculated value from HgbA1c and is customer care representative of the average blood glucose level in the last 2-3 month period. Performed By: #### 5 5454-3 ####[facility] LABCLIA [id number] [place] [address] [place] HbA1c (Bld) [Mass fraction] 5.4 % Normal 4.3-5.6 [facility] Comment on above: Order Comment: Erik wagoner Type: BLOOD SPECIMENOrdering Facility: [facility] Address: [address] [place] [address] Result Comment: Amer ican Diabetes Association guidelines indicate that patients with HgbA1c in the range 5.7-6.4% are at increased risk for development of diabetes, and intervention by lifestyle modification may be beneficial. HgbA1c greater or equal to 6.5% is considered diagnostic of diabetes. Performed By: #### 5 5454-3 ####[facility] LABCLIA [id number] [place] [address] [place] STAPHYLOCOCCUS AUREUS AND MR SA SCREEN, PCR, NASALon 02-24-2024 S. aureus and MRSA panel JACOBY+probe (Nose) Not detected Normal Not Detected [facility] Comment on above: Order Comment: Erik wagoner Type: SWABOrdering Facility: [facility] Address: [address] [place] [address] Performed By: #### S APCR ####[facility] LABCLIA [id number] [place] [address] [place] CNPNon 10-22-2023 CNPN Telephone (NIQ) RASHARD ANDERSEN ([id number]) 1980 [facility] Date Time Provider Department 10/22/23 MAXIME BAILEY [...] not found Best number to reach caller: [phone] Best time to reach caller: any Is [...] of 03/10/[address] Maxime Bailey at [facility]. Planned procedure: C 3/4 foraminotomies Length of Surgery: 2 hours Expected Length of Hospital Stay: 0-1 Patient's Home Address: [address] [place], [place] [id number] Medications reviewed : Yes. Meds to be stopped prior to surgery : NSAIDS and Vitamins and supplements. Additional pre op clearances needed : None. Any implanted devices (Stimulator, Defibrillator, etc.): No. Transplant History No. Nicotine use: No Patient will complete optimization lab work : A1c. Education Sent Via Mail/ Optisenset: SUPR PACC Questionnaire Completed: Yes Qualify TREK for Surgical Success?: No Patient placed on cancellation list: Yes Pre op appts: Green coat: Anytime PACC: [facility] 02/24/2024 Informed 02/24/2024 2:[address] Bailey Education 02/04/2024 at 3 PM with Marcello Garcia RN Post-op Dates: 2 week Virtual Visit with Nancy Fay NP 6-8 week post-op needed with Dr. [...] Encounter Status:Closed by GRACIE VOSS on 10/23/23 [facility]20[facility]SP[facility] RASHARD ANDERSEN ([id number]) 1980 M [facility] Date Time Provider Department 10/16/23 MAXIME BAILEY SPNSMN During your visit today, we recorded the following information about you: Jeri Plaza Janell 10/16/2023 9:20 AM Signed Call received for Maxime Bailey MD regarding Rashard Andersen. Caller: Other: [facility] pain management calling for the patient Patient Identified by Name and : Yes Reason for Call: schedule surgery Is there any additional information the provider should know? Yes Dr. Bailey told him if injection did not work, he could get surgery. Last Office Visit: 09/22/2023 Next scheduled appointment: Visit date not found Best number to reach caller: [phone] Best time to reach caller: anytime Is it OK to leave a detailed voice message? Yes Janell Jeri [place] nt to schedule surgery; ph: [phone] Gracie Voss RN 10/16/2023 3:43 PM Signed Neuro SPINE CARE COORDINATION QUICK NOTE Call to patient to discuss surgery planning. No answer, LVM with office number for call back. Gracie Voss RN Main Entree Cook And Cashier Gracie Voss RN 10/16/2023 4:20 PM Signed Terrie Phillips routed conversation to [facility] 11 minutes ago (4:07 PM) Terrie [...] not found Best number to reach caller: [phone] Best time to reach caller: NA Is it OK to leave a detailed voice message? Yes Terrie Phillips Speed Tree DoctorDesiree Ervin 10/20/2023 2:26 PM Signed Patient is returning nurse call pertaining to below message, scheduling surgery with Dr. Bailey call back [phone] Gracie Voss RN 10/20/2023 3:36 PM Signed Neuro SPINE CARE COORDINATION QUICK NOTE Returned pts call to discuss surgery planning. No answer, LVM with office number for call back. Gracie Voss RN Main Entree Cook And Cashier Kerri Gerardo 10/20/2023 4:17 PM Signed Patient called; returning call from nurse; requesting call back; ph. [phone] Terrie Phillips 10/22/2023 11:33 AM Signed Pt. [...] of 03/10/[address] Maxime Bailey at [facility]. Planned procedure: C 3/4 foraminotomies Length of Surgery: 2 hours Expected Length of Hospital Stay: 0-1 Patient's Home Address: [address] [place] [address] Medications reviewed : Yes. Meds to be stopped prior to surgery : NSAIDS and Vitamins and supplements. Additional pre op clearances needed : None. Any implanted devices (Stimulator, Defibrillator, etc.): No. Transplant History No. Nicotine use: No Patient will complete optimization lab work : A1c. Education Sent Via Mail/ Optisenset: SUPR PACC Questionnaire Completed: Yes Qualify TREK for Surgical Success?: No Patient placed on cancellation list: Yes Pre op appts: Green coat: Anytime PACC: [facility] 02/24/2024 Informed 02/24/2024 2:[address] Bailey Education 02/04/2024 at 3 PM with Marcello Garcia RN Post-op Dates: 2 week Virtual Visit with Nancy Fay NP 6-8 week post-op needed with Dr. [...] of non- (more content not included)... Normal [facility] Telephone (NIQ) RASHARD ANDERSEN ([id number]) 1980 M [facility] Date Time Provider Department 10/16/23 MAXIME [...] not found Best number to reach caller: [phone] Best time to reach caller: NA Is it OK to leave a detailed voice message? Yes Gracie Yang RN 10/16/2023 4:20 PM Signed Neuro SPINE CARE COORDINATION QUICK NOTE See other telephone encounter . Gracie Voss RN Main Entree Cook And Cashier Allergies As of Date: 10/16/2023 (Not on [...] by GRACIE [facility]OSS [facility] Telephone (NIQ) NATHALYRASHARD ([id number]) 1980 M [facility] Date Time Provider Department 09/22/23 MAXIME BAILEY During your visit today, we recorded the following information about you: Shantell Bricklayer Tender, Fely 09/22/2023 9:46 AM Signed pt states injection with [facility] didn't work. Pt would like to schedule surgery. Call back; [phone] Gracie Voss RN 09/22/2023 9:57 AM Signed Neuro SPINE CARE COORDINATION QUICK NOTE Reviewed BETH note. Recommendation were to schedule a follow up (in person or virtual) 3-4 weeks after injection with Nancy Fay NP or Dr Bailey. Message sent to admin to assist patient in scheduling an appointment for follow up. Gracie Voss RN Main Entree Cook And Cashier Charissa Workman 09/22/2023 3:03 PM Signed Patient called back got him scheduled for a follow up visit scheduled with MANAGER ENTERPRISE. Sent to schedulers. Allergies As of Date: 09/22/2023 (Not on File) Date Reviewed: 08/19/2023 Reviewed by: Sugar Stoner MA - Fully Assessed Reason for Visit: Patient Request [2916] Prescriptions as of 10/16/2023 - diclofenac, EC, (VOLTAREN) 75 mg EC tablet Take 75 mg by mouth two times a day as needed. - gabapentin (NEURONTIN) 300 mg capsule Take 300 mg by mouth three times a day. Problem List As Of Date: 09/22/2023 (None) Encounter Status:Closed by GRACIE VOSS on 09/23/23 [facility] 08-22-2023 CNPN Telephone (SPNSMN) RASHARD ANDERSEN ([id number]) 1980 M [facility] Date Time Provider Department 08/22/23 MAXIME BAILEY SPNSMN During your visit today, we recorded the following information about you: Janell Rizzo 08/22/2023 10:01 AM Signed Diane from [facility] called; they referred patient to Dr. Bailey. Requesting 08/19/23 OV Note be faxed to her at: [facility] Attn: Diane FYI: OV Note is not completed yet - please advise once signed and the note will be faxed as requested. Janell Rizzo 08/26/2023 10:41 AM Signed OV noted completed and faxed to: [facility] Attn: Diane Confirmation received. Allergies [...] Encounter Status:Closed by JANELL RIZZO on 08/26/23 [facility] CNOVon 08-19-2023 CNOV Office Visit (SPNSMN ) RASHARD ANDERSEN ([id number]) 1980 [facility] Date Time Provider Department 08/19/23 10:00 AM MAXIME BAILEY SPNSMN During your visit today, we recorded the following information about you: Pulse Respiration Blood pressure Weight 79/minute 18/minute 146/106 115.9 kg Height 1.854 m Maxime Bailey MD 08/25/2023 2:37 PM Signed SPINE SURGERY OUTPATIENT CONSULT This is an in-person visit. SERVICE DATE: 08/19/2023 PCP: No primary care provider on file. REFERRING PROVIDER: Gala Garza [address] [facility] [address] Consult requested for an opinion regarding the [...] Gabapentin. 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 CHIEF COMPLAINT: [...] after injection with Dr Bailey or Nancy Fay NP to review results of injection I [...] with more than 50% of the total zdie-na-ahrv time of the visit in counseling / [...] Provider: VICTORINA (more content not included)... Normal [facility] XR CERV OTHER 4V AP/LAT/FLX/ EXTon 08-19-2023 [facility] ic XR CERVICAL 4V AP/LAT/FLX/EX Ton [...] vertebrae with counting from the craniocervical junction. Catering Service Manager: ESDRAS Transcribe Date/Time: Aug 19 2023 9:09A Dictated by : GRACIELA BEY MD This examination was interpreted and the report reviewed and electronically signed by: GRACIELA BEY MD on Aug 19 2023 9:11AM EST [id number] Normal [facility] SARS-CoV-2 (COVID-19) RNA NA A+probe Ql (Resp)on 01-07-2022 SARS-CoV-2 (COVID-19) RNA JACOBY+probe Ql (Unsp spec) Positive [facility] Other Vital Signs Date Time Vital Sign Value Performing Clinician Facility 04-27-2024 15:03-0400 Body height 185.4 cm Maxime Bailey MD Work Phone: [facility] 04-27-2024 15:03-0400 Body mass index (BMI) [Ratio] 34.3 kg/m2 Maxime Bailey MD Work Phone: [facility] 04-27-2024 15:03-0400 Body weight 117.94 kg Maxime Bailey MD Work Phone: [facility] 04-27-2024 15:03-0400 Diastolic blood pressure 80 mm[Hg] Maxime Bailey MD Work Phone: [facility] 04-27-2024 15:03-0400 Heart rate 75 /min Maxime Bailey MD Work Phone: [facility] 04-27-2024 15:03-0400 Systolic blood pressure 128 mm[Hg] Maxime Bailey MD Work Phone: [facility] 04-13-2024 10:02-0400 Body height 185.42 cm [facility] 04-13-2024 10:02-0400 Body mass index (BMI) [Ratio] 34.9 kg/m2 [facility] 04-13-2024 10:02-0400 Body weight 120.2 kg [facility] 04-13-2024 10:02-0400 Diastolic blood pressure 89 mm[Hg] [facility] 04-13-2024 10:02-0400 Heart rate 76 /min [facility] 04-13-2024 10:02-0400 Respiratory rate 12 /min [facility] 04-13-2024 10:02-0400 Systolic blood pressure 127 mm[Hg] [facility] 02-24-2024 13:30-0400 Body height 185.4 cm Maxime Bailey MD Work Phone: [facility] 02-24-2024 13:30-0400 Body mass index (BMI) [Ratio] 34.7 kg/m2 Maxime Bailey MD Work Phone: [facility] 02-24-2024 13:30-0400 Body weight 119.3 kg Maxime Bailey MD Work Phone: [facility] 02-24-2024 13:30-0400 Diastolic blood pressure 71 mm[Hg] Maxime Bailey MD Work Phone: [facility] 02-24-2024 13:30-0400 Heart rate 73 /min Maxime Bailey MD Work Phone: [facility] 02-24-2024 13:30-0400 Respiratory rate 18 /min Maxime Bailey MD Work Phone: [facility] 02-24-2024 13:30-0400 Systolic blood pressure 110 mm[Hg] Maxime Bailey MD Work Phone: [facility] 02-24-2024 11:33-0400 Body height 185.4 cm Pacc 1 Work Phone: [facility] 02-24-2024 11:33-0400 Body mass index (BMI) [Ratio] 34.7 kg/m2 Pacc 1 Work Phone: [facility] 02-24-2024 11:33-0400 Body temperature 97.59 [degF] Pacc 1 Work Phone: [facility] 02-24-2024 11:33-0400 Body weight 119.3 kg Pacc 1 Work Phone: [facility] 02-24-2024 11:33-0400 Diastolic blood pressure 75 mm[Hg] Pacc 1 Work Phone: [facility] 02-24-2024 11:33-0400 Heart rate 72 /min Pacc 1 Work Phone: [facility] 02-24-2024 11:33-0400 SaO2% (BldA) [Mass fraction] 98 % Pacc 1 Work Phone: [facility] 02-24-2024 11:33-0400 Systolic blood pressure 125 mm[Hg] Pacc 1 Work Phone: [facility] 01-07-2022 10:20-0400 Body height 185.42 cm Nayeli Rodriguez Other [facility] Other 01-07-2022 10:20-0400 Body mass index (BMI) [Ratio] 34.3 kg/m2 Nayeli Rodriguez Other [facility] Other 01-07-2022 10:20-0400 Body temperature 97.3 [degF] Nayeli Rodriguez Other [facility] Other 01-07-2022 10:20-0400 Body weight 117.94 kg Nayeli Rodriguez Other [facility] Other 01-07-2022 10:20-0400 Respiratory rate 18 /min Nayeli Rodriguez Other [facility] Other 01-07-2022 10:20-0400 SaO2% (BldA) [Mass fraction] 97 % Nayeli Abramsault Other [facility] Other Encounters Encounter Date Encounter Type Care Provider Facility Start: 05-03-2024 End: 05-03-2024 ambulatory Maxime Bailey MD Work Phone: [facility] Comment on above: Return to work Start: 04-27-2024 End: 04-27-2024 ambulatory MAXIME BAILEY Facility:[facility] Start: 04-27-2024 End: 04-27-2024 Patient encounter procedure Maxime Bailey MD Work Phone: [facility] [place] [facility] Comment on above: S/P cervical spinal fusion (Primary Dx) Start: 04-13-2024 End: 04-13-2024 ambulatory [facility] Work Phone: Start: 04-13-2024 End: 04-13-2024 Encounter for general adult medical examination without abnormal findings [facility] Start: 04-13-2024 End: 04-13-2024 Patient encounter procedure [facility] Physician [facility] Work Phone: Start: 04-10-2024 Patient encounter status [facility] Start: 03-25-2024 End: 03-26-2024 Telephone encounter Maxime Bailey MD Work Phone: [facility] Comment on above: Patient Update Start: 03-12-2024 End: 03-12-2024 Telephone encounter Maxime Bailey MD Work Phone: Neurology Comment on above: Pain Start: 03-10-2024 End: 03-11-2024 ambulatory MAXIME BAILEY Facility:[facility] Start: 03-08-2024 End: 07-20-2024 Telephone encounter Maxime Bailye MD Work Phone: Neurology Comment on above: Forms Start: 03-04-2024 End: 03-04-2024 Telephone encounter Adam Latif [facility] [place] [facility] Comment on above: Follow Up Start: 03-02-2024 End: 03-08-2024 Telephone encounter Maxime Bailey MD Work Phone: Neurology Comment on above: Patient Question Call from Pre-access Start: 02-24-2024 End: 02-24-2024 Patient encounter procedure Maxime Bailey MD Work Phone: [facility] Comment on above: Cervical radiculopat hy (Primary Dx) Start: 02-24-2024 End: 02-24-2024 ambulatory MAXIME BAILEY Facility:[facility] Start: 02-24-2024 Encounter for other preprocedural examination MAXIME BAILEY [facility] Start: 02-24-2024 End: 02-24-2024 Admission to [...] examination done Pacc Main 1 Work Phone: [facility] Work Phone: Start: 02-24-2024 End: 02-24-2024 ambulatory SHANICE SUMNER Facility:[facility] Start: 02-09-2024 End: 02-09-2024 ambulatory MAXIME BAILEY Facility:[facility] Start: 10-22-2023 Telephone encounter Maxime Bailey MD Work Phone: Neurology Comment on above: Appointment Start: 10-16-2023 Telephone encounter Maxime Bailey MD Work Phone: Neurology Comment on above: Returning Patient's Call Schedule Surgery Start: 09-26-2023 End: 09-26-2023 ambulatory NANCY FAY Facility:[facility] Start: 09-22-2023 Telephone encounter Maxime Bailey MD Work Phone: Neurology Comment on above: Schedule Surgery Start: 09-01-2023 End: 09-02-2023 ambulatory Gala Garza MD Facility:[facility] Start: 08-22-2023 Telephone encounter Maxime Bailey MD Work Phone: [facility] [place] [facility] Comment on above: Request from Sheila handley Start: 08-19-2023 End: 08-19-2023 ambulatory MAXIME BAILEY Facility:[facility] Start: 08-19-2023 End: 08-19-2023 Subsequent hospital visit by physician Leta Main J1-4 Work Phone: Radiology Comment on above: Neck pain [M54.2] Start: 06-17-2023 Chart abstracting None (Historical) Neurology Start: 04-28-2023 End: 04-29-2023 ambulatory Gala Garza MD Facility:[facility] Start: 01-07-2022 End: 01-07-2022 ambulatory Nayeli Rodriguez Other [facility] Other Start: 01-07-2022 Office outpatient ne w 30 minutes Nayeli Rodriguez [facility] Procedures Date Procedure Procedure Detail Performing Clinician Start: 03-10-2024 Antibody screen MAXIME BAILEY Comment on above: Order Comment: Speci men Type: BLOOD SPECIMEN Ordering Facility: [facility] Address: [address] [place] [address] Performed By: #### T SCR #### [facility] CLIA [id number] [address] [place] [address] [place] Start: 08-19-2023 [facility] spine cervical 4 or 5 views Nancy Fay APRN.CNP Work Phone: Plan of Treatment Date Care Activity Detail Author Start: 10-26-2024 End: 10-26-2024 Follow-up encounter 10/26/2024 9:00 AM EDT [facility] [place] [facility] [address] [place] [address] Maxime Bailey MD [address] [place] [address] 6 month follow up [facility] Comment on above: 6 month follow up Start: 04-27-2024 End: 04-27-2024 Patient encounter procedure 04/27/2024 2:40 PM EDT Office Visit [facility] [address] [place] [address] Maxime Bailey MD [address] [place] [address] Postop [facility] Comment on above: Postop Start: 03-25-2024 End: 03-25-2024 ambulatory 03/25/2024 10:00 AM EDT [facility] [place] [address] [id number] Nancy Fay APRN.STENCIL MAKER [address] [place] [address] 2 week MYC Postop [facility] [place] [facility] Comment on above: 2 week MYC Postop Start: 03-10-2024 End: 03-10-2024 Admission to same day surgery center 03/10/2024 12:30 PM EDT - 03/10/2024 3:30 PM EDT Surgery Admitting [address] [place] [address] [place] [address] [place] [address] LAMINOTOMY W/ DECOMPRESSION OF NERVE ROOT(S) PARTIAL [...] disorder with radiculopathy 03/10/2024 12:30 PM EDT [facility] Start: 03-10-2024 Subsequent hospital visit by physician 03/10/2024 12:30 PM EDT Hospital Encounter Admitting [address] [place] [address] Maxime Bailey MD [address] [place] [address] Cervical disc disorder with radiculopathy [M50.10] Admitting Comment on above: Cervical disc disord er with radiculopathy [M50.10] Start: 03-10-2024 End: 03-10-2024 Admission to same day surgery center 03/10/2024 8:30 AM EDT - 03/10/2024 11:15 AM EDT Surgery Admitting [address] [place] [address] Maxime Bailey MD [address] [place] [address] ARTHRODESIS ANT DISC PREP DISCECTOMY OSTEOPHYTECTOMY DECOMPRES [...] EDT Hospital Encounter Admitting [address] [place] [address] Maxime Bailey MD [address] [place] [address] Cervical disc disorder with radiculopathy [M50.10] Admitting Comment on above: Cervical disc disord er with radiculopathy [M50.10] Start: 02-29-2024 Covid-19 Vaccine ( season) Covid-19 Vaccine ( season) [facility] Start: 02-29-2024 Covid-19 Vaccine ( season) Covid-19 Vaccine ( season) [facility] Start: 02-29-2024 Influenza vaccination [facility] Start: 06-30-2023 Behavioral Health Screening Behavioral Health Screening [facility] Start: 06-30-2023 Depression Assessment Depression Ass essment [facility] Start: 02-28-2023 Covid-19 Vaccine ( season) Covid-19 Vaccine ( season) [facility] Start: 02-28-2023 Influenza vaccination Influenza Vacc ine (#1) [facility] Start: 02-01-2016 Lipid panel Lipid Screening [facility] Start: 02-01-2000 Hepatitis B Vaccine (1 of 3 - 19+ 3-dose series) Hepatitis B Vaccine (1 of 3 - 19+ 3-dose series) [facility] Start: 02-01-2000 Urine microalbumin profile DTaP,Tdap,Td Vaccine (1 - Tdap) [facility] Start: 1999 Anxiety Screening Anxiety Screening [facility] Start: 1999 Depression Screening Depression Scre ening [facility] Start: 1999 Hepatitis C screening Hepatitis C Sc annia [facility] Start: 1999 HIV screening HIV Screening [facility] Start: 1980 Covid-19 Vaccine (#1) Covid-19 Vacci ne (#1) [facility] Start: 1980 Hepatitis B Vaccine (1 of 3 - 3-dose series) Hepatitis B Vaccine (1 of 3 - 3-dose series) [facility] Comprehensive metabo lic 2000 panel - Serum or Plasma [facility] ECG COMPLETE ECG COMPLETE ECG Routine Pre-op evaluation 02/24/2024 11:59 AM EDT [facility] Work Phone: End: 08-01-2024 [facility] spine cervical 4 or 5 views XR CERV OTHER 4V AP/LAT/FLX/EXT Radiology Routine Neck pain 1 Occurrences starting 07/03/2023 until 08/01/2024 [facility] Work Phone: Comment on above: 1 Occurrences starti ng 07/03/2023 until 08/01/2024 End: 05-27-2025 XR CERV OTHER 4V AP/LAT/FLX/EXT XR CERV OTHER 4V AP/LAT/FLX/EXT Radiology Routine S/P cervical spinal fusion 1 Occurrences starting 04/27/2024 until 05/27/2025 [facility] Work Phone: Comment on above: 1 Occurrences starti ng 04/27/2024 until 05/27/2025 End: 05-27-2025 XR Cervical spine AP and Oblique and (Lateral W flexion and W extension) XR CERV OTHER 6V AP/LAT/FLX/EXT/OBL Radiology Routine S/P cervical spinal fusion 1 Occurrences starting 04/27/2024 until 05/27/2025 [facility] Work Phone: Comment on above: 1 Occurrences starti ng 04/27/2024 until 05/27/2025 [facility] Payers Date Payer Category Payer Private Health Insurance [id number] 2021 Private Health Insurance [id number] 1980 Unknown [id number] 1980 Unknown [id number] Social History Date Type Detail Facility Start: 08-19-2023 End: 02-23-2024 [facility] Start: 1980 Sex Assigned At Not on file [facility] Start: 08-19-2023 Tobacco smoking stat [facility] Never smoked tobacco [facility] Start: 08-19-2023 End: 02-24-2024 Tobacco use and exposure Smokeless tobacco non-user [facility] Start: 08-19-2023 End: 02-23-2024 History of Social function [facility] National Score (1-100), lower number is lower risk 65 [facility] Start: 02-24-2024 Tobacco smoking stat us NHIS Ex-smoker [facility] History of tobacco use Current smoker [facility] History of tobacco use Cigarette Smoker [facility] Start: 02-24-2024 End: 04-27-2024 Alcoholic beverage intake Current drinker of alcohol (finding) [facility] Start: 02-24-2024 Tobacco Comment Quit in 2013, smoked for 5 years, 0.5ppd [facility] Start: 02-24-2024 Alcohol Comment 6 beers weekly [facility] Start: 1980 Sex Assigned At Male F [facility] Medical Equipment Procedure Code Equipment Code Equipment Origin al Text Equipment Identifier Dates Graft Bone Putty Deminerlized Bone Matrix 1cc Osteosparx - [id number] Start: 03-10-2024 Cage [id number] - [id number] Start: 03-10-2024 Pin Yellow Titan ium 14mm Distraction Sterile Disposable - [id number] Start: 03-10-2024 Pin Yellow Titan ium 14mm Distraction Sterile Disposable - [id number] Start: 03-10-2024 [place] Cervical P late 1-Level 22mm [id number] Start: 03-10-2024 [place] Self-Start ing Variable Screw 4mm X 18mm [id number] Start: 03-10-2024 Clinical Notes 01-07-2022 to 05-03-2024 Telephone Encounter - Jolene Doshi RN - 05/03/2024 4:12 PM ESTTelephone Encounter - Jolene Doshi RN - 05/03/2024 4:12 PM Maxime Lee MD - 04/27/2024 2:40 PM EDTPatient Instructions Note Date & Type Note Facility 05-03-2024 Telephone encounter Note Images from the original note were not included. Neuro SPINE CARE COORDINATION QUICK NOTE Letter sent. Received: Today Nancy Fay APRN.STENCIL MAKER Jolene DoshiSOFI Yes ok to rtw no restrictions Jolene Doshi RN BSN Nurse Main [employer] [facility] Work Phone: 05-03-2024 Miscellaneous Notes Images from the original note were not included. Neuro SPINE CARE COORDINATION QUICK NOTE Letter sent. Received: Today Nancy Fay APRN.STENCIL MAKER Jolene Doshi RN Yes ok to rtw no restrictions Jolene Doshi RN BSN Nurse Main [employer] documented in this encounter [facility] 04-27-2024 History of Presen t illness Narrative Images from the original note were not included. SPINE SURGERY FOLLOW UP This is an in-person visit. SERVICE DATE: 04/26/2024 SURGERY DATE: 03/10/2024: C3-4 ACDF Rashard Andersen is seen for 6 week post operative follow up. PAIN EVALUATION 04/20/20241923 Pain Level: 6 Pain Location: Neck Description: Aching;Pressure;Sharp;Tendernes s;Tightness Duration Amount of Time: 1 Duration Units: Minutes Frequency: Intermittent Intervention/Comfort measure: Medication;Reposition;Relaxatio n Patient Entered Questionnaires 09/23/2023 02/23/2024 04/20/2024 Spine Questions Pain Location: Neck Neck Neck Pain Duration: 1 to 5 years More than 5 years Pain over last 6 months: Every day or nearly every day in the past 6 months At least half the days in the past 6 months Symptoms from neck/cervical spine: Yes Yes Yes Employment Status: Working now Working now Involved in law suit/legal claim: No 09/23/2023 02/23/2024 04/20/2024 Neck Questionnaires Benzel Modified MILAD Score 16 (Mild Myelopathy Symptoms) 16 (Mild Myelopathy Symptoms) 15 (Mild Myelopathy Symptoms) PROMIS Score Percentiles 09/23/2023 02/23/2024 04/20/2024 Physical Health Physical Function Percentile 21* 54 21* Sleep Percentile 21* 54 21* Fatigue Percentile 18* 58 8 Pain Interference Percentile 10 21* 10 09/23/2023 02/23/2024 04/20/2024 PROMIS SOCIAL ROLE SCORE Social Role Satisfaction Percentile 21* 18* 10 09/23/2023 02/23/2024 PROMIS Global Health Scale Physical Health Percentile 22* 41 Mental Health Percentile 63 63 Percentiles provide an indication of how [...] than a mile (1.6 km). Depression Screenin09/23/2023 02/23/2024 PHQ-9 Score 2 1 1 Multiple values from one day are sorted in reverse-chronological order 09/23/2023 02/23/2024 04/20/2024 PHQ-9 Self-harm Question Question 9 Not at all Not at all Not at all PHQ-9 Self-Harm (Item 9) response options: 0 Not at all 1 Several days 2 More than half the days 3 Nearly every day PHQ-9 Levels: 0-4 No to mild depression 5-9 Mild depression 10-14 Moderate depression 15-19 Moderately severe depression 20-27 Severe depression PHYSICAL EXAM: BP 128/80 Pulse 75 Ht 185.4 cm (6' 1 ) Wt 117.9 kg (260 lb) BMI 34.30 kg/m No xrays to review Incision healed with exception of <1mm hole in lateral 07/02, no drainage ASSESSMENT/PLAN (Z98.1) S/P cervical spinal fusion (primary encounter diagnosis) F/u in 6 months unless issues arise. Radicular pain gone from preop. 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 SIGNATURE: Maxime Bailey MD PATIENT NAME: Rashard Andersen DATE: April 26, 2024 TIME: 11:16 PM PAGER: By signing my name below, I, Helena Philip, attest that this documentation has been prepared under the direction and in the presence of Dr. Bailey Electronically signed, Tarik Ivory April 26, 2024 11:17 PM documented in this encounter [facility] 04-27-2024 Note HNO ID: [id number] Author: MAXIME BAILEY MD Service: ? Author Type: Physician Type: Progress Notes Filed: 04/28/2024 16:53 Note Text: SPINE SURGERY FOLLOW UP This is an in-person visit. SERVICE DATE: 04/26/2024 SURGERY DATE: 03/10/2024: C3-4 ACDF Rashard Andersen is seen for 6 week post operative follow up. PAIN EVALUATION 04/20/20241923 Pain Level: 6 Pain Location: Neck Description: Aching;Pressure;Sharp;Tendernes s;Tightness Duration Amount of Time: 1 Duration Units: Minutes Frequency: Intermittent Intervention/Comfort measure: Medication;Reposition;Relaxatio n Patient Entered Questionnaires 09/23/2023 02/23/2024 04/20/2024 Spine Questions Pain Location: Neck Neck Neck Pain Duration: 1 to 5 years More than 5 years Pain over last 6 months: Every day or nearly every day in the past 6 months At least half the days in the past 6 months Symptoms from neck/cervical spine: Yes Yes Yes Employment Status: Working now Working now Involved in law suit/legal claim: No 09/23/2023 02/23/2024 04/20/2024 Neck Questionnaires [place] Modified MILAD Score 16 (Mild Myelopathy Symptoms) 16 (Mild Myelopathy Symptoms) 15 (Mild Myelopathy Symptoms) PROMIS Score Percentiles 09/23/2023 02/23/2024 04/20/2024 Physical Health Physical Function Percentile 21* 54 21* Sleep Percentile 21* 54 21* Fatigue Percentile 18* 58 8 Pain Interference Percentile 10 21* 10 09/23/2023 02/23/2024 04/20/2024 PROMIS SOCIAL ROLE SCORE Social Role Satisfaction Percentile 21* 18* 10 09/23/2023 02/23/2024 PROMIS Global Health Scale Physical Health Percentile 22* 41 Mental Health Percentile 63 63 Percentiles provide an indication of how [...] than a mile (1.6 km). Depression Screenin09/23/2023 02/23/2024 PHQ-9 Score 2 1 1 Multiple values from one day are sorted in reverse-chronological order 09/23/2023 02/23/2024 04/20/2024 PHQ-9 Self-harm Question Question 9 Not at all Not at all Not at all PHQ-9 Self-Harm (Item 9) response options: 0 Not at all 1 Several days 2 More than half the days 3 Nearly every day PHQ-9 Levels: 0-4 No to mild depression 5-9 Mild depression 10-14 Moderate depression 15-19 Moderately severe depression 20-27 Severe depression PHYSICAL EXAM: BP 128/80 Pulse 75 Ht 185.4 cm (6' 1 ) Wt 117.9 kg (260 lb) BMI 34.30 kg/m? No xrays to review Incision healed with exception of <1mm hole in lateral 1/3, no drainage ASSESSMENT/PLAN (Z98.1) S/P cervical spinal fusion (primary encounter diagnosis) F/u in 6 months unless issues arise. Radicular pain gone from preop. 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 SIGNATURE: Maxime Bailey MD PATIENT NAME: Rashard Andersen DATE: April 26, 2024 TIME: 11:16 PM PAGER: By signing my name below, I, Helena Palacios, attest that this documentation has been prepared under the direction and in the presence of Dr. 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 He is able to lift [...] worsening symptoms that arise.. Gracie Voss RN [employer] documented in this encounter [facility] 03-16-2024 Telephone encounter Note Paperwork was faxed and confirmed to [employer] [place] [employer]. [facility] 03-16-2024 Miscellaneous Notes Paperwork was faxed and confirmed to [employer] [place] [employer] [place]. Received, Reviewed [employer] [place] [employer] [place] Certification of Health Care Provider form via Docusign from Celia Valenzuela signed by Dr. Bailey. Sent to Dr. Bailey for signature. Leave: 03/10/24-05/03/24 Post op 6-8 weeks: 04/27/[address] Bailey Received, Reviewed [employer] [place] [employer] [place] APS- Initial FLMA forms via Docusign from AA. Cárdenas signed by Dr. Bailey Sent to Dr. Bailey for signature Leave dates: 03/10/24-05/03/24 Post op 6-8 weeks: 04/27/[address] Leo Bell LPN Pt called; wants to confirm that his FMLA paperwork was received from [employer] this morning; employer told him they faxed it to [phone]. Unable to verify; sending to Admin. Please let patient know if it was received; ph: [phone]. documented in this encounter [facility] 03-14-2024 Note HNO ID: [id number] Author: MAXIME BAILEY MD Service: ? Author Type: Physician Type: Progress Notes Filed: 03/14/2024 16:26 Note Text: Patient seen in preop. Discussed risks/benefits/alternatives to surgery in detail. Consent form signed. [facility] 03-14-2024 History of Presen t illness Narrative Patient seen in preop. Discussed risks/benefits/alternatives to surgery in detail. Consent form signed. documented in this encounter [facility] 03-12-2024 Telephone encounter Note Robaxin refill placed. Agree with RN recommendations [facility] 03-12-2024 Miscellaneous Notes Robaxin refill placed. [...] none Follow up: 2 week VV with MANAGER ENTERPRISE Gracie Voss RN Patient called; had surgery w/Dr. Bailey on 03/10/24; patient is asking if he can resume taking diclofenac and has a few other post-surgery questions; requesting call back; ph. [phone] documented in this encounter [facility] 03-12-2024 Telephone encounter Note Neuro SPINE [...] none Follow up: 2 week VV with MANAGER ENTERPRISE Gracie Voss RN [facility] Work Phone: 03-12-2024 Telephone encounter Note Patient called; had surgery w/Dr. Bailey on 03/10/24; patient is asking if he can resume taking diclofenac and has a few other post-surgery questions; requesting call back; ph. [phone] [facility] 03-10-2024 Note HNO ID: [id number] Author: CATALINA MEHTA MD Service: Neurosurgery Author [...] Catalina Mehta MD PGY-6, Neurological Surgery Pager [phone] March 10, 2024 Please page [phone] after 6 PM and on weekends [facility] 03-10-2024 Telephone encounter Note Received, Reviewed [employer] [place] Certification of Health Care Provider form via Docusign from Celia Weber and needs signed by Dr. Bailey. Sent to Dr. Bailey for signature. Leave: 03/10/24-05/03/24 Post op 6-8 weeks: 04/27/[address] Bailey [facility] 03-10-2024 Note HNO ID: [id number] Author: DMITRY VALLES MD Service: ? Author Type: Resident Type: Anesthesia Procedure Notes Filed: 03/10/2024 09:13 Note Text: ANESTHESIOLOGY PROCEDURE NOTE PIV General Information Procedure Start Time/Medication Administration: 03/10/2024 9:00 AM Procedure End Time: 03/10/2024 9:05 AM Staffing Anesthesiologist: Renee Aiken MD Resident: Dmitry Valles MD Performed by: [...] March 10, 2024 TIME: 9:11 AM CSN: [id number] [facility] 03-10-2024 Note HNO ID: [id number] Author: DMITRY VALLES MD Service: ? Author Type: Resident Type: Anesthesia Procedure Notes Filed: 03/10/2024 09:11 Note Text: ANESTHESIOLOGY PROCEDURE NOTE Airway General Information Procedure Start Time/Medication Administration: 03/10/2024 8:51 AM Procedure End Time: 03/10/2024 8:53 AM Patient location during procedure: OR Timeout Performed Pre-procedure: timeout performed Consent Obtained: Yes Patient identity confirmed: arm band and patient Staffing Anesthesiologist: Renee Aiken MD Resident: Dmitry Valles MD Performed by: resident Indications and Patient Condition Indications for airway management: anesthesia Preoxygenated: yes anesthesia circuit Patient position: sniffing Method: asleep Difficult Mask: No Final Airway Details Final airway type: endotracheal airway Final Endotracheal Airway: ETT Cuffed: yes Successful intubation technique: video laryngoscopy Devices used: Mercado Endotracheal tube insertion site: oral Blade size: #4 ETT size (mm): 7.5 Measured from: lips Measurement (cm): 23 Placement verified by: capnometry Cormack-Lehane Classification: grade I - full view of glottis Number of attempts at approach: 1 Airway not difficult SIGNATURE: Dmitry Valles MD PATIENT NAME: Rashard Andersen DATE: March 10, 2024 TIME: 9:10 AM CSN: [id number] [facility] 03-09-2024 Telephone encounter Note Received, Reviewed [employer] [place] APS- Initial FLMA forms via Docusign from AA. Weber and ariane signed by Dr. Bailey Sent to Dr. Bailey for signature Leave dates: 03/10/24-05/03/24 Post op 6-8 weeks: 04/27/[address] Leo Bell LPN [facility] 03-08-2024 Telephone encounter Note Pt called; wants to confirm that his FMLA paperwork was received from [employer] this morning; employer told him they faxed it to [phone]. Unable to verify; sending to Admin. Please let patient know if it was received; ph: [phone]. [facility] 03-05-2024 Telephone encounter Note Neuro SPINE [...] surgical check in time. Gracie Voss RN Main [employer] [facility] Work Phone: 03-05-2024 Miscellaneous Notes Neuro [...] surgical check in time. Gracie Voss RN Main [employer] Pt called & wanted to know details of the surgery 03/10, so that Pt can make arrangement if he has to stay over night. Pt asked if it Is front entry with the fusion? Pls call back [phone] documented in this encounter [facility] 03-05-2024 Telephone encounter Note Pt called & wanted to know details of the surgery 03/10, so that Pt can make arrangement if he has to stay over night. Pt asked if it Is front entry with the fusion? Pls call back [phone] [facility] 03-04-2024 Telephone encounter Note CM was able to leave a brief detailed message on identified vm requesting call back to discuss post op care. CM provided contact information. [facility] 03-04-2024 Miscellaneous Notes CM was able to leave a brief detailed message on identified vm requesting call back to discuss post op care. CM provided contact information. documented in this encounter [facility] 03-02-2024 Telephone encounter Note Call received for Maxime Bailey MD regarding Rashard Andersen. Caller: Terrie [facility] Patient Identified by Name and : Yes Reason for Call: General Question Pt Surgery 03/10 [facility] called looking for office notes from OV 02/23. Could not find detailed notes. Is there any additional information the provider should know? No Last Office Visit: 03/02/2024 Next scheduled appointment: 04/27/2024 Best number to reach caller: Terrie - [facility] [phone] Best time to reach caller: any Is it OK to leave a detailed voice message? Yes Terrie Phillips [facility] 03-02-2024 Miscellaneous Notes Call received for Maxime Bailey MD regarding Rashard Andersen. Caller: [facility]rie [facility] Patient Identified by Name and : Yes Reason for Call: General Question Pt Surgery 03/10 [facility] called looking for office notes from [facility] 02/23. Could not find detailed notes. Is there any additional information the provider should know? No Last Office Visit: 03/02/2024 Next scheduled appointment: 04/27/2024 Best number to reach caller: Terrie - [facility] [phone] Best time to reach caller: any Is it OK to leave a detailed voice message? Yes Terrie Phillips documented in this encounter [facility] 02-24-2024 Instructions Shanice Sumner PA-C - 02/24/2024 11:48 AM EDT Images from the original note were not included. [facility] PATIENT PREOPERATIVE INSTRUCTIONS Dr. Bailey has scheduled you for your procedure at this surgery center: [facility] Scheduling Office: [phone] --[address] [place] [address]. Please read below carefully for your personalized [...] Procedures: - YOU MUST HAVE A RESPONSIBLE SHRINK PIT OPERATOR TAKE YOU HOME. A KEG FILLER OR RESTAURANT DELIVERY DRIVER CANNOT BE MADE A RESPONSIBLE SHRINK PIT OPERATOR. - We recommend that a responsible person [...] call the Friday before. Your surgeon s brown stock washer will tell you what time to call the office. - If you have not reached the departmental brown stock washer by 5 P.M., call [phone] after 5 P.M. the day before your surgery. Please be aware that emergency situations arise, which may delay or change your surgical time. If this happens, we will notify you as soon as possible and regret any inconvenience. If you already have an Advance Directive, please fax a copy to [phone] or email to for it to be [...] Shanice Sumner PA-C documented in this encounter [facility] 02-24-2024 History and physical note Images [...] 398 QTC Calculation (Bazett) 420 Calculated P [place] 42 Calculated R [place] 30 Calculated T [place] 24 Impression NORMAL SINUS RHYTHM NORMAL ECG No results found for this or any previous visit (from the past 83430 hour(s)). Instructions Given to Patient: Instructions located in the after visit summary. Patient given verbal and written preop instructions and voices comprehension and compliance. SIGNATURE: Shanice Sumner PA-C PATIENT NAME: Rashard Andersen DATE: February 24, 2024 TIME: 11:31 AM PAGER/CONTACT #: [facility] 02-24-2024 History and physical note Images [...] INTERSPACE CERVICAL (N/A) at the request of Maxime Murray MD for consultation. My final recommendation will [...] 398 QTC Calculation (Bazett) 420 Calculated P [place] 42 Calculated R [place] 30 Calculated T [place] 24 Impression NORMAL SINUS RHYTHM NORMAL ECG No results found for this or any previous visit (from the past 43080 hour(s)). Instructions Given to Patient: Instructions located in the after visit summary. Patient given verbal and written preop instructions and voices comprehension and compliance. SIGNATURE: Shanice Sumner PA-C PATIENT NAME: Rashard Andersen DATE: February 24, 2024 TIME: 11:31 AM PAGER/CONTACT #: documented in this encounter [facility] 10-23-2023 Telephone encounter Note Neuro SPINE CARE COORDINATION SURGERY SCHEDULING Spoke with patient in regards to surgery date and planning. Patient accepts surgery date of 03/10/[address] Maxime Bailey at [facility]. Planned procedure: C 3/4 foraminotomies Length of Surgery: 2 hours Expected Length of Hospital Stay: 0-1 Patient's Home Address: [address] [place], [place] [id number] Medications reviewed : Yes. Meds to be stopped prior to surgery : NSAIDS and Vitamins and supplements. Additional pre op clearances needed : None. Any implanted devices (Stimulator, Defibrillator, etc.): No. Transplant History No. Nicotine use: No Patient will complete optimization lab work : A1c. Education Sent Via Mail/ [employer]: SUPR PACC Questionnaire Completed: Yes Qualify TREK for Surgical Success?: No Patient placed on cancellation list: Yes Pre op appts: Green coat: Anytime PACC: [facility] 02/24/2024 Informed 02/24/2024 2:[address] Bailey Education 02/04/2024 at 3 PM with Marcello Garcia RN Post-op Dates: 2 week Virtual Visit with Nancy Fay NP 6-8 week post-op needed with Dr. [...] disposition : Low [0.3] Gracie Voss RN [facility] Work Phone: 10-23-2023 Miscellaneous Notes Neuro SPINE CARE COORDINATION SURGERY SCHEDULING Spoke with patient in regards to surgery date and planning. Patient accepts surgery date of 03/10/[address] Maxime Bailey at [facility]. Planned procedure: C 3/4 foraminotomies Length of Surgery: 2 hours Expected Length of Hospital Stay: 0-1 Patient's Home [address]: [address] [place] [address] [address] [address] Medications reviewed : Yes. Meds to be stopped prior to surgery : NSAIDS and Vitamins and supplements. Additional pre op clearances needed : None. Any implanted devices (Stimulator, Defibrillator, etc.): No. Transplant History No. Nicotine use: No Patient will complete optimization lab work : A1c. Education Sent Via Mail/ SUPR: SUPR PACC Questionnaire Completed: Yes Qualify TREK for Surgical Success?: No Patient placed on cancellation list: Yes Pre op appts: Green coat: Anytime PACC: [facility] 02/24/2024 Informed 02/24/2024 2:[address] Bailey Education 02/04/2024 at 3 PM with Marcello Garcia RN Post-op Dates: 2 week Virtual Visit with Nancy Fay NP 6-8 week post-op needed with Dr. [...] call from nurse; requesting call back; ph. [phone] Neuro SPINE CARE COORDINATION QUICK NOTE Returned pts call to discuss surgery planning. No answer, LVM with office number for call back. Gracie Voss RN Main [employer] Patient is returning nurse call pertaining to below message, scheduling surgery with Dr. Bailey call back [phone] Terrie Phillips routed conversation to Spine [facility] 11 minutes ago (4:07 PM) Terrie [...] not found Best number to reach caller: [phone] Best time to reach caller: NA Is it OK to leave a detailed voice message? Yes Terrie Phillips Neuro SPINE CARE COORDINATION QUICK NOTE Call to patient to discuss surgery planning. No answer, LVM with office number for call back. Gracie Voss RN Main [employer] Call received for Maxime Bailey MD regarding Rashard Andersen. Caller: Other: [facility] pain management calling for the patient Patient Identified by Name and : Yes Reason for Call: schedule surgery Is there any additional information the provider should know? Yes Dr. Bailey told him if injection did not work, he could get surgery. Last Office Visit: 09/22/2023 Next scheduled appointment: Visit date not found Best number to reach caller: [phone] Best time to reach caller: anytime Is it OK to leave a detailed voice message? Yes Janell merritt to schedule surgery; ph: [phone] documented in this encounter [facility] 10-23-2023 Telephone encounter Note Neuro SPINE CARE COORDINATION SURGERY SCHEDULING Spoke with patient in regards to surgery date and planning. Patient accepts surgery date of 03/10/[address] Maxime Bailey at [facility]. Planned procedure: C 3/4 foraminotomies Length of Surgery: 2 hours Expected Length of Hospital Stay: 0-1 Patient's Home Address: [address] [place] [address] Medications reviewed : Yes. Meds to be stopped prior to surgery : NSAIDS and Vitamins and supplements. Additional pre op clearances needed : None. Any implanted devices (Stimulator, Defibrillator, etc.): No. Transplant History No. Nicotine use: No Patient will complete optimization lab work : A1c. Education Sent Via Mail/ [employer]: SUPR PACC Questionnaire Completed: Yes Qualify TREK for Surgical Success?: No Patient placed on cancellation list: Yes Pre op appts: Green coat: Anytime PACC: [facility] 02/24/2024 Informed 02/24/2024 2:[address] Bailey Education 02/04/2024 at 3 PM with Marcello Garcia RN Post-op Dates: 2 week Virtual Visit with Nancy Fay NP 6-8 week post-op needed with Dr. [...] disposition : Low [0.3] Gracie Voss RN [facility] Work Phone: 10-23-2023 Miscellaneous Notes Neuro SPINE CARE COORDINATION SURGERY SCHEDULING Spoke with patient in regards to surgery date and planning. Patient accepts surgery date of 03/10/[address] Maxime Bailey at [facility]. Planned procedure: C 3/4 foraminotomies Length of Surgery: 2 hours Expected Length of Hospital Stay: 0-1 Patient's Home Address: [address] [place] [address] Medications reviewed : Yes. Meds to be stopped prior to surgery : NSAIDS and Vitamins and supplements. Additional pre op clearances needed : None. Any implanted devices (Stimulator, Defibrillator, etc.): No. Transplant History No. Nicotine use: No Patient will complete optimization lab work : A1c. Education Sent Via Mail/ Optisenset: [facility] PACC Questionnaire Completed: Yes Qualify TREK for Surgical Success?: No Patient placed on cancellation list: Yes Pre op appts: Green coat: Anytime PACC: [facility] 02/24/2024 Informed 02/24/2024 2:[address] Bailey Education 02/04/2024 at 3 PM with Marcello Garcia RN Post-op Dates: 2 week Virtual Visit with Nancy Fay NP 6-8 week post-op needed with Dr. [...] not found Best number to reach caller: [phone] Best time to reach caller: any Is it OK to leave a detailed voice message? Yes Terrie Phillips documented in this encounter [facility] 10-23-2023 Telephone encounter Note Call received [...] a detailed voice message? No Charissa Workman [facility] 10-22-2023 Telephone encounter Note Pt. Returned [...] see her on the Alternative contact list. [facility] 10-22-2023 Telephone encounter Note Call received [...] not found Best number to reach caller: [phone] Best time to reach caller: any Is it OK to leave a detailed voice message? Yes Terrie Phillips [facility] 10-20-2023 Telephone encounter Note Patient called; returning call from nurse; requesting call back; ph. [phone] [facility] 10-20-2023 Telephone encounter Note Neuro SPINE CARE COORDINATION QUICK NOTE Returned pts call to discuss surgery planning. No answer, LVM with office number for call back. Gracie Voss, SOFI Main [employer] Cook [employer] Cashier [facility] 10-20-2023 Telephone encounter Note Patient is returning nurse call pertaining to below message, scheduling surgery with Dr. Bailey call back [phone] [facility] 10-16-2023 Telephone encounter Note Terrie Phillips routed conversation to [facility] 11 minutes ago (4:07 PM) Terrie [...] not found Best number to reach caller: [phone] Best time to reach caller: NA Is it OK to leave a detailed voice message? Yes Terrie Phillips [facility] 10-16-2023 Miscellaneous Notes Neuro SPINE CARE COORDINATION QUICK NOTE See other telephone encounter . Gracie Voss RN Main [employer] Call received for Maxime Bailey MD regarding Rashard Andersen. Caller: Self Patient Identified by Name and : Yes Reason for Call: Returning Phone call from Nurse Is there any additional information the provider should know? No Last Office Visit: 10/16/2023 Next scheduled appointment: Visit date not found Best number to reach caller: [phone] Best time to reach caller: NA Is it OK to leave a detailed voice message? Yes Terrie Phillips documented in this encounter [facility] 10-16-2023 Telephone encounter Note Neuro SPINE CARE COORDINATION QUICK NOTE Call to patient to discuss surgery planning. No answer, LVM with office number for call back. Gracie Voss RN Main [employer] [facility] 10-16-2023 Telephone encounter Note Call received for Maxime Bailey MD regarding Rashard Andersen. Caller: Other: [facility] pain management calling for the patient Patient Identified by Name and : Yes Reason for Call: schedule surgery Is there any additional information the provider should know? Yes Dr. Bailey told him if injection did not work, he could get surgery. Last Office Visit: 09/22/2023 Next scheduled appointment: Visit date not found Best number to reach caller: [phone] Best time to reach caller: anytime Is it OK to leave a detailed voice message? Yes Janell Wilcox [facility] nt to schedule surgery; ph: [phone] [facility] 09-26-2023 Note HNO ID: [id number] Author: NANCY FAY APRN.STENCIL MAKER Service: ? Author Type: Nurse Practitioner Type: Progress Notes Filed: 09/26/2023 09:27 Note Text: SPINE SURGERY ESTABLISHED This is a virtual visit using Mobile2Me[employer] Video Visit. It required patient-provider interaction for the medical decision making as documented below. I have communicated my name and active licensure. The patient's identity and physical location were verified at the time of this visit. Either the patient or their legal customer care representative has been informed of the risks [...] the side effec (more content not included)... [facility] 09-22-2023 Miscellaneous Notes Patient called back got him scheduled for a follow up visit scheduled with MANAGER ENTERPRISE. Sent to schedulers. Neuro SPINE CARE COORDINATION QUICK NOTE Reviewed BETH note. Recommendation were to schedule a follow up (in person or virtual) 3-4 weeks after injection with Nancy Fay NP or Dr Bailey. Message sent to admin to assist patient in scheduling an appointment for follow up. Gracie Voss, SOFI Main Ent[employer] Cook And Cashier pt states injection with [facility] didn't work. Pt would like to schedule surgery. Call back; [phone] documented in this encounter [facility] 08-26-2023 Miscellaneous Notes OV noted completed and faxed to: [facility] Attn: Diane Confirmation received. Diane from [facility] called; they referred patient to Dr. Bailey. Requesting 08/19/23 OV Note be faxed to her at: [facility] Attn: Diane FYI: OV Note is not completed yet - please advise once signed and the note will be faxed as requested. documented in this encounter [facility] 08-19-2023 History of Presen t illness [...] PATIENT PRESENTS WITH AN IMPLANTABLE OR ATTACHED PROPRIETARY TRADER: No RADIOLOGY DEPARTMENT: General X-ray: Exam(s) Completed: Spine X-Ray(s): Cervical AP / LAT / FLEX-EXT PERIPHERAL IV DATA: Not applicable SIGNED BY: RT Ran(R) August 19, 2023 9:12 AM documented in this encounter [facility] 08-19-2023 Note HNO ID: [id number] Author: FELA RODAS RT(R) Service: Radiology Author [...] PATIENT PRESENTS WITH AN IMPLANTABLE OR ATTACHED PROPRIETARY TRADER: No RADIOLOGY DEPARTMENT: General X-ray: Exam(s) Completed: Spine X-Ray(s): Cervical AP / LAT / FLEX-EXT PERIPHERAL IV DATA: Not applicable SIGNED BY: RT Ran(R) August 19, 2023 9:12 AM [facility] 08-19-2023 Note HNO ID: [id number] Author: MAXIME BAILEY MD Service: ? Author Type: Physician Type: Progress Notes Filed: 08/25/2023 14:37 Note Text: SPINE SURGERY OUTPATIENT CONSULT This is an in-person visit. SERVICE DATE: 08/19/2023 PCP: No primary care provider on file. REFERRING PROVIDER: Gala Garza [address] [facility] [address] Consult requested for an opinion regarding the [...] Gabapentin. 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 CHIEF COMPLAINT: [...] after injection with Dr Bailey or Nancy Fay NP to review results of injection I [...] with more than 50% of the total byro-vo-wcfa time of the visit in counseling / coordination of care. By signing my name below, I, Steven Mercer, attest that this documentation has been prepared under the direction and in the presence of Dr. Bailey. Electronically signed, Tarik Koehler August 19, 2023 9:28 AM SIGNATURE: Maxime Bailey MD PATIENT NAME: Rashard Andersen DATE: August 19, 2023 TIME: 9:27 AM PAGER: [facility] 07-03-2023 History of Presen t illness [...] Health Provider or Pain Management Provider at [facility]? No If answer is YES please schedule directly with surgeon, triage does not need to be completed. Is this a self-referral No If not, who is the Referring Provider Gala Garza Is this a 2nd opinion from another spine surgeon? No Were you offered surgery? No MRI/CT/myelogram within 12 months? Yes If NO , please refer to medical spine or PCP to complete above imaging, triage does not need to be completed If YES, please ask for the name/address of the facility where the MRI/CT/myelogram was completed: [facility] [address] [facility] [address] MRI/CT/myelogram viewable in Epic: No If not, please provide [phone] to fax in imaging reports for review. [...] completed: Additional Comments documented in this encounter [facility] 01-07-2022 Evaluation note Encounter Date Diagnosis [...] UP AND WHEN TO SEEK EMERGENCY TREATMENT [facility] Other Evaluation note* Diagnosis Neck pain- Primary Cervicalgia [facility] Diagnosis Neck pain Cervicalgia documented in this encounter [facility] note* Diagnosis Pre-op evaluation- Primary Preoperative examination, [...] adult -BMI 34.70 documented in this encounter [facility] note* Diagnosis Cervical radiculopathy- Primary Brachial neuritis [...] 34.9 in adult documented in this encounter [facility] note* Diagnosis Onset Date Resolution Status Cervical spondylosis acute Obesity acute Wellness examination acute Wound dehiscence, surgical a [facility] Work Phone: Evaluation note* Diagnosis Cervical radiculopathy- Primary Brachial neuritis or radiculitis nos Acute post-operative pain Acute post-operative pain Class 1 obesity due to excess calories without serious comorbidity with body mass index (BMI) of 34.0 to 34.9 in adult Pre-op evaluation- Primary Preoperative examination, unspecified Class 1 obesity due to excess calories without serious comorbidity with body mass index (BMI) of 34.0 to 34.9 in adult S/P cervical spinal fusion- Primary Arthrodesis status documented in this encounter [facility] for referral (narrative)* Diagnostic Procedure Only (Routine) - Pending Review Specialty Diagnoses / Procedures Referred By Contac t Referred To Contact XR IMAGING Diagnoses Neck pain Procedures XR CERV OTHER 4V AP/LAT/FLX/EXT RADEX SPINE CERVICAL 4 OR 5 VIEWS Nancy Fay APRN.CNP [address] [place] [address] Xr Imaging [place] [address] Referral ID Status Reason Start Date Expiration Date Visits Requested Visits Authorized [id number] Pending Review Auto-Generat ed Referral 07/03/2023 08/01/2024 1 1 [facility] for referral (narrative)* Diagnostic Procedure Only (Routine) - Closed Specialty Diagnoses / Procedures Referred By Contac t Referred To Contact XR IMAGING Diagnoses Neck pain Procedures XR CERV OTHER 4V AP/LAT/FLX/EXT RADEX SPINE CERVICAL 4 OR 5 VIEWS Nancy Fay APRN.YUNG [address] [place] [address] Xr Imaging [place] [address] Referral ID Status Reason Start Date Expiration Date V isits Requested Visits Authorized [id number] Closed Auto-Generate d Referral 07/03/2023 08/01/2024 1 1 [facility] for referral (narrative)* Outpatient Procedure (Routine) - Closed Specialty Diagnoses / Procedures Referred By Contac t Referred To Contact [facility] Diagnoses Pre-op evaluation Procedures ECG COMPLETE ECG ROUTINE ECG W/LEAST 12 LDS W/I&R Shanice Sumner PA-C [facility] [address] [id number] [facility] [place] [address] [place], [place] [id number] Referral ID Status Reason Start Date Expiration Date V isits Requested Visits Authorized [id number] Closed Auto-Generate d Referral 02/24/2024 02/23/2025 1 1 [facility] Summary Purpose Family History No Family History Records FoundNo Family History Records Found Advance Directives No Advanced Directives Records Found Advance Directive Response Recorded Date/ Time Advance Directives No February 8:50am Chief Complaint and Reason for Visit Chief Complaint wellness Reason for Visit Cervical spondylosis Obesity Wellness examination Wound dehiscence, surgical Reason for Referral Specialty Diagnoses / Procedures Referred By Contac t Referred To Contact [facility] Diagnoses S/P cervical spinal fusion Procedures CONSULT TO PHYSICAL THERAPY PHYSICAL THERAPY EVALUATION HIGH COMPLEX 45 MINS Maxime Bailey MD [address] [place] [address] [facility] [place] [address] Referral ID Status Reason Start Date Expiration Date Visits Requested Visits Authorized [id number] Pending Review Auto-Generat ed Referral 04/27/2025 1 1 Specialty Diagnoses / Procedures Referred By Contac t Referred To Contact XR IMAGING Diagnoses S/P cervical spinal fusion Procedures XR CERV OTHER 6V AP/LAT/FLX/EXT/OBL RADEX SPINE CERVICAL 6 OR MORE VIEWS Maxime Bailey MD [address] [place] [address] Xr Imaging [facility] Referral ID Status Reason Start Date Expiration Date Visits Requested Visits Authorized [id number] New Request Auto-Generat ed Referral 4 05/27/2025 1 1 Specialty Diagnoses / Procedures Referred By Contac t Referred To Contact XR IMAGING Diagnoses S/P cervical spinal fusion Procedures XR CERV OTHER 4V AP/LAT/FLX/EXT RADEX SPINE CERVICAL 4 OR 5 VIEWS Nancy Fay APRN.STENCIL MAKER [address] [place] [phone] X[facility] [place] [address] Referral ID Status Reason Start Date Expiration Date Visits Requested Visits Authorized [id number] New Request Auto-Generat ed Referral 05/27/2025 1 1 Additional Source Comments REASON FOR VISIT (unrecogniz ed section and content) Reason Comments [employer] [facility] Specialty Diagnoses / Procedures Referred By Contbuzz t Referred To Contact XR IMAGING Diagnoses Neck pain Procedures XR CERV OTHER 4V AP/LAT/FLX/EXT RADEX SPINE CERVICAL 4 OR 5 VIEWS Nancy Fay APRN.STENCIL MAKER [address] [place] [phone] X[facility] [place] [address] Referral ID Status Reason Start Date Expiration Date V isits Requested Visits Authorized [id number] Closed Auto-Generate d Referral 07/03/2023 08/01/2024 1 1 Reason Comments Request from Provider Reason Comments Schedule Surgery Reason Comments Returning Patient's Call Reason Comments Appointment Reason Comments Follow Up Reason Comments Patient Question Reason Comments Call from Pre-access Reason Comments Pain Reason Comments Pre-Op Exam Reason Comments Patient Update Reason Comments Post Op Reason Comments Forms Source Comments (unrecognize d section and content) In the event this informatio n is protected by the Federal Confidentiality of Alcohol and Drug Abuse Patient Records regulations: The Federal rules restrict any use of the information to criminally investigate or prosecute any alcohol or drug abuse patient.[facility] event this information is protected by the Federal Confidentiality of Alcohol and Drug Abuse Patient Records regulations: The Federal rules restrict any use of the information to criminally investigate or prosecute any alcohol or drug abuse patient.[facility] the event this information is protected by the Federal Confidentiality of Alcohol and Drug Abuse Patient Records regulations: The Federal rules restrict any use of the information to criminally investigate or prosecute any alcohol or drug abuse patient.[facility] the event this information is protected by the Federal Confidentiality of Alcohol and Drug Abuse Patient Records regulations: The Federal rules restrict any use of the information to criminally investigate or prosecute any alcohol or drug abuse patient.[facility] the event this information is protected by the Federal Confidentiality of Alcohol and Drug Abuse Patient Records regulations: The Federal rules restrict any use of the information to criminally investigate or prosecute any alcohol or drug abuse patient.[facility] the event this information is protected by the Federal Confidentiality of Alcohol and Drug Abuse Patient Records regulations: The Federal rules restrict any use of the information to criminally investigate or prosecute any alcohol or drug abuse patient.[facility] the event this information is protected by the Federal Confidentiality of Alcohol and Drug Abuse Patient Records regulations: The Federal rules restrict any use of the information to criminally investigate or prosecute any alcohol or drug abuse patient.[facility] the event this information is protected by the Federal Confidentiality of Alcohol and Drug Abuse Patient Records regulations: The Federal rules restrict any use of the information to criminally investigate or prosecute any alcohol or drug abuse patient.[facility] the event this information is protected by the Federal Confidentiality of Alcohol and Drug Abuse Patient Records regulations: The Federal rules restrict any use of the information to criminally investigate or prosecute any alcohol or drug abuse patient.[facility] the event this information is protected by the Federal Confidentiality of Alcohol and Drug Abuse Patient Records regulations: The Federal rules restrict any use of the information to criminally investigate or prosecute any alcohol or drug abuse patient.[facility] the event this information is protected by the Federal Confidentiality of Alcohol and Drug Abuse Patient Records regulations: The Federal rules restrict any use of the information to criminally investigate or prosecute any alcohol or drug abuse patient.[facility] the event this information is protected by the Federal Confidentiality of Alcohol and Drug Abuse Patient Records regulations: The Federal rules restrict any use of the information to criminally investigate or prosecute any alcohol or drug abuse patient.[facility] Hospital[facility] the event this information is protected by the Federal Confidentiality of Alcohol and Drug Abuse Patient Records regulations: The Federal rules restrict any use of the information to criminally investigate or prosecute any alcohol or drug abuse patient.[facility] the event this information is protected by the Federal Confidentiality of Alcohol and Drug Abuse Patient Records regulations: The Federal rules restrict any use of the information to criminally investigate or prosecute any alcohol or drug abuse patient.[facility] Hospital[facility] the event this information is protected by the Federal Confidentiality of Alcohol and Drug Abuse Patient Records regulations: The Federal rules restrict any use of the information to criminally investigate or prosecute any alcohol or drug abuse patient.[facility] Hospital[facility] the event this information is protected by the Federal Confidentiality of Alcohol and Drug Abuse Patient Records regulations: The Federal rules restrict any use of the information to criminally investigate or prosecute any alcohol or drug abuse patient.[facility] Hospital[facility] the event this information is protected by the Federal Confidentiality of Alcohol and Drug Abuse Patient Records regulations: The Federal rules restrict any use of the information to criminally investigate or prosecute any alcohol or drug abuse patient.[facility] Care Teams (unrecognized sec tion and content) Merchandise Director Relationship Specialty Start Date End Date Gala Garza MD [address] [place] [address] 1 [place] [address] Referring Pain Management 06/14/23 Merchandise Director Relationship Specialty Start Date End Date Gala Garza MD [address] [place] [address] 1 [place] [address] Referring Pain Management 06/14/23 Merchandise Director Relationship Specialty Start Date End Date Gala Garza MD [address] [place] [address] 1 [place] [address] Referring Pain Management 06/14/23 Merchandise Director Relationship Specialty Start Date End Date Gala Garza MD [address] [place] [address] 1 [place] [address] Referring Pain Management 06/14/23 Merchandise Director Relationship Specialty Start Date End Date Gala Garza MD [address] [place] [address] 1 [place] [address] Referring Pain Management 06/14/23 Merchandise Director Relationship Specialty Start Date End Date Gala Garza MD [address] [place] [address] 1 [place] [address] Referring Pain Management 06/14/23 Merchandise Director Relationship Specialty Start Date End Date Gala Garza MD [address] [place] [address] 1 [place] [address] Referring Pain Management 06/14/23 Merchandise Director Relationship Specialty Start Date End Date Gala Garza MD [address] [place] [address] 1 [place] [address] Referring Pain Management 06/14/23 Merchandise Director Relationship Specialty Start Date End Date Gala Garza MD [address] [place] [address] [place] [address] Referring Pain Management 06/14/23 Merchandise Director Relationship Specialty Start Date End Date Gala Garza MD [address] [place] [address] [place] [address] Referring Pain Management 06/14/23 Merchandise Director Relationship Specialty Start Date End Date Gala Garza MD [address] [place] [address] 1 [place] [address] Referring Pain Management 06/14/23 Team Status: Active Member Role Status Dates Jose Peck DO Primary Care Provider Active Team Status: Inactive Member Role Status Dates Jose Peck DO Primary Care Provide r, Attending Provider Active Start: April 13, 2024 End: April 13, 2024 Merchandise Director Relationship Specialty Start Date End Date Gala Garza MD [address] [place] [address] 1 [place] [address] Referring Pain Management 06/14/23 Merchandise Director Relationship Specialty Start Date End Date Gala Garza MD [address] [place] [address] 1 [place] [address] Referring Pain Management 06/14/23 Merchandise Director Relationship Specialty Start Date End Date Gala Garza MD [address] [place] [address] 1 [address] [place] [address] Referring Pain Management 06/14/23 (unrecognized sect ion and content) No Status Records FoundNo Status Records Found INFORMATION SOURCE (unrecogn ized section and content) DATE CREATED AUTHOR 09/05/2023 [facility] DATE CREATED AUTHOR AUTHOR'S ORGANIZ ATION 07/22/2024 [facility] Goals (unrecognized section and content) Goals [...] BE BASED ON THE PRIMARY CLINICAL RECORDS. [facility] [employer] [facility]. provides no warranty or guarantee of the accuracy or completeness of information in this document.
[2024-09-03 09:49] LABS: Estimated Average Glucose 114 mg/dL; Glycohemoglobin A1C 5.6 % (4.5-6.2)
[2024-09-03 09:51] LABS: Chol HDL Ratio 5.7; Cholesterol 245 mg/dL (<=200); HDL Cholesterol 43 mg/dL (40-60); Triglycerides 194 mg/dL (<=150); VLDL CHOLESTEROL 38.8 mg/dL
== END 2024-09-03 08:44 | disposition home or self-care (01) ==
LOC: LAB 08:50
PROVIDERS: PCP Internal Medicine; Visit Provider Internal Medicine
DX: Z00.00 Encounter for general adult medical examination without abnormal findings (principal); E78.2 Mixed hyperlipidemia
CPT/HCPCS: 36415; 80061; 83036